=== PATIENT | female | born 1985 | race Caucasian/White ===

== ENCOUNTER 2023-01-09 20:56 | Inpatient (IN) ==
[2023-01-09 21:54] LABS: Basophils # (auto) 0.03 K/uL (0-0.2); Basophils % (auto) 0.5 %; Eosinophils # (auto) 0.07 K/uL (0-0.50); Eosinophils % (auto) 1.1 %; Hematocrit (blood only) 39.6 % (37.0-47.0); Hemoglobin 13.7 g/dl (12.0-16.0); Immature Granulocytes # (auto) 0.01 K/uL (0.01-0.20); Immature Granulocytes % (auto) 0.2 %; Lymphocytes # (auto) 2.47 K/uL (1.2-3.4); Mean Corpuscular Hemoglobin 29.7 pg (25.0-34.0); Mean Corpuscular Hgb Conc 34.6 g/dL (32.0-36.0); Mean Corpuscular Volume 85.9 fL (80.0-100.0); Mean Platelet Volume 9.4 fL (9.4-12.4); Monocytes # (auto) 0.42 K/uL (0.11-0.59); Monocytes % (auto) 6.8 %; Neutrophils # (auto) 3.17 K/uL (1.40-6.50); Neutrophils % (auto) 51.4 %; Platelet Count 389 K/uL (130-400); RDW Coefficient of Variation 12.3 % (11.5-14.5); RDW Standard Deviation 38.6 fL (36.4-46.3); Red Blood Count 4.61 M/uL (4.20-5.40); White Blood Count 6.17 K/ul (4.8-10.8)
[2023-01-09 21:59] LABS: Appearance Urine Cloudy (Clear); Bacteria Urine Automated 1+ (Negative); Bilirubin Urine Negative (Negative); Blood Urine Negative (Negative); Color Urine Dark Yellow; Epithelial Cell Urine Auto >30 /lpf (0-5); Glucose Urine UA Negative (Negative); Ketones Urine Negative (Negative); Leukocyte Esterase Urine Trace (Negative); Nitrite Urine Negative (Negative); Protein Urine Trace (Negative); RBC Urine Automated 0-4 /hpf (0-4); Specific Gravity Urine 1.024 (1.000-1.030); Urobilinogen Urine Negative (Negative); pH Urine 5.5 (4.5-7.5)
[2023-01-09 22:07] LABS: Acetaminophen < 3 ug/ml (10-30); Albumin Globulin Ratio 1.3 (0.9-2); Albumin Level 4.7 gm/dl (3.4-5.0); BUN Creatinine Ratio 17.3 (10-20); Bilirubin,Total 0.6 mg/dl (0.2-1.0); Calcium 9.8 mg/dl (8.6-10.3); Creatinine Clr Calc Pharmacy 76.3 ml/min; Est GFR (African American) 107.5 ml/min; Est GFR (Non-African American) 92.8 ml/min; Globulin 3.7 gm/dl (2.5-4.0); Potassium 3.7 mmol/L (3.5-5.1); Salicylate < 3.0 mg/dl (3.0-30); Total Protein 8.4 gm/dl (6.0-8.3)
--- NOTE | 2023-01-09 22:27 | Emergency Department Note ---
Impression & Plan Psychosis ADMIT ED Provider Note HPI: The patient is a 37-year-old female who presents emergency department with a chief complaint of hallucinations. Patient states that she is having auditory hallucinations. She states they have been worsening over the past several days. Patient states this is a result of "witchcraft". Patient states that she has been hearing voices that have been telling her negative things. She states she is not having any suicidal thoughts. Patient denies any drug use or alcohol use over the past several days. Her fianc at the bedside stated outside the room of the patient has become increasingly paranoid that the people performing "witchcraft" are coming to get her and she has been sleeping with a knife at night as she has become increasingly paranoid. On arrival here to the ED the patient is calm and cooperative, she is alert, she is in no acute physical distress on my initial assessment ROS: - Per HPI *Outpatient medications and allergy history reviewed. *Pertinent external medical records reviewed. PE: General: Alert HEENT: Normocephalic, trachea midline Eyes: Extraocular eye movement is intact, no scleral erythema Pulmonary: Clear to auscultation bilaterally, no wheezing Cardio: Regular rate and rhythm GI: Abdomen is soft to palpation : No suprapubic tenderness MSK: No evidence of trauma or malformation of the extremities, no edema Skin: No evidence of rash Neuro: Alert, no focal deficits Psychiatric: Cooperative Differential Diagnosis: Delusional disorder, acute psychosis with paranoia, d rug-induced psychosis, schizophrenia, schizoaffective disorder, amongst other potential pathologies. Medical Decision Making: Patient is a 37-year-old female with history of methamphetamine abuse, presented to the emergency department with hallucinations. Patient was medically cleared here in the ED for case management assessment, of note her lab work was largely unremarkable however urine drug screen was positive for amphetamine/meth. Patient's fianc at the bedside stated that she has been increasingly paranoid recently, she has been sleeping with a knife, they are requesting inpatient admission, at this time patient is voluntary. She was assessed by case management and ultimately determined appropriate for inpatient admission. Patient was assessed at this time by [facility] and ultimately excepted for inpatient psychiatric care. Patient was transferred voluntarily to [facility] for further management. Consultants: Case management Disposition discussion held by myself with: Patient and fianc at the bedside Diagnosis: 1. Acute psychosis 2. Auditory hallucination 3. Methamphetamine abuse Disposition: Admission to psychiatry Seamus Herman DO Emergency Medicine Past Med/Surg History Medical History Anxiety Depression No pertinent family history Surgical History No pertinent past surgical history Social History Smoking Status: Current every day smoker Tobacco Type: Cigarettes Preferred Language: Tanzanian Feels Safe at Home: Yes Gender Identity: Female Allergies Allergies Allergy/AdvReac Type Severity Reaction Status Date / Time Corticosteroids AdvReac Mild VOMITING Verified 01/09/23 22:14 (Glucocorticoids) Home Meds Home Medications Medication Instructions Recorded Confirmed MULTIPLE VITAMIN (ONCE DAILY) 1 tab PO QAM ##0 09/26/14 01/09/23 buprenorphine HCl 8 mg sublingual 8 mg sublingual 2XD 01/07/23 01/09/23 tablet Results & Data (ED) Vital Signs Vital Signs - 24 hr 01/09/23 20:57 01/09/23 23:04 Temperature 36.7 C Temperature Source Temporal Artery Scan Pulse Rate 105 H Pulse Rate [Finger] 78 Respiratory Rate 17 20 Respiratory Effort / Characteristics Non-Labored Spontaneous Non-Labored Spontaneous Respiratory Depth Normal Normal Blood Pressure 144/92 H Blood Pressure [Right Arm] 131/81 Blood Pressure Mean 109 Blood Pressure Mean [Right Arm] 97 Blood Pressure Position Sitting Pulse Oximetry 99 99 Oxygen Delivery Method Room Air Room Air Sepsis Recent Fever Within 48 Hours No Sepsis New/Unexplained Change in Mental Status No Sepsis Action Taken by Nursing No Action Required Laboratory Data 01/09/23 21:23 01/09/23 21:23 Lab Results 01/09/23 01/09/23 01/09/23 Range/Units 21:23 21:23 21: WBC 6.17 (4.8-10.8) K/ul RBC 4.61 (4.20-5.40) M/uL Hgb 13.7 (12.0-16.0) g/dl Hct 39.6 (37.0-47.0) % MCV 85.9 (80.0-100.0) fL MCH 29.7 (25.0-34.0) pg MCHC 34.6 (32.0-36.0) g/dL RDW Std Deviation 38.6 (36.4-46.3) fL RDW Coeff of Ajnet 12.3 (11.5-14.5) % Plt Count 389 (130-400) K/uL MPV 9.4 (9.4-12.4) fL Immature Gran % (Auto) 0.2 % Neut % (Auto) 51.4 % Lymph % (Auto) 40.0 % Kent % (Auto) 6.8 % Eos % (Auto) 1.1 % Baso % (Auto) 0.5 % Neut # (Auto) 3.17 (1.40-6.50) K/uL Lymph # (Auto) 2.47 (1.2-3.4) K/uL Kent # (Auto) 0.42 (0.11-0.59) K/uL Eos # (Auto) 0.07 (0-0.50) K/uL Baso # (Auto) 0.03 (0-0.2) K/uL Immature Gran # (Auto) 0.01 (0.01-0.20) K/uL Sodium 138 (136-145) mmol/L Potassium 3.7 (3.5-5.1) mmol/L Chloride 104 (98-107) mmol/L Carbon Dioxide 27 (21-32) mmol/L Anion Gap 7 (3-11) BUN 14 (6-23) mg/dl Creatinine 0.81 (0.6-1.2) mg/dl Est Cr Clr Drug Dosing 76.3 ml/min Est GFR ( Amer) 107.5 ml/min Est GFR (Non-Af Amer) 92.8 ml/min BUN/Creatinine Ratio 17.3 (10-20) Glucose 96 (70-99(Fasting)) mg/dl Calcium 9.8 (8.6-10.3) mg/dl Total Bilirubin 0.6 (0.2-1.0) mg/dl AST 15 (13-39) U/L ALT 10 (7-52) U/L Alkaline Phosphatase 58 (34-104) U/L Total Protein 8.4 H (6.0-8.3) gm/dl Albumin 4.7 (3.4-5.0) gm/dl Globulin 3.7 (2.5-4.0) gm/dl Albumin/Globulin Ratio 1.3 (0.9-2) TSH 3.889 (0.300-4.500) uIu/ml Urine Color Urine Appearance (Clear) Urine pH (4.5-7.5) Ur Specific Rice (1.000-1.030) Urine Protein (Negative) Urine Glucose (UA) (Negative) Urine Ketones (Negative) Urine Blood (Negative) Urine Nitrite (Negative) Urine Bilirubin (Negative) Urine Urobilinogen (Negative) Ur Leukocyte Esterase (Negative) Urine WBC (Auto) (0-5) /hpf Urine RBC (Auto) (0-4) /hpf U Hyaline Cast (Auto) (0-5) /lpf U Epithel Cells (Auto) (0-5) /lpf Urine Bacteria (Auto) (Negative) Salicylates (3.0-30) mg/dl Urine Opiates Screen (Neg) Ur Methadone, Qual (Neg) Acetaminophen (10-30) ug/ml Urine Barbiturates (Neg) Ur Phencyclidine (PCP) (Neg) U Amphetamin/Meth Scrn (Neg) MDMA (Ecstasy) Screen (Neg) U Benzodiazepines Scrn (Neg) Ur Cocaine Metabolite (Neg) U Marijuana (THC) Screen (Neg) Ethyl Alcohol mg/dL (<10.0) mg/dl SARS-CoV-2, RNA, NAAT (NEGATIVE) 01/09/23 01/09/23 01/09/23 Range/Units 21:23 21:23 21:31 WBC (4.8-10.8) K/ul RBC (4.20-5.40) M/uL Hgb (12.0-16.0) g/dl Hct (37.0-47.0) % MCV (80.0-100.0) fL MCH (25.0-34.0) pg MCHC (32.0-36.0) g/dL RDW Std Deviation (36.4-46.3) fL RDW Coeff of Janet (11.5-14.5) % Plt Count (130-400) K/uL MPV (9.4-12.4) fL Immature Gran % (Auto) % Neut % (Auto) % Lymph % (Auto) % Kent % (Auto) % Eos % (Auto) % Baso % (Auto) % Neut # (Auto) (1.40-6.50) K/uL Lymph # (Auto) (1.2-3.4) K/uL Kent # (Auto) (0.11-0.59) K/uL Eos # (Auto) (0-0.50) K/uL Baso # (Auto) (0-0.2) K/uL Immature Gran # (Auto) (0.01-0.20) K/uL Sodium (136-145) mmol/L Potassium (3.5-5.1) mmol/L Chloride (98-107) mmol/L Carbon Dioxide (21-32) mmol/L Anion Gap (3-11) BUN (6-23) mg/dl Creatinine (0.6-1.2) mg/dl Est Cr Clr Drug Dosing ml/min Est GFR ( Amer) ml/min Est GFR (Non-Af Amer) ml/min BUN/Creatinine Ratio (10-20) Glucose (70-99(Fasting)) mg/dl Calcium (8.6-10.3) mg/dl Total Bilirubin (0.2-1.0) mg/dl AST (13-39) U/L ALT (7-52) U/L Alkaline Phosphatase (34-104) U/L Total Protein (6.0-8.3) gm/dl Albumin (3.4-5.0) gm/dl Globulin (2.5-4.0) gm/dl Albumin/Globulin Ratio (0.9-2) TSH (0.300-4.500) uIu/ml Urine Color Dark Yellow Urine Appearance Cloudy A (Clear) Urine pH 5.5 (4.5-7.5) Ur Specific Rice 1.024 (1.000-1.030) Urine Protein Trace H (Negative) Urine Glucose (UA) Negative (Negative) Urine Ketones Negative (Negative) Urine Blood Negative (Negative) Urine Nitrite Negative (Negative) Urine Bilirubin Negative (Negative) Urine Urobilinogen Negative (Negative) Ur Leukocyte Esterase Trace H (Negative) Urine WBC (Auto) 5-10 H (0-5) /hpf Urine RBC (Auto) 0-4 (0-4) /hpf U Hyaline Cast (Auto) 10-30 H (0-5) /lpf U Epithel Cells (Auto) >30 H (0-5) /lpf Urine Bacteria (Auto) 1+ H (Negative) Salicylates < 3.0 L (3.0-30) mg/dl Urine Opiates Screen (Neg) Ur Methadone, Qual (Neg) Acetaminophen < 3 L (10-30) ug/ml Urine Barbiturates (Neg) Ur Phencyclidine (PCP) (Neg) U Amphetamin/Meth Scrn (Neg) MDMA (Ecstasy) Screen (Neg) U Benzodiazepines Scrn (Neg) Ur Cocaine Metabolite (Neg) U Marijuana (THC) Screen (Neg) Ethyl Alcohol mg/dL < 10.0 (<10.0) mg/dl SARS-CoV-2, RNA, NAAT (NEGATIVE) 01/09/23 01/09/23 Range/Units 21:31 21:31 WBC (4.8-10.8) K/ul RBC (4.20-5.40) M/uL Hgb (12.0-16.0) g/dl Hct (37.0-47.0) % MCV (80.0-100.0) fL MCH (25.0-34.0) pg MCHC (32.0-36.0) g/dL RDW Std Deviation (36.4-46.3) fL RDW Coeff of Janet (11.5-14.5) % Plt Count (130-400) K/uL MPV (9.4-12.4) fL Immature Gran % (Auto) % Neut % (Auto) % Lymph % (Auto) % Kent % (Auto) % Eos % (Auto) % Baso % (Auto) % Neut # (Auto) (1.40-6.50) K/uL Lymph # (Auto) (1.2-3.4) K/uL Kent # (Auto) (0.11-0.59) K/uL Eos # (Auto) (0-0.50) K/uL Baso # (Auto) (0-0.2) K/uL Immature Gran # (Auto) (0.01-0.20) K/uL Sodium (136-145) mmol/L Potassium (3.5-5.1) mmol/L Chloride (98-107) mmol/L Carbon Dioxide (21-32) mmol/L Anion Gap (3-11) BUN (6-23) mg/dl Creatinine (0.6-1.2) mg/dl Est Cr Clr Drug Dosing ml/min Est GFR ( Amer) ml/min Est GFR (Non-Af Amer) ml/min BUN/Creatinine Ratio (10-20) Glucose (70-99(Fasting)) mg/dl Calcium (8.6-10.3) mg/dl Total Bilirubin (0.2-1.0) mg/dl AST (13-39) U/L ALT (7-52) U/L Alkaline Phosphatase (34-104) U/L Total Protein (6.0-8.3) gm/dl Albumin (3.4-5.0) gm/dl Globulin (2.5-4.0) gm/dl Albumin/Globulin Ratio (0.9-2) TSH (0.300-4.500) uIu/ml Urine Color Urine Appearance (Clear) Urine pH (4.5-7.5) Ur Specific Rice (1.000-1.030) Urine Protein (Negative) Urine Glucose (UA) (Negative) Urine Ketones (Negative) Urine Blood (Negative) Urine Nitrite (Negative) Urine Bilirubin (Negative) Urine Urobilinogen (Negative) Ur Leukocyte Esterase (Negative) Urine WBC (Auto) (0-5) /hpf Urine RBC (Auto) (0-4) /hpf U Hyaline Cast (Auto) (0-5) /lpf U Epithel Cells (Auto) (0-5) /lpf Urine Bacteria (Auto) (Negative) Salicylates (3.0-30) mg/dl Urine Opiates Screen Neg (Neg) Ur Methadone, Qual Neg (Neg) Acetaminophen (10-30) ug/ml Urine Barbiturates Neg (Neg) Ur Phencyclidine (PCP) Neg (Neg) U Amphetamin/Meth Scrn Pos H (Neg) MDMA (Ecstasy) Screen Neg (Neg) U Benzodiazepines Scrn Neg (Neg) Ur Cocaine Metabolite Neg (Neg) U Marijuana (THC) Screen Neg (Neg) Ethyl Alcohol mg/dL (<10.0) mg/dl SARS-CoV-2, RNA, NAAT NEGATIVE (NEGATIVE) Discharge Plan Visit Data Chief Complaint: Mental Health Evaluation Stated Complaint: MENTAL HEALTH EVAL ED Provider: Seamus Herman Discharge Problem: Psychosis Patient Disposition: Admitted As Inpatient Discharge Instructions Interventions: ED Discharge Assessment Last Done: 01/10/23 00:08
[2023-01-09 22:36] LABS: Amphetamines+Metham, Urine Pos (Neg); Barbiturates, Urine Neg (Neg); Benzodiazepine, Urine Neg (Neg); Cocaine, Urine Neg (Neg); MDMA (Ecstacy), Urine Neg (Neg); Methadone, Urine Neg (Neg); Opiate, Urine Neg (Neg); Phencyclidine, Urine Neg (Neg)
[2023-01-10] MEDS ORDERED: BISMUTH SUBSALICYLATE LIQD 236 ML PO PRN (00:03)
[2023-01-10] MEDS ORDERED: MAGNESIUM HYDROXIDE SUSP 30 ML UDC PO PRN (00:03)
[2023-01-10] MEDS ORDERED: hydrOXYzine HCl 25 MG TAB PO PRN ×2 (00:03)
[2023-01-10] MEDS ORDERED: ACETAMINOPHEN 325 MG TAB PO PRN (00:03)
[2023-01-10] MEDS ORDERED: ALUMINUM/MAGNESIUM SUSP 30 ML UDC PO PRN (00:03)
[2023-01-10] MEDS ORDERED: SODIUM CHLORIDE 0.65% NA SOLN 45 ML (OCEAN) PRN (00:03)
[2023-01-10] MEDS ORDERED: OLANZapine 5 MG TABLET PO PRN (00:48)
--- NOTE | 2023-01-10 08:33 | History & Physical ---
Date of Service January 10, 2023 Impression / Recommendations Manoj Chandra is a 37 year old woman with no formal psychiatric history, history of chronic pain and recent Adderall recreational use admitted for psychosis with paranoia and delusions resulting in worsening sleep, appetite, difficulty functioning and loss of her job of 5 years. Diagnostically consistent with unspecified psychosis with broad differential including primary psychotic disorder versus substance-induced or withdrawal (UDS positive for meth/amp but confirmatory pending) versus MDD with psychotic features vs secondary medical condition (but no lab abnormalities and medically cleared in ED), no current evidence for episode of blayne. She requires psychiatric hospitalization for diagnostic clarification, safety and stabilization, medication management and development of further coping skills. 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 Discussed risks, benefits and alternatives. Patient would like to start and consented to olanzapine for psychosis. Reviewed side effects including but not limited to: movement (TD, NMS), cardiac (QTc prolongation), and metabolic (stroke, insulin resistance) and necessity for fasting lipid and glucose labwork and AIMS done with score of 0. (1) Psychotic disorder with delusions: (2) Anxiety: (3) Back pain: Plan 01/10/2023: The patient was admitted to the [facility]) on q15 min checks (behavioral with suicide precautions) for safety. The patient will participate in group, recreational, and milieu therapies and will be offered additional individual and family sessions as clinically appropriate. * Start olanzapine 5mg po HS * Fasting lipid panel, glucose, B12, folate, Vit D labs tomorrow AM Inventory Assets Strengths: supportive relationships, willing to get treatment Needs: safety and stabilization, medication adjustment, additional coping skills, increased outpatient services Suicide Risk Level Suicide Risk Level: Moderate (q15 min suicide checks) (psychosis and paranoia but denies SI and feels safe in the hospital, able to safety contract and agrees to let nursing/staff know should they develop plan, intent or feel unable to re main safe. ) Risk Factors Assessment Male: No : Yes Do You Have Access To A Gun?: No Health Problems: No Mental Health Diagnoses: Yes Previous Attempt: No Family History of Suicide: No (sister attempted but did not complete) Previous Psychiatric Hospitalization: Yes Hopelessness: No Protective Factors Assessment Employed: No (quit/fired from job) Stable Relationships: Yes Supportive Family: Yes Good Rapport with Provider: Yes Psychiatric History Identifying Data CORAZON BHAKTA is a 37-year-old woman who currently lives with her fitime their combined five children in [place], has a history of depression, and was admitted on 01/10/23 00:04 on a 201 voluntary commitment for psychosis with auditory hallucinations and inability to function safely at home. Chief Complaint "Stuff got spiritually very weird". History of Present Illness Corazon presented to the emergency department for the second time in two days for about three weeks of worsening anxiety, psychosis and paranoia. She has been expressing concerns about witchcraft, fears about a cult coming to harm her fiancee, has started sleeping with a knife under her pillow due to concerns for her safety (she denies this, reports sleeping with bibles and taisha quartz), has been hearing auditory hallucinations and recently quit her job and has not been eating (stomach pain) nor sleeping well (not good due to her anxiety and worrying about her kids). She states that after a move things at the house "got weird" and she also developed "amazing hearing" including being able to hear her boss even when he was in a different building. States this "weird-ed out my boss" so she lost her job of 5 years about two weeks ago. She notes "something is weird and off but it's not me". Reports she took Adderall, non-prescribed, for a few months off-and-on due to difficulty focusing and reports Dr. Ang her pain management provider is working to help her find an outpatient psychiatric provider. She feels the Subutex has been causing memory loss and also makes things more difficult. Further recent history reviewed as documented by ED psych CM on 01/09/2023: "Completed psychiatric evaluation with Corazon. She states that while she did take the Adderall, "I know myself and I know how I'm feeling is not normal. I feel like I'm being attacked in my own home." Corazon is hearing voices, though she is adamant that these voices she is hearing are actually real people following her around. They call her names like "stupid bitch" and "whore" and tells her that they are going to kill her. Corazon states that she has been doing rituals/prayers to keep these voices away. She states the spirits do not like her. She believes this is a cult following her around, "some kind of witchcraft". She states that she lost her job last week when she somehow got the ability to hear her boss's voice and was on camera acting erratically. Corazon states that she does not feel safe at home and feels that she is going to be harmed. She is fearful for being deemed crazy. Her fianc, Simón, provides additi onal information that Corazon is not eating or sleeping. She has become so paranoid that she sleeps with a knife. Simón is concerned for her safety if she does not receive psychiatric treatment." She is not currently prescribed any psychiatric medications. She takes Subutex for pain and recently was also prescribed Soma for pain but hasn't taken this and has prescribed gabapentin for pain but doesn't take this. Psychiatric ROS notable for no current nor history of symptoms of blayne, PTSD, OCD, eating disorder nor self-harm. Past Psychiatric History Current Psychiatric Diagnosis: unspecified psychosis Outpatient Services: none Previous Psych Admissions: [facility] "years ago" for depression Do You Have Access To A Gun?: No History of Previous Suicide Attempt: No Past Medication Trials: she cannot recall, doesn't think she ever took medication for depression Past Head Trauma/Neuro History History of Concussion/Seizure: No Allergies Allergy/AdvReac Type Severity Reaction Status Date / Time buprenorphine [From Suboxone] AdvReac Intermediate Hives Verified 01/10/23 14:48 naloxone [From Suboxone] AdvReac Intermediate Hives Verified 01/10/23 14:48 Corticosteroids AdvReac Mild VOMITING Verified 01/10/23 14:48 (Glucocorticoids) Home Medications Medication Instructions Recorded Confirmed Type MULTIPLE VITAMIN (ONCE DAILY) 1 tab PO QAM ##0 09/26/14 01/09/23 History buprenorphine HCl 8 mg sublingual 8 mg sublingual 2XD 01/07/23 01/09/23 History tablet Family History Family History of: Depression (sister) and Suicide Attempts (sister) Alcohol History Hx of Alcohol Use Over the Past 12 Months: No AUDIT Total Score: 0 Smoking Use Have You Smoked or Used Tobacco Products in the Last 30 Days: Yes tobacco type: cigarettes Smoking Status: Current every day smoker Smoking packs per day: 0.25 Substance History Hx of Prescription Med Misuse Over the Past 12 Months: Yes (claims she took Adderrall purchased off street) Hx of Over the Counter Med Misuse Over the Past 12 Months: No Hx of Inhalent Misuse Over the Past 12 Months: No Hx of Organic Substance Use Over the Past 12 Months: No Hx of Illegal Substances/Street Drug Use Over Past 12 Months: No (denies) Problems as a Result of Past Substance Use: None Identified Personal History Living Arrangements: Home Childhood: Her parents are alive but . Has 3 siblings. Highest Grade Completed: Did Not Graduate High School (completed 11th grade) Employment Status: Unemployed Marital Status: Living w/ Signif. Other (engaged to [facility]) Number Of Children: 3 biological kids, 2 children shared with her fitim Beliefs That Will Affect Care: None Current Legal Problems: No Hx Legal Problems: No Hx Traumatic Life Events: No Patient History Medical History Anxiety Depression No pertinent family history Surgical History No pertinent past surgical history Social History Smoking Status: Current every day smoker Tobacco Type: Cigarettes Preferred Language: Persian Communication Ability: Effective Hand Inserter Operator Required: No Beliefs That Will Affect Care: None Feels Safe at Home: Yes Gender Identity: Female Assistive Devices: None Review of Systems Review of Systems: All systems reviewed & are unremarkable except as noted in HPI & below (last two weeks has felt like chest and stomach are "getting compressed" like camp moving in, no jaw or arm pain, no SOB, no palpitations) Physical Exam Psychiatric: Orientation: alert and oriented x 3 Apperance: appropriately dressed and appropriately groomed Eye Contact: good eye contact Motor Behavior: no abnormal motor movements Speech: normal rate/rhythm/volume of speech Affect: + anxious affect and + constricted affect Mood: + anxious mood Thought Process: + circumstantial thought process Thought Content: + paranoid, + delusions and + persecution Suicidal Thoughts: denies suicidal thoughts, denies suicidal plan and denies suicidal intent Homicidal Thoughts: denies homicidal thoughts Hallucinations: + auditory hallucinations (sporadic, voice will say mean things "I'm going to kill you", "stupid bitch); no visual hallucinations Cognition: recent memory grossly intact, remote memory grossly intact, attention grossly intact and language grossly intact Estimated Intelligence: consistent with education level Insight: + limited insight Judgment: + fair judgement Vital Signs (Past 24 Hours): Last Vital Signs Temp 36.9 C 01/10/23 06:35 Pulse 68 01/10/23 06:35 Resp 16 01/10/23 06:35 BP 106/68 01/10/23 06:35 Pulse Ox 100 01/10/23 00:50 O2 Del Method Room Air 01/10/23 00:50 Exam Statement: A physical exam was performed in the ED by Dr. Herman for the purposes of medical clearance. I accept that physical as correct and adequate for the purposes of the inpatient physical exam. Results & Data ([facility]) Laboratory Results Laboratory Results - last 24 hr 01/09/23 01/09/23 01/09/23 21:23 21:23 21:23 WBC 6.17 RBC 4.61 Hgb 13.7 Hct 39.6 MCV 85.9 MCH 29.7 MCHC 34.6 RDW Std Deviation 38.6 RDW Coeff of Janet 12.3 Plt Count 389 MPV 9.4 Immature Gran % (Auto) 0.2 Neut % (Auto) 51.4 Lymph % (Auto) 40.0 [place]eton % (Auto) 6.8 Eos % (Auto) 1.1 Baso % (Auto) 0.5 Neut # (Auto) 3.17 Lymph # (Auto) 2.47 [place]eton # (Auto) 0.42 Eos # (Auto) 0.07 Baso # (Auto) 0.03 Immature Gran # (Auto) 0.01 Sodium 138 Potassium 3.7 Chloride 104 Carbon Dioxide 27 Anion Gap 7 BUN 14 Creatinine 0.81 Est Cr Clr Drug Dosing 76.3 Est GFR ( Amer) 107.5 Est GFR (Non-Af Amer) 92.8 BUN/Creatinine Ratio 17.3 Glucose 96 Calcium 9.8 Total Bilirubin 0.6 AST 15 ALT 10 Alkaline Phosphatase 58 Total Protein 8.4 H Albumin 4.7 Globulin 3.7 Albumin/Globulin Ratio 1.3 TSH 3.889 Urine Color Urine Appearance Urine pH Ur Specific [place] Urine Protein Urine Glucose (UA) Urine Ketones Urine Blood Urine Nitrite Urine Bilirubin Urine Urobilinogen Ur Leukocyte Esterase Urine WBC (Auto) Urine RBC (Auto) U Hyaline Cast (Auto) U Epithel Cells (Auto) Urine Bacteria (Auto) Salicylates Urine Opiates Screen Ur Methadone, Qual Acetaminophen Urine Barbiturates Ur Phencyclidine (PCP) U Amphetamines Confirm U Amphetamin/Meth Scrn U Methamphetamin Confrm MDMA (Ecstasy) Screen U Benzodiazepines Scrn Ur Cocaine Metabolite U Marijuana (THC) Screen Drug Screen Comment Ethyl Alcohol mg/dL SARS-CoV-2, RNA, NAAT 01/09/23 01/09/23 01/09/23 21:23 21:23 21:31 WBC RBC Hgb Hct MCV MCH MCHC RDW Std Deviation RDW Coeff of Janet Plt Count MPV Immature Gran % (Auto) Neut % (Auto) Lymph % (Auto) Teton % (Auto) Eos % (Auto) Baso % (Auto) Neut # (Auto) Lymph # (Auto) [place] # (Auto) Eos # (Auto) Baso # (Auto) Immature Gran # (Auto) Sodium Potassium Chloride Carbon Dioxide Anion Gap BUN Creatinine Est Cr Clr Drug Dosing Est GFR ( Amer) Est GFR (Non-Af Amer) BUN/Creatinine Ratio Glucose Calcium Total Bilirubin AST ALT Alkaline Phosphatase Total Protein Albumin Globulin Albumin/Globulin Ratio TSH Urine Color Dark Yellow Urine Appearance Cloudy A Urine pH 5.5 Ur Specific [place] 1.024 Urine Protein Trace H Urine Glucose (UA) Negative Urine Ketones Negative Urine Blood Negative Urine Nitrite Negative Urine Bilirubin Negative Urine Urobilinogen Negative Ur Leukocyte Esterase Trace H Urine WBC (Auto) 5-10 H Urine RBC (Auto) 0-4 U Hyaline Cast (Auto) 10-30 H U Epithel Cells (Auto) >30 H Urine Bacteria (Auto) 1+ H Salicylates < 3.0 L Urine Opiates Screen Ur Methadone, Qual Acetaminophen < 3 L Urine Barbiturates Ur Phencyclidine (PCP) U Amphetamines Confirm U Amphetamin/Meth Scrn U Methamphetamin Confrm MDMA (Ecstasy) Screen U Benzodiazepines Scrn Ur Cocaine Metabolite U Marijuana (THC) Screen Drug Screen Comment Ethyl Alcohol mg/dL < 10.0 SARS-CoV-2, RNA, NAAT 01/09/23 01/09/23 01/09/23 21:31 21:31 21:31 WBC RBC Hgb Hct MCV MCH MCHC RDW Std Deviation RDW Coeff of Janet Plt Count MPV Immature Gran % (Auto) Neut % (Auto) Lymph % (Auto) Teton % (Auto) Eos % (Auto) Baso % (Auto) Neut # (Auto) Lymph # (Auto) [place] # (Auto) Eos # (Auto) Baso # (Auto) Immature Gran # (Auto) Sodium Potassium Chloride Carbon Dioxide Anion Gap BUN Creatinine Est Cr Clr Drug Dosing Est GFR ( Amer) Est GFR (Non-Af Amer) BUN/Creatinine Ratio Glucose Calcium Total Bilirubin AST ALT Alkaline Phosphatase Total Protein Albumin Globulin Albumin/Globulin Ratio TSH Urine Color Urine Appearance Urine pH Ur Specific [place] Urine Protein Urine Glucose (UA) Urine Ketones Urine Blood Urine Nitrite Urine Bilirubin Urine Urobilinogen Ur Leukocyte Esterase Urine WBC (Auto) Urine RBC (Auto) U Hyaline Cast (Auto) U Epithel Cells (Auto) Urine Bacteria (Auto) Salicylates Urine Opiates Screen Neg Ur Methadone, Qual Neg Acetaminophen Urine Barbiturates Neg Ur Phencyclidine (PCP) Neg U Amphetamines Confirm Pending U Amphetamin/Meth Scrn Pos H U Methamphetamin Confrm Pending MDMA (Ecstasy) Screen Neg U Benzodiazepines Scrn Neg Ur Cocaine Metabolite Neg U Marijuana (THC) Screen Neg Drug Screen Comment Pending Ethyl Alcohol mg/dL SARS-CoV-2, RNA, NAAT NEGATIVE Current Inpatient Medications Current Inpatient Medications: Current Inpatient Medications Acetaminophen (Acetaminophen 325 Mg Tab) 650 mg PO Q4H PRN PRN Reason: Headache or Minor Fever Stop: 02/09/23 00:02 Al Hydrox/Mg Hydrox/Simethicone (Aluminum/Magnesium Susp 30 Ml Udc) 30 ml PO Q4H PRN PRN Reason: GI Upset Stop: 02/09/23 00:02 Bismuth Subsalicylate (Bismuth Subsalicylate Liqd 236 Ml) 15 ml PO PRN PRN PRN Reason: Loose Stool Stop: 02/09/23 00:02 Hydroxyzine HCl (Hydroxyzine Hcl 25 Mg Tab) 50 mg PO HSZ PRN PRN Reason: Insomnia Stop: 02/09/23 00:02 Hydroxyzine HCl (Hydroxyzine Hcl 25 Mg Tab) 25 mg PO Q4H PRN PRN Reason: Anxiety Stop: 02/09/23 00:02 Magnesium Hydroxide (Magnesium Hydroxide Susp 30 Ml Udc) 30 ml PO DAILY PRN PRN Reason: Constipation Stop: 02/09/23 00:02 Olanzapine (Olanzapine 5 Mg Tablet) 5 mg PO BID PRN PRN Reason: agitation/psychosis Stop: 02/09/23 08:59 Sodium Chloride (Sodium Chloride 0.65% Na Soln 45 Ml ([place])) 1 - 2 sprays NA PRN PRN PRN Reason: Nasal Dryness/Congestion Stop: 02/09/23 00:02
[2023-01-10] MEDS: buprenorphine HCL 8 MG SUBL SL SCH ×2 (10:27→21:03)
[2023-01-10] MEDS: NICOTINE POLACRILEX 2 MG GUM MT PRN (17:48)
--- NOTE | 2023-01-10 20:27 | Electrocardiogram Report ---
Test Reason : Blood Pressure : / mmHG Vent. Rate : 056 BPM Atrial Rate : 056 BPM P-R Int : 134 ms QRS Dur : 090 ms QT Int : 404 ms P-R-T Axes : 065 093 049 degrees QTc Int : 389 ms Sinus bradycardia Rightward axis Borderline ECG When compared with ECG of 01-OCT-2013 16:27, No significant change was found Confirmed by Catracho Winston ([id number]) on 01/10/2023 8:26:59 PM Referred By: REFERRED SELF Confirmed By:Maximiliano Winston
[2023-01-10] MEDS: OLANZapine 5 MG TABLET PO SCH (21:09)
[2023-01-11] MEDS: buprenorphine HCL 8 MG SUBL SL SCH ×2 (09:02→21:17)
[2023-01-11] MEDS ORDERED: LORazepam 1 MG TAB PO PRN (16:55)
[2023-01-11] MEDS ORDERED: LORazepam 1 MG TAB ONE (16:57)
--- NOTE | 2023-01-11 17:51 | Psychiatric Progress Note ---
Date of Service January 11, 2023 Impression / Recommendations Manoj Chandra is a 37 year old woman with no formal psychiatric history, history of chronic pain and recent Adderall recreational use admitted for psychosis with paranoia and delusions resulting in worsening sleep, appetite, difficulty functioning and loss of her job of 5 years. Diagnostically consistent with unspecified psychosis with broad differential including primary psychotic disorder versus substance-induced or withdrawal (UDS positive for meth/amp but confirmatory pending) versus MDD with psychotic features vs secondary medical condition (but no lab abnormalities and medically cleared in ED), no current evidence for episode of blayne. She requires psychiatric hospitalization for diagnostic clarification, safety and stabilization, medication management and development of further coping skills. MNPR due to psychosis with paranoia 01/11/2023: Ongoing intermittent paranoia, suspected somatic delusions, and refused zyprexa last evening. Isolative most of the day but reporting improvement in mood. Episodes of psychosis seem to come on abruptly and quite dramatically. Continue to encourage medication use, remains diagnostically unclear. (1) Psychotic disorder with delusions: (2) Anxiety: (3) Back pain: Plan 01/11/2023: Continue current medication and tx plan. Labwork to be repeated in the morning as was not able to be collected before she had breakfast today. 01/10/2023: The patient was admitted to the [facility] ([facility] mental health unit) on q15 min checks (behavioral with suicide precautions) for safety. The patient will participate in group, recreational, and milieu therapies and will be offered additional individual and family sessions as clinically appropriate. * Start olanzapine 5mg po HS * Fasting lipid panel, glucose, B12, folate, Vit D labs tomorrow AM Inventory Assets Strengths: supportive relationships, willing to get treatment Needs: safety and stabilization, medication adjustment, additional coping skills, increased outpatient services Suicide Risk Level Suicide Risk Level: Moderate (q15 min suicide checks) (psychosis and paranoia but denies SI and feels safe in the hospital, able to safety contract and agrees to let nursing/staff know should they develop plan, intent or feel unable to remain safe. ) Risk Factors Assessment Male: No : Yes Do You Have Access To A Gun?: No Health Problems: No Mental Health Diagnoses: Yes Previous Attempt: No Family History of Suicide: No (sister attempted but did not complete) Previous Psychiatric Hospitalization: Yes Hopelessness: No Protective Factors Assessment Employed: No (quit/fired from job) Stable Relationships: Yes Supportive Family: Yes Good Rapport with Provider: Yes Interval History Identifying Information KHOI BHAKTA is a 37-year-old woman who currently lives with her fiancee their combined five children in [place], has a history of depression, and was admitted on 01/10/23 00:04 on a 201 voluntary commitment for psychosis with auditory hallucinations and inability to function safely at home. Chief Complaint "I'm doing great, I don't need medication". Review of Systems Sleep Information Total Hours of Sleep: 6 Sleep Comments: Meal Information Percent Meal Consumed - Breakfast: 75 Percent Meal Consumed - Lunch: 100 Percent Meal Consumed - Dinner: 100 Subjective Subjective Patient was seen & assessed and interval progress reviewed with treatment team nursing and social work. Last night ruminating on new right breast pain and feeling that she needed a mammogram and felt she had cancer. Today tells me her mood is "good" and that she feels better and just "needed some time to decompress". Reports concern for needing a mammogram, reviewed that she has no personal nor family breast cancer history. Reviewed that breast ultrasounds aren't done in the hospital and require outpatient follow-up via breast imaging center, she feels comfortable waiting until after discharge and reviewing options with her PCP. She refused her zyprexa last night stating she feels she doesn't need medication. She has not been attending any groups. Later in the afternoon became very upset reporting concerns someone was going to kill her and carrying around a bible stating she needs to have an exorcism. Physical Exam Psychiatric Orientation: alert and oriented x 3 Apperance: appropriately dressed and appropriately groomed Eye Contact: good eye contact Motor Behavior: no abnormal motor movements Speech: normal rate/rhythm/volume of speech Affect: + anxious affect and + constricted affect Mood: + anxious mood Thought Process: + circumstantial thought process Thought Content: + paranoid, + delusions and + persecution Suicidal Thoughts: denies suicidal thoughts, denies suicidal plan and denies suicidal intent Homicidal Thoughts: denies homicidal thoughts Hallucinations: + auditory hallucinations (sporadic, voice will say mean things "I'm going to kill you","stupid bitch"); no visual hallucinations Cognition: recent memory grossly intact, remote memory grossly intact, attention grossly intact and language grossly intact Estimated Intelligence: consistent with education level Insight: + limited insight Judgment: + limited judgement Vital Signs (Past 24 Hours) Last Vital Signs Temp 36.6 C 01/11/23 06:00 Pulse 69 01/11/23 06:31 Resp 14 01/11/23 06:00 BP 103/71 01/11/23 06:31 Pulse Ox 100 01/10/23 00:50 O2 Del Method Room Air 01/10/23 00:50 Results & Data ([facility]) Current Inpatient Medications Current Inpatient Medications: Current Inpatient Medications Acetaminophen (Acetaminophen 325 Mg Tab) 650 mg PO Q4H PRN PRN Reason: Headache or Minor Fever Stop: 02/09/23 00:02 Al Hydrox/Mg Hydrox/Simethicone (Aluminum/Magnesium Susp 30 Ml Udc) 30 ml PO Q4H PRN PRN Reason: GI Upset Stop: 02/09/23 00:02 Bismuth Subsalicylate (Bismuth Subsalicylate Liqd 236 Ml) 15 ml PO PRN PRN PRN Reason: Loose Stool Stop: 02/09/23 00:02 Buprenorphine HCl (Buprenorphine Hcl 8 Mg Subl) 8 mg SL BID ROMMEL Stop: 02/09/23 08:59 Last Admin: 01/11/23 09:02 Dose: 8 mg Hydroxyzine HCl (Hydroxyzine Hcl 25 Mg Tab) 50 mg PO HSZ PRN PRN Reason: Insomnia Stop: 02/09/23 00:02 Hydroxyzine HCl (Hydroxyzine Hcl 25 Mg Tab) 25 mg PO Q4H PRN PRN Reason: Anxiety Stop: 02/09/23 00:02 Lorazepam (Lorazepam 1 Mg Tab) 1 mg PO BID PRN PRN Reason: Anxiety/Agitation Stop: 02/10/23 16:54 Magnesium Hydroxide (Magnesium Hydroxide Susp 30 Ml Udc) 30 ml PO DAILY PRN PRN Reason: Constipation Stop: 02/09/23 00:02 Nicotine Polacrilex (Nicotine Polacrilex 2 Mg Gum) 1 piece MT PRN PRN PRN Reason: nicotine cravings Stop: 02/09/23 14:36 Last Admin: 01/10/23 17:48 Dose: 1 piece Olanzapine (Olanzapine 5 Mg Tablet) 5 mg PO BID PRN PRN Reason: agitation/psychosis Stop: 02/09/23 08:59 Last Admin: 01/11/23 16:27 Dose: 5 mg Olanzapine (Olanzapine 5 Mg Tablet) 5 mg PO HS ROMMEL Stop: 02/09/23 21:59 Last Admin: 01/10/23 21:09 Dose: Not Given Sodium Chloride (Sodium Chloride 0.65% Na Soln 45 Ml ([place])) 1 - 2 sprays NA PRN PRN PRN Reason: Nasal Dryness/Congestion Stop: 02/09/23 00:02 Mental Health & Subst Abuse Tx Therapist Name of Therapist: N/A [facility] Specialist Name of [facility] Specialist: N/A
[2023-01-11] MEDS: OLANZapine 5 MG TABLET PO SCH (21:17)
[2023-01-12 09:26] LABS: Vitamin D, 25 Hydrox 56.9 ng/ml (30-100)
[2023-01-12] MEDS: buprenorphine HCL 8 MG SUBL SL SCH ×2 (09:52→20:57)
[2023-01-12 11:17] LABS: Amphetamine Urine, Confirm 9428 ng/mL (<250); Methamphetamine, Ur Confirm NEGATIVE ng/mL (<250)
[2023-01-12] MEDS ORDERED: OLANZAPINE 2.5 MG TAB PO PRN (11:43)
[2023-01-12] MEDS ORDERED: LORazepam 0.5 MG TAB PO PRN (11:43)
--- NOTE | 2023-01-12 14:18 | Psychiatric Progress Note ---
Date of Service January 12, 2023 Impression / Recommendations Impression Corazon is a 37 year old woman with no formal psychiatric history, history of chronic pain and recent Adderall recreational use admitted for psychosis with paranoia and delusions resulting in worsening sleep, appetite, difficulty functioning and loss of her job of 5 years. Diagnostically consistent with unspecified psychosis with broad differential including primary psychotic disorder versus substance-induced or withdrawal (UDS positive for meth/amp but confirmatory pending) versus MDD with psychotic features vs secondary medical condition (but no lab abnormalities and medically cleared in ED), no current evidence for episode of blayne. She requires psychiatric hospitalization for diagnostic clarification, safety and stabilization, medication management and development of further coping skills. 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 In order to encourage her adherence discussed lowering zyprexa dose at HS to reduce liklihood of any excessive sedation and she states willingness to take this. Labwork reviewed and electrolytes stable with increased po intake, normal glucose and fasting lipid panel. Normal Vit D and folate levels, low vitamin B12. She'll consider options of adding B12 supplementation. (1) Psychotic disorder with delusions: (2) Anxiety: (3) Back pain: Plan 01/12/2023: Reduced to zyprexa 2.5mg HS with additional prn doses available as well as ativan prn. Encouraging consideration for B12 supplementation. 01/11/2023: Continue current medication and tx plan. Labwork to be repeated in the morning as was not able to be collected before she had breakfast today. 01/10/2023: The patient was admitted to the [facility] on q15 min checks (behavioral with suicide precautions) for safety. The patient will participate in group, recreational, and milieu therapies and will be offered additional individual and family sessions as clinically appropriate. * Start olanzapine 5mg po HS * Fasting lipid panel, glucose, B12, folate, Vit D labs tomorrow AM Inventory Assets Strengths: supportive relationships, willing to get treatment Needs: safety and stabilization, medication adjustment, additional coping skills, increased outpatient services Suicide Risk Level Suicide Risk Level: Moderate (q15 min suicide checks) (psychosis and paranoia but denies SI and feels safe in the hospital, able to safety contract and agrees to let nursing/staff know should they develop plan, intent or feel unable to remain safe. ) Suicide Risk Level Comments: Risk Factors Assessment Male: No : Yes Do You Have Access To A Gun?: No Health Problems: No Mental Health Diagnoses: Yes Previous Attempt: No Family History of Suicide: No (sister attempted but did not complete) Previous Psychiatric Hospitalization: Yes Hopelessness: No Protective Factors Assessment Employed: No (quit/fired from job) Stable Relationships: Yes Supportive Family: Yes Good Rapport with Provider: Yes Interval History Identifying Information CORAZON BHAKTA is a 37-year-old woman who currently lives with her fiancee their combined five children in [place], has a history of depression, and was admitted on 01/10/23 00:04 on a 201 voluntary commitment for psychosis with auditory hallucinations and inability to function safely at home. Chief Complaint "I need to get home soon". Review of Systems Sleep Information Total Hours of Sleep: 7 Meal Information Percent Meal Consumed - Breakfast: 100 Percent Meal Consumed - Lunch: 90 Percent Meal Consumed - Dinner: 100 Subjective Subjective Patient was seen & assessed and interval progress reviewed with treatment team nursing and social work. Significant paranoia and delusions last night. Very sleepy this morning after olanzapine and ativan last evening. [place] tired most of the morning. By afternoon energy level improved but also increased anxiety. She reports desire to get back to her kids but also states she continues to feel overwhelmed by "cult-like activities and witchcraft" that is targeting her. She notes these influences and the voices she hears at times are "very powerful". Remains difficult to reality-test. Reviewed confirmatory UDS results showing high level of amphetamines. She continues to state she has not used any recent substances except a few doses of a friends amphetamine based ADHD medication. Physical Exam Psychiatric Orientation: alert and oriented x 3 Apperance: appropriately dressed and appropriately groomed Eye Contact: good eye contact Motor Behavior: no abnormal motor movements Speech: normal rate/rhythm/volume of speech Affect: + anxious affect and + constricted affect Mood: + anxious mood Thought Process: + circumstantial thought process Thought Content: + paranoid, + delusions and + persecution Suicidal Thoughts: denies suicidal thoughts, denies suicidal plan and denies suicidal intent Homicidal Thoughts: denies homicidal thoughts Hallucinations: + auditory hallucinations (sporadic, voice will say mean things "I'm going to kill you","stupid bitch"); no visual hallucinations Cognition: recent memory grossly intact, remote memory grossly intact, attention grossly intact and language grossly intact Estimated Intelligence: consistent with education level Insight: + limited insight Judgment: + limited judgement Vital Signs (Past 24 Hours) Last Vital Signs Temp 36.9 C 01/12/23 06:28 Pulse 54 L 01/12/23 06:53 Resp 12 01/12/23 06:53 BP 123/74 01/12/23 06:53 Pulse Ox 100 01/12/23 06:53 O2 Del Method Room Air 01/12/23 06:53 Results & Data ([facility]) Laboratory Results Laboratory Results - last 24 hr 01/09/23 01/12/23 01/12/23 21:31 07:56 07:56 Sodium Potassium Chloride Carbon Dioxide Anion Gap Fasting Glucose 94 Triglycerides 69 Cholesterol 145 LDL Cholesterol, Calc 82 VLDL Cholesterol, Calc 14 HDL Cholesterol 49 Cholesterol/HDL Ratio 3.0 Vitamin B12 159 L 25-OH Vitamin D Total 56.9 Folate 9.24 U Amphetamines Confirm 9428 H U Methamphetamin Confrm NEGATIVE Drug Screen Comment SEE NOTE 01/12/23 07:56 Sodium 139 Potassium 4.0 Chloride 106 Carbon Dioxide 30 Anion Gap 3 Fasting Glucose Triglycerides Cholesterol LDL Cholesterol, Calc VLDL Cholesterol, Calc HDL Cholesterol Cholesterol/HDL Ratio Vitamin B12 25-OH Vitamin D Total Folate U Amphetamines Confirm U Methamphetamin Confrm Drug Screen Comment Current Inpatient Medications Current Inpatient Medications: Current Inpatient Medications Acetaminophen (Acetaminophen 325 Mg Tab) 650 mg PO Q4H PRN PRN Reason: Headache or Minor Fever Stop: 02/09/23 00:02 Al Hydrox/Mg Hydrox/Simethicone (Aluminum/Magnesium Susp 30 Ml Udc) 30 ml PO Q4H PRN PRN Reason: GI Upset Stop: 02/09/23 00:02 Bismuth Subsalicylate (Bismuth Subsalicylate Liqd 236 Ml) 15 ml PO PRN PRN PRN Reason: Loose Stool Stop: 02/09/23 00:02 Buprenorphine HCl (Buprenorphine Hcl 8 Mg Subl) 8 mg SL BID ROMMEL Stop: 02/09/23 08:59 Last Admin: 01/12/23 09:52 Dose: 8 mg Hydroxyzine HCl (Hydroxyzine Hcl 25 Mg Tab) 50 mg PO HSZ PRN PRN Reason: Insomnia Stop: 02/09/23 00:02 Hydroxyzine HCl (Hydroxyzine Hcl 25 Mg Tab) 25 mg PO Q4H PRN PRN Reason: Anxiety Stop: 02/09/23 00:02 Lorazepam (Lorazepam 0.5 Mg Tab) 0.5 mg PO BID PRN PRN Reason: Anxiety/Agitation Stop: 02/10/23 16:54 Magnesium Hydroxide (Magnesium Hydroxide Susp 30 Ml Udc) 30 ml PO DAILY PRN PRN Reason: Constipation Stop: 02/09/23 00:02 Nicotine Polacrilex (Nicotine Polacrilex 2 Mg Gum) 1 piece MT PRN PRN PRN Reason: nicotine cravings Stop: 02/09/23 14:36 Last Admin: 01/10/23 17:48 Dose: 1 piece Olanzapine (Olanzapine 5 Mg Tablet) 5 mg PO HS ROMMEL Stop: 02/09/23 21:59 Last Admin: 01/11/23 21:17 Dose: 5 mg Olanzapine (Olanzapine 2.5 Mg Tab) 2.5 mg PO BID PRN PRN Reason: agitation/psychosis Stop: 02/09/23 08:59 Sodium Chloride (Sodium Chloride 0.65% Na Soln 45 Ml ([place])) 1 - 2 sprays NA PRN PRN PRN Reason: Nasal Dryness/Congestion Stop: 02/09/23 00:02 Mental Health & Subst Abuse Tx Psychiatrist Name of Psychiatrist: N/A Therapist Name of Therapist: Cruz Jarvis Therapist's Date of Therapist Appointment: 01/19/2023 Time of Therapist Appointment: 10AM (Please arrive 30 mins before start of appointment) Therapy Appointment Comment: [address], [place] [address] [employer]stit[employer] Name of Collar Closer Lockstitch: N/A Post Discharge Appointments Primary Care Physician Name Of Family Doctor/PCP: [facility] Joseph Fofana Primary Care Date of Future Appointment with PCP: 01/17/2023 Time of Appointment with PCP: 10am Provider Appointment Comment: [address], [address], [place] [address] Pain Clinic Name of Pain Clinic: [facility] Phone Number for Pain Clinic: [phone] Pain Clinic Appointment Comment: [address] [place] [address] Contact Information Discharge Discharge Address: [address] [place] [address] [address] [place] [address]
[2023-01-12] MEDS: OLANZAPINE 2.5 MG TAB PO SCH (20:57)
[2023-01-13] MEDS: buprenorphine HCL 8 MG SUBL SL SCH ×2 (09:00→20:59)
--- NOTE | 2023-01-13 14:12 | Psychiatric Progress Note ---
Date of Service January 13, 2023 Impression / Recommendations Impression Corazon is a 37 year old woman with no formal psychiatric history, history of chronic pain and recent Adderall recreational use admitted for psychosis with paranoia and delusions resulting in worsening sleep, appetite, difficulty functioning and loss of her job of 5 years. Diagnostically consistent with unspecified psychosis with broad differential including primary psychotic disorder versus substance-induced or withdrawal (UDS positive for meth/amp but confirmatory pending) versus MDD with psychotic features vs secondary medical condition (but no lab abnormalities and medically cleared in ED), no current evidence for episode of blayne. She requires psychiatric hospitalization for diagnostic clarification, safety and stabilization, medication management and development of further coping skills. 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 Still appears hypervigilant and anxious at times. She feels the auditory hallucinations are lessening a bit. Adherent with olanzapine and agreeable to contiuning at current dose. Agreeable to Vit B12 supplementation. (1) Psychotic disorder with delusions: (2) Anxiety: (3) Back pain: Plan 01/13/2023: Start B12 1,000mcg per day po, continue olanzapine 2.5mg HS po. 01/12/2023: Reduced to zyprexa 2.5mg HS with additional prn doses available as well as ativan prn. Encouraging consideration for B12 supplementation. 01/11/2023: Continue current medication and tx plan. Labwork to be repeated in the morning as was not able to be collected before she had breakfast today. 01/10/2023: The patient was admitted to the [facility]) on q15 min checks (behavioral with suicide precautions) for safety. The patient will participate in group, recreational, and milieu therapies and will be offered additional individual and family sessions as clinically appropriate. * Start olanzapine 5mg po HS * Fasting lipid panel, glucose, B12, folate, Vit D labs tomorrow AM Inventory Assets Strengths: supportive relationships, willing to get treatment Needs: safety and stabilization, medication adjustment, additional coping skills, increased outpatient services Suicide Risk Level Suicide Risk Level: Moderate (q15 min suicide checks) (psychosis and paranoia but denies SI and feels safe in the hospital, able to safety contract and agrees to let nursing/staff know should they develop plan, intent or feel unable to remain safe. ) Suicide Risk Level Comments: Risk Factors Assessment Male: No : Yes Do You Have Access To A Gun?: No Health Problems: No Mental Health Diagnoses: Yes Previous Attempt: No Family History of Suicide: No (sister attempted but did not complete) Previous Psychiatric Hospitalization: Yes Hopelessness: No Protective Factors Assessment Employed: No (quit/fired from job) Stable Relationships: Yes Supportive Family: Yes Good Rapport with Provider: Yes Interval History Identifying Information CORAZON BHAKTA is a 37-year-old woman who currently lives with her fiancee their combined five children in [place], has a history of depression, and was admitted on 01/10/23 00:04 on a 201 voluntary commitment for psychosis with auditory hallucinations and inability to function safely at home. Chief Complaint "I'm good". Review of Systems Sleep Information Total Hours of Sleep: 6.5 Meal Information Percent Meal Consumed - Breakfast: 100 Percent Meal Consumed - Lunch: 100 Percent Meal Consumed - Dinner: 100 Subjective Subjective Patient was seen & assessed and interval progress reviewed with treatment team nursing and social work. Attending some groups today. Reports her mood is improving. [place] a little tired from olanzapine this morning but not overly sedated. Agreeable to starting B12 supplementation. Reports she hadn't been eating well recently due to feeling stressed. Physical Exam Psychiatric Orientation: alert and oriented x 3 Apperance: appropriately dressed and appropriately groomed Eye Contact: good eye contact Motor Behavior: no abnormal motor movements Speech: normal rate/rhythm/volume of speech Affect: + anxious affect Mood: + anxious mood Thought Process: + circumstantial thought process Thought Content: + paranoid and + delusions Suicidal Thoughts: denies suicidal thoughts, denies suicidal plan and denies suicidal intent Homicidal Thoughts: denies homicidal thoughts Hallucinations: + auditory hallucinations (sporadic, voice will say mean things "I'm going to kill you","stupid bitch"); no visual hallucinations Cognition: recent memory grossly intact, remote memory grossly intact, attention grossly intact and language grossly intact Estimated Intelligence: consistent with education level Insight: + limited insight Judgment: + limited judgement Vital Signs (Past 24 Hours) Last Vital Signs Temp 36.9 C 01/13/23 06:33 Pulse 68 01/13/23 06:34 Resp 16 01/13/23 06:33 BP 94/57 L 01/13/23 06:34 Pulse Ox 100 01/12/23 06:53 O2 Del Method Room Air 01/12/23 06:53 Results & Data ([facility]) Current Inpatient Medications Current Inpatient Medications: Current Inpatient Medications Acetaminophen (Acetaminophen 325 Mg Tab) 650 mg PO Q4H PRN PRN Reason: Headache or Minor Fever Stop: 02/09/23 00:02 Al Hydrox/Mg Hydrox/Simethicone (Aluminum/Magnesium Susp 30 Ml Udc) 30 ml PO Q4H PRN PRN Reason: GI Upset Stop: 02/09/23 00:02 Bismuth Subsalicylate (Bismuth Subsalicylate Liqd 236 Ml) 15 ml PO PRN PRN PRN Reason: Loose Stool Stop: 02/09/23 00:02 Buprenorphine HCl (Buprenorphine Hcl 8 Mg Subl) 8 mg SL BID ROMMEL Stop: 02/09/23 08:59 Last Admin: 01/13/23 09:00 Dose: 8 mg Cyanocobalamin (Cyanocobalamin (B-12) 500 Mcg Tablet) 1,000 mcg PO QAM ROMMEL Stop: 02/12/23 13:14 Hydroxyzine HCl (Hydroxyzine Hcl 25 Mg Tab) 50 mg PO HSZ PRN PRN Reason: Insomnia Stop: 02/09/23 00:02 Hydroxyzine HCl (Hydroxyzine Hcl 25 Mg Tab) 25 mg PO Q4H PRN PRN Reason: Anxiety Stop: 02/09/23 00:02 Lorazepam (Lorazepam 0.5 Mg Tab) 0.5 mg PO BID PRN PRN Reason: Anxiety/Agitation Stop: 02/10/23 16:54 Magnesium Hydroxide (Magnesium Hydroxide Susp 30 Ml Udc) 30 ml PO DAILY PRN PRN Reason: Constipation Stop: 02/09/23 00:02 Nicotine Polacrilex (Nicotine Polacrilex 2 Mg Gum) 1 piece MT PRN PRN PRN Reason: nicotine cravings Stop: 02/09/23 14:36 Last Admin: 01/10/23 17:48 Dose: 1 piece Olanzapine (Olanzapine 2.5 Mg Tab) 2.5 mg PO BID PRN PRN Reason: agitation/psychosis Stop: 02/09/23 08:59 Olanzapine (Olanzapine 2.5 Mg Tab) 2.5 mg PO HS ROMMEL Stop: 02/11/23 21:59 Last Admin: 01/12/23 20:57 Dose: 2.5 mg Sodium Chloride (Sodium Chloride 0.65% Na Soln 45 Ml ([place])) 1 - 2 sprays NA PRN PRN PRN Reason: Nasal Dryness/Congestion Stop: 02/09/23 00:02 Mental Health & Subst Abuse Tx Psychiatrist Name of Psychiatrist: N/A Therapist Name of Therapist: Cruz Enciso- Gaurav Jarvis Therapist's Date of Therapist Appointment: 01/19/2023 Time of Therapist Appointment: 10AM (Please arrive 30 mins before start of appointment) Therapy Appointment Comment: [address], [place] [address] Building Dismantler Name of Building Dismantler: N/A Post Discharge Appointments Primary Care Physician Name Of Family Doctor/PCP: [facility] Joseph Fofana Primary Care Date of Future Appointment with PCP: 01/17/2023 Time of Appointment with PCP: 10am Provider Appointment Comment: [address], [address], [place] [address] Pain Clinic Name of Pain Clinic: [facility] Phone Number for Pain Clinic: [phone] Date of Appointment with Pain Clinic: 01/27/23 Time of Appointment with Pain Clinic: 4:30pm Pain Clinic Appointment Comment: [address] [place] [address] Contact Information Discharge Discharge Address: [address] [place] [address], [place] [address]
[2023-01-13] MEDS: CYANOCOBALAMIN (B-12) 500 MCG TABLET PO SCH (14:20)
[2023-01-13] MEDS: NICOTINE POLACRILEX 2 MG GUM MT PRN (15:01)
[2023-01-13] MEDS: OLANZAPINE 2.5 MG TAB PO SCH (20:59)
[2023-01-14] MEDS: buprenorphine HCL 8 MG SUBL SL SCH ×2 (08:53→21:07)
[2023-01-14] MEDS: CYANOCOBALAMIN (B-12) 500 MCG TABLET PO SCH (08:53)
--- NOTE | 2023-01-14 15:52 | Psychiatric Progress Note ---
Date of Service January 14, 2023 Impression / Recommendations Impression Corazon is a 37 year old woman with no formal psychiatric history, history of chronic pain and recent Adderall recreational use admitted for psychosis with paranoia and delusions resulting in worsening sleep, appetite, difficulty functioning and loss of her job of 5 years. Diagnostically consistent with unspecified psychosis with broad differential including primary psychotic disorder versus substance-induced or withdrawal (UDS positive for meth/amp but confirmatory pending) versus MDD with psychotic features vs secondary medical condition (but no lab abnormalities and medically cleared in ED), no current evidence for episode of blayne. She requires psychiatric hospitalization for diagnostic clarification, safety and stabilization, medication management and development of further coping skills. MNPR due to resolving psychosis with paranoia 01/14/2023: Significant lessening of paranoia and no longer reporting hearing any auditory hallucinations. Some fatigue from olanzapine but not interfereing with her ability to wake up in the morning or attend groups. Adherent with olanzapine. Hopeful to go home soon. (1) Psychotic disorder with delusions: (2) Anxiety: (3) Back pain: Plan 01/14/2023: Continue current medications and treatment plan. 01/13/2023: Start B12 1,000mcg per day po, continue olanzapine 2.5mg HS po. 01/12/2023: Reduced to zyprexa 2.5mg HS with additional prn doses available as well as ativan prn. Encouraging consideration for B12 supplementation. 01/11/2023: Continue current medication and tx plan. Labwork to be repeated in t he morning as was not able to be collected before she had breakfast today. 01/10/2023: The patient was admitted to the [facility] ([facility]) on q15 min checks (behavioral with suicide precautions) for safety. The patient will participate in group, recreational, and milieu therapies and will be offered additional individual and family sessions as clinically appropriate. * Start olanzapine 5mg po HS * Fasting lipid panel, glucose, B12, folate, Vit D labs tomorrow AM Inventory Assets Strengths: supportive relationships, willing to get treatment Needs: safety and stabilization, medication adjustment, additional coping skills, increased outpatient services Suicide Risk Level Suicide Risk Level: Moderate (q15 min suicide checks) (psychosis and paranoia prior to admission but none today and denies SI and feels safe in the hospital, able to safety contract and agrees to let nursing/staff know should they develop plan, intent or feel unable to remain safe. ) Suicide Risk Level Comments: Risk Factors Assessment Male: No : Yes Do You Have Access To A Gun?: No Health Problems: No Mental Health Diagnoses: Yes Previous Attempt: No Family History of Suicide: No (sister attempted but did not complete) Previous Psychiatric Hospitalization: Yes Hopelessness: No Protective Factors Assessment Employed: No (quit/fired from job) Stable Relationships: Yes Supportive Family: Yes Good Rapport with Provider: Yes Interval History Identifying Information CORAZON BHAKTA is a 37-year-old woman who currently lives with her fiancee their combined five children in [place], has a history of depression, and was admitted on 01/10/23 00:04 on a 201 voluntary commitment for psychosis with auditory hallucinations and inability to function safely at home. Chief Complaint "I'm just a little tired". Review of Systems Sleep Information Total Hours of Sleep: 6.5 Meal Information Percent Meal Consumed - Breakfast: 100 Percent Meal Consumed - Lunch: 100 Percent Meal Consumed - Dinner: 100 Subjective Subjective Patient was seen & assessed and interval progress reviewed with treatment team nursing and social work. She attended more groups yesterday and participated well. More social with peers. At times isolative to her room reading her Bible. This afternoon reports her mood is "good" but with some fatigue. She misses her kids and is looking forward to going home soon. Physical Exam Psychiatric Orientation: alert and oriented x 3 Apperance: appropriately dressed and appropriately groomed Eye Contact: good eye contact Motor Behavior: no abnormal motor movements Speech: normal rate/rhythm/volume of speech Affect: + constricted affect Mood: + anxious mood Thought Process: goal directed thought process Thought Content: reality based without delusions Suicidal Thoughts: denies suicidal thoughts, denies suicidal plan and denies suicidal intent Homicidal Thoughts: denies homicidal thoughts Hallucinations: no auditory hallucinations and no visual hallucinations Cognition: recent memory grossly intact, remote memory grossly intact, attention grossly intact and language grossly intact Estimated Intelligence: consistent with education level Insight: + limited insight Judgment: + fair judgement Vital Signs (Past 24 Hours) Last Vital Signs Temp 37 C 01/14/23 06:36 Pulse 67 01/14/23 06:36 Resp 16 01/14/23 06:36 BP 99/58 L 01/14/23 06:36 Pulse Ox 100 01/12/23 06:53 O2 Del Method Room Air 01/12/23 06:53 Results & Data ([facility]) Current Inpatient Medications Current Inpatient Medications: Current Inpatient Medications Acetaminophen (Acetaminophen 325 Mg Tab) 650 mg PO Q4H PRN PRN Reason: Headache or Minor Fever Stop: 02/09/23 00:02 Al Hydrox/Mg Hydrox/Simethicone (Aluminum/Magnesium Susp 30 Ml Udc) 30 ml PO Q4H PRN PRN Reason: GI Upset Stop: 02/09/23 00:02 Bismuth Subsalicylate (Bismuth Subsalicylate Liqd 236 Ml) 15 ml PO PRN PRN PRN Reason: Loose Stool Stop: 02/09/23 00:02 Buprenorphine HCl (Buprenorphine Hcl 8 Mg Subl) 8 mg SL BID ROMMEL Stop: 02/09/23 08:59 Last Admin: 01/14/23 08:53 Dose: 8 mg Cyanocobalamin (Cyanocobalamin (B-12) 500 Mcg Tablet) 1,000 mcg PO QAM ROMMEL Stop: 02/12/23 13:14 Last Admin: 01/14/23 08:53 Dose: 1,000 mcg Hydroxyzine HCl (Hydroxyzine Hcl 25 Mg Tab) 50 mg PO HSZ PRN PRN Reason: Insomnia Stop: 02/09/23 00:02 Hydroxyzine HCl (Hydroxyzine Hcl 25 Mg Tab) 25 mg PO Q4H PRN PRN Reason: Anxiety Stop: 02/09/23 00:02 Lorazepam (Lorazepam 0.5 Mg Tab) 0.5 mg PO BID PRN PRN Reason: Anxiety/Agitation Stop: 02/10/23 16:54 Magnesium Hydroxide (Magnesium Hydroxide Susp 30 Ml Udc) 30 ml PO DAILY PRN PRN Reason: Constipation Stop: 02/09/23 00:02 Nicotine Polacrilex (Nicotine Polacrilex 2 Mg Gum) 1 piece MT PRN PRN PRN Reason: nicotine cravings Stop: 02/09/23 14:36 Last Admin: 01/13/23 15:01 Dose: 1 piece Olanzapine (Olanzapine 2.5 Mg Tab) 2.5 mg PO BID PRN PRN Reason: agitation/psychosis Stop: 02/09/23 08:59 Olanzapine (Olanzapine 2.5 Mg Tab) 2.5 mg PO HS ROMMEL Stop: 02/11/23 21:59 Last Admin: 01/13/23 20:59 Dose: 2.5 mg Sodium Chloride (Sodium Chloride 0.65% Na Soln 45 Ml (Iron)) 1 - 2 sprays NA PRN PRN PRN Reason: Nasal Dryness/Congestion Stop: 02/09/23 00:02 Mental Health & Subst Abuse Tx Psychiatrist Name of Psychiatrist: N/A Therapist Name of Therapist: Cruz Jarvis Therapist's Date of Therapist Appointment: 01/19/2023 Time of Therapist Appointment: 10AM (Please arrive 30 mins before start of appointment) Therapy Appointment Comment: [address], [place] [address] [employer] Name of [employer]utter: N/A Post Discharge Appointments Primary Care Physician Name Of Family Doctor/PCP: [facility] Joseph [facility] Date of Future Appointment with PCP: 01/17/2023 Time of Appointment with PCP: 10am Provider Appointment Comment: [address], [address], [place] [address] Pain Clinic Name of Pain Clinic: [facility] Phone Number for Pain Clinic: [phone] Date of Appointment with Pain Clinic: 01/27/23 Time of Appointment with Pain Clinic: 4:30pm Pain Clinic Appointment Comment: [place] [address] Contact Information Discharge Discharge Address: [address] [place] [address], [facility] [place] [address]
[2023-01-14] MEDS: NICOTINE POLACRILEX 2 MG GUM MT PRN (19:59)
[2023-01-14] MEDS: OLANZAPINE 2.5 MG TAB PO SCH (21:07)
[2023-01-15] MEDS: buprenorphine HCL 8 MG SUBL SL SCH (08:45)
[2023-01-15] MEDS: CYANOCOBALAMIN (B-12) 500 MCG TABLET PO SCH (08:45)
--- NOTE | 2023-01-15 09:06 | Discharge Summary ---
Date of Service January 15, 2023 History of Present Illness Corazon presented to the emergency department for the second time in two days for about three weeks of worsening anxiety, psychosis and paranoia. She has been expressing concerns about witchcraft, fears about a cult coming to harm her fiancee, has started sleeping with a knife under her pillow due to concerns for her safety (she denies this, reports sleeping with bibles and taisha quartz), has been hearing auditory hallucinations and recently quit her job and has not been eating (stomach pain) nor sleeping well (not good due to her anxiety and worrying about her kids). She states that after a move things at the house "got weird" and she also developed "amazing hearing" including being able to hear her boss even when he was in a different building. States this "weird-ed out my boss" so she lost her job of 5 years about two weeks ago. She notes "something is weird and off but it's not me". Reports she took Adderall, non-prescribed, for a few months off-and-on due to difficulty focusing and reports Dr. Ang her pain management provider is working to help her find an outpatient psychiatric provider. She feels the Subutex has been causing memory loss and also makes things more difficult. Further recent history reviewed as documented by ED psych CM on 01/09/2023: "Completed psychiatric evaluation with Corazon. She states that while she did take the Adderall, "I know myself and I know how I'm feeling is not normal. I feel like I'm being attacked in my own home." Corazon is hearing voices, though she is adamant that these voices she is hearing are actually real people following her around. They call her names like "stupid bitch" and "whore" and tells her that they are going to kill her. Corazon states that she has been doing rituals/prayers to keep these voices away. She states the spirits do not like her. She believes this is a cult following her around, "some kind of witchcraft". She states that she lost her job last week when she somehow got the ability to hear her boss's voice and was on camera acting erratically. Corazon states that she does not feel safe at home and feels that she is going to be harmed. She is fearful for being deemed crazy. Her fianc, Simón, provides additional information that Corazon is not eating or sleeping. She has become so paranoid that she sleeps with a knife. Simón is concerned for her safety if she does not receive psychiatric treatment." She is not currently prescribed any psychiatric medications. She takes Subutex for pain and recently was also prescribed Soma for pain but hasn't taken this and has prescribed gabapentin for pain but doesn't take this. Psychiatric ROS notable for no current nor history of symptoms of blayne, PTSD, OCD, eating disorder nor self-harm. Physical Exam Vital Signs (Past 24 Hours) Last Vital Signs Temp 37 C 01/15/23 06:38 Pulse 58 L 01/15/23 06:38 Resp 16 01/15/23 06:38 BP 105/63 01/15/23 06:38 Pulse Ox 100 01/12/23 06:53 O2 Del Method Room Air 01/12/23 06:53 Principal Diagnosis Unspecified psychosis Psychiatric Data Corazon presented with hyperreligious and persecutory delusions as well as paranoia. Her symptoms responded quickly to olanzapine with no further evidence of psychosis. UDS was positive for amphetamines with a high level on confirmatory testing 9,428 ng/mL suggesting likely cause of substance-induced psychosis. See daily stay summary. In short, safety was maintained and the patie nt was cooperative with care. Medication changes included olanzapine 2.5mg HS po and they tolerated this well. Could consider discontinuation of olanzapine in 4- 6 weeks if symptoms remain absent and resolved. If symptoms re-emerge would restart olanzapine. Vitamin B12 levels were low on admission so Vit B12 supplementation was started. Baseline labs of fasting glucose, fasting lipid profile, and weight were preformed and all were within normal limits. Recommend repeat weight in one month. Recommend repeat fasting glucose, HbA1c and fasting lipid profile every 12 weeks and then annually if she remains on olanzapine. If symptoms arise recommend checking BP, EKG, prolactin level as clinically indicated or relevant. A family session was held and safety plan was completed prior to discharge. Motivational interviewing was done regarding amphetamine use and recommendation to avoid any future use. On the day of discharge she stated her mood was "good and excited" and remained future-oriented including seeing her children, being home, and starting to look for a new job and engaging in aftercare appointments for therapy, primary care and calling to start referral for case management. Day of Discharge Assessment Today the patient voices readiness for discharge. They note improvement in mood and anxiety. They deny thoughts of harm to self or others. Thoughts are organized and they are clinically improved from admission. There is no evidence of psychosis. They improved in the hospital with support and medication adjustments. They agree to take medications as prescribed and keep follow-up appointments. At the time of the discharge they are deemed to be stable and appropriate for outpatient level of care. They are not deemed to be at imminent risk of harm to self or others. They are aware of emergency and crisis services. Knows to call 911 or go to nearest emergency care center if in a crisis which cannot be handled as an outpatient. Transition of Care Transition Of Care Record: was reviewed with the patient Advance Directives Advance Directives Information Provided: Yes Advance Directives: No Mental Health Advance Directive: No Advance Directives on File: No Living Will: No Power of Bricklayer: No Advance Directives Reason:: Declines as Mental Health Visit. Suicide Risk Level Suicide Risk Level Comments: Acute risk is low given improvement in psychosis, improvement in anxiety, denial of SI, plan to avoid substance use and hopefulness. Chronic risk is low given few non-modifiable risk factors: prior psychiatric hospitalizations, family history of attempted suicide but also with protective factors including: good social support, sense of responsibility to family and social supports, outpatient care in place, positive coping skills, positive problem solving, capacity to establish therapeutic alliance, willingness to engage with treatment and capacity for self-observation. Counseled on ways to reduce acute and chronic risk including engaging with outpatient providers, using safety plan if needed, utilizing supports, taking medication, and using coping skills. Modifiable risk factors of psychosis, anxiety, mood changes were addressed during hospitalization through development of new coping skills, family meeting, safety planning, and medication adjustments. Risk Factors Assessment Male: No : Yes Do You Have Access To A Gun?: No Health Problems: No Mental Health Diagnoses: Yes Previous Attempt: No Family History of Suicide: No (sister attempted but did not complete) Previous Psychiatric Hospitalization: Yes Hopelessness: No Protective Factors Assessment Employed: No (quit/fired from job) Stable Relationships: Yes Supportive Family: Yes Good Rapport with Provider: Yes Discharge Data Lab Results 01/09/23 01/09/23 01/09/23 21:23 21:23 21:23 WBC 6.17 RBC 4.61 Hgb 13.7 Hct 39.6 MCV 85.9 MCH 29.7 MCHC 34.6 RDW Std Deviation 38.6 RDW Coeff of Janet 12.3 Plt Count 389 MPV 9.4 Immature Gran % (Auto) 0.2 Neut % (Auto) 51.4 Lymph % (Auto) 40.0 [place] % (Auto) 6.8 Eos % (Auto) 1.1 Baso % (Auto) 0.5 Neut # (Auto) 3.17 Lymph # (Auto) 2.47 [place] # (Auto) 0.42 Eos # (Auto) 0.07 Baso # (Auto) 0.03 Immature Gran # (Auto) 0.01 Sodium 138 Potassium 3.7 Chloride 104 Carbon Dioxide 27 Anion Gap 7 BUN 14 Creatinine 0.81 Est Cr Clr Drug Dosing 76.3 Est GFR ( Amer) 107.5 Est GFR (Non-Af Amer) 92.8 BUN/Creatinine Ratio 17.3 Glucose 96 Fasting Glucose Calcium 9.8 Total Bilirubin 0.6 AST 15 ALT 10 Alkaline Phosphatase 58 Total Protein 8.4 H Albumin 4.7 Globulin 3.7 Albumin/Globulin Ratio 1.3 Triglycerides Cholesterol LDL Cholesterol, Calc VLDL Cholesterol, Calc HDL Cholesterol Cholesterol/HDL Ratio Vitamin B12 25-OH Vitamin D Total Folate TSH 3.889 Urine Color Urine Appearance Urine pH Ur Specific Newton Urine Protein Urine Glucose (UA) Urine Ketones Urine Blood Urine Nitrite Urine Bilirubin Urine Urobilinogen Ur Leukocyte Esterase Urine WBC (Auto) Urine RBC (Auto) U Hyaline Cast (Auto) U Epithel Cells (Auto) Urine Bacteria (Auto) Salicylates Urine Opiates Screen Ur Methadone, Qual Acetaminophen Urine Barbiturates Ur Phencyclidine (PCP) U Amphetamines Confirm U Amphetamin/Meth Scrn U Methamphetamin Confrm MDMA (Ecstasy) Screen U Benzodiazepines Scrn Ur Cocaine Metabolite U Marijuana (THC) Screen Drug Screen Comment Ethyl Alcohol mg/dL SARS-CoV-2, RNA, NAAT 01/09/23 01/09/23 01/09/23 21:23 21:23 21:31 WBC RBC Hgb Hct MCV MCH MCHC RDW Std Deviation RDW Coeff of Janet Plt Count MPV Immature Gran % (Auto) Neut % (Auto) Lymph % (Auto) [place] % (Auto) Eos % (Auto) Baso % (Auto) Neut # (Auto) Lymph # (Auto) [place] # (Auto) Eos # (Auto) Baso # (Auto) Immature Gran # (Auto) Sodium Potassium Chloride Carbon Dioxide Anion Gap BUN Creatinine Est Cr Clr Drug Dosing Est GFR ( Amer) Est GFR (Non-Af Amer) BUN/Creatinine Ratio Glucose Fasting Glucose Calcium Total Bilirubin AST ALT Alkaline Phosphatase Total Protein Albumin Globulin Albumin/Globulin Ratio Triglycerides Cholesterol LDL Cholesterol, Calc VLDL Cholesterol, Calc HDL Cholesterol Cholesterol/HDL Ratio Vitamin B12 25-OH Vitamin D Total Folate TSH Urine Color Dark Yellow Urine Appearance Cloudy A Urine pH 5.5 Ur Specific Newton 1.024 Urine Protein Trace H Urine Glucose (UA) Negative Urine Ketones Negative Urine Blood Negative Urine Nitrite Negative Urine Bilirubin Negative Urine Urobilinogen Negative Ur Leukocyte Esterase Trace H Urine WBC (Auto) 5-10 H Urine RBC (Auto) 0-4 U Hyaline Cast (Auto) 10-30 H U Epithel Cells (Auto) >30 H Urine Bacteria (Auto) 1+ H Salicylates < 3.0 L Urine Opiates Screen Ur Methadone, Qual Acetaminophen < 3 L Urine Barbiturates Ur Phencyclidine (PCP) U Amphetamines Confirm U Amphetamin/Meth Scrn U Methamphetamin Confrm MDMA (Ecstasy) Screen U Benzodiazepines Scrn Ur Cocaine Metabolite U Marijuana (THC) Screen Drug Screen Comment Ethyl Alcohol mg/dL < 10.0 SARS-CoV-2, RNA, NAAT 01/09/23 01/09/23 01/09/23 21:31 21:31 21:31 WBC RBC Hgb Hct MCV MCH MCHC RDW Std Deviation RDW Coeff of Janet Plt Count MPV Immature Gran % (Auto) Neut % (Auto) Lymph % (Auto) [place] % (Auto) Eos % (Auto) Baso % (Auto) Neut # (Auto) Lymph # (Auto) [place] # (Auto) Eos # (Auto) Baso # (Auto) Immature Gran # (Auto) Sodium Potassium Chloride Carbon Dioxide Anion Gap BUN Creatinine Est Cr Clr Drug Dosing Est GFR ( Amer) Est GFR (Non-Af Amer) BUN/Creatinine Ratio Glucose Fasting Glucose Calcium Total Bilirubin AST ALT Alkaline Phosphatase Total Protein Albumin Globulin Albumin/Globulin Ratio Triglycerides Cholesterol LDL Cholesterol, Calc VLDL Cholesterol, Calc HDL Cholesterol Cholesterol/HDL Ratio Vitamin B12 25-OH Vitamin D Total Folate TSH Urine Color Urine Appearance Urine pH Ur Specific Newton Urine Protein Urine Glucose (UA) Urine Ketones Urine Blood Urine Nitrite Urine Bilirubin Urine Urobilinogen Ur Leukocyte Esterase Urine WBC (Auto) Urine RBC (Auto) U Hyaline Cast (Auto) U Epithel Cells (Auto) Urine Bacteria (Auto) Salicylates Urine Opiates Screen Neg Ur Methadone, Qual Neg Acetaminophen Urine Barbiturates Neg Ur Phencyclidine (PCP) Neg U Amphetamines Confirm 9428 H U Amphetamin/Meth Scrn Pos H U Methamphetamin Confrm NEGATIVE MDMA (Ecstasy) Screen Neg U Benzodiazepines Scrn Neg Ur Cocaine Metabolite Neg U Marijuana (THC) Screen Neg Drug Screen Comment SEE NOTE Ethyl Alcohol mg/dL SARS-CoV-2, RNA, NAAT NEGATIVE 01/12/23 01/12/23 01/12/23 07:56 07:56 07:56 WBC RBC Hgb Hct MCV MCH MCHC RDW Std Deviation RDW Coeff of Janet Plt Count MPV Immature Gran % (Auto) Neut % (Auto) Lymph % (Auto) [place] % (Auto) Eos % (Auto) Baso % (Auto) Neut # (Auto) Lymph # (Auto) [place] # (Auto) Eos # (Auto) Baso # (Auto) Immature Gran # (Auto) Sodium 139 Potassium 4.0 Chloride 106 Carbon Dioxide 30 Anion Gap 3 BUN Creatinine Est Cr Clr Drug Dosing Est GFR ( Amer) Est GFR (Non-Af Amer) BUN/Creatinine Ratio Glucose Fasting Glucose 94 Calcium Total Bilirubin AST ALT Alkaline Phosphatase Total Protein Albumin Globulin Albumin/Globulin Ratio Triglycerides 69 Cholesterol 145 LDL Cholesterol, Calc 82 VLDL Cholesterol, Calc 14 HDL Cholesterol 49 Cholesterol/HDL Ratio 3.0 Vitamin B12 159 L 25-OH Vitamin D Total 56.9 Folate 9.24 TSH Urine Color Urine Appearance Urine pH Ur Specific Newton Urine Protein Urine Glucose (UA) Urine Ketones Urine Blood Urine Nitrite Urine Bilirubin Urine Urobilinogen Ur Leukocyte Esterase Urine WBC (Auto) Urine RBC (Auto) U Hyaline Cast (Auto) U Epithel Cells (Auto) Urine Bacteria (Auto) Salicylates Urine Opiates Screen Ur Methadone, Qual Acetaminophen Urine Barbiturates Ur Phencyclidine (PCP) U Amphetamines Confirm U Amphetamin/Meth Scrn U Methamphetamin Confrm MDMA (Ecstasy) Screen U Benzodiazepines Scrn Ur Cocaine Metabolite U Marijuana (THC) Screen Drug Screen Comment Ethyl Alcohol mg/dL SARS-CoV-2, RNA, NAAT Hospital Course (1) Psychotic disorder with delusions: (2) Anxiety: (3) Back pain: Plan 01/14/2023: Continue current medications and treatment plan. 01/13/2023: Start B12 1,000mcg per day po, continue olanzapine 2.5mg HS po. 01/12/2023: Reduced to zyprexa 2.5mg HS with additional prn doses available as well as ativan prn. Encouraging consideration for B12 supplementation. 01/11/2023: Continue current medication and tx plan. Labwork to be repeated in the morning as was not able to be collected before she had breakfast today. 01/10/2023: The patient was admitted to the [facility] on q15 min checks (behavioral with suicide precautions) for safety. The patient will participate in group, recreational, and milieu therapies and will be offered additional individual and family sessions as clinically appropriate. * Start olanzapine 5mg po HS * Fasting lipid panel, glucose, B12, folate, Vit D labs tomorrow AM Mental Health & Subst Abuse Tx Psychiatrist Name of Psychiatrist: N/A Therapist Name of Therapist: Cruz Jarvis Therapist's Date of Therapist Appointment: 01/19/2023 Time of Therapist Appointment: 10AM (Please arrive 30 mins before start of appointment) Therapy Appointment Comment: [address], [place] [address] Soap Press Feeder Name of Soap Press Feeder: N/A Post Discharge Appointments Primary Care Physician Name Of Family Doctor/PCP: [facility] Joseph Fofana [facility] Date of Future Appointment with PCP: 01/17/2023 Time of Appointment with PCP: 10am Provider Appointment Comment: [address], [address], [place] [address] Pain Clinic Name of Pain Clinic: [facility] Phone Number for Pain Clinic: [phone] Date of Appointment with Pain Clinic: 01/27/23 Time of Appointment with Pain Clinic: 4:30pm Pain Clinic Appointment Comment: [address] [place] [address] Contact Information Discharge Discharge Address: [address] [place] [address], [place] [address] Discharge Plan Discharge Items Patient Disposition: Home - Self-Care Reason For Visit: AH, PARANOIA Discharge Diagnosis: Unspecified psychosis Activity: Resume your previous activity Non-emergency contact: Primary Care Provider, Therapist and Senior Scheduler Call non-emergency contact if: you have any medication questions and your symptoms worsen Follow-up/Referrals: Marshal Hendricks PA-C [Primary Care Provider] - Diet: Regular Addtl Attending Provider Instructions: SPECIAL CARE INSTRUCTIONS: 1. Follow through with your scheduled aftercare appointments. If unable to keep an appointment, please call to reschedule. 2. Take your medication only as prescribed. Medication should not be changed or stopped without the approval of your doctor. In the event of worsening symptoms or concerns about side effects, contact your doctor immediately. 3. Utilize new healthy coping skills, anger management skills, and stress management skills learned during your hospitalization. Journal feelings and process them with a support person. Identify stressors or situations that may result in relapse, deterioration or inappropriate behaviors and develop a plan to deal with those issues. 4. If your coping skills are ineffective and you are in crisis, contact your outpatient providers for direction. If unable to reach your providers, please call the [facility] CRISIS LINE AT , go to the [facility] walk-in center at [address] [place] [address], [facility], [place], or go to the closest Emergency Room. 5. Avoid alcohol and un-prescribed drugs. 6. You have been provided with the Mental Health Advance Directives Pamphlet for your review. 7. Your condition is stable for discharge to outpatient level of care, but recovery is an ongoing process. Ifthoughts to harm yourself or others return, follow the safety plan developed during your stay. Planning for a safe return home includes securing weapons. Our treatment team recommends weaponsbe removed from the home until your outpatient provider reassesses your progress. In rare cases where the items themselvescannot be removed, guns and ammunitionshould be secured separatelyand keys stored by a reliable personoutside of the home. If you were admitted on an involuntary commitment, the police or other legal authorities may be involved in this process. AFTERCARE APPOINTMENTS: * Please call your insurance company prior to your scheduled appointment to confirm your aftercare providers are covered. Take your insurance information to your appointments. WHO TO CALL AND WHEN: Medical Emergencies: For questions or emergencies related to your hospital stay, please contact the Inpatient Behavioral Health Unit at [phone]. A natural gas engineer is on-call 20/03 for the Behavioral Health Unit for emergencies. National Crisis Hotline: 250 At any time you feel your situation is an emergency, you may also call 911 immediately. Pending Studies at Discharge: No Stand-Alone Forms: [facility] Medications and DC Order Prescriptions: New olanzapine 2.5 mg Tablet 2.5 mg PO HS 30 Days Qty: 30 0RF cyanocobalamin (vitamin B-12) 500 mcg Tablet 1,000 mcg PO QAM 30 Days Qty: 60 0RF Continued MULTIPLE VITAMIN (ONCE DAILY) 1 TAB tablet 1 tab PO QAM Qty: 0 buprenorphine HCl 8 mg tablet, sublingual 8 mg sublingual 2XD Discharge Orders: Discharge Order (Routine); Ordered 01/15/23 Ordered By: Zoey Hwang Admission Data Admit Date/Time: 01/10/23 00:04 Attending Provider: Zoey Hwang Admit Provider: Zoey Hwang Primary Care Provider: Marshal Hendricks Other Interventions: Discharge Summary Assessment (RN) Last Done: 01/15/23 10:35 Coding Level of Care Code 69166 D/C day mgmt > 30 min Diagnoses Psychotic disorder with delusions F29 Anxiety F41.9 Back pain M54.9 Time Spent (min) 45
== END 2023-01-15 10:49 | disposition home or self-care (01) | DRG 885 ==
LOC: ED 20:56 → 3S 01-10 00:04

== ENCOUNTER 2023-01-21 13:28 | Inpatient (IN) ==
--- NOTE | 2023-01-21 14:13 | Emergency Department Note ---
Impression & Plan Psychotic disorder with delusions ED Provider Note Provider: Jt Boyd MD DATE OF SERVICE: 01/21/2023 CHIEF COMPLAINT: Feels unwell, scientology lin HISTORY OF PRESENT ILLNESS: Patient is a 37-year-old female presenting here today with her valentin for issues ongoing after recent discharge here with feeling unwell and having generalized myalgias and stating that she feels there is a scientology panel going on inside of her. Does not clearly endorse visual or auditory hallucinations but states there is a scientology component to this they are not letting her sleep or eat. She states this is affecting her and she lost her job. Denies SI or HI. Feels depressed. States she was recently admitted here last week and was doing better but after going home taking the home Zyprexa she felt this made things worse and stopped. This was several days ago. Reports she is on her Subutex. Denies any drug or alcohol use and specifically denies methamphetamine use. Patient denies any significant psychiatric history previously. Came here as things are going well and she feels she needs inpatient treatment again. Patient requested from nurse to see a family caseworker. PAST MEDICAL HISTORY: As noted above MEDICATIONS: Reviewed with the patient SOCIAL HISTORY: Valentin, denies drug or alcohol use, recently lost job PHYSICAL EXAM: GENERAL: alert and oriented in no acute distress on stretcher poorly kept Head: normocephalic and atraumatic EYES: No injection, discharge or icterus. NECK: Trachea midline. ENT: Mucous membranes pink and moist. LUNGS: Airway patent. No retractions. Breath sounds clear HEART: Regular rate and rhythm. SKIN: Acyanotic, warm, dry, without rashes EXTREMITIES: Without swelling, tenderness or deformity NEUROLOGICAL: No focal deficits. No aphasia. No facial droop or slurred speech. Ambulatory. Psych: Flattened affect. Denies SI or HI. Not clearly responding to external stimuli but not making eye contact and occasionally a bit slow to respond. Seem s guarded. [facility] in a disorganized fashion. EK bpm normal sinus rhythm with sinus arrhythmia. No PVC or PAC. No acute ST segment elevation or depression with a QTc of 417. Patient's laboratory studies reviewed. Differential includes Mood disorder, infection, hypoglycemia, electrolyte abnormalities, cardiac sources, intracerebral event, toxicologic, trauma, neurologic, as well as other pathologies. IMPRESSION/MEDICAL DECISION MAKING: Patient recently admitted here and reviewed [facility] notes. Some question if there was a substance-induced psychosis from these notes. Currently reports the Zyprexa at home made things worse. Denies any drug or alcohol use to me. Denies SI or HI but very flattened affect with poor eye contact and appears quite stressed. Not manic. Seems to be having scientology paranoia. Requesting inpatient treatment to assist with this as it is affecting her life. Patient reports some diffuse myalgias but denies any trauma. Denies any significant chest or abdominal pain particularly. EKG and basic labs were obtained however. No significant abnormalities but evidence of some ketones in the urine. No leukocytosis. No electrolyte issues of significance. Negative . Negative alcohol, salicylate, and acetaminophen levels here. Believe this is more psychiatrically driven plus or minus some component of substance use. UDS today negative. Patient becoming increasingly anxious. Evaluated by [facility] the patient is unsure if she wishes to come inpatient. Wishes to speak with and again no services have been requested. Given her increase in anxiety we will see if she will take an oral Ativan. She did take this with mild improvement. Seen by here. Psychotic and paranoid with thoughts of scientology persecution. Not caring for self or eating and losing weight according to fianc. No believe she is caring for herself adequately. Petition for involuntary mental health commitment pursued. County delegate contacted. Bed search initiated and accepted to [facility] for further inpatient care and on an involuntary mental health commitment. DIAGNOSIS: Psychosis, paranoia DISPOSITION: Inpatient psychiatric placement Past Med/Surg History Medical History Anxiety Depression No pertinent family history Surgical History No pertinent past surgical history Social History Smoking Status: Current every day smoker Tobacco Type: Cigarettes Preferred Language: Slovenian Communication Ability: Effective Multi Slide Machine Tender Required: No Beliefs That Will Affect Care: None Feels Safe at Home: Yes Gender Identity: Female Assistive Devices: None Allergies Allergies Allergy/AdvReac Type Severity Reaction Status Date / Time buprenorphine [From Suboxone] AdvReac Intermediate Hives Verified 01/10/23 14:48 naloxone [From Suboxone] AdvReac Intermediate Hives Verified 01/10/23 14:48 Corticosteroids AdvReac Mild VOMITING Verified 01/10/23 14:48 (Glucocorticoids) Home Meds Home Medications Medication Instructions Recorded Confirmed MULTIPLE VITAMIN (ONCE DAILY) 1 tab PO QAM ##0 09/26/14 01/21/23 buprenorphine HCl 8 mg sublingual 8 mg sublingual 2XD 01/07/23 01/21/23 tablet Previous Rx's Medication Instructions Recorded cyanocobalamin (vitamin B-12) 500 1,000 mcg PO QAM VitB12 deficiency 01/15/23 mcg tablet 30 days #60 tabs olanzapine 2.5 mg tablet 2.5 mg PO HS unspecified psychosis 01/15/23 30 days #30 tabs Results & Data (ED) Vital Signs Vital Signs - 24 hr 01/21/23 13:30 01/21/23 17:20 01/21/23 20:29 Temperature 36.6 C 36.7 C Temperature Source Temporal Artery Scan Oral Pulse Rate 72 Pulse Rate [Radial] 67 54 L Pulse Rhythm [Radial] Regular Regular Pulse Strength [Radial] Normal Normal Respiratory Rate 18 18 Respiratory Effort / Characteristics Non-Labored Spontaneous Respiratory Depth Normal Blood Pressure 110/73 Blood Pressure [Left Arm] 108/72 100/51 L Blood Pressure Mean 85 Blood Pressure Mean [Left Arm] 84 67 Blood Pressure Position Sitting Blood Pressure Position [Left Arm] Lying Pulse Oximetry 99 99 98 Oxygen Delivery Method Room Air Room Air Room Air Sepsis Recent Fever Within 48 Hours No Sepsis New/Unexplained Change in Mental Status N/A Sepsis Action Taken by Nursing No Action Required Laboratory Data 01/21/23 14:15 01/21/23 14:15 Lab Results 01/21/23 01/21/23 01/21/23 Range/Units 14:15 14:15 14:15 WBC 7.97 (4.8-10.8) K/ul RBC 4.58 (4.20-5.40) M/uL Hgb 13.4 (12.0-16.0) g/dl Hct 39.6 (37.0-47.0) % MCV 86.5 (80.0-100.0) fL MCH 29.3 (25.0-34.0) pg MCHC 33.8 (32.0-36.0) g/dL RDW Std Deviation 39.2 (36.4-46.3) fL RDW Coeff of Janet 12.5 (11.5-14.5) % Plt Count 285 (130-400) K/uL MPV 9.1 L (9.4-12.4) fL Immature Gran % (Auto) 0.3 % Neut % (Auto) 78.3 % Lymph % (Auto) 16.3 % [place] % (Auto) 4.3 % Eos % (Auto) 0.4 % Baso % (Auto) 0.4 % Neut # (Auto) 6.25 (1.40-6.50) K/uL Lymph # (Auto) 1.30 (1.2-3.4) K/uL [place] # (Auto) 0.34 (0.11-0.59) K/uL Eos # (Auto) 0.03 (0-0.50) K/uL Baso # (Auto) 0.03 (0-0.2) K/uL Immature Gran # (Auto) 0.02 (0.01-0.20) K/uL Sodium 137 (136-145) mmol/L Potassium 4.0 (3.5-5.1) mmol/L Chloride 107 (98-107) mmol/L Carbon Dioxide 24 (21-32) mmol/L Anion Gap 6 (3-11) BUN 16 (6-23) mg/dl Creatinine 0.87 (0.6-1.2) mg/dl Est Cr Clr Drug Dosing Not Reportable Est GFR ( Amer) 98.6 ml/min Est GFR (Non-Af Amer) 85.1 ml/min BUN/Creatinine Ratio 18.4 (10-20) Glucose 104 H (70-99(Fasting)) mg/dl Calcium 9.2 (8.6-10.3) mg/dl Total Bilirubin 0.9 (0.2-1.0) mg/dl AST 18 (13-39) U/L ALT 12 (7-52) U/L Alkaline Phosphatase 50 (34-104) U/L Troponin I High Sens 2.3 (0-14) pg/ml Total Protein 7.7 (6.0-8.3) gm/dl Albumin 4.3 (3.4-5.0) gm/dl Globulin 3.4 (2.5-4.0) gm/dl Albumin/Globulin Ratio 1.3 (0.9-2) Lipase 4 L (11-82) U/L TSH 0.960 (0.300-4.500) uIu/ml HCG, Qual (Negative) Urine Color Urine Appearance (Clear) Urine pH (4.5-7.5) Ur Specific [place] (1.000-1.030) Urine Protein (Negative) Urine Glucose (UA) (Negative) Urine Ketones (Negative) Urine Blood (Negative) Urine Nitrite (Negative) Urine Bilirubin (Negative) Urine Urobilinogen (Negative) Ur Leukocyte Esterase (Negative) Urine WBC (Auto) (0-5) /hpf Urine RBC (Auto) (0-4) /hpf U Hyaline Cast (Auto) (0-5) /lpf U Epithel Cells (Auto) (0-5) /lpf Urine Bacteria (Auto) (Negative) Urine Mucus (None Prsent) Salicylates (3.0-30) mg/dl Urine Opiates Screen (Neg) Ur Methadone, Qual (Neg) Acetaminophen (10-30) ug/ml Urine Barbiturates (Neg) Ur Phencyclidine (PCP) (Neg) U Amphetamin/Meth Scrn (Neg) MDMA (Ecstasy) Screen (Neg) U Benzodiazepines Scrn (Neg) Ur Cocaine Metabolite (Neg) U Marijuana (THC) Screen (Neg) Ethyl Alcohol mg/dL (<10.0) mg/dl SARS-CoV-2, RNA, NAAT (NEGATIVE) 01/21/23 01/21/23 01/21/23 Range/Units 14:15 14:15 14:15 WBC (4.8-10.8) K/ul RBC (4.20-5.40) M/uL Hgb (12.0-16.0) g/dl Hct (37.0-47.0) % MCV (80.0-100.0) fL MCH (25.0-34.0) pg MCHC (32.0-36.0) g/dL RDW Std Deviation (36.4-46.3) fL RDW Coeff of Janet (11.5-14.5) % Plt Count (130-400) K/uL MPV (9.4-12.4) fL Immature Gran % (Auto) % Neut % (Auto) % Lymph % (Auto) % [place] % (Auto) % Eos % (Auto) % Baso % (Auto) % Neut # (Auto) (1.40-6.50) K/uL Lymph # (Auto) (1.2-3.4) K/uL [place] # (Auto) (0.11-0.59) K/uL Eos # (Auto) (0-0.50) K/uL Baso # (Auto) (0-0.2) K/uL Immature Gran # (Auto) (0.01-0.20) K/uL Sodium (136-145) mmol/L Potassium (3.5-5.1) mmol/L Chloride (98-107) mmol/L Carbon Dioxide (21-32) mmol/L Anion Gap (3-11) BUN (6-23) mg/dl Creatinine (0.6-1.2) mg/dl Est Cr Clr Drug Dosing Est GFR ( Amer) ml/min Est GFR (Non-Af Amer) ml/min BUN/Creatinine Ratio (10-20) Glucose (70-99(Fasting)) mg/dl Calcium (8.6-10.3) mg/dl Total Bilirubin (0.2-1.0) mg/dl AST (13-39) U/L ALT (7-52) U/L Alkaline Phosphatase (34-104) U/L Troponin I High Sens (0-14) pg/ml Total Protein (6.0-8.3) gm/dl Albumin (3.4-5.0) gm/dl Globulin (2.5-4.0) gm/dl Albumin/Globulin Ratio (0.9-2) Lipase (11-82) U/L TSH (0.300-4.500) uIu/ml HCG, Qual Negative (Negative) Urine Color Urine Appearance (Clear) Urine pH (4.5-7.5) Ur Specific [place] (1.000-1.030) Urine Protein (Negative) Urine Glucose (UA) (Negative) Urine Ketones (Negative) Urine Blood (Negative) Urine Nitrite (Negative) Urine Bilirubin (Negative) Urine Urobilinogen (Negative) Ur Leukocyte Esterase (Negative) Urine WBC (Auto) (0-5) /hpf Urine RBC (Auto) (0-4) /hpf U Hyaline Cast (Auto) (0-5) /lpf U Epithel Cells (Auto) (0-5) /lpf Urine Bacteria (Auto) (Negative) Urine Mucus (None Prsent) Salicylates < 3.0 L (3.0-30) mg/dl Urine Opiates Screen (Neg) Ur Methadone, Qual (Neg) Acetaminophen < 3 L (10-30) ug/ml Urine Barbiturates (Neg) Ur Phencyclidine (PCP) (Neg) U Amphetamin/Meth Scrn (Neg) MDMA (Ecstasy) Screen (Neg) U Benzodiazepines Scrn (Neg) Ur Cocaine Metabolite (Neg) U Marijuana (THC) Screen (Neg) Ethyl Alcohol mg/dL < 10.0 (<10.0) mg/dl SARS-CoV-2, RNA, NAAT (NEGATIVE) 01/21/23 01/21/23 01/21/23 Range/Units 14:45 17:15 17:15 WBC (4.8-10.8) K/ul RBC (4.20-5.40) M/uL Hgb (12.0-16.0) g/dl Hct (37.0-47.0) % MCV (80.0-100.0) fL MCH (25.0-34.0) pg MCHC (32.0-36.0) g/dL RDW Std Deviation (36.4-46.3) fL RDW Coeff of Janet (11.5-14.5) % Plt Count (130-400) K/uL MPV (9.4-12.4) fL Immature Gran % (Auto) % Neut % (Auto) % Lymph % (Auto) % [place] % (Auto) % Eos % (Auto) % Baso % (Auto) % Neut # (Auto) (1.40-6.50) K/uL Lymph # (Auto) (1.2-3.4) K/uL [place] # (Auto) (0.11-0.59) K/uL Eos # (Auto) (0-0.50) K/uL Baso # (Auto) (0-0.2) K/uL Immature Gran # (Auto) (0.01-0.20) K/uL Sodium (136-145) mmol/L Potassium (3.5-5.1) mmol/L Chloride (98-107) mmol/L Carbon Dioxide (21-32) mmol/L Anion Gap (3-11) BUN (6-23) mg/dl Creatinine (0.6-1.2) mg/dl Est Cr Clr Drug Dosing Est GFR ( Amer) ml/min Est GFR (Non-Af Amer) ml/min BUN/Creatinine Ratio (10-20) Glucose (70-99(Fasting)) mg/dl Calcium (8.6-10.3) mg/dl Total Bilirubin (0.2-1.0) mg/dl AST (13-39) U/L ALT (7-52) U/L Alkaline Phosphatase (34-104) U/L Troponin I High Sens (0-14) pg/ml Total Protein (6.0-8.3) gm/dl Albumin (3.4-5.0) gm/dl Globulin (2.5-4.0) gm/dl Albumin/Globulin Ratio (0.9-2) Lipase (11-82) U/L TSH (0.300-4.500) uIu/ml HCG, Qual (Negative) Urine Color Dark Yellow Urine Appearance Cloudy A (Clear) Urine pH 5.5 (4.5-7.5) Ur Specific [place] 1.028 (1.000-1.030) Urine Protein Negative (Negative) Urine Glucose (UA) Negative (Negative) Urine Ketones 2+ H (Negative) Urine Blood Negative (Negative) Urine Nitrite Negative (Negative) Urine Bilirubin Negative (Negative) Urine Urobilinogen Negative (Negative) Ur Leukocyte Esterase Negative (Negative) Urine WBC (Auto) 5-10 H (0-5) /hpf Urine RBC (Auto) 0-4 (0-4) /hpf U Hyaline Cast (Auto) 0 (0-5) /lpf U Epithel Cells (Auto) >30 H (0-5) /lpf Urine Bacteria (Auto) 1+ H (Negative) Urine Mucus Present A (None Prsent) Salicylates (3.0-30) mg/dl Urine Opiates Screen Neg (Neg) Ur Methadone, Qual Neg (Neg) Acetaminophen (10-30) ug/ml Urine Barbiturates Neg (Neg) Ur Phencyclidine (PCP) Neg (Neg) U Amphetamin/Meth Scrn Neg (Neg) MDMA (Ecstasy) Screen Neg (Neg) U Benzodiazepines Scrn Neg (Neg) Ur Cocaine Metabolite Neg (Neg) U Marijuana (THC) Screen Neg (Neg) Ethyl Alcohol mg/dL (<10.0) mg/dl SARS-CoV-2, RNA, NAAT NEGATIVE (NEGATIVE) Administered Medications Discontinued Medications Lorazepam (Lorazepam 1 Mg Tab) 1 mg SL NOW STA Stop: 01/21/23 18:34 Last Admin: 01/21/23 18:39 Dose: 1 mg Documented By: Discharge Plan Visit Data Chief Complaint: Mental Health Evaluation Stated Complaint: MENTAL HEALTH EVALUATION ED Provider: Jt Boyd Discharge Problem: Psychotic disorder with delusions Patient Disposition: Admitted As Inpatient Discharge Instructions Interventions: ED Discharge Assessment Last Done: 01/21/23 21:01
[2023-01-21 14:40] LABS: Basophils # (auto) 0.03 K/uL (0-0.2); Basophils % (auto) 0.4 %; Eosinophils # (auto) 0.03 K/uL (0-0.50); Eosinophils % (auto) 0.4 %; Hematocrit (blood only) 39.6 % (37.0-47.0); Hemoglobin 13.4 g/dl (12.0-16.0); Immature Granulocytes # (auto) 0.02 K/uL (0.01-0.20); Immature Granulocytes % (auto) 0.3 %; Lymphocytes % (auto) 16.3 %; Mean Corpuscular Hemoglobin 29.3 pg (25.0-34.0); Mean Corpuscular Hgb Conc 33.8 g/dL (32.0-36.0); Mean Corpuscular Volume 86.5 fL (80.0-100.0); Mean Platelet Volume 9.1 fL (9.4-12.4); Monocytes # (auto) 0.34 K/uL (0.11-0.59); Monocytes % (auto) 4.3 %; Neutrophils # (auto) 6.25 K/uL (1.40-6.50); Neutrophils % (auto) 78.3 %; Platelet Count 285 K/uL (130-400); RDW Coefficient of Variation 12.5 % (11.5-14.5); RDW Standard Deviation 39.2 fL (36.4-46.3); Red Blood Count 4.58 M/uL (4.20-5.40); White Blood Count 7.97 K/ul (4.8-10.8)
[2023-01-21 14:48] LABS: Acetaminophen < 3 ug/ml (10-30); Salicylate < 3.0 mg/dl (3.0-30)
[2023-01-21 14:50] LABS: Pregnancy Test, Serum Negative (Negative)
[2023-01-21 14:52] LABS: Alanine Aminotransferase 12 U/L (7-52); Albumin Globulin Ratio 1.3 (0.9-2); Albumin Level 4.3 gm/dl (3.4-5.0); Alkaline Phosphatase 50 U/L (34-104); Anion Gap 6 (3-11); Aspartate Aminotransferase 18 U/L (13-39); BUN Creatinine Ratio 18.4 (10-20); Bilirubin,Total 0.9 mg/dl (0.2-1.0); Blood Urea Nitrogen 16 mg/dl (6-23); Calcium 9.2 mg/dl (8.6-10.3); Carbon Dioxide 24 mmol/L (21-32); Chloride 107 mmol/L (98-107); Est GFR (African American) 98.6 ml/min; Est GFR (Non-African American) 85.1 ml/min; Globulin 3.4 gm/dl (2.5-4.0); Glucose 104 mg/dl (70-99(Fasting)); Lipase 4 U/L (11-82); Sodium 137 mmol/L (136-145); Total Protein 7.7 gm/dl (6.0-8.3)
[2023-01-21 14:57] LABS: Troponin I High Sensitivity 2.3 pg/ml (0-14)
[2023-01-21 17:29] LABS: Appearance Urine Cloudy (Clear); Bacteria Urine Automated 1+ (Negative); Bilirubin Urine Negative (Negative); Blood Urine Negative (Negative); Color Urine Dark Yellow; Epithelial Cell Urine Auto >30 /lpf (0-5); Glucose Urine UA Negative (Negative); Ketones Urine 2+ (Negative); Leukocyte Esterase Urine Negative (Negative); Nitrite Urine Negative (Negative); Protein Urine Negative (Negative); RBC Urine Automated 0-4 /hpf (0-4); Specific Gravity Urine 1.028 (1.000-1.030); Urobilinogen Urine Negative (Negative); pH Urine 5.5 (4.5-7.5)
[2023-01-21 17:54] LABS: Cast Urine Automated 0 /lpf (0-5); Mucus Urine Present (None Prsent)
[2023-01-21 18:00] LABS: Amphetamines+Metham, Urine Neg (Neg); Barbiturates, Urine Neg (Neg); Benzodiazepine, Urine Neg (Neg); Cocaine, Urine Neg (Neg); MDMA (Ecstacy), Urine Neg (Neg); Methadone, Urine Neg (Neg); Opiate, Urine Neg (Neg); Phencyclidine, Urine Neg (Neg)
[2023-01-21] MEDS ORDERED: LORazepam 1 MG TAB SL STA (18:33)
[2023-01-21] MEDS ORDERED: BISMUTH SUBSALICYLATE LIQD 236 ML PO PRN (21:34)
[2023-01-21] MEDS ORDERED: ACETAMINOPHEN 325 MG TAB PO PRN (21:34)
[2023-01-21] MEDS ORDERED: SODIUM CHLORIDE 0.65% NA SOLN 45 ML (OCEAN) PRN (21:34)
[2023-01-21] MEDS ORDERED: hydrOXYzine HCl 25 MG TAB PO PRN ×2 (21:34)
[2023-01-21] MEDS ORDERED: ALUMINUM/MAGNESIUM SUSP 30 ML UDC PO PRN (21:34)
[2023-01-21] MEDS ORDERED: MAGNESIUM HYDROXIDE SUSP 30 ML UDC PO PRN (21:34)
[2023-01-21] MEDS ORDERED: NICOTINE POLACRILEX 2 MG GUM MT PRN (21:53)
[2023-01-22] MEDS: CYANOCOBALAMIN (B-12) 500 MCG TABLET PO SCH (09:29)
[2023-01-22] MEDS: buprenorphine HCL 8 MG SUBL SL SCH ×2 (09:29→21:27)
[2023-01-22] MEDS: MULTIVITAMIN TAB PO SCH (09:30)
--- NOTE | 2023-01-22 10:59 | Electrocardiogram Report ---
Test Reason : Blood Pressure : / mmHG Vent. Rate : 075 BPM Atrial Rate : 075 BPM P-R Int : 134 ms QRS Dur : 074 ms QT Int : 374 ms P-R-T Axes : 067 060 020 degrees QTc Int : 417 ms Normal sinus rhythm with sinus arrhythmia Left atrial enlargement Abnormal ECG When compared with ECG of 10-JAN-2023 11:26, No significant change was found Confirmed by Fred Branch [id number] on 01/22/2023 10:59:27 AM Referred By: Marshal Hendricks Confirmed By:Fred Branch
[2023-01-22] MEDS: ARIPiprazole 5 MG TAB PO SCH (11:46)
--- NOTE | 2023-01-22 12:09 | History & Physical ---
Date of Service January 22, 2023 Impression / Recommendations Impression 37 yo female with recent admit for presumed substance induced psychosis, readmit with paranoid delusions and inability to care for self due to thought disorganization in the setting of med noncompliance. Patient is in opiate recovery on suboxone (1) Psychotic disorder with delusions: (2) Opiate dependence: in remission on suboxone Plan 01/22/2023: The patient was admitted to the [facility] ([facility] mental health unit) on q15 min checks (behavioral with suicide precautions) for safety. The patient will participate in group, recreational, and milieu therapies and will be offered additional individual and family sessions as clinically appropriate. Inventory Assets Strengths: responded to medication last stay, loves kids Needs: increase insight into condition, improve compliance with medication and aft ercare. Suicide Risk Level Suicide Risk Level: Low (q15 min observation checks) Risk Factors Assessment : Yes Do You Have Access To A Gun?: No Mental Health Diagnoses: Yes Substance Use Disorders: Yes (on suboxone) Previous Attempt: No Previous Psychiatric Hospitalization: Yes Protective Factors Assessment Responsible for Young Children: Yes Employed: No (loss job several weeks ago) Stable Relationships: Yes Psychiatric History Identifying Data CORAZON BHAKTA is a 37-year-old F who currently lives in [place], has a history of a previous admission to with discharge last week, and was readmitted on 01/21/23 20:45 on a 302 involuntary commitment for paranoia. Chief Complaint "I just can't get it together at home. I have alot to do and can't focus.". History of Present Illness According to 01/10/[address] Hwang: Corazon presented to the emergency department for the second time in two days for about three weeks of worsening anxiety, psychosis and paranoia. She has been expressing concerns about witchcraft, fears about a cult coming to harm her fiancee, has started sleeping with a knife under her pillow due to concerns for her safety (she denies this, reports sleeping with bibles and taisha quartz), has been hearing auditory hallucinations and recently quit her job and has not been eating (stomach pain) nor sleeping well (not good due to her anxiety and worrying about her kids). She states that after a move things at the house "got weird" and she also developed "amazing hearing" including being able to hear her boss even when he was in a different building. States this "weird-ed out my boss" so she lost her job of 5 years about two weeks ago. She notes "something is weird and off but it's not me". Reports she took Adderall, non-prescribed, for a few months off-and-on due to difficulty focusing and reports Dr. Ang her pain management provider is working to help her find an outpatient psychiatric provider. She feels the Subutex has been causing memory loss and also makes things more difficult. Presentation this time is similar in that she remains religiously preoccupied, even requesting meeting with clergy in the ED. She denies carrying a knife due to her paranoia this stay but multiple knives and box truck washer were found in her belongings. She told ED CM that she now carried a crystal for protection. She was not eating or sleeping well. She denied taking Adderall XR this time and urine tox was negative but a prescription bottle of Adderall was found in her belongings. On the unit she has expressed concerns that only wants liquid nutrition as less likely to hide poison. She was initially agreeable to a 201 commitment, then changed mind as felt exorcism was more appropriate and was subsequently 302'd. The patient only took 2 doses of Zyprexa upon discharge. She has dififculty articulating why she stopped other than she's "a hoarder and had alot to do." She had said sedation was contributing factor in ED. She did not keep her intake with [facility]. Past Psychiatric History Current Psychiatric Diagnosis: AH, paranoia Outpatient Services: none Previous Psych Admissions: [facility] 12/2022 Do You Have Access To A Gun?: No History of Previous Suicide Attempt: No Past Medication Trials: Zyprexa Allergies Allergy/AdvReac Type Severity Reaction Status Date / Time buprenorphine [From Suboxone] AdvReac Intermediate Hives Verified 01/10/23 14:48 naloxone [From Suboxone] AdvReac Intermediate Hives Verified 01/10/23 14:48 Corticosteroids AdvReac Mild VOMITING Verified 01/10/23 14:48 (Glucocorticoids) Home Medications Medication Instructions Recorded Confirmed Type MULTIPLE VITAMIN (ONCE DAILY) 1 tab PO QAM ##0 09/26/14 01/21/23 History buprenorphine HCl 8 mg sublingual 8 mg sublingual BID 01/07/23 01/22/23 History tablet cyanocobalamin (vitamin B-12) 500 1,000 mcg PO QAM VitB12 deficiency 01/15/23 01/21/23 Rx mcg tablet 30 days #60 tabs olanzapine 2.5 mg tablet 2.5 mg PO HS unspecified psychosis 01/15/23 01/21/23 Rx 30 days #30 tabs Family History Family History of: Depression and Suicide Attempts Family Mental Health History Comment: younger sister Alcohol History Hx of Alcohol Use Over the Past 12 Months: Yes (rarely; less than monthly, 1-2 drinks) AUDIT Total Score: 1 Smoking Use Have You Smoked or Used Tobacco Products in the Last 30 Days: Yes tobacco type: cigarettes Smoking Status: Current every day smoker Smoking packs per day: 0.25 Substance History Hx of Prescription Med Misuse Over the Past 12 Months: No Hx of Over the Counter Med Misuse Over the Past 12 Months: No Hx of Inhalent Misuse Over the Past 12 Months: No Hx of Organic Substance Use Over the Past 12 Months: No Hx of Illegal Substances/Street Drug Use Over Past 12 Months: Yes (bryan) Problems as a Result of Past Substance Use: None Identified Personal History Living Arrangements: Home Highest Grade Completed: Did Not Graduate High School Highest Grade Completed Comment: went until 11th grade Marital Status: Living w/ Signif. Other Number Of Children: 3 Beliefs That Will Affect Care: None Current Legal Problems: No Hx Legal Problems: No Hx Traumatic Life Events: No Patient History Medical History Anxiety Depression No pertinent family history Surgical History No pertinent past surgical history Social History Smoking Status: Current every day smoker Tobacco Type: Cigarettes Preferred Language: Sinhala Communication Ability: Effective Corporate Strategy Intern Required: No Beliefs That Will Affect Care: None Feels Safe at Home: Yes Gender Identity: Female Assistive Devices: None Review of Systems Review of Systems: All systems reviewed & are unremarkable except as noted in HPI & below Physical Exam Psychiatric: Orientation: alert, oriented to person and oriented to place Apperance: + disheveled Eye Contact: + poor eye contact (staring at wall) Motor Behavior: no abnormal motor movements Speech: + abnormal rate/rhythm/volume of speech (nonspontaneous) Affect: + blunted affect Mood: + anxious mood Thought Process: + thought blocking Thought Content: + paranoid, + delusions and + persecution (demonic possession) Suicidal Thoughts: denies suicidal thoughts Homicidal Thoughts: denies homicidal thoughts Hallucinations: no auditory hallucinations and no visual hallucinations Cognition: language grossly intact; + attention not intact Estimated Intelligence: consistent with education level Insight: + severely impaired insight Judgment: + severely impaired judgement Vital Signs (Past 24 Hours): Last Vital Signs Temp 37.3 C 01/22/23 06:00 Pulse 69 01/22/23 06:00 Resp 16 01/22/23 06:00 BP 108/73 01/22/23 06:39 Pulse Ox 98 01/22/23 06:00 O2 Del Method Room Air 01/22/23 06:00 Exam Statement: A physical exam was performed in the ED by Dr. Boyd for the purposes of medical clearance. I accept that physical as correct and adequate for the purposes of the inpatient physical exam. Results & Data ([facility]) Laboratory Results Laboratory Results - last 24 hr 01/21/23 01/21/23 01/21/23 14:15 14:15 14:15 WBC 7.97 RBC 4.58 Hgb 13.4 Hct 39.6 MCV 86.5 MCH 29.3 MCHC 33.8 RDW Std Deviation 39.2 RDW Coeff of Janet 12.5 Plt Count 285 MPV 9.1 L Immature Gran % (Auto) 0.3 Neut % (Auto) 78.3 Lymph % (Auto) 16.3 [place] % (Auto) 4.3 Eos % (Auto) 0.4 Baso % (Auto) 0.4 Neut # (Auto) 6.25 Lymph # (Auto) 1.30 [place] # (Auto) 0.34 Eos # (Auto) 0.03 Baso # (Auto) 0.03 Immature Gran # (Auto) 0.02 Sodium 137 Potassium 4.0 Chloride 107 Carbon Dioxide 24 Anion Gap 6 BUN 16 Creatinine 0.87 Est Cr Clr Drug Dosing Not Reportable Est GFR ( Amer) 98.6 Est GFR (Non-Af Amer) 85.1 BUN/Creatinine Ratio 18.4 Glucose 104 H Calcium 9.2 Total Bilirubin 0.9 AST 18 ALT 12 Alkaline Phosphatase 50 Troponin I High Sens 2.3 Total Protein 7.7 Albumin 4.3 Globulin 3.4 Albumin/Globulin Ratio 1.3 Lipase 4 L TSH 0.960 HCG, Qual Urine Color Urine Appearance Urine pH Ur Specific [place] Urine Protein Urine Glucose (UA) Urine Ketones Urine Blood Urine Nitrite Urine Bilirubin Urine Urobilinogen Ur Leukocyte Esterase Urine WBC (Auto) Urine RBC (Auto) U Hyaline Cast (Auto) U Epithel Cells (Auto) Urine Bacteria (Auto) Urine Mucus Salicylates Urine Opiates Screen Ur Methadone, Qual Acetaminophen Urine Barbiturates Ur Phencyclidine (PCP) U Amphetamin/Meth Scrn MDMA (Ecstasy) Screen U Benzodiazepines Scrn Ur Cocaine Metabolite U Marijuana (THC) Screen Ethyl Alcohol mg/dL SARS-CoV-2, RNA, NAAT 01/21/23 01/21/23 01/21/23 14:15 14:15 14:15 WBC RBC Hgb Hct MCV MCH MCHC RDW Std Deviation RDW Coeff of Janet Plt Count MPV Immature Gran % (Auto) Neut % (Auto) Lymph % (Auto) [place] % (Auto) Eos % (Auto) Baso % (Auto) Neut # (Auto) Lymph # (Auto) [place] # (Auto) Eos # (Auto) Baso # (Auto) Immature Gran # (Auto) Sodium Potassium Chloride Carbon Dioxide Anion Gap BUN Creatinine Est Cr Clr Drug Dosing Est GFR ( Amer) Est GFR (Non-Af Amer) BUN/Creatinine Ratio Glucose Calcium Total Bilirubin AST ALT Alkaline Phosphatase Troponin I High Sens Total Protein Albumin Globulin Albumin/Globulin Ratio Lipase TSH HCG, Qual Negative Urine Color Urine Appearance Urine pH Ur Specific [place] Urine Protein Urine Glucose (UA) Urine Ketones Urine Blood Urine Nitrite Urine Bilirubin Urine Urobilinogen Ur Leukocyte Esterase Urine WBC (Auto) Urine RBC (Auto) U Hyaline Cast (Auto) U Epithel Cells (Auto) Urine Bacteria (Auto) Urine Mucus Salicylates < 3.0 L Urine Opiates Screen Ur Methadone, Qual Acetaminophen < 3 L Urine Barbiturates Ur Phencyclidine (PCP) U Amphetamin/Meth Scrn MDMA (Ecstasy) Screen U Benzodiazepines Scrn Ur Cocaine Metabolite U Marijuana (THC) Screen Ethyl Alcohol mg/dL < 10.0 SARS-CoV-2, RNA, NAAT 01/21/23 01/21/23 01/21/23 14:45 17:15 17:15 WBC RBC Hgb Hct MCV MCH MCHC RDW Std Deviation RDW Coeff of Janet Plt Count MPV Immature Gran % (Auto) Neut % (Auto) Lymph % (Auto) [place] % (Auto) Eos % (Auto) Baso % (Auto) Neut # (Auto) Lymph # (Auto) [place] # (Auto) Eos # (Auto) Baso # (Auto) Immature Gran # (Auto) Sodium Potassium Chloride Carbon Dioxide Anion Gap BUN Creatinine Est Cr Clr Drug Dosing Est GFR ( Amer) Est GFR (Non-Af Amer) BUN/Creatinine Ratio Glucose Calcium Total Bilirubin AST ALT Alkaline Phosphatase Troponin I High Sens Total Protein Albumin Globulin Albumin/Globulin Ratio Lipase TSH HCG, Qual Urine Color Dark Yellow Urine Appearance Cloudy A Urine pH 5.5 Ur Specific [place] 1.028 Urine Protein Negative Urine Glucose (UA) Negative Urine Ketones 2+ H Urine Blood Negative Urine Nitrite Negative Urine Bilirubin Negative Urine Urobilinogen Negative Ur Leukocyte Esterase Negative Urine WBC (Auto) 5-10 H Urine RBC (Auto) 0-4 U Hyaline Cast (Auto) 0 U Epithel Cells (Auto) >30 H Urine Bacteria (Auto) 1+ H Urine Mucus Present A Salicylates Urine Opiates Screen Neg Ur Methadone, Qual Neg Acetaminophen Urine Barbiturates Neg Ur Phencyclidine (PCP) Neg U Amphetamin/Meth Scrn Neg MDMA (Ecstasy) Screen Neg U Benzodiazepines Scrn Neg Ur Cocaine Metabolite Neg U Marijuana (THC) Screen Neg Ethyl Alcohol mg/dL SARS-CoV-2, RNA, NAAT NEGATIVE Diagnostic Findings EKG in ED Current Inpatient Medications Current Inpatient Medications: Current Inpatient Medications Acetaminophen (Acetaminophen 325 Mg Tab) 650 mg PO Q4H PRN PRN Reason: Headache or Minor Fever Stop: 02/20/23 21:33 Al Hydrox/Mg Hydrox/Simethicone (Aluminum/Magnesium Susp 30 Ml Udc) 30 ml PO Q4H PRN PRN Reason: GI Upset Stop: 02/20/23 21:33 Aripiprazole (Aripiprazole 5 Mg Tab) 5 mg PO QAM ROMMEL Stop: 02/21/23 09:59 Last Admin: 01/22/23 11:46 Dose: 5 mg Bismuth Subsalicylate (Bismuth Subsalicylate Liqd 236 Ml) 15 ml PO PRN PRN PRN Reason: Loose Stool Stop: 02/20/23 21:33 Buprenorphine HCl (Buprenorphine Hcl 8 Mg Subl) 8 mg SL BID [facility] Stop: 02/21/23 08:59 Last Admin: 01/22/23 09:29 Dose: 8 mg Cyanocobalamin (Cyanocobalamin (B-12) 500 Mcg Tablet) 1,000 mcg PO QAM ROMMEL Stop: 02/21/23 08:59 Last Admin: 01/22/23 09:29 Dose: 1,000 mcg Hydroxyzine HCl (Hydroxyzine Hcl 25 Mg Tab) 50 mg PO HSZ PRN PRN Reason: Insomnia Stop: 02/20/23 21:33 Hydroxyzine HCl (Hydroxyzine Hcl 25 Mg Tab) 25 mg PO Q4H PRN PRN Reason: Anxiety Stop: 02/20/23 21:33 Magnesium Hydroxide (Magnesium Hydroxide Susp 30 Ml Udc) 30 ml PO DAILY PRN PRN Reason: Constipation Stop: 02/20/23 21:33 Multivitamins (Multivitamin Tab) 1 tab PO QAM [facility] Stop: 02/21/23 08:59 Last Admin: 01/22/23 09:30 Dose: 1 tab Nicotine Polacrilex (Nicotine Polacrilex 2 Mg Gum) 1 piece MT PRN PRN PRN Reason: cravings Stop: 02/20/23 21:52 Sodium Chloride (Sodium Chloride 0.65% Na Soln 45 Ml ([place])) 1 - 2 sprays NA PRN PRN PRN Reason: Nasal Dryness/Congestion Stop: 02/20/23 21:33
[2023-01-22] MEDS ORDERED: OLANZapine 10 MG/2.1 ML SDV IM PRN (15:31)
[2023-01-22] MEDS ORDERED: BENZTROPINE MESYLATE 1 MG TAB PO PRN (15:31)
[2023-01-22] MEDS ORDERED: haloperidoL 0.5 MG TAB PO PRN (15:31)
[2023-01-23] MEDS: CYANOCOBALAMIN (B-12) 500 MCG TABLET PO SCH (09:12)
[2023-01-23] MEDS: ARIPiprazole 5 MG TAB PO SCH (09:12)
[2023-01-23] MEDS: MULTIVITAMIN TAB PO SCH (09:13)
[2023-01-23] MEDS: buprenorphine HCL 8 MG SUBL SL SCH ×2 (09:16→20:41)
--- NOTE | 2023-01-23 09:59 | Psychiatric Progress Note ---
Date of Service January 23, 2023 Impression / Recommendations Impression 37 yo female with recent admit for presumed substance induced psychosis, readmit with paranoid delusions and inability to care for self due to thought disorganization in the setting of med noncompliance. Patient is in opiate recovery on suboxone (1) Psychotic disorder with delusions: Plan 01/23/2023: will shift Abilify to hs. attempt to coordinate care with pain cl inic tomorrow as closed for holiday to see if could taper suboxone. would generally add Ativan for anxiety and catatonic features but patient has hx of sedation and even hypotension given combo with suboxone and should be avoided. 01/22/2023: The patient was admitted to the [facility] ([facility] inpatient mental health unit) on q15 min checks (behavioral with suicide precautions) for safety. The patient will participate in group, recreational, and milieu therapies and will be offered additional individual and family sessions as clinically appropriate. Started Abilify 5 mg po qam yesterday. Had Haldol prn available but did not require. Inventory Assets Strengths: responded to medication last stay, loves kids Needs: increase insight into condition, improve compliance with medication and aftercare. Suicide Risk Level Suicide Risk Level: Low (q15 min observation checks) Risk Factors Assessment : Yes Do You Have Access To A Gun?: No Mental Health Diagnoses: Yes Substance Use Disorders: Yes (on suboxone) Previous Attempt: No Previous Psychiatric Hospitalization: Yes Protective Factors Assessment Responsible for Young Children: Yes Employed: No (loss job several weeks ago) Stable Relationships: Yes Interval History Identifying Information KHOI BHAKTA is a 37-year-old F who currently lives in [place], has a history of a previous admission to with discharge last week, and was readmitted on 01/21/23 20:45 on a 302 involuntary commitment for paranoia. Chief Complaint "I can't, not sure, tired". Review of Systems Sleep Information Total Hours of Sleep: 8 Meal Information Percent Meal Consumed - Breakfast: 5 Percent Meal Consumed - Lunch: 10 Percent Meal Consumed - Dinner: 5 Subjective Subjective Patient was seen & assessed and interval progress reviewed with nursing. Patient declined her suboxone last pm stating that she was too tired. Patient difficult to engage in conversation due to thought blocking and psychomotor slowing. Patient still not eating well due to thoughts about poison, takes sips of shakes. Wanders and stares ahead, no posturing. did not take any Haldol prns. Physical Exam Psychiatric Orientation: alert, oriented to person and oriented to place Apperance: + disheveled Eye Contact: + poor eye contact Motor Behavior: no abnormal motor movements Speech: + abnormal rate/rhythm/volume of speech (nonspontaneous) Affect: + blunted affect Mood: + anxious mood Thought Process: + thought blocking Thought Content: + paranoid, + delusions and + persecution (demonic possession) Suicidal Thoughts: denies suicidal thoughts Homicidal Thoughts: denies homicidal thoughts Hallucinations: no auditory hallucinations and no visual hallucinations Cognition: language grossly intact; + attention not intact Estimated Intelligence: consistent with education level Insight: + severely impaired insight Judgment: + severely impaired judgement Vital Signs (Past 24 Hours) Last Vital Signs Temp 37.0 C 01/23/23 06:00 Pulse 61 01/23/23 06:00 Resp 16 01/23/23 06:00 BP 104/68 01/23/23 06:33 Pulse Ox 97 01/23/23 06:00 O2 Del Method Room Air 01/23/23 06:00 Results & Data ([facility]) Current Inpatient Medications Current Inpatient Medications: Current Inpatient Medications Acetaminophen (Acetaminophen 325 Mg Tab) 650 mg PO Q4H PRN PRN Reason: Headache or Minor Fever Stop: 02/20/23 21:33 Al Hydrox/Mg Hydrox/Simethicone (Aluminum/Magnesium Susp 30 Ml Udc) 30 ml PO Q4H PRN PRN Reason: GI Upset Stop: 02/20/23 21:33 Aripiprazole (Aripiprazole 5 Mg Tab) 5 mg PO HS ROMMEL Stop: 02/23/23 21:59 Benztropine Mesylate (Benztropine Mesylate 1 Mg Tab) 1 mg PO Q6 PRN PRN Reason: Muscle Spasm Stop: 02/21/23 15:30 Bismuth Subsalicylate (Bismuth Subsalicylate Liqd 236 Ml) 15 ml PO PRN PRN PRN Reason: Loose Stool Stop: 02/20/23 21:33 Buprenorphine HCl (Buprenorphine Hcl 8 Mg Subl) 8 mg SL BID ROMMEL Stop: 02/21/23 08:59 Last Admin: 01/23/23 09:16 Dose: 8 mg Cyanocobalamin (Cyanocobalamin (B-12) 500 Mcg Tablet) 1,000 mcg PO QAM ROMMEL Stop: 02/21/23 08:59 Last Admin: 01/23/23 09:12 Dose: 1,000 mcg Haloperidol (Haloperidol 0.5 Mg Tab) 2.5 mg PO Q4 PRN PRN Reason: Anxiety/Agitation Stop: 02/21/23 15:30 Hydroxyzine HCl (Hydroxyzine Hcl 25 Mg Tab) 50 mg PO HSZ PRN PRN Reason: Insomnia Stop: 02/20/23 21:33 Hydroxyzine HCl (Hydroxyzine Hcl 25 Mg Tab) 25 mg PO Q4H PRN PRN Reason: Anxiety Stop: 02/20/23 21:33 Magnesium Hydroxide (Magnesium Hydroxide Susp 30 Ml Udc) 30 ml PO DAILY PRN PRN Reason: Constipation Stop: 02/20/23 21:33 Multivitamins (Multivitamin Tab) 1 tab PO QAM ROMMEL Stop: 02/21/23 08:59 Last Admin: 01/23/23 09:13 Dose: 1 tab Nicotine Polacrilex (Nicotine Polacrilex 2 Mg Gum) 1 piece MT PRN PRN PRN Reason: cravings Stop: 02/20/23 21:52 Olanzapine (Olanzapine 10 Mg/2.1 Ml Sdv) 5 mg IM Q6 PRN PRN Reason: Agitation Stop: 02/21/23 15:30 Sodium Chloride (Sodium Chloride 0.65% Na Soln 45 Ml ([place])) 1 - 2 sprays NA PRN PRN PRN Reason: Nasal Dryness/Congestion Stop: 02/20/23 21:33 Mental Health & Subst Abuse Tx Therapist [facility] Time of Therapist Appointment: did not follow up after discharge from [facility] on 01/15/2023 Therapy Appointment Comment: [address], [place] Sales Office Administrator Name of Sales Office Administrator: none Post Discharge Appointments Primary Care Physician Name Of Family Doctor/PCP: [facility] Joseph Fofana Primary Care Provider Appointment Comment: [address], [address], [place] [facility] Name of Pain Clinic: [facility] Phone Number for Pain Clinic: [phone] Date of Appointment with Pain Clinic: 01/27/23 Time of Appointment with Pain Clinic: 4:30p Pain Clinic Appointment Comment: [address], [place] [id number] Contact Information Discharge Discharge Address: [facility] [facility] [address] [place] [address]
[2023-01-24] MEDS ORDERED: haloperidoL 5 MG TAB PO ONE (08:01)
[2023-01-24] MEDS ORDERED: haloperidoL 5 MG TAB PO PRN ×2 (08:15)
[2023-01-24] MEDS: CYANOCOBALAMIN (B-12) 500 MCG TABLET PO SCH (09:55)
[2023-01-24] MEDS: MULTIVITAMIN TAB PO SCH (09:55)
[2023-01-24] MEDS: buprenorphine HCL 8 MG SUBL SL SCH ×2 (09:55→22:01)
--- NOTE | 2023-01-24 10:47 | Psychiatric Progress Note ---
Date of Service January 24, 2023 Impression / Recommendations Impression 37 yo female with recent admit for presumed substance induced psychosis, readmit with paranoid delusions and inability to care for self due to thought disorganization in the setting of med noncompliance. Patient is on suboxone from [place] [facility]. (1) Psychotic disorder with delusions: Plan 01/24/2023: increase Abilify 10 mg and dose hs. Haldol 2.5 mg prn. 01/23/2023: will shift Abilify to hs. attempt to coordinate care with pain clinic tomorrow as closed for holiday to see if could taper suboxone. would generally add Ativan for anxiety and catatonic features but patient has hx of sedation and even hypotension given combo with suboxone and should be avoided. 01/22/2023: The patient was admitted to [facility] mental [facility] unit) on q15 min checks (behavioral with suicide precautions) for safety. The patient will participate in group, recreational, and milieu therapies and will be offered additional individual and family sessions as clinically appropriate. Started Abilify 5 mg po qam yesterday. Had Haldol prn available but did not require. Inventory Assets Strengths: responded to medication last stay, loves kids Needs: increase insight into condition, improve compliance with medication and after care. Suicide Risk Level Suicide Risk Level: Low (q15 min observation checks) Risk Factors Assessment : Yes Do You Have Access To A Gun?: No Mental Health Diagnoses: Yes Substance Use Disorders: Yes (on suboxone) Previous Attempt: No Previous Psychiatric Hospitalization: Yes Protective Factors Assessment Responsible for Young Children: Yes Employed: No (loss job several weeks ago) Stable Relationships: Yes Interval History Identifying Information KHOI BHAKTA is a 37-year-old F who currently lives in [place], has a history of a previous admission to with discharge last week, and was readmitted on 01/21/23 20:45 on a 302 involuntary commitment for paranoia. Chief Complaint "something gets released in my body when I eat, I need an exorcist." Review of Systems Sleep Information Total Hours of Sleep: 8.5 Meal Information Percent Meal Consumed - Breakfast: 0 Percent Meal Consumed - Lunch: 50 Percent Meal Consumed - Dinner: 100 Nutrition Comment: pt. fearful to eat r/t delusions Subjective Subjective Patient was seen & assessed and interval progress reviewed with treatment team. Patient appears more alert and did eat more as the day went on yesterday. This am refused her suboxone, stating she won't take any meds. Reviewed Abilify being shifted to and encouraged that can't stop suboxone abruptly and missed doses put at risk for withdrawal. She asked to meet with clergy and hospital eligibility technician would be updated re: her condition before any meeting if available. Her fiance reported to staff that she seemed significantly better in their interactions over visiting hours yesterday. Seems disorganized and blocked again today. Physical Exam Psychiatric Orientation: alert, oriented to person and oriented to place Apperance: + disheveled Eye Contact: + poor eye contact Motor Behavior: no abnormal motor movements Speech: + abnormal rate/rhythm/volume of speech (nonspontaneous) Affect: + blunted affect Mood: + anxious mood Thought Process: + thought blocking Thought Content: + paranoid, + delusions and + persecution (demonic possession) Suicidal Thoughts: denies suicidal thoughts Homicidal Thoughts: denies homicidal thoughts Hallucinations: no auditory hallucinations and no visual hallucinations Cognition: language grossly intact; + attention not intact Estimated Intelligence: consistent with education level Insight: + severely impaired insight Judgment: + severely impaired judgement Vital Signs (Past 24 Hours) Last Vital Signs Temp 36.8 C 01/24/23 06:39 Pulse 65 01/24/23 06:40 Resp 16 01/24/23 06:39 BP 93/57 L 01/24/23 06:40 Pulse Ox 97 01/23/23 06:00 O2 Del Method Room Air 01/23/23 06:00 Results & Data ([facility]) Current Inpatient Medications Current Inpatient Medications: Current Inpatient Medications Acetaminophen (Acetaminophen 325 Mg Tab) 650 mg PO Q4H PRN PRN Reason: Headache or Minor Fever Stop: 02/20/23 21:33 Al Hydrox/Mg Hydrox/Simethicone (Aluminum/Magnesium Susp 30 Ml Udc) 30 ml PO Q4H PRN PRN Reason: GI Upset Stop: 02/20/23 21:33 Aripiprazole (Aripiprazole 5 Mg Tab) 5 mg PO HS ROMMEL Stop: 02/23/23 21:59 Benztropine Mesylate (Benztropine Mesylate 1 Mg Tab) 1 mg PO Q6 PRN PRN Reason: Muscle Spasm Stop: 02/21/23 15:30 Bismuth Subsalicylate (Bismuth Subsalicylate Liqd 236 Ml) 15 ml PO PRN PRN PRN Reason: Loose Stool Stop: 02/20/23 21:33 Buprenorphine HCl (Buprenorphine Hcl 8 Mg Subl) 8 mg SL BID ROMMEL Stop: 02/21/23 08:59 Last Admin: 01/24/23 09:55 Dose: 4 mg Cyanocobalamin (Cyanocobalamin (B-12) 500 Mcg Tablet) 1,000 mcg PO QAM ROMMEL Stop: 02/21/23 08:59 Last Admin: 01/24/23 09:55 Dose: 1,000 mcg Haloperidol (Haloperidol 5 Mg Tab) 2.5 mg PO Q4 PRN PRN Reason: Anxiety/Agitation Stop: 02/23/23 08:00 Hydroxyzine HCl (Hydroxyzine Hcl 25 Mg Tab) 50 mg PO HSZ PRN PRN Reason: Insomnia Stop: 02/20/23 21:33 Hydroxyzine HCl (Hydroxyzine Hcl 25 Mg Tab) 25 mg PO Q4H PRN PRN Reason: Anxiety Stop: 02/20/23 21:33 Magnesium Hydroxide (Magnesium Hydroxide Susp 30 Ml Udc) 30 ml PO DAILY PRN PRN Reason: Constipation Stop: 02/20/23 21:33 Multivitamins (Multivitamin Tab) 1 tab PO QAM ROMMEL Stop: 02/21/23 08:59 Last Admin: 01/24/23 09:55 Dose: 1 tab Nicotine Polacrilex (Nicotine Polacrilex 2 Mg Gum) 1 piece MT PRN PRN PRN Reason: cravings Stop: 02/20/23 21:52 Olanzapine (Olanzapine 10 Mg/2.1 Ml Sdv) 5 mg IM Q6 PRN PRN Reason: Agitation Stop: 02/21/23 15:30 Sodium Chloride (Sodium Chloride 0.65% Na Soln 45 Ml ([place])) 1 - 2 sprays NA PRN PRN PRN Reason: Nasal Dryness/Congestion Stop: 02/20/23 21:33 Mental Health & Subst Abuse Tx Therapist Name of Therapist: Cruz Enciso Therapist's Time of Therapist Appointment: did not follow up after discharge from [facility] on 01/15/2023 Therapy Appointment Comment: [address], [place] K[place] Arson Investigator Name of Arson Investigator: none Post Discharge Appointments Primary Care Physician Name Of Family Doctor/PCP: [facility] of Joseph Fofana Primary Care Provider Appointment Comment: [address], [address], [place] Kaur [facility] Name of Pain Clinic: [facility] Phone Number for Pain Clinic: [phone] Date of Appointment with Pain Clinic: 01/27/23 Time of Appointment with Pain Clinic: 4:30p Pain Clinic Appointment Comment: [address] [place] [address] Contact Information Discharge Discharge Address: [address] [place] [address]., [place] [address]
[2023-01-24] MEDS ORDERED: ONDANSETRON 8MG OD TAB PO PRN (20:55)
[2023-01-24] MEDS: ARIPiprazole 10 MG TAB PO SCH ×2 (21:54→22:00)
[2023-01-24] MEDS ORDERED: ARIPiprazole 5 MG TAB PO SCH (22:00)
[2023-01-25] MEDS: MULTIVITAMIN TAB PO SCH (09:09)
[2023-01-25] MEDS: CYANOCOBALAMIN (B-12) 500 MCG TABLET PO SCH (09:09)
[2023-01-25] MEDS: buprenorphine HCL 8 MG SUBL SL SCH (09:10)
--- NOTE | 2023-01-25 10:01 | Psychiatric Progress Note ---
Date of Service January 25, 2023 Impression / Recommendations Impression 37 yo female with recent admit for presumed substance induced psychosis, readmit with paranoid delusions and inability to care for self due to thought disorganization in the setting of med noncompliance. Patient is on suboxone from [place] [facility]. Meets criteria for brief psychotic disorder. MNPR for paranoia 01/25/2023: she agreed to take a lower yet consistent dose of suboxone to minimize any withdrawal, still not clear how often taking the full 16 mg daily. I'm wondering if she doesn't misinterpret her withdrawal as being possessed given her comorbid psychosis. Clearly slowed after suboxone doses. (1) Psychotic disorder with delusions: Plan 01/25/2023: continue Abilify trial with plan for conversion to JONES, 303 filing. suboxone 4 mg BID and monitor for withdrawal. 01/24/2023: increase Abilify 10 mg and dose hs. Haldol 2.5 mg prn. 01/23/2023: will shift Abilify to hs. attempt to coordinate care with pain clinic tomorrow as closed for holiday to see if could taper suboxone. would generally add Ativan for anxiety and catatonic features but patient has hx of sedation and even hypotension given combo with suboxone and should be avoided. 01/22/2023: The patient was admitted to the [facility] ([facility] mental health unit) on q15 min checks (behavioral with suicide precautions) for safety. The patient will participate in group, recreational, and milieu therapies and will be offered additional individual and family sessions as clinically appropriate. Started Abilify 5 mg po qam yesterday. Had Haldol prn available but did not require. Inventory Assets Strengths: responded to medication last stay, loves kids Needs: increase insight into condition, improve compliance with medication and aftercare. Suicide Risk Level Suicide Risk Level: Low (q15 min observation checks) Risk Factors Assessment : Yes Do You Have Access To A Gun?: No Mental Health Diagnoses: Yes Substance Use Disorders: Yes (on suboxone) Previous Attempt: No Previous Psychiatric Hospitalization: Yes Protective Factors Assessment Responsible for Young Children: Yes Employed: No (loss job several weeks ago) Stable Relationships: Yes Interval History Identifying Information KHOI BHAKTA is a 37-year-old F who currently lives in [place], has a history of a previous admission to with discharge last week, and was readmitted on 01/21/23 20:45 on a 302 involuntary commitment for paranoia. Chief Complaint partial med compliance Review of Systems Sleep Information Total Hours of Sleep: 8.5 Meal Information Percent Meal Consumed - Breakfast: 0 Percent Meal Consumed - Lunch: 100 Percent Meal Consumed - Dinner: 25 Nutrition Comment: pt. fearful to eat r/t delusions Subjective Subjective Patient was seen & assessed and interval progress reviewed with treatment team. Patient's affect remains blunted but less labile, does best when fiance visits. She met with pastoral care yesterday and ate 100% of lunch afterward. Denied that she feels possessed today. More able to converse and admits to poor compliance with Suboxone at home, typically only taking once a day, sometimes twice. Reviewed that her intermittent refusal can result in withdrawal and is typically tapered outpatient very slowly over a period of months. Reviewed symptoms of withdrawal as she reports feeling nonspecific "achy" today, no GI complaints currently, no sweats/piloerection, etc. She is not an immediate candidate for clonidine detox protocol as pulse intermittently low. Reviewed her 302 status and need for ongoing support to monitor for withdrawal and assess tolerability of medication for transtion to JONES. She is agreeable to that plan but cannot yet fully understand risks of premature discharge due to her thought blocking. Reviewed will be requesting a 303 hearing. She is still not eating consistently and delusions are present much of day. She was having some difficulty staying awake during conversation. Physical Exam Psychiatric Orientation: alert, oriented to person and oriented to place Apperance: + disheveled Eye Contact: + poor eye contact Motor Behavior: no abnormal motor movements Speech: + abnormal rate/rhythm/volume of speech (nonspontaneous) Affect: + blunted affect Mood: + anxious mood Thought Process: + thought blocking Thought Content: + delusions Suicidal Thoughts: denies suicidal thoughts Homicidal Thoughts: denies homicidal thoughts Hallucinations: no auditory hallucinations and no visual hallucinations Cognition: language grossly intact; + attention not intact Estimated Intelligence: consistent with education level Insight: + severely impaired insight Judgment: + severely impaired judgement Vital Signs (Past 24 Hours) Last Vital Signs Temp 37.0 C 01/25/23 06:41 Pulse 45 L 01/25/23 06:41 Resp 18 01/25/23 06:41 BP 100/62 01/25/23 06:45 Pulse Ox 100 01/25/23 06:41 O2 Del Method Room Air, Nasal Cannula 01/25/23 06:41 Results & Data ([facility]) Current Inpatient Medications Current Inpatient Medications: Current Inpatient Medications Acetaminophen (Acetaminophen 325 Mg Tab) 650 mg PO Q4H PRN PRN Reason: Headache or Minor Fever Stop: 02/20/23 21:33 Al Hydrox/Mg Hydrox/Simethicone (Aluminum/Magnesium Susp 30 Ml Udc) 30 ml PO Q4H PRN PRN Reason: GI Upset Stop: 02/20/23 21:33 Aripiprazole (Aripiprazole 10 Mg Tab) 10 mg PO HS ROMMEL Stop: 02/23/23 21:59 Last Admin: 01/24/23 22:00 Dose: 10 mg Benztropine Mesylate (Benztropine Mesylate 1 Mg Tab) 1 mg PO Q6 PRN PRN Reason: Muscle Spasm Stop: 02/21/23 15:30 Bismuth Subsalicylate (Bismuth Subsalicylate Liqd 236 Ml) 15 ml PO PRN PRN PRN Reason: Loose Stool Stop: 02/20/23 21:33 Buprenorphine HCl (Buprenorphine Hcl 8 Mg Subl) 8 mg SL BID ROMMEL Stop: 02/21/23 08:59 Last Admin: 01/25/23 09:10 Dose: 4 mg Cyanocobalamin (Cyanocobalamin (B-12) 500 Mcg Tablet) 1,000 mcg PO QAM [facility] Stop: 02/21/23 08:59 Last Admin: 01/25/23 09:09 Dose: 1,000 mcg Haloperidol (Haloperidol 5 Mg Tab) 2.5 mg PO Q4 PRN PRN Reason: Anxiety/Agitation Stop: 02/23/23 08:00 Hydroxyzine HCl (Hydroxyzine Hcl 25 Mg Tab) 50 mg PO HSZ PRN PRN Reason: Insomnia Stop: 02/20/23 21:33 Hydroxyzine HCl (Hydroxyzine Hcl 25 Mg Tab) 25 mg PO Q4H PRN PRN Reason: Anxiety Stop: 02/20/23 21:33 Magnesium Hydroxide (Magnesium Hydroxide Susp 30 Ml Udc) 30 ml PO DAILY PRN PRN Reason: Constipation Stop: 02/20/23 21:33 Multivitamins (Multivitamin Tab) 1 tab PO QAM ROMMEL Stop: 02/21/23 08:59 Last Admin: 01/25/23 09:09 Dose: 1 tab Nicotine Polacrilex (Nicotine Polacrilex 2 Mg Gum) 1 piece MT PRN PRN PRN Reason: cravings Stop: 02/20/23 21:52 Olanzapine (Olanzapine 10 Mg/2.1 Ml Sdv) 5 mg IM Q6 PRN PRN Reason: Agitation Stop: 02/21/23 15:30 Ondansetron HCl (Ondansetron 8mg Od Tab) 8 mg PO Q6H PRN PRN Reason: Nausea Stop: 02/23/23 20:54 Sodium Chloride (Sodium Chloride 0.65% Na Soln 45 Ml ([place])) 1 - 2 sprays NA PRN PRN PRN Reason: Nasal Dryness/Congestion Stop: 02/20/23 21:33 Mental Health & Subst Abuse Tx Therapist Name of Therapist: [facility] Therapist's Time of Therapist Appointment: did not follow up after discharge from [facility] on 01/15/2023 Therapy Appointment Comment: [address], [place] Deer Farm Worker Name of Deer Farm Worker: none Post Discharge Appointments Primary Care Physician Name Of Family Doctor/PCP: [facility] of Joseph Fofana Primary Care Provider Appointment Comment: [address], [address], [place] Kaur [facility] Phone Number for [facility]: [phone] Date of Appointment with Pain Clinic: 01/27/23 Time of Appointment with Pain Clinic: 4:30p Pain Clinic Appointment Comment: [address] [place] [address] Contact Information Discharge Discharge Address: [address] [place] [address], [place] [address]
--- NOTE | 2023-01-25 13:33 | Communication Note ---
Date of Service: January 25, 2023 met with patient's fiance with liaison nurse for >20 min as he had called repeatedly after speaking with patient re: 303 hearing tomorrow. He arrived at door and per staff was initially demanding to see patient. He was upset that patient was not coming home tomorrow but she had not shared with him that she was still having delusions about possession. He mentioned dealing with his own mental health issues but has the support of his mother while patient is hospitalized, otherwise he has had to manage questions from the kids and worried about the cost of stay as his impression was that her insurance was not active. He confirmed that she has not been taking suboxone as prescribed (taking less), presumably due to desire to taper but also due to concern about cognitive side effects. He expressed guilt for sharing Adderall XR with her from his own prescription as did not realize could be problematic. Explained her current symptoms and the 303 process. Explained that SW had checked with insurance yesterday about the out of network agreement and will reconfirm that still active after January 26. Discussed diagnostic impressions and recommendation for JONES which he supported. He was calmer and thankful for the education and all questions were answered to his satisfaction by the end of the meeting. He was supportive of her ongoing stay.
[2023-01-25] MEDS: buprenorphine HCL 2 MG SUBL SL SCH (21:07)
[2023-01-26] MEDS: MULTIVITAMIN TAB PO SCH (09:02)
[2023-01-26] MEDS: CYANOCOBALAMIN (B-12) 500 MCG TABLET PO SCH (09:02)
[2023-01-26] MEDS: buprenorphine HCL 2 MG SUBL SL SCH ×2 (09:08→20:51)
--- NOTE | 2023-01-26 14:56 | Psychiatric Progress Note ---
Date of Service January 26, 2023 Impression / Recommendations Impression 37 yo female with recent admit for presumed substance induced psychosis, readmit with paranoid delusions and inability to care for self due to thought disorganization in the setting of med noncompliance. Patient is on suboxone from [place] [facility]. Meets criteria for brief psychotic disorder. MNPR for paranoia 01/26/2023: significant improvement, at risk for decompensation if discharged too soon, needs JONES and currently having variable dosing of suboxone and blurry vision ?Abilify (1) Psychotic disorder with delusions: Plan 01/26/2023: 303 granted. decrease Abilify 7.5 mg this hs. Consider additional decrease of suboxone. based on use at home being more sporadic than previously thought and lack of any significant withdrawal symptoms here, clear slowing several hours after dose will continue taper as tolerated as is supported by outpatient provider. BP and P trend low. 01/25/2023: continue Abilify trial with plan for conversion to JONES, 303 filing. suboxone 4 mg BID and monitor for withdrawal. 01/24/2023: increase Abilify 10 mg and dose hs. Haldol 2.5 mg prn. 01/23/2023: will shift Abilify to hs. attempt to coordinate care with pain clinic tomorrow as closed for holiday to see if could taper suboxone. would generally add Ativan for anxiety and catatonic features but patient has hx of sedation and even hypotension given combo with suboxone and should be avoided. 01/22/2023: The patient was admitted to the [facility] ([facility] health unit) on q15 min checks (behavioral with suicide precautions) for safety. The patient will participate in group, recreational, and milieu therapies and will be offered additional individual and family sessions as clinically appropriate. Started Abilify 5 mg po qam yesterday. Had Haldol prn available but did not require. Inventory Assets Strengths: responded to medication last stay, loves kids Needs: increase insight into condition, improve compliance with medication and aftercare. Suicide Risk Level Suicide Risk Level: Low (q15 min observation checks) Risk Factors Assessment : Yes Do You Have Access To A Gun?: No Mental Health Diagnoses: Yes Substance Use Disorders: Yes (on suboxone) Previous Attempt: No Previous Psychiatric Hospitalization: Yes Protective Factors Assessment Responsible for Young Children: Yes Employed: No (loss job several weeks ago) Stable Relationships: Yes Interval History Identifying Information KHOI BHAKTA is a 37-year-old F who currently lives in [place], has a history of a previous admission to with discharge last week, and was readmitted on 01/21/23 20:45 on a 302 involuntary commitment for paranoia. Chief Complaint 303 hearing, blurry vision primarily left eye. Review of Systems Sleep Information Total Hours of Sleep: 6 Meal Information Percent Meal Consumed - Breakfast: 25 Percent Meal Consumed - Lunch: 100 Percent Meal Consumed - Dinner: 50 Subjective Subjective Patient was seen & assessed and interval progress reviewed with nursing and social work. Patient more anxious last pm, held hands over ears, unclear if was responding to internal stimuli. Received prn Haldol. Met with patient this am and she was cooperative with recommendation for ongoing stay and agreeable to Beth JONES. Reviewed that we are still assessing tolerability prior to injection. Patient denies dizziness, states that blurry vision late am, still present few hours later, no better or worse. No light sensitivity. No CARVAJAL. Appears tired. Physical Exam Psychiatric Orientation: alert and oriented x 3 Apperance: appropriately dressed and appropriately groomed Eye Contact: + fair eye contact Motor Behavior: no abnormal motor movements Speech: normal rate/rhythm/volume of speech Affect: + depressed affect Mood: + depressed mood Thought Process: + concrete thought process Thought Content: + delusions (but now frames as "i'm a spriritual person" as focused on discharge. ) Suicidal Thoughts: denies suicidal thoughts Homicidal Thoughts: denies homicidal thoughts Hallucinations: no auditory hallucinations and no visual hallucinations Cognition: language grossly intact; + attention not intact Estimated Intelligence: consistent with education level Insight: + limited insight Judgment: + limited judgement Vital Signs (Past 24 Hours) Last Vital Signs Temp 36.9 C 01/26/23 06:28 Pulse 50 L 01/26/23 06:28 Resp 18 01/26/23 06:28 BP 91/68 L 01/26/23 06:29 Pulse Ox 99 01/26/23 06:28 O2 Del Method Room Air 01/26/23 06:28 Eyes EOM intact PERRL, conjunctivae normal, anicteric sclerae Results & Data ([facility]) Current Inpatient Medications Current Inpatient Medications: Current Inpatient Medications Acetaminophen (Acetaminophen 325 Mg Tab) 650 mg PO Q4H PRN PRN Reason: Headache or Minor Fever Stop: 02/20/23 21:33 Last Admin: 01/25/23 18:51 Dose: 650 mg Al Hydrox/Mg Hydrox/Simethicone (Aluminum/Magnesium Susp 30 Ml Udc) 30 ml PO Q4H PRN PRN Reason: GI Upset Stop: 02/20/23 21:33 Aripiprazole (Aripiprazole 10 Mg Tab) 7.5 mg PO HS ROMMEL Stop: 02/25/23 21:59 Benztropine Mesylate (Benztropine Mesylate 1 Mg Tab) 1 mg PO Q6 PRN PRN Reason: Muscle Spasm Stop: 02/21/23 15:30 Bismuth Subsalicylate (Bismuth Subsalicylate Liqd 236 Ml) 15 ml PO PRN PRN PRN Reason: Loose Stool Stop: 02/20/23 21:33 Buprenorphine HCl (Buprenorphine Hcl 2 Mg Subl) 4 mg SL BID ROMMEL Stop: 02/24/23 20:59 Last Admin: 01/26/23 09:08 Dose: 4 mg Cyanocobalamin (Cyanocobalamin (B-12) 500 Mcg Tablet) 1,000 mcg PO QAM ROMMEL Stop: 02/21/23 08:59 Last Admin: 01/26/23 09:02 Dose: 1,000 mcg Haloperidol (Haloperidol 5 Mg Tab) 2.5 mg PO Q4 PRN PRN Reason: Anxiety/Agitation Stop: 02/23/23 08:00 Last Admin: 01/25/23 17:46 Dose: 2.5 mg Hydroxyzine HCl (Hydroxyzine Hcl 25 Mg Tab) 50 mg PO HSZ PRN PRN Reason: Insomnia Stop: 02/20/23 21:33 Hydroxyzine HCl (Hydroxyzine Hcl 25 Mg Tab) 25 mg PO Q4H PRN PRN Reason: Anxiety Stop: 02/20/23 21:33 Magnesium Hydroxide (Magnesium Hydroxide Susp 30 Ml Udc) 30 ml PO DAILY PRN PRN Reason: Constipation Stop: 02/20/23 21:33 Multivitamins (Multivitamin Tab) 1 tab PO QAM ROMMEL Stop: 02/21/23 08:59 Last Admin: 01/26/23 09:02 Dose: 1 tab Nicotine Polacrilex (Nicotine Polacrilex 2 Mg Gum) 1 piece MT PRN PRN PRN Reason: cravings Stop: 02/20/23 21:52 Olanzapine (Olanzapine 10 Mg/2.1 Ml Sdv) 5 mg IM Q6 PRN PRN Reason: Agitation Stop: 02/21/23 15:30 Ondansetron HCl (Ondansetron 8mg Od Tab) 8 mg PO Q6H PRN PRN Reason: Nausea Stop: 02/23/23 20:54 Sodium Chloride (Sodium Chloride 0.65% Na Soln 45 Ml ([place])) 1 - 2 sprays NA PRN PRN PRN Reason: Nasal Dryness/Congestion Stop: 02/20/23 21:33 Mental Health & Subst Abuse Tx Therapist Name of Therapist: [facility] Therapist's Time of Therapist Appointment: did not follow up after discharge from [facility] on 01/15/2023 Therapy Appointment Comment: [address] [facility] [address], [place] Entrepreneurial Finance Professor Name of Entrepreneurial Finance Professor: none Post Discharge Appointments Primary Care Physician Name Of Family Doctor/PCP: [facility] of Joseph Fofana Primary Care Provider Appointment Comment: [address], [address], [place] Kaur [facility] Name of Pain Clinic: [facility] Phone Number for Pain Clinic: [phone] Date of Appointment with Pain Clinic: 01/27/23 Time of Appointment with Pain Clinic: 4:30p Pain Clinic Appointment Comment: [address] [place] [address] Contact Information Discharge Discharge Address: [address] [place], [place] [address] [address]
[2023-01-26] MEDS ORDERED: ARIPiprazole 5 MG TAB PO SCH (22:00)
[2023-01-27] MEDS: MULTIVITAMIN TAB PO SCH (08:43)
[2023-01-27] MEDS: CYANOCOBALAMIN (B-12) 500 MCG TABLET PO SCH (08:43)
[2023-01-27] MEDS: buprenorphine HCL 2 MG SUBL SL SCH ×2 (08:51→21:18)
[2023-01-27] MEDS ORDERED: ARIPiprazole LAUROXIL 882 MG/3.2 ML SYR IM ONE (10:45)
[2023-01-27] MEDS ORDERED: ARIPiprazole LAUROXIL 675 MG/2.4 ML SYR IM ONE (10:45)
[2023-01-27] MEDS: DOCUSATE SODIUM 100 MG CAP PO SCH ×2 (11:45→21:20)
--- NOTE | 2023-01-27 12:58 | Psychiatric Progress Note ---
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 Patient is on suboxone from [place] [facility]. Meets criteria for brief psychotic disorder. 01/27/2023: significant improvement, tolerating medications, side effects seem to coincide with either prn Haldol which was d/c or suboxone dosing. (1) Psychotic disorder with delusions: Plan 01/27/2023: informed consent reviewed for Abilify Initio coadmin with lowest dose Aristada. Patient preferred over Abilify maintenna which has longer induction. Reviewed that she will need a shot within 6 weeks, ideally 4 weeks and must complete intake with [facility]. She prefers shots today vs. another day of assessing tolerability of Abilify. 01/26/2023: 303 granted. decrease Abilify 7.5 mg this hs. Consider additional decrease of suboxone. based on use at home being more sporadic than previously thought and lack of any significant withdrawal symptoms here, clear slowing several hours after dose will continue taper as tolerated as is supported by outpatient provider. BP and P trend low. 01/25/2023: continue Abilify trial with plan for conversion to JONES, 303 filing. suboxone 4 mg BID and monitor for withdrawal. 01/24/2023: increase Abilify 10 mg and dose hs. Haldol 2.5 mg prn. 01/23/2023: will shift Abilify to hs. attempt to coordinate care with pain clinic tomorrow as closed for holiday to see if could taper suboxone. would generally add Ativan for anxiety and catatonic features but patient has hx of sedation and even hypotension given combo with suboxone and should be avoided. 01/22/2023: The patient was admitted to the [facility] ([facility] inpatient [facility] unit) on q15 min checks (behavioral with suicide precautions) for safety. The patient will participate in group, recreational, and milieu therapies and will be offered additional individual and family sessions as clinically appropriate. Started Abilify 5 mg po qam yesterday. Had Haldol prn available but did not require. Inventory Assets Strengths: responded to medication last stay, loves kids Needs: increase insight into condition, improve compliance with medication and aftercare. Suicide Risk Level Suicide Risk Level: Low (q15 min observation checks) Risk Factors Assessment : Yes Do You Have Access To A Gun?: No Mental Health Diagnoses: Yes Substance Use Disorders: Yes (on suboxone) Previous Attempt: No Previous Psychiatric Hospitalization: Yes Protective Factors Assessment Responsible for Young Children: Yes Employed: No (loss job several weeks ago) Stable Relationships: Yes Interval History Identifying Information KHOI BHAKTA is a 37-year-old F who currently lives in [place], has a history of a previous admission to with discharge last week, and was readmitted on 01/21/23 20:45 on a 302 involuntary commitment for paranoia. Chief Complaint "I'm feeling so much better." Review of Systems Sleep Information Total Hours of Sleep: 7.25 Meal Information Percent Meal Consumed - Breakfast: 25 Percent Meal Consumed - Lunch: 100 Percent Meal Consumed - Dinner: 85 Subjective Subjective Patient was seen & assessed and interval progress reviewed with treatment team. As is typical for her she appears less sedated and more engaged on evening shift, does particularly well when fiance visits. She is denying delusions or hallucinations and is without physical complaint today. She did not seem to recall having blurry vision yesterday, regardless it has resolved. She remains focussed on discharge as looking forward to time with her kids. Appetite and sleep are baseline for patient. Physical Exam Psychiatric Orientation: alert and oriented x 3 Apperance: appropriately dressed and appropriately groomed Eye Contact: good eye contact Motor Behavior: no abnormal motor movements Speech: normal rate/rhythm/volume of speech Affect: + constricted affect Mood: no depressed mood Thought Process: + concrete thought process Thought Content: reality based without delusions Suicidal Thoughts: denies suicidal thoughts Homicidal Thoughts: denies homicidal thoughts Hallucinations: no auditory hallucinations and no visual hallucinations Cognition: attention grossly intact and language grossly intact Estimated Intelligence: consistent with education level Vital Signs (Past 24 Hours) Last Vital Signs Temp 36.9 C 01/27/23 06:42 Pulse 50 L 01/27/23 06:42 Resp 16 01/27/23 06:42 BP 103/66 01/27/23 06:42 Pulse Ox 99 01/26/23 06:28 O2 Del Method Room Air 01/26/23 06:28 Results & Data ([facility]) Current Inpatient Medications Current Inpatient Medications: Current Inpatient Medications Acetaminophen (Acetaminophen 325 Mg Tab) 650 mg PO Q4H PRN PRN Reason: Headache or Minor Fever Stop: 02/20/23 21:33 Last Admin: 01/25/23 18:51 Dose: 650 mg Al Hydrox/Mg Hydrox/Simethicone (Aluminum/Magnesium Susp 30 Ml Udc) 30 ml PO Q4H PRN PRN Reason: GI Upset Stop: 02/20/23 21:33 Benztropine Mesylate (Benztropine Mesylate 1 Mg Tab) 1 mg PO Q6 PRN PRN Reason: Muscle Spasm Stop: 02/21/23 15:30 Bismuth Subsalicylate (Bismuth Subsalicylate Liqd 236 Ml) 15 ml PO PRN PRN PRN Reason: Loose Stool Stop: 02/20/23 21:33 Buprenorphine HCl (Buprenorphine Hcl 2 Mg Subl) 2 mg SL BID [facility] Stop: 02/25/23 20:59 Last Admin: 01/27/23 08:51 Dose: 2 mg Cyanocobalamin (Cyanocobalamin (B-12) 500 Mcg Tablet) 1,000 mcg PO QAM [facility] Stop: 02/21/23 08:59 Last Admin: 01/27/23 08:43 Dose: 1,000 mcg Docusate Sodium (Docusate Sodium 100 Mg Cap) 100 mg PO BID [facility] Stop: 02/26/23 09:44 Last Admin: 01/27/23 11:45 Dose: 100 mg Hydroxyzine HCl (Hydroxyzine Hcl 25 Mg Tab) 50 mg PO HSZ PRN PRN Reason: Insomnia Stop: 02/20/23 21:33 Hydroxyzine HCl (Hydroxyzine Hcl 25 Mg Tab) 25 mg PO Q4H PRN PRN Reason: Anxiety Stop: 02/20/23 21:33 Last Admin: 01/26/23 17:43 Dose: 25 mg Magnesium Hydroxide (Magnesium Hydroxide Susp 30 Ml Udc) 30 ml PO DAILY PRN PRN Reason: Constipation Stop: 02/20/23 21:33 Multivitamins (Multivitamin Tab) 1 tab PO QAM [facility] Stop: 02/21/23 08:59 Last Admin: 01/27/23 08:43 Dose: 1 tab Nicotine Polacrilex (Nicotine Polacrilex 2 Mg Gum) 1 piece MT PRN PRN PRN Reason: cravings Stop: 02/20/23 21:52 Olanzapine (Olanzapine 10 Mg/2.1 Ml Sdv) 5 mg IM Q6 PRN PRN Reason: Agitation Stop: 02/21/23 15:30 Ondansetron HCl (Ondansetron 8mg Od Tab) 8 mg PO Q6H PRN PRN Reason: Nausea Stop: 02/23/23 20:54 Sodium Chloride (Sodium Chloride 0.65% Na Soln 45 Ml ([place])) 1 - 2 sprays NA PRN PRN PRN Reason: Nasal Dryness/Congestion Stop: 02/20/23 21:33 Mental Health & Subst Abuse Tx Psychiatrist Name of Psychiatrist: Cruz Enciso Psychiatrist's Time of Appointment with Psychiatrist: Call to schedule intake after your insurance becomes active. Psychiatric Appointment Comment: [address] [facility] [address], [place] Therapist Name of Therapist: Cruz Enciso Therapist's Time of Therapist Appointment: Call to schedule intake after your insurance becomes active. Therapy Appointment Comment: [address] [facility] [address], [place] [id number] [facility] Name of [facility]: Jermaine Camargo ID Intake Phone Number for [facility]: [phone] Date of Appointment with [facility]: 02/01/23 Time of Appointment with [facility]: 10:00 AM Case Management Appointment Comment: [address], [place] [id number] Post Discharge Appointments Primary Care Physician Name Of Family Doctor/PCP: [facility] Date of Future Appointment with PCP: 02/03/23 Time of Appointment with PCP: 3:30 PM Provider Appointment Comment: [address], [address], [place] [facility] Name of Pain Clinic: [facility] [place] Phone Number for Pain Clinic: [phone] Date of Appointment with Pain Clinic: 01/31/23 Time of Appointment with Pain Clinic: 9:00 AM Pain Clinic Appointment Comment: [address] [place] [address] Contact Information Discharge Discharge Address: [address] [place] [address], [place] [address]
[2023-01-28] MEDS: DOCUSATE SODIUM 100 MG CAP PO SCH (08:15)
[2023-01-28] MEDS: CYANOCOBALAMIN (B-12) 500 MCG TABLET PO SCH (08:15)
[2023-01-28] MEDS: buprenorphine HCL 2 MG SUBL SL SCH (08:16)
[2023-01-28] MEDS: MULTIVITAMIN TAB PO SCH (08:16)
[2023-01-28] MEDS ORDERED: DESTROY THIS MEDICATION ONE (10:17)
--- NOTE | 2023-01-28 10:33 | Discharge Summary ---
Date of Service January 28, 2023 History of Present Illness According to 01/10/[address] Hwang: Corazon presented to the emergency department for the second time in two days for about three weeks of worsening anxiety, psychosis and paranoia. She has been expressing concerns about witchcraft, fears about a cult coming to harm her fiancee, has started sleeping with a knife under her pillow due to concerns for her safety (she denies this, reports sleeping with bibles and taisha quartz), has been hearing auditory hallucinations and recently quit her job and has not been eating (stomach pain) nor sleeping well (not good due to her anxiety and worrying about her kids). She states that after a move things at the house "got weird" and she also developed "amazing hearing" including being able to hear her boss even when he was in a different building. States this "weird-ed out my boss" so she lost her job of 5 years about two weeks ago. She notes "something is weird and off but it's not me". Reports she took Adderall, non-prescribed, for a few months off-and-on due to difficulty focusing and reports Dr. Ang her pain management provider is working to help her find an outpatient psychiatric provider. She feels the Subutex has been causing memory loss and also makes things more diffic ult. Presentation this time is similar in that she remains religiously preoccupied, even requesting meeting with clergy in the ED. She denies carrying a knife due to her paranoia this stay but multiple knives and switchbox assembler were found in her belongings. She told ED CM that she now carried a crystal for protection. She was not eating or sleeping well. She denied taking Adderall XR this time and urine tox was negative but a prescription bottle of Adderall was found in her belongings. On the unit she has expressed concerns that only wants liquid nutrition as less likely to hide poison. She was initially agreeable to a 201 commitment, then changed mind as felt exorcism was more appropriate and was subsequently 302'd. The patient only took 2 doses of Zyprexa upon discharge. She has dififculty articulating why she stopped other than she's "a hoarder and had alot to do." She had said sedation was contributing factor in ED. She did not keep her intake with [facility]. Physical Exam Psychiatric Orientation: alert, oriented to person and oriented to place Apperance: appropriately dressed and appropriately groomed Eye Contact: good eye contact Motor Behavior: no abnormal motor movements Speech: normal rate/rhythm/volume of speech Affect: + constricted affect Mood: no depressed mood Thought Process: + concrete thought process Thought Content: reality based without delusions Suicidal Thoughts: denies suicidal thoughts Homicidal Thoughts: denies homicidal thoughts Hallucinations: no auditory hallucinations and no visual hallucinations Cognition: attention grossly intact and language grossly intact Estimated Intelligence: consistent with education level Insight: + limited insight Judgment: + limited judgement Vital Signs (Past 24 Hours) Last Vital Signs Temp 36.8 C 01/28/23 06:49 Pulse 54 L 01/28/23 06:49 Resp 16 01/28/23 06:49 BP 90/56 L 01/28/23 06:49 Pulse Ox 99 01/26/23 06:28 O2 Del Method Room Air 01/26/23 06:28 See admission H&P and DOD assessment. Principal Diagnosis Amphetamine-induced Psychotic Disorder with Delusions Psychiatric Data See daily stay summary. In short, safety was maintained and the patient was cooperative with care. Medication changes included administration of aripiprazole lauroxil and taper of buprenorphine to lower dose and they tolerated this well. A family session was [held] and safety plan was completed prior to discharge. Day of Discharge Assessment Today the patient voices readiness for discharge. They note improvement in mood and deny thoughts to harm self or others. Thoughts remain organized and they are improved from admission. There is no evidence of psychosis. They agree to take mediations as prescribed and keep follow-up appointments. They are stable for discharge to outpatient level of care. Transition of Care Transition Of Care Record: was reviewed with the patient Advance Directives Advance Directives Information Provided: Yes Advance Directives: No Mental Health Advance Directive: No Advance Directives on File: No Living Will: No Power of Hospital Receptionist: No Advance Directives Reason:: Declines as Mental Health Visit. Suicide Risk Level Suicide Risk Level: Low (q15 min observation checks) Suicide Risk Level Comments: denies suicidal thoughts Risk Factors Assessment Male: No : Yes Do You Have Access To A Gun?: No Mental Health Diagnoses: Yes Substance Use Disorders: Yes (on suboxone) Previous Attempt: No Previous Psychiatric Hospitalization: Yes Protective Factors Assessment Responsible for Young Children: Yes Employed: No (loss job several weeks ago) Stable Relationships: Yes Total Time Total Time Spent: Greater Than 30 Minutes Total Time Includes: Discharge Planning, Medication Reconciliation and As well as (documentation) Discharge Data Lab Results 01/21/23 01/21/23 01/21/23 14:15 14:15 14:15 WBC 7.97 RBC 4.58 Hgb 13.4 Hct 39.6 MCV 86.5 MCH 29.3 MCHC 33.8 RDW Std Deviation 39.2 RDW Coeff of Janet 12.5 Plt Count 285 MPV 9.1 L Immature Gran % (Auto) 0.3 Neut % (Auto) 78.3 Lymph % (Auto) 16.3 Eaton % (Auto) 4.3 Eos % (Auto) 0.4 Baso % (Auto) 0.4 Neut # (Auto) 6.25 Lymph # (Auto) 1.30 Eaton # (Auto) 0.34 Eos # (Auto) 0.03 Baso # (Auto) 0.03 Immature Gran # (Auto) 0.02 Sodium 137 Potassium 4.0 Chloride 107 Carbon Dioxide 24 Anion Gap 6 BUN 16 Creatinine 0.87 Est Cr Clr Drug Dosing Not Reportable Est GFR ( Amer) 98.6 Est GFR (Non-Af Amer) 85.1 BUN/Creatinine Ratio 18.4 Glucose 104 H Calcium 9.2 Total Bilirubin 0.9 AST 18 ALT 12 Alkaline Phosphatase 50 Troponin I High Sens 2.3 Total Protein 7.7 Albumin 4.3 Globulin 3.4 Albumin/Globulin Ratio 1.3 Lipase 4 L TSH 0.960 HCG, Qual Urine Color Urine Appearance Urine pH Ur Specific [place] Urine Protein Urine Glucose (UA) Urine Ketones Urine Blood Urine Nitrite Urine Bilirubin Urine Urobilinogen Ur Leukocyte Esterase Urine WBC (Auto) Urine RBC (Auto) U Hyaline Cast (Auto) U Epithel Cells (Auto) Urine Bacteria (Auto) Urine Mucus Salicylates Urine Opiates Screen Ur Methadone, Qual Acetaminophen Urine Barbiturates Ur Phencyclidine (PCP) U Amphetamin/Meth Scrn MDMA (Ecstasy) Screen U Benzodiazepines Scrn Ur Cocaine Metabolite U Marijuana (THC) Screen Ethyl Alcohol mg/dL SARS-CoV-2, RNA, NAAT 01/21/23 01/21/23 01/21/23 14:15 14:15 14:15 WBC RBC Hgb Hct MCV MCH MCHC RDW Std Deviation RDW Coeff of Janet Plt Count MPV Immature Gran % (Auto) Neut % (Auto) Lymph % (Auto) Eaton % (Auto) Eos % (Auto) Baso % (Auto) Neut # (Auto) Lymph # (Auto) Eaton # (Auto) Eos # (Auto) Baso # (Auto) Immature Gran # (Auto) Sodium Potassium Chloride Carbon Dioxide Anion Gap BUN Creatinine Est Cr Clr Drug Dosing Est GFR ( Amer) Est GFR (Non-Af Amer) BUN/Creatinine Ratio Glucose Calcium Total Bilirubin AST ALT Alkaline Phosphatase Troponin I High Sens Total Protein Albumin Globulin Albumin/Globulin Ratio Lipase TSH HCG, Qual Negative Urine Color Urine Appearance Urine pH Ur Specific [place] Urine Protein Urine Glucose (UA) Urine Ketones Urine Blood Urine Nitrite Urine Bilirubin Urine Urobilinogen Ur Leukocyte Esterase Urine WBC (Auto) Urine RBC (Auto) U Hyaline Cast (Auto) U Epithel Cells (Auto) Urine Bacteria (Auto) Urine Mucus Salicylates < 3.0 L Urine Opiates Screen Ur Methadone, Qual Acetaminophen < 3 L Urine Barbiturates Ur Phencyclidine (PCP) U Amphetamin/Meth Scrn MDMA (Ecstasy) Screen U Benzodiazepines Scrn Ur Cocaine Metabolite U Marijuana (THC) Screen Ethyl Alcohol mg/dL < 10.0 SARS-CoV-2, RNA, NAAT 01/21/23 01/21/23 01/21/23 14:45 17:15 17:15 WBC RBC Hgb Hct MCV MCH MCHC RDW Std Deviation RDW Coeff of Janet Plt Count MPV Immature Gran % (Auto) Neut % (Auto) Lymph % (Auto) Eaton % (Auto) Eos % (Auto) Baso % (Auto) Neut # (Auto) Lymph # (Auto) Eaton # (Auto) Eos # (Auto) Baso # (Auto) Immature Gran # (Auto) Sodium Potassium Chloride Carbon Dioxide Anion Gap BUN Creatinine Est Cr Clr Drug Dosing Est GFR ( Amer) Est GFR (Non-Af Amer) BUN/Creatinine Ratio Glucose Calcium Total Bilirubin AST ALT Alkaline Phosphatase Troponin I High Sens Total Protein Albumin Globulin Albumin/Globulin Ratio Lipase TSH HCG, Qual Urine Color Dark Yellow Urine Appearance Cloudy A Urine pH 5.5 Ur Specific [place] 1.028 Urine Protein Negative Urine Glucose (UA) Negative Urine Ketones 2+ H Urine Blood Negative Urine Nitrite Negative Urine Bilirubin Negative Urine Urobilinogen Negative Ur Leukocyte Esterase Negative Urine WBC (Auto) 5-10 H Urine RBC (Auto) 0-4 U Hyaline Cast (Auto) 0 U Epithel Cells (Auto) >30 H Urine Bacteria (Auto) 1+ H Urine Mucus Present A Salicylates Urine Opiates Screen Neg Ur Methadone, Qual Neg Acetaminophen Urine Barbiturates Neg Ur Phencyclidine (PCP) Neg U Amphetamin/Meth Scrn Neg MDMA (Ecstasy) Screen Neg U Benzodiazepines Scrn Neg Ur Cocaine Metabolite Neg U Marijuana (THC) Screen Neg Ethyl Alcohol mg/dL SARS-CoV-2, RNA, NAAT NEGATIVE Hospital Course (1) Psychotic disorder with delusions: Plan 01/27/2023: informed consent reviewed for Abilify Initio coadmin with lowest dose Aristada. Patient preferred over Abilify maintenna which has longer induction. Reviewed that she will need a shot within 6 weeks, ideally 4 weeks and must complete intake with [facility]. She prefers shots today vs. another day of assessing tolerability of Abilify. 01/26/2023: 303 granted. decrease Abilify 7.5 mg this hs. Consider additional decrease of suboxone. based on use at home being more sporadic than previously thought and lack of any significant withdrawal symptoms here, clear slowing several hours after dose will continue taper as tolerated as is supported by outpatient provider. BP and P trend low. 01/25/2023: continue Abilify trial with plan for conversion to JONES, 303 filing. suboxone 4 mg BID and monitor for withdrawal. 01/24/2023: increase Abilify 10 mg and dose hs. Haldol 2.5 mg prn. 01/23/2023: will shift Abilify to hs. attempt to coordinate care with pain clinic tomorrow as closed for holiday to see if could taper suboxone. would generally add Ativan for anxiety and catatonic features but patient has hx of sedation and even hypotension given combo with suboxone and should be avoided. 01/22/2023: The patient was admitted to the [facility]) on q15 min checks (behavioral with suicide precautions) for safety. The patient will participate in group, recreational, and milieu therapies and will be offered additional individual and family sessions as clinically appropriate. Started Abilify 5 mg po qam yesterday. Had Haldol prn available but did not require. Mental Health & Subst Abuse Tx Psychiatrist Name of Psychiatrist: Cruz Enciso Psychiatrist's Time of Appointment with Psychiatrist: Call to schedule intake after your insurance becomes active. Psychiatric Appointment Comment: [address], [place] Psychiatrist Release of Information: Obtained, Reviewed and Signed Therapist Name of Therapist: Cruz Enciso Therapist's Time of Therapist Appointment: Call to schedule intake after your insurance becomes active. Therapy Appointment Comment: [address], [place] [address] Therapist Release of Information: Obtained, Reviewed and Signed Marble Finisher Name of Marble Finisher: Jermaine CABRALESID Intake Phone Number for Marble Finisher: [phone] Date of Appointment with Marble Finisher: 02/01/23 Time of Appointment with Marble Finisher: 10:00 AM Case Management Appointment Comment: [address] [place] [address] Marble Finisher Release of Information: Obtained, Reviewed and Signed Post Discharge Appointments Primary Care Physician Name Of Family Doctor/PCP: [facility] Date of Future Appointment with PCP: 02/03/23 Time of Appointment with PCP: 3:30 PM Provider Appointment Comment: [address], [address], [place] Primary Care Release of Information: Obtained, Reviewed and Signed Pain Clinic Name of Pain Clinic: [facility] Phone Number for Pain Clinic: [phone] Date of Appointment with Pain Clinic: 01/31/23 Time of Appointment with Pain Clinic: 9:00 AM Pain Clinic Appointment Comment: [address] [address] Pain Clinic Release of Information: Obtained, Reviewed and Signed Contact Information Discharge Discharge Address: [address] [place] [address], [place] [address] Discharge Plan Discharge Items Patient Disposition: Home - Self-Care Reason For Visit: MENTAL HEALTH EVALUATION Discharge Diagnosis: Amphetamine-induced Psychotic Disorder with Delusions Activity: Resume your previous activity Non-emergency contact: Primary Care Provider and Psychiatrist Call non-emergency contact if: you have any medication questions and your symptoms worsen Follow-up/Referrals: Marshal Hendricks PA-C [Primary Care Provider] - Diet: Regular Addtl Attending Provider Instructions: SPECIAL CARE INSTRUCTIONS: 1. Follow through with your scheduled aftercare appointments. If unable to keep an appointment, please call to reschedule. 2. Take your medication only as prescribed. Medication should not be changed or stopped without the approval of your doctor. In the event of worsening symptoms or concerns about side effects, contact your doctor immediately. 3. Utilize new healthy coping skills, anger management skills, and stress management skills learned during your hospitalization. Journal feelings and process them with a support person. Identify stressors or situations that may result in relapse, deterioration or inappropriate behaviors and develop a plan to deal with those issues. 4. If your coping skills are ineffective and you are in crisis, contact your outpatient providers for direction. If unable to reach your providers, please call the [facility] CRISIS LINE AT , go to the [facility] walk-in center at [address] [place] [address] A, [place], or go to the closest Emergency Room. 5. Avoid alcohol and un-prescribed drugs. 6. You have been provided with the Mental Health Advance Directives Pamphlet for your review. 7. Your condition is stable for discharge to outpatient level of care, but recovery is an ongoing process. Ifthoughts to harm yourself or others return, follow the safety plan developed during your stay. Planning for a safe return home includes securing weapons. Our treatment team recommends weaponsbe removed from the home until your outpatient provider reassesses your progress. In rare cases where the items themselvescannot be removed, guns and ammunitionshould be secured separatelyand keys stored by a reliable personoutside of the home. If you were admitted on an involuntary commitment, the police or other legal authorities may be involved in this process. AFTERCARE APPOINTMENTS: * Please call your insurance company prior to your scheduled appointment to confirm your aftercare providers are covered. Take your insurance information to your appointments. WHO TO CALL AND WHEN: Medical Emergencies: For questions or emergencies related to your hospital stay, please contact the Inpatient Behavioral Health Unit at [phone]. A electric motor and generator assembler is on-call 20/03 for the Behavioral Health Unit for emergencies At any time you feel your situation is an emergency, you may also call 911 immediately. Pending Studies at Discharge: No Stand-Alone Forms: My [facility], Smoking Cessation Medications and DC Order Prescriptions: New buprenorphine HCl 2 mg Tablet, Sublingual 2 mg sublingual BID 1 Days Qty: 2 0RF aripiprazole lauroxil 441 mg/1.6 mL suspension,extended rel syring 441 mg IM MONTHLY Qty: 1.6 0RF Rx Instructions: next dose due 25 February 2023 Continued MULTIPLE VITAMIN (ONCE DAILY) 1 TAB tablet 1 tab PO QAM Qty: 0 cyanocobalamin (vitamin B-12) 500 mcg Tablet 1,000 mcg PO QAM 30 Days Qty: 60 0RF Discontinued buprenorphine HCl 8 mg tablet, sublingual 8 mg sublingual BID olanzapine 2.5 mg Tablet 2.5 mg PO HS 30 Days Qty: 30 0RF Discharge Orders: Discharge Order (Routine); Ordered 01/28/23 Ordered By: Seamus Shepard Admission Data Admit Date/Time: 01/21/23 20:45 Attending Provider: Daria Torres Admit Provider: Daria Torres Primary Care Provider: Marshal Hendricks Coding Level of Care Code 25162 D/C day mgmt > 30 min Diagnoses Psychotic disorder with delusions F29 Time Spent (min) 31
== END 2023-01-28 11:05 | disposition home or self-care (01) | DRG 897 ==
LOC: ED 13:28 → 3S 20:45

== ENCOUNTER 2023-09-16 01:38 | Inpatient (IN) ==
[2023-09-16 02:36] LABS: Appearance Urine Clear (Clear); Bilirubin Urine Negative (Negative); Blood Urine Negative (Negative); Color Urine Yellow; Glucose Urine UA Negative (Negative); Ketones Urine 3+ (Negative); Leukocyte Esterase Urine Negative (Negative); Nitrite Urine Negative (Negative); Protein Urine Negative (Negative); Specific Gravity Urine 1.004 (1.000-1.030); Urobilinogen Urine Negative (Negative)
[2023-09-16 02:42] LABS: Basophils # (auto) 0.03 K/uL (0.00-0.20); Basophils % (auto) 0.4 %; Hematocrit (blood only) 40.6 % (37.0-47.0); Hemoglobin 14.3 g/dl (12.0-16.0); Immature Granulocytes # (auto) 0.02 K/uL (0.01-0.20); Immature Granulocytes % (auto) 0.3 %; Mean Corpuscular Hemoglobin 28.8 pg (25.0-34.0); Mean Corpuscular Hgb Conc 35.2 g/dL (32.0-36.0); Mean Corpuscular Volume 81.7 fL (80.0-100.0); Mean Platelet Volume 9.6 fL (9.4-12.4); Monocytes # (auto) 0.29 K/uL (0.11-0.59); Monocytes % (auto) 3.7 %; Neutrophils # (auto) 6.04 K/uL (1.40-6.50); Neutrophils % (auto) 76.6 %; Platelet Count 345 K/uL (130-400); RDW Coefficient of Variation 11.9 % (11.5-14.5); RDW Standard Deviation 35.2 fL (36.4-46.3); Red Blood Count 4.97 M/uL (4.20-5.40); White Blood Count 7.88 K/ul (4.8-10.8)
[2023-09-16 02:54] LABS: Acetaminophen < 3 ug/ml (10-30); Salicylate < 3.0 mg/dl (3.0-30)
[2023-09-16 02:55] LABS: Albumin Globulin Ratio 1.4 (0.9-2); Albumin Level 5.4 gm/dl (3.4-5.0); BUN Creatinine Ratio 6.3 (10-20); Bilirubin,Total 1.5 mg/dl (0.2-1.0); Calcium 9.4 mg/dl (8.6-10.3); Creatinine Clr Calc Pharmacy 84.5 ml/min; Est GFR (African American) 109.2 ml/min; Est GFR (Non-African American) 94.2 ml/min; Potassium 3.2 mmol/L (3.5-5.1); Total Protein 9.4 gm/dl (6.0-8.3)
[2023-09-16 03:00] LABS: Amphetamines+Metham, Urine Neg (Neg); Barbiturates, Urine Neg (Neg); Benzodiazepine, Urine Neg (Neg); Cocaine, Urine Neg (Neg); MDMA (Ecstacy), Urine Neg (Neg); Marijuana, Urine Neg (Neg); Methadone, Urine Neg (Neg); Opiate, Urine Neg (Neg); Phencyclidine, Urine Neg (Neg)
[2023-09-16 03:05] LABS: Thyroid Stimulating Hormone 2.497 uIu/ml (0.300-4.500)
[2023-09-16] MEDS ORDERED: SODIUM CHLORIDE 0.9% 1,000 ML IV ONE (03:22)
[2023-09-16] MEDS ORDERED: POTASSIUM CHLORIDE / WTR 10 MEQ/100 ML PLCT IV ONE (03:22)
[2023-09-16] MEDS ORDERED: SODIUM CHLORIDE 0.9% 1,000 ML IV SCH (03:30)
--- NOTE | 2023-09-16 05:08 | History & Physical Report ---
Date of Service September 16, 2023 Assessment & Plan (1) Hyponatremia: Plan: 37yo female presenting from home with severe hyponatremia. Patient has been performing a water cleanse at home to "cleanse her mind, body and spirit" in which she drinks copious amounts of free water daily and eats very little food. She has been doing this for maybe 1 month. Ao=[id number] Mildly symptomatic with report of CARVAJAL and nausea. No seizure. Na previously normal at 137 in December 2022 Patient does appear somewhat dry on physical exam - dry mucus membranes and dry, peeling lips. 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 If Na has dropped will administer small 3% boluses -Check urine and serum osmolality -Check urine Na -BMP q 4 hours to monitor Na rise - goal 6-8/24 hours -Patient with gapped acidosis. Will check Lactate and VBG Urinary ketones possibly from starvation ketosis due to diminished oral intake (2) Psychotic disorder with delusions: Plan: Patient currently with hinduism pre-occupation. Denies SI/HI, AH or VH. She has been seen by Psychiatry in the past for similar. Reports she is currently not taking any medications -Psychiatry consultation appreciated History of Present Illness Chief Complaint: polydipsia Primary Care Provider: Marshal Hendricks PA-C Corazon Booker is a 37yo female with prior history of psychosis, Psychiatric hospitalizations in the past (most recently in January 2023 to our facility after which she was discharged on Buprenorphie and Aripiprazole IM injection) presenting with severe hyponatremia - Na of 118 (last normal in december 2022 at 137). Patient reports that she has "let Misael Reji back into her life" and since then she has been praying extensively, reading the Bible and performing a water cleanse. She reports drinking "a lot" of water daily over the last 30 days and eating very little food. She believes that the water detox will "clean her mind, body and spirit". She has had some headache as well as nausea today. Otherwise, no fever, no seizures. No report of chest pain, cough, SOB, abdominal pain, diarrhea. No prior history of hyponatremia. Patient reports that she is not taking any medications. In the ER she is afebrile, HD stable ER Course: NSS x 1L bolus NSS at 125mL/hr Allergies Allergy/AdvReac Type Severity Reaction Status Date / Time buprenorphine [From Suboxone] AdvReac Intermediate Hives Verified 01/10/23 14:48 naloxone [From Suboxone] AdvReac Intermediate Hives Verified 01/10/23 14:48 Corticosteroids AdvReac Mild VOMITING Verified 01/10/23 14:48 (Glucocorticoids) Home Medications Medication Instructions Recorded Confirmed Type MULTIPLE VITAMIN (ONCE DAILY) 1 tab PO QAM ##0 09/26/14 01/21/23 History Past Med/Surg History Medical History (Updated 09/16/23 @ 04:56 by Ashley Rodriguez DO) Psychosis Anxiety Suicidal ideation Depression Surgical History No pertinent past surgical history Family History (Updated 09/16/23 @ 04:54 by Ashley Rodriguez DO) Other No significant family history Social History Smoking Status: Never smoker Tobacco Type: Cigarettes Preferred Language: Malawian Communication Ability: Effective Family Medicine Resident Required: No Beliefs That Will Affect Care: Spiritual Feels Safe at Home: Yes Gender Identity: Female Assistive Devices: None Review of Systems Review of Systems: All systems reviewed & are unremarkable except as noted in HPI & below Physical Exam Physical Exam: General: patient resting comfortably, NAD, non-toxic in appearance, AA&O to person and place Skin: warm, dry, intact, no rashes or lesions HEENT: NC/AT, PERRL, EOMI, anicteric sclera, conjunctiva without injection, external ear normal to inspection and nontender, nares patent, dry mucus membranes, dentition intact, no oropharyngeal lesions, neck supple, trachea midline, no LAD, no thyromegaly, no JVD Heart: +S1/S2, regular, no m/r/g Lungs: equal air entry bilaterally, no rales/rhonchi/wheezes Abd: +BS, soft, NT/ND, no masses/organomegaly/ascites Ext: warm, 2+ pulses in UE/LE bilaterally, no clubbing/cyanosis or edema Neuro: nonfocal, patient AA&O x 4, speech intact, no facial droop, moving all extremities on command with equal strength 5/5 Patient preoccupied with hinduism topics. Reports that she prays, reads the Bible and believes in Misael Reji. Is upset and feels that she is being admitted for these beliefs. Results & Data Results & Data Vital Signs (Past 12 Hours) Vital Signs Temp Pulse Resp BP Pulse Ox O2 Del Method 09/16/23 04:31 70 09/16/23 01:42 36.4 C L 74 18 130/84 100 Room Air Laboratory Results Laboratory Results WBC 7.88 K/ul (4.8-10.8) 09/16/23 02:08 RBC 4.97 M/uL (4.20-5.40) 09/16/23 02:08 Hgb 14.3 g/dl (12.0-16.0) 09/16/23 02:08 Hct 40.6 % (37.0-47.0) 09/16/23 02:08 MCV 81.7 fL (80.0-100.0) 09/16/23 02:08 MCH 28.8 pg (25.0-34.0) 09/16/23 02:08 MCHC 35.2 g/dL (32.0-36.0) 09/16/23 02:08 RDW Std Deviation 35.2 fL (36.4-46.3) L 09/16/23 02:08 RDW Coeff of Janet 11.9 % (11.5-14.5) 09/16/23 02:08 Plt Count 345 K/uL (130-400) 09/16/23 02:08 MPV 9.6 fL (9.4-12.4) 09/16/23 02:08 Immature Gran % (Auto) 0.3 % 09/16/23 02:08 Neut % (Auto) 76.6 % 09/16/23 02:08 Lymph % (Auto) 19.0 % 09/16/23 02:08 Humphreys % (Auto) 3.7 % 09/16/23 02:08 Eos % (Auto) 0.0 % 09/16/23 02:08 Baso % (Auto) 0.4 % 09/16/23 02:08 Neut # (Auto) 6.04 K/uL (1.40-6.50) 09/16/23 02:08 Lymph # (Auto) 1.50 K/uL (1.20-3.40) 09/16/23 02:08 Humphreys # (Auto) 0.29 K/uL (0.11-0.59) 09/16/23 02:08 Eos # (Auto) 0.00 K/uL (0.00-0.50) 09/16/23 02:08 Baso # (Auto) 0.03 K/uL (0.00-0.20) 09/16/23 02:08 Immature Gran # (Auto) 0.02 K/uL (0.01-0.20) 09/16/23 02:08 Sodium 118 mmol/L (136-145) L* 09/16/23 02:08 Potassium 3.2 mmol/L (3.5-5.1) L 09/16/23 02:08 Chloride 85 mmol/L (98-107) L 09/16/23 02:08 Carbon Dioxide 12 mmol/L (21-32) L 09/16/23 02:08 Anion Gap 21 (3-11) H 09/16/23 02:08 BUN 5 mg/dl (6-23) L 09/16/23 02:08 Creatinine 0.80 mg/dl (0.6-1.2) 09/16/23 02:08 Est Cr Clr Drug Dosing 84.5 ml/min 09/16/23 02:08 Est GFR ( Amer) 109.2 ml/min 09/16/23 02:08 Est GFR (Non-Af Amer) 94.2 ml/min 09/16/23 02:08 BUN/Creatinine Ratio 6.3 (10-20) L 09/16/23 02:08 Glucose 78 mg/dl (70-99(Fasting)) 09/16/23 02:08 Calcium 9.4 mg/dl (8.6-10.3) 09/16/23 02:08 Total Bilirubin 1.5 mg/dl (0.2-1.0) H 09/16/23 02:08 AST 35 U/L (13-39) 09/16/23 02:08 ALT 11 U/L (7-52) 09/16/23 02:08 Alkaline Phosphatase 65 U/L (34-104) 09/16/23 02:08 Total Protein 9.4 gm/dl (6.0-8.3) H 09/16/23 02:08 Albumin 5.4 gm/dl (3.4-5.0) H 09/16/23 02:08 Globulin 4.0 gm/dl (2.5-4.0) 09/16/23 02:08 Albumin/Globulin Ratio 1.4 (0.9-2) 09/16/23 02:08 TSH 2.497 uIu/ml (0.300-4.500) 09/16/23 02:08 Urine Color Yellow 09/16/23 02:26 Urine Appearance Clear (Clear) 09/16/23 02:26 Urine pH 5.0 (4.5-7.5) 09/16/23 02:26 Ur Specific Galt 1.004 (1.000-1.030) 09/16/23 02:26 Urine Protein Negative (Negative) 09/16/23 02:26 Urine Glucose (UA) Negative (Negative) 09/16/23 02:26 Urine Ketones 3+ (Negative) H 09/16/23 02:26 Urine Blood Negative (Negative) 09/16/23 02:26 Urine Nitrite Negative (Negative) 09/16/23 02:26 Urine Bilirubin Negative (Negative) 09/16/23 02:26 Urine Urobilinogen Negative (Negative) 09/16/23 02:26 Ur Leukocyte Esterase Negative (Negative) 09/16/23 02:26 Salicylates < 3.0 mg/dl (3.0-30) L 09/16/23 02:08 Urine Opiates Screen Neg (Neg) 09/16/23 02:26 Ur Methadone, Qual Neg (Neg) 09/16/23 02:26 Acetaminophen < 3 ug/ml (10-30) L 09/16/23 02:08 Urine Barbiturates Neg (Neg) 09/16/23 02:26 Ur Phencyclidine (PCP) Neg (Neg) 09/16/23 02:26 U Amphetamin/Meth Scrn Neg (Neg) 09/16/23 02:26 MDMA (Ecstasy) Screen Neg (Neg) 09/16/23 02:26 U Benzodiazepines Scrn Neg (Neg) 09/16/23 02:26 Ur Cocaine Metabolite Neg (Neg) 09/16/23 02:26 U Marijuana (THC) Screen Neg (Neg) 09/16/23 02:26 Ethyl Alcohol mg/dL < 10.0 mg/dl (<10.0) 09/16/23 02:08 SARS-CoV-2, RNA, NAAT NEGATIVE (NEGATIVE) 09/16/23 02:08 PG Care Time/CCT Total # of Minutes Spent Total Time Spent with Patient: Total time spent is greater than 50% in coordination of care (as documented) at patient's floor/unit and/or counseling patient: Coding Level of Care Code 80728 INT INP/OBS CARE MIN Diagnoses Hyponatremia E87.1 Psychotic disorder with delusions F29
[2023-09-16] MEDS ORDERED: ONDANSETRON INJ 2 MG/ML 2 ML VIAL IV PRN (06:52)
[2023-09-16] MEDS ORDERED: ACETAMINOPHEN 325 MG TAB PO PRN (06:52)
[2023-09-16] MEDS ORDERED: POTASSIUM CHLORIDE CRTAB 20 MEQ TABCR PO STA (06:52)
[2023-09-16 07:32] LABS: Base Excess VBG -14.6 mEq/L; HCO3 VBG 11 mmol/L; Oxygen Saturation VBG 90.4 %; PCO2 VBG 27 mmHg (38-50); PO2 VBG 60 mmHg; pH VBG 7.23 (7.36-7.41)
[2023-09-16 07:54] LABS: BUN Creatinine Ratio 5.5 (10-20); BUN Creatinine Ratio 5.6 (10-20); Calcium 9.1 mg/dl (8.6-10.3); Creatinine Clr Calc Pharmacy 92.6 ml/min; Creatinine Clr Calc Pharmacy 93.9 ml/min; Est GFR (African American) 121.9 ml/min; Est GFR (Non-African American) 105.2 ml/min; Magnesium 1.8 mg/dl (1.7-2.4); Phosphorus 3.5 mg/dl (2.5-4.9); Potassium 3.7 mmol/L (3.5-5.1); Potassium 3.8 mmol/L (3.5-5.1)
--- NOTE | 2023-09-16 08:02 | Emergency Department Note ---
Impression & Plan Acute hyponatremia, Hypokalemia, Thought disorder, Psychogenic polydipsia Admit to the [facility] ED Provider Note NAME: KHOI BHAKTA AGE: 37 SEX: Female INFORMANT: Patient ED PROVIDER(S): Chandni Lam DO CHIEF COMPLAINT: Excessive water intake; vomiting PLAN: Disposition: Admit to the [facility] MEDICAL DECISION MAKING: This is a 37-year-old female patient who presents to the emergency department at the direction of her sister because she has been drinking excessive amount of water and vomiting. The sister explained that she has been kneeling in the snow and dirt to pray believing that she is possessed. The patient admits that she is cleansing her body of toxins by drinking significant amount of water and not eating very much. Laboratory studies reveal 3+ ketones within the urine. Sodium was only 118 and potassium was 3.2. Seizure precautions were taken. There was no leukocytosis or evidence of anemia. The patient will need to be admitted medically to treat her severe hyponatremia before she is evaluated by psychiatry. Care/management discussed with: ED psychiatric case operator and the [facility] Triage Nursing notes: Reviewed and agree with them. Vital Signs: reviewed and unremarkable Additional History obtained from: The sister Chronic Medical/Social Conditions affecting care: Chronic thought disorder Differential Diagnosis: Mood disorder, thought disorder, dehydration, hyponatremia, hypernatremia, psychogenic polydipsia Diagnostics, independently interpreted by me: Cardiac Monitoring: Normal sinus rhythm at a rate of 84 HPI: 37 year old Female arrives for evaluation of mental health evaluation. Patient's sister petitioned a 302 because she was drinking excessive water and vomiting. She apparently has been kneeling in the dirt and snow and excessively praying believing that she is possessed. The patient explains that she is being kept here against her will because she believes in Misael Reji. Patient does admit that she has been drinking a very large amount of water and eating very little food because she is trying to detox her body from significant toxins. PAST MEDICAL HISTORY: See Below, PAST SURGICAL HISTORY: See Below, SOCIAL HISTORY: See Below, HOME MEDICATIONS: See list ALLERGIES: See list VITALS: See Below PHYSICAL EXAMINATION: HEENT: Head - normocephalic and atraumatic Pupils are equal, round, and reactive to light. Extraocular eye muscles are intact, and sclera are anicteric. Nose - moist nasal mucosa without discharge. Mouth - moist buccal mucosa. Oropharynx is nonerythematous and there is no tonsillar exudate or edema noted. Neck: Supple; no JVD, nuchal rigidity, cervical lymphadenopathy, or auscultated bruits. Heart: Regular rate and rhythm. There is a normal S1 and S2 with no murmurs, clicks, or gallops appreciated. Lungs: Clear to auscultation bilaterally with no wheezes, rales, or rhonchi. Abdomen: Soft, completely nontender, nondistended, with good bowel sounds. There are no palpable pulsatile masses or hepatosplenomegaly. There is no guarding, rigidity, or rebound noted. Extremities: No evidence of cyanosis, clubbing, or edema. There are easily palpable peripheral pulses. Skin: warm and dry with good turgor and no rashes. Psych: Patient seems anxious on my exam. She has pressured speech at times. She denies any homicidal or suicidal thoughts. Emergency department treatment: playground monitor, IV normal saline bolus, IV K rider Emergency department course: The patient was evaluated in room A-5. A complete history and physical was performed. An IV lock was initiated and labs were drawn as above. The patient was bolused with IV normal saline solution and started on IV K rider. Urine specimen was obtained. An order was placed for continuous cardiac monitoring. The patient was in a normal sinus rhythm at a rate of 84. A twelve-lead EKG was obtained as described above. I discussed the case with the ED psychiatric case operator who also evaluated the patient. I discussed the case with the [facility] Hospitalist who will admit for further inpatient medical care before she can be admitted for psychiatric care. She had no further vomiting while here in the ER. Past Med/Surg History Medical History (Updated 09/17/23 @ 08:17 by Chandni Lam DO) Psychogenic polydipsia Psychosis Anxiety Suicidal ideation Depression Surgical History No pertinent past surgical history Family History Other No significant family history Social History Smoking Status: Never smoker Tobacco Type: Cigarettes Second Hand Exposure: No; Do You Dip or Chew Tobacco: No; Hx Alcohol Use: No Hx Substance Use: No Preferred Language: Belarusian Communication Ability: Effective Dipper Clock And Watch Hands Required: No Beliefs That Will Affect Care: None Current Living Situation: Spouse and Family Feels Safe at Home: Yes Gender Identity: Female Assistive Devices: None Allergies Allergies Allergy/AdvReac Type Severity Reaction Status Date / Time buprenorphine [From Suboxone] AdvReac Intermediate Hives Verified 01/10/23 14:48 naloxone [From Suboxone] AdvReac Intermediate Hives Verified 01/10/23 14:48 Corticosteroids AdvReac Mild VOMITING Verified 01/10/23 14:48 (Glucocorticoids) Results & Data (ED) Vital Signs Vital Signs - 24 hr 09/16/23 01:42 09/16/23 03:30 09/16/23 04:31 Temperature 36.4 C L Temperature Source Temporal Artery Scan Pulse Rate 74 70 Pulse Rate [Right Finger] 69 Respiratory Rate 18 16 Respiratory Effort / Characteristics Non-Labored Spontaneous Non-Labored Spontaneous Respiratory Depth Normal Normal Respiratory Pattern Regular Blood Pressure 130/84 Blood Pressure [Right Arm] 113/76 Blood Pressure Mean 99 Blood Pressure Mean [Right Arm] 88 Pulse Oximetry 100 100 Oxygen Delivery Method Room Air Room Air Sepsis Recent Fever Within 48 Hours No Sepsis New/Unexplained Change in Mental Status No Sepsis Action Taken by Nursing No Action Required Laboratory Data 09/16/23 02:08 09/17/23 05:11 Lab Results 09/16/23 09/16/23 Range/Units 02:08 02:26 WBC 7.88 (4.8-10.8) K/ul RBC 4.97 (4.20-5.40) M/uL Hgb 14.3 (12.0-16.0) g/dl Hct 40.6 (37.0-47.0) % MCV 81.7 (80.0-100.0) fL MCH 28.8 (25.0-34.0) pg MCHC 35.2 (32.0-36.0) g/dL RDW Std Deviation 35.2 L (36.4-46.3) fL RDW Coeff of Janet 11.9 (11.5-14.5) % Plt Count 345 (130-400) K/uL MPV 9.6 (9.4-12.4) fL Immature Gran % (Auto) 0.3 % Neut % (Auto) 76.6 % Lymph % (Auto) 19.0 % Yancey % (Auto) 3.7 % Eos % (Auto) 0.0 % Baso % (Auto) 0.4 % Neut # (Auto) 6.04 (1.40-6.50) K/uL Lymph # (Auto) 1.50 (1.20-3.40) K/uL Yancey # (Auto) 0.29 (0.11-0.59) K/uL Eos # (Auto) 0.00 (0.00-0.50) K/uL Baso # (Auto) 0.03 (0.00-0.20) K/uL Immature Gran # (Auto) 0.02 (0.01-0.20) K/uL Sodium 118 L* (136-145) mmol/L Potassium 3.2 L (3.5-5.1) mmol/L Chloride 85 L (98-107) mmol/L Carbon Dioxide 12 L (21-32) mmol/L Anion Gap 21 H (3-11) BUN 5 L (6-23) mg/dl Creatinine 0.80 (0.6-1.2) mg/dl Est Cr Clr Drug Dosing 84.5 ml/min Est GFR ( Amer) 109.2 ml/min Est GFR (Non-Af Amer) 94.2 ml/min BUN/Creatinine Ratio 6.3 L (10-20) Glucose 78 (70-99(Fasting)) mg/dl Calcium 9.4 (8.6-10.3) mg/dl Total Bilirubin 1.5 H (0.2-1.0) mg/dl AST 35 (13-39) U/L ALT 11 (7-52) U/L Alkaline Phosphatase 65 (34-104) U/L Total Protein 9.4 H (6.0-8.3) gm/dl Albumin 5.4 H (3.4-5.0) gm/dl Globulin 4.0 (2.5-4.0) gm/dl Albumin/Globulin Ratio 1.4 (0.9-2) TSH 2.497 (0.300-4.500) uIu/ml Urine Color Yellow Urine Appearance Clear (Clear) Urine pH 5.0 (4.5-7.5) Ur Specific Emerson 1.004 (1.000-1.030) Urine Protein Negative (Negative) Urine Glucose (UA) Negative (Negative) Urine Ketones 3+ H (Negative) Urine Blood Negative (Negative) Urine Nitrite Negative (Negative) Urine Bilirubin Negative (Negative) Urine Urobilinogen Negative (Negative) Ur Leukocyte Esterase Negative (Negative) Salicylates < 3.0 L (3.0-30) mg/dl Urine Opiates Screen Neg (Neg) Ur Methadone, Qual Neg (Neg) Acetaminophen < 3 L (10-30) ug/ml Urine Barbiturates Neg (Neg) Ur Phencyclidine (PCP) Neg (Neg) U Amphetamin/Meth Scrn Neg (Neg) MDMA (Ecstasy) Screen Neg (Neg) U Benzodiazepines Scrn Neg (Neg) Ur Cocaine Metabolite Neg (Neg) U Marijuana (THC) Screen Neg (Neg) Ethyl Alcohol mg/dL < 10.0 (<10.0) mg/dl SARS-CoV-2, RNA, NAAT NEGATIVE (NEGATIVE) Administered Medications Discontinued Medications Sodium Chloride (Nss) 1,000 mls @ 999 mls/hr IV .Q1H1M ONE Stop: 09/16/23 04:22 Last Infusion: 09/16/23 05:59 Dose: Infused Documented By: Admin: 09/16/23 04:12 Dose: 999 mls/hr Documented By: KURT Sodium Chloride (Nss) 1,000 mls @ 125 mls/hr IV .Q8H ROMMEL Stop: 10/16/23 03:29 Last Infusion: 09/16/23 10:55 Dose: Infused Documented By: Admin: 09/16/23 05:18 Dose: 125 mls/hr Documented By: KURT Potassium Chloride (K Yousif / Wtr) 10 meq in 100 mls @ 100 mls/hr IV ONE ONE Stop: 09/16/23 04:21 Last Infusion: 09/16/23 05:58 Dose: Infused Documented By: Admin: 09/16/23 04:11 Dose: 100 mls/hr Documented By: KURT Potassium Chloride (Potassium Chloride Crtab 20 Meq Tabcr) 40 meq PO NOW STA Stop: 09/16/23 06:53 Last Admin: 09/16/23 07:40 Dose: 40 meq Documented By: TNK Discharge Plan Visit Data Chief Complaint: Mental Health Evaluation Stated Complaint: MENTAL EVAL ED Provider: Chandni Lam Discharge Problem: Acute hyponatremia, Hypokalemia, Thought disorder, Psychogenic polydipsia Patient Disposition: Admitted As Inpatient Discharge Instructions Interventions: ED Discharge Assessment Last Done: 09/16/23 06:52
[2023-09-16 11:39] LABS: BUN Creatinine Ratio 3.8 (10-20); Calcium 9.2 mg/dl (8.6-10.3); Creatinine Clr Calc Pharmacy 84.5 ml/min; Est GFR (African American) 109.2 ml/min; Est GFR (Non-African American) 94.2 ml/min; Potassium 4.1 mmol/L (3.5-5.1)
[2023-09-16 20:30] LABS: Calcium 9.2 mg/dl (8.6-10.3); Creatinine Clr Calc Pharmacy 81.5 ml/min; Est GFR (African American) 104.4 ml/min; Est GFR (Non-African American) 90.1 ml/min; Potassium 4.1 mmol/L (3.5-5.1)
--- NOTE | 2023-09-16 22:07 | Psychiatric Consultation ---
Date of Consultation September 16, 2023 Impression / Recommendations Impression 37 y/o F with history of substance-induced psychosis who presents with severe hypokalemia due to excessive water consumption based on vague ideas about the need for a "cleanse" to "get rid of toxins". At this time, I can't really say that's necessarily delusional - it's certainly very poorly thought-out and a terrible idea, but is a belief that's shared by countless others. She has some episcopal preoccupations and reported episcopal observances that were "over the top", but are also practices observed by many others. She does not present as manic (no hyperactivity, racing thoughts, grandiosity, expansiveness, irritability, etc.). I discussed psychiatric admission on the basis that "things have gotten complicated" and that it would be a good idea to "try to get things sorted out". Pt declined on the basis of a new job she's supposed to start Monday. As concerned as we may be about pt's poor judgment, I don't think I can justify and involuntary psychiatric admission on the basis of this presentation. Overall I spent a total of 74 minutes on the floor for this consultation assessment including review of chart records, review of test results, direct evaluation of the patient [id number], risk assessment, discussion with the psychiatric liaison nurse, and documentation in the electronic health record. 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 Consult is by the hospitalist service for "?delusions?". Chief Complaint "I was just doing a water cleanse. I didn't know it could be dangerous". History of Present Illness As part of a thorough review of the available medical records, I have read and and incorporated into my assessment the following note by the ED physician: "This is a 37-year-old female patient who presents to the emergency department at the direction of her sister because she has been drinking excessive amount of water and vomiting. The sister explained that she has been kneeling in the snow and dirt to pray believing that she is possessed. The patient admits that she is cleansing her body of toxins by drinking significant amount of water and not eating very much. Laboratory studies reveal 3+ ketones within the urine. Sodium was only 118 and potassium was 3.2. There was no leukocytosis or evidence of anemia. The patient will need to be admitted medically to treat her severe hyponatremia before she is evaluated by psychiatry." the following note by the hospitalist: "Khoi Booker is a 37yo female with prior history of psychosis, Psychiatric hospitalizations in the past (most recently in January 2023 to our facility after which she was discharged on Buprenorphie and Aripiprazole IM injection) presenting with severe hyponatremia - Na of 118 (last normal in december 2022 at 137). Patient reports that she has "let Misael Reji back into her life" and since then she has been praying extensively, reading the Bible and performing a water cleanse. She reports drinking "a lot" of water daily over the last 30 days and eating very little food. She believes that the water detox will "clean her mind, body and spirit". She has had some headache as well as nausea today. Otherwise, no fever, no seizures. No report of chest pain, cough, SOB, abdominal pain, diarrhea. No prior history of hyponatremia." the following note by the ED psychiatric social work case manager: "Pts sister brought her to the ED d/t concerns for the patients mental health. She reported the patient has been extremely religiously preoccupied, praying up to 9 hours a day. She stated the pt has also been drinking an excessive amount of water, has not been caring for herself, and is not taking her prescribed medications. The pt states there is nothing wrong with her and they are just doing this because I am episcopal and like to pray. The pt states she has been caring for herself. She does admit to drinking a lot of water in order to detox her body. She states she has not been eating much because it makes her feel sick when she eats. She denies any SI/HI/SIB." and the following note by the psychiatric liaison nurse: "Patient was admitted to medical service d/t hyponatremia from polydipsia. Patient's sister expressed concerns d/t patient bizarre behavior; religiously preoccupied, praying several hours a day, reading the bible and not caring for self (poor PO intake). Patient is known to [facility] from previous admissions with similar symptoms. Boyfriend present with patient at bedside, supportive and familiar with [facility] staff. Patient eating lunch, tolerating well. She admits to not eating for "like 14 days. But that's why I was drinking water so that I could detox my mind, body and soul". She reports being episcopal and enjoys reading the bible, "it's a hobby". She also reports looking forward to starting her new job on Monday, she had completed 3 days of orientation prior to admission. Boyfriend is in support of any recommendations but feels patient does better when working. Patient educated on the need for PO intake and need for electrolytes, she was receptive to the information but replied, "I just feel like prayer does work". Patient has been hospitalized several times in the past year for delusional/psychotic symptoms, most recently at [facility] ([place], [place]) in May 2023 for ~ 1 month (involuntary commitment). She was prescribed Invega and discontinued it soon after discharge. Patient and boyfriend report patient gained ~ 50lbs. Patient states she does not like medication because it clouds her mind. She denies any concerns for eating disorder and focuses on "avoiding toxins into her body". Boyfriend reports patient excessively cleans their home everyday, patient attributes this to, "I like being busy". She denies having trouble with sleep or feeling restless/unable to sit still. She denies SI/HI or hallucinations, does not have access to guns (boyfriend confirms). Patient is hopeful to be discharged home when medically stable. " Review of the medical record reveals previous admissions here in December and January 2023 with diagnosis of amphetamine-induced psychosis. Pt tells me she learned about the need for "water cleanses" online ([employer]) and decided she "needed to get rid of toxins" so has been drinking copious water for about 2 weeks. Not long after starting this she began to feel ill and nauseated so has barely been eating. She says she's recently "decided to let Misael Mendoza back in" to her life but doesn't really associate this with the "water cleanse". She says that since her most recent admission here in January she was hospitalized in [place] "for being a Rastafari and reading the bible". Pt tells me she "probably felt sick because the sodium was so low" and now says she "won't ever do that again". While her notion of "toxins" that need to be "cleansed" from her body is weird, it is shared by millions (as can rapidly be seen by looking online). What she reports is vague (there's no specific "toxin" about which she's concerned) and based in very poor understanding of physiology, I can't identify this as delusional (just really dumb and strange). Likewaise, pt refers to episcopal beliefs and her sister reports somewhat extreme rituals (kneeling in the snow to pray), but such self-mortification is also widely- practiced (if also strange and potentially-risky). I wasn't able to elicit any episcopal delusions or psychotic hyperreligiosity, and pt was willing to concede that others "probably" think her kneeling in the snow could be risky. Pt presents as calm and unconcerned. She oriented to all spheres. She denies any hallucinosis and I don't see evidence of any. Past Psychiatric History Previous Psych History: substance-induced psychosis History of Previous Suicide Attempt: No Allergies Allergy/AdvReac Type Severity Reaction Status Date / Time buprenorphine [From Suboxone] AdvReac Intermediate Hives Verified 01/10/23 14:48 naloxone [From Suboxone] AdvReac Intermediate Hives Verified 01/10/23 14:48 Corticosteroids AdvReac Mild VOMITING Verified 01/10/23 14:48 (Glucocorticoids) Patient History Medical History (Updated 09/16/23 @ 22:57 by Seamus Shepard MD) Psychogenic polydipsia Psychosis Anxiety Suicidal ideation Depression Surgical History No pertinent past surgical history Family History Other No significant family history Social History Smoking Status: Never smoker Tobacco Type: Cigarettes Second Hand Exposure: No; Do You Dip or Chew Tobacco: No; Hx Alcohol Use: No Hx Substance Use: No Preferred Language: Malian Communication Ability: Effective French Polisher Required: No Beliefs That Will Affect Care: None Current Living Situation: Spouse and Family Feels Safe at Home: Yes Gender Identity: Female Assistive Devices: None Physical Exam Psychiatric: Orientation: alert, oriented to person, oriented to place and cooperative Apperance: appropriately dressed and appropriately groomed Eye Contact: + fair eye contact Motor Behavior: no abnormal motor movements Speech: normal rate/rhythm/volume of speech (uninflected) Affect: + flat affect (unconcerned, even when discussing medical problems) Mood: no depressed mood and no anxious mood Thought Process: + circumstantial thought process and + looseness of associations; + thought process not linear or logical Thought Content: not paranoid, no delusions, no persecution and no worthlessness Suicidal Thoughts: denies suicidal thoughts, denies suicidal plan and denies suicidal intent Homicidal Thoughts: denies homicidal thoughts Hallucinations: no auditory hallucinations and no visual hallucinations Cognition: recent memory grossly intact, remote memory grossly intact and attention grossly intact Estimated Intelligence: average estimated intelligence Insight: + poor insight Judgment: + poor judgement Vital Signs (Past 24 Hours): Last Vital Signs Temp 36.8 C 09/16/23 19:00 Pulse 83 09/16/23 19:00 Resp 18 09/16/23 19:00 BP 106/69 09/16/23 19:00 Pulse Ox 95 09/16/23 19:00 O2 Del Method Room Air 09/16/23 19:00 Review of Systems Psychiatric: no depression, no hopelessness, no anhedonia, no abnormal sleep pattern, no suicidal ideation, no anxiety, no paranoia, no hallucinations and no substance abuse Coding Level of Care Code 30167 [facility] Intl Hosp Care Lvl 3 Diagnoses Psychogenic polydipsia R63.1; F54 Time Spent (min) 74
[2023-09-16 23:13] LABS: BUN Creatinine Ratio 7.6 (10-20); Creatinine Clr Calc Pharmacy 85.6 ml/min; Est GFR (African American) 110.8 ml/min; Est GFR (Non-African American) 95.6 ml/min; Potassium 4.1 mmol/L (3.5-5.1)
[2023-09-17 06:08] LABS: BUN Creatinine Ratio 8.5 (10-20); Calcium 9.4 mg/dl (8.6-10.3); Creatinine Clr Calc Pharmacy 82.3 ml/min; Est GFR (Non-African American) 91.4 ml/min
--- NOTE | 2023-09-17 09:44 | Discharge Summary ---
Date of Service September 17, 2023 Admission HPI Per Admitting Provider Corazon Booker is a 37yo female with prior history of psychosis, Psychiatric hospitalizations in the past (most recently in January 2023 to our facility after which she was discharged on Buprenorphie and Aripiprazole IM injection) presenting with severe hyponatremia - Na of 118 (last normal in december 2022 at 137). Patient reports that she has "let Misael Mendoza back into her life" and since then she has been praying extensively, reading the Bible and performing a water cleanse. She reports drinking "a lot" of water daily over the last 30 days and eating very little food. She believes that the water detox will "clean her mind, body and spirit". She has had some headache as well as nausea today. Otherwise, no fever, no seizures. No report of chest pain, cough, SOB, abdominal pain, diarrhea. No prior history of hyponatremia. Patient reports that she is not taking any medications. In the ER she is afebrile, HD stable ER Course: NSS x 1L bolus NSS at 125mL/hr Principal Diagnosis Hyponatremia Discharge Exam The patient is awake, alert and oriented 3, well developed and well nourished, normocephalic and atraumatic, lying in bed and in no acute distress. HEENT--PERRL, EOMI, mucous membranes and oropharynx mildly dry Neck--supple. No JVD. No bruits. Thyroid normal, trachea midline, no adenopathy. Heart--normal S1 and S2. No murmurs, rubs or gallops. Lungs--clear bilaterally, no respiratory distress, no accessory muscle use. Abdomen--normal bowel sounds and soft. Mild epigastric and left sided abdominal pain Extremities--no cyanosis or clubbing. No edema. Dermatologic--normal skin turgor, normal color, no abnormal lymph nodes, no rash. Neurologic--cranial nerves II through XII grossly intact. Rheumatologic--normal range of motion. Psychiatric--normal affect. Discharge Data Allergies Allergy/AdvReac Type Severity Reaction Status Date / Time buprenorphine [From Suboxone] AdvReac Intermediate Hives Verified 01/10/23 14:48 naloxone [From Suboxone] AdvReac Intermediate Hives Verified 01/10/23 14:48 Corticosteroids AdvReac Mild VOMITING Verified 01/10/23 14:48 (Glucocorticoids) Consultations 09/16/23 04:13 ED Decision to Admit Stat 09/16/23 06:52 Consult Psychiatry Routine Hospital Course (1) Hyponatremia: 37yo female presenting from home with severe hyponatremia. Patient has been performing a water cleanse at home to "cleanse her mind, body and spirit" in which she drinks copious amounts of free water daily and eats very little food. She has been doing this for maybe 1 month. Bx=[id number] Mildly symptomatic with report of CARVAJAL and nausea. No seizure. Na previously normal at 137 in December 2022 Patient does appear somewhat dry on physical exam - dry mucus membranes and dry, peeling lips. She has been given 1L NSS bolus and has NSS running now at 125mL/hr Suspect psychogenic polydipsia as source of patient's severe hyponatremia Sodium on admission was 118 Which improved to normal following IV fluid saline rehydration Patient was advised upon discharge not to continue with her water detoxification regimen She verbalized understanding She also asked to follow-up with psychiatry outpatient. (2) Psychotic disorder with delusions: Patient currently with religion pre-occupation. Denies SI/HI, AH or VH. She has been seen by Psychiatry in the past for similar. Reports she is currently not taking any medications -Psychiatry consultation appreciated, however according to psychiatry, patient not actively psychotic However will need psychiatry outpatient follow-up Total Time Total Time Spent Total Time Spent (In Minutes): 35 Discharge Plan Discharge Items Patient Disposition: Home - Self-Care Reason For Visit: HYPONATREMIA Discharge Diagnosis: Hyponatremia-resolved Activity: Resume your previous activity Non-emergency contact: Primary Care Provider Call non-emergency contact if: you have any medication questions Follow-up/Referrals: Marshal Hendricks PA-C [Primary Care Provider] - Diet: Regular Addtl Attending Provider Instructions: please do not continue the 'water cleansing exercise' as this may lead to excess water intake and low sodium levels. Follow up with your regular PCP Pending Studies at Discharge: No Stand-Alone Forms: My [employer], Smoking Cessation Medications and DC Order Discharge Orders: Discharge Order (Routine); Ordered 09/17/23 Ordered By: Jasson Chambers Admission Data Admit Date/Time: 09/16/23 04:46 Attending Provider: Jasson Chambers Admit Provider: Ashley Rodriguez Primary Care Provider: Marshal Hendricks Other Providers: Ashley Rodriguez; Zoey Hwang; Daria Torres; Chinmay Kumar; Seamus Shepard Other Interventions: Discharge Summary Assessment (RN) Last Done: 09/17/23 09:14 Coding Level of Care Code 77403 INP/OBS DISCH >30 MIN Diagnoses Hyponatremia E87.1 Psychotic disorder with delusions F29 Time Spent (min) 35
== END 2023-09-17 10:30 | disposition home or self-care (01) | DRG 641 ==
LOC: ED 01:38 → EDINP 04:46 → SUATTDRO 04:46 → EDINP 06:52 → 4W 16:15

== ENCOUNTER 2023-09-28 11:21 | Inpatient (IN) ==
--- NOTE | 2023-09-28 12:11 | Emergency Department Note ---
History of Present Illness General Chief complaint: Mental Health Evaluation Stated complaint: Mental health evaluation Time Seen by Provider: 09/28/23 11:34 Source: patient and family (Mother at bedside) History of Present Illness Provider complaint: Mental health evaluation 37-year-old female presents emergency department with mother and child at bedside for mental health evaluation. Patient states that spirits from [place] have put the "evil eye on her" and she is trying to have the demons come out of her head. She states that the demons come out more when she eats. The patient denies any chance of or recent drug use. She states she is sober. Mother denies any recent drugs. Mother denies that the patient has any falls or trauma and mother confirms that she does not think that the patient could be . Patient states she has not been taking any medications. Allergies Allergy/AdvReac Type Severity Reaction Status Date / Time buprenorphine [From Suboxone] AdvReac Intermediate Hives Verified 01/10/23 14:48 naloxone [From Suboxone] AdvReac Intermediate Hives Verified 01/10/23 14:48 Corticosteroids AdvReac Mild VOMITING Verified 01/10/23 14:48 (Glucocorticoids) Past Med/Surg History Medical History Psychogenic polydipsia Psychosis Anxiety Suicidal ideation Depression Surgical History No pertinent past surgical history Family History Other No significant family history Social History Smoking Status: Never smoker Tobacco Type: Cigarettes Second Hand Exposure: No; Do You Dip or Chew Tobacco: No; Hx Alcohol Use: No Hx Substance Use: No Preferred Language: Bengali Communication Ability: Effective Senior Clinical Data Coordinator Required: No Beliefs That Will Affect Care: None Current Living Situation: Spouse and Family Feels Safe at Home: Yes Gender Identity: Female Assistive Devices: None Physical Exam Vital Signs Vital Signs - 24 hr 09/28/23 11:24 09/28/23 12:35 09/28/23 18:24 Temperature 36.3 C L Temperature Source Temporal Artery Scan Pulse Rate 72 54 L Pulse Rate [Apical] 83 Pulse Rhythm Regular Pulse Strength Normal Respiratory Rate 18 16 Respiratory Effort / Characteristics Non-Labored Spontaneous Non-Labored Spontaneous Respiratory Depth Normal Normal Respiratory Pattern Regular Regular Blood Pressure 106/65 Blood Pressure [Right Arm] 106/69 Blood Pressure Mean 78 Blood Pressure Mean [Right Arm] 81 Blood Pressure Position Sitting Blood Pressure Position [Right Arm] Sitting Pulse Oximetry 97 98 Oxygen Delivery Method Room Air Room Air Sepsis Recent Fever Within 48 Hours No Sepsis New/Unexplained Change in Mental Status N/A Sepsis Action Taken by Nursing No Action Required Physical Exam HENT: Exam performed. -Head: Normocephalic and atraumatic. -Right Ear: External ear normal. No mastoid erythema -Left Ear: External ear normal. No mastoid erythema -Mouth/Throat: The oropharynx is clear and moist. No trismus in the jaw. No dental abscesses or uvula swelling. No oropharyngeal exudate or tonsillar abscesses. EYES: Conjunctivae and EOM are normal. Pupils are equal, round, and reactive to light. Right eye exhibits no discharge. Left eye exhibits no discharge. No scleral icterus. NECK: Normal range of motion. Neck supple. No JVD present. No spinous process tenderness present. No rigidity. No tracheal deviation and normal range of motion present. CV: Normal rate, regular rhythm, normal heart sounds and intact distal pulses. There is no peripheral edema. Palpable radial pulses bue. PULM/CHEST: Effort normal and breath sounds normal. No respiratory distress. No stridor. She has no wheezes. She has no rales. ABD: The abdomen is soft. There is no tenderness. There is no rebound, no guarding MUSC/SKEL: Normal range of motion. There is no peripheral edema, tenderness or deformity. LYMPH: No cervical adenopathy. NEURO: She has normal strength. No cranial nerve deficit or sensory deficit. Coordination and gait normal. Cerebellar tests wnl. SKIN: Skin is warm and dry. She is not diaphoretic. PSYCH: Extremely bizarre behavior and affect. Course Course 1134: The patient was evaluated in room B12. A complete history and physical exam was performed 1850: Vital signs stable. Patient medically cleared. Patient excepted to 3 S. Medical Decision Making Medical Records Attestation: I reviewed the patient's medical records. External medical records reviewed. Patient was admitted from September 16 of September 17, 2023 for acute hyponatremia. At that time the patient has sodium of 118 and she was drinking excessive amounts of water to "cleanse her mind, body and spirit". There were no seizures reported. The patient was given IV normal saline and was diagnosed with psychogenic polydipsia. The patient was seen by psychiatry and cleared for discharge by Dr. Shepard. Laboratory Data Attestation: I reviewed the patient's lab results. 09/28/23 14:00 09/28/23 14:00 Lab Results 09/28/23 09/28/23 09/28/23 Range/Units 11:55 12:44 12:54 WBC (4.8-10.8) K/ul RBC (4.20-5.40) M/uL Hgb (12.0-16.0) g/dl POC Hgb (12.0-16.0) g/dl Hct (37.0-47.0) % POC Hct (37-47) % MCV (80.0-100.0) fL MCH (25.0-34.0) pg MCHC (32.0-36.0) g/dL RDW Std Deviation (36.4-46.3) fL RDW Coeff of Janet (11.5-14.5) % Plt Count (130-400) K/uL MPV (9.4-12.4) fL Immature Gran % (Auto) % Neut % (Auto) % Lymph % (Auto) % [place] % (Auto) % Eos % (Auto) % Baso % (Auto) % Neut # (Auto) (1.40-6.50) K/uL Lymph # (Auto) (1.20-3.40) K/uL [place] # (Auto) (0.11-0.59) K/uL Eos # (Auto) (0.00-0.50) K/uL Baso # (Auto) (0.00-0.20) K/uL Immature Gran # (Auto) (0.01-0.20) K/uL POC Sodium (135-144) mmol/L Sodium (136-145) mmol/L POC Potassium (3.3-5.0) mmol/L Potassium (3.5-5.1) mmol/L POC Chloride (101-112) mmol/L Chloride (98-107) mmol/L Carbon Dioxide (21-32) mmol/L POC Total CO2 (24-31) mmol/L Anion Gap (3-11) POC Anion Gap (16-25) mmol/L POC BUN (7-18) mg/dl BUN (6-23) mg/dl Creatinine (0.6-1.2) mg/dl POC Creatinine (0.6-1.3) mg/dl Est Cr Clr Drug Dosing ml/min Est GFR ( Amer) ml/min Est GFR (Non-Af Amer) ml/min BUN/Creatinine Ratio (10-20) Glucose (70-99(Fasting)) mg/dl POC Glucose (other) (70-99) mg/dl Calcium (8.6-10.3) mg/dl POC Ioniz Calcium Lizzy (1.12-1.32) mmol/l Magnesium (1.7-2.4) mg/dl Total Bilirubin (0.2-1.0) mg/dl AST (13-39) U/L ALT (7-52) U/L Alkaline Phosphatase (34-104) U/L Total Protein (6.0-8.3) gm/dl Albumin (3.4-5.0) gm/dl Globulin (2.5-4.0) gm/dl Albumin/Globulin Ratio (0.9-2) Lipase (11-82) U/L TSH (0.300-4.500) uIu/ml Urine Color Yellow Urine Appearance Cloudy A (Clear) Urine pH 7.5 (4.5-7.5) Ur Specific [place] 1.023 (1.000-1.030) Urine Protein Negative (Negative) Urine Glucose (UA) Negative (Negative) Urine Ketones Trace H (Negative) Urine Blood Negative (Negative) Urine Nitrite Negative (Negative) Urine Bilirubin Negative (Negative) Urine Urobilinogen Negative (Negative) Ur Leukocyte Esterase 2+ H (Negative) Urine WBC (Auto) 10-30 H (0-5) /hpf Urine RBC (Auto) 0-4 (0-4) /hpf U Hyaline Cast (Auto) 5-10 H (0-5) /lpf U Epithel Cells (Auto) >30 H (0-5) /lpf Urine Bacteria (Auto) 1+ H (Negative) POC Ur Test NEG (NEG) Salicylates (3.0-30) mg/dl Urine Opiates Screen Neg (Neg) Ur Methadone, Qual Neg (Neg) Acetaminophen (10-30) ug/ml Urine Barbiturates Neg (Neg) Ur Phencyclidine (PCP) Neg (Neg) U Amphetamin/Meth Scrn Neg (Neg) MDMA (Ecstasy) Screen Neg (Neg) U Benzodiazepines Scrn Neg (Neg) Ur Cocaine Metabolite Neg (Neg) U Marijuana (THC) Screen Neg (Neg) Ethyl Alcohol mg/dL (<10.0) mg/dl SARS-CoV-2, RNA, NAAT NEGATIVE (NEGATIVE) 09/28/23 09/28/23 Range/Units 13:36 14:00 WBC 4.19 L (4.8-10.8) K/ul RBC 4.66 (4.20-5.40) M/uL Hgb 13.7 (12.0-16.0) g/dl POC Hgb 13.3 (12.0-16.0) g/dl Hct 39.8 (37.0-47.0) % POC Hct 39 (37-47) % MCV 85.4 (80.0-100.0) fL MCH 29.4 (25.0-34.0) pg MCHC 34.4 (32.0-36.0) g/dL RDW Std Deviation 39.7 (36.4-46.3) fL RDW Coeff of Janet 12.8 (11.5-14.5) % Plt Count 293 (130-400) K/uL MPV 9.4 (9.4-12.4) fL Immature Gran % (Auto) 0.0 % Neut % (Auto) 46.1 % Lymph % (Auto) 43.2 % [place] % (Auto) 8.1 % Eos % (Auto) 1.9 % Baso % (Auto) 0.7 % Neut # (Auto) 1.93 (1.40-6.50) K/uL Lymph # (Auto) 1.81 (1.20-3.40) K/uL [place] # (Auto) 0.34 (0.11-0.59) K/uL Eos # (Auto) 0.08 (0.00-0.50) K/uL Baso # (Auto) 0.03 (0.00-0.20) K/uL Immature Gran # (Auto) 0.00 L (0.01-0.20) K/uL POC Sodium 137 (135-144) mmol/L Sodium 135 L (136-145) mmol/L POC Potassium 4.2 (3.3-5.0) mmol/L Potassium 4.2 (3.5-5.1) mmol/L POC Chloride 103 (101-112) mmol/L Chloride 103 (98-107) mmol/L Carbon Dioxide 24 (21-32) mmol/L POC Total CO2 23 L (24-31) mmol/L Anion Gap 8 (3-11) POC Anion Gap 17.0 (16-25) mmol/L POC BUN 11 (7-18) mg/dl BUN 11 (6-23) mg/dl Creatinine 0.70 (0.6-1.2) mg/dl POC Creatinine 0.7 (0.6-1.3) mg/dl Est Cr Clr Drug Dosing 94.2 ml/min Est GFR ( Amer) 128.3 ml/min Est GFR (Non-Af Amer) 110.7 ml/min BUN/Creatinine Ratio 15.7 (10-20) Glucose 96 (70-99(Fasting)) mg/dl POC Glucose (other) 98 (70-99) mg/dl Calcium 10.5 H (8.6-10.3) mg/dl POC Ioniz Calcium Lizzy 1.23 (1.12-1.32) mmol/l Magnesium 2.3 (1.7-2.4) mg/dl Total Bilirubin 0.7 (0.2-1.0) mg/dl AST 15 (13-39) U/L ALT 10 (7-52) U/L Alkaline Phosphatase 48 (34-104) U/L Total Protein 7.8 (6.0-8.3) gm/dl Albumin 4.8 (3.4-5.0) gm/dl Globulin 3.0 (2.5-4.0) gm/dl Albumin/Globulin Ratio 1.6 (0.9-2) Lipase 8 L (11-82) U/L TSH 2.443 (0.300-4.500) uIu/ml Urine Color Urine Appearance (Clear) Urine pH (4.5-7.5) Ur Specific [place] (1.000-1.030) Urine Protein (Negative) Urine Glucose (UA) (Negative) Urine Ketones (Negative) Urine Blood (Negative) Urine Nitrite (Negative) Urine Bilirubin (Negative) Urine Urobilinogen (Negative) Ur Leukocyte Esterase (Negative) Urine WBC (Auto) (0-5) /hpf Urine RBC (Auto) (0-4) /hpf U Hyaline Cast (Auto) (0-5) /lpf U Epithel Cells (Auto) (0-5) /lpf Urine Bacteria (Auto) (Negative) POC Ur Test (NEG) Salicylates < 3.0 L (3.0-30) mg/dl Urine Opiates Screen (Neg) Ur Methadone, Qual (Neg) Acetaminophen < 3 L (10-30) ug/ml Urine Barbiturates (Neg) Ur Phencyclidine (PCP) (Neg) U Amphetamin/Meth Scrn (Neg) MDMA (Ecstasy) Screen (Neg) U Benzodiazepines Scrn (Neg) Ur Cocaine Metabolite (Neg) U Marijuana (THC) Screen (Neg) Ethyl Alcohol mg/dL < 10.0 (<10.0) mg/dl SARS-CoV-2, RNA, NAAT (NEGATIVE) Imaging Data Attestation: I personally reviewed and interpreted this imaging study as follows: My Impression: CT head: No ICH Radiologist's Impression: Head CT 09/28/23 11:35 CT SCAN OF THE BRAIN WITHOUT IV CONTRAST CLINICAL HISTORY: Change in mental status. COMPARISON STUDY: No priors. TECHNIQUE: Unenhanced axial CT scan of the brain is performed from the vertex to the skull base. A dose lowering technique was utilized adhering to the principles of ALARA. CT DOSE: 547.75 mGy.cm FINDINGS: Brain parenchyma: The brain parenchyma is normal in appearance. There is no hemorrhage, mass effect, or evidence of acute territorial ischemia by CT criteria. Griffith-white matter differentiation is preserved. No extra-axial fluid collection is seen. Ventricles, sulci, cisterns: Normal in configuration. Intracranial vasculature: The visualized intracranial vasculature at the skull base is normal in appearance. Calvarium: Unremarkable. Sinuses and mastoids: The visualized paranasal sinuses are clear. The mastoid air cells are well pneumatized. Orbits: The bony orbits are grossly intact. IMPRESSION: No acute intracranial abnormality. ACT 112: Negative or not required by law. Electronically signed by: Adriano Storey M.D. 09/28/2023 1:46 PM ECG Data Attestation: I personally reviewed and interpreted this ECG as follows: Indication: + toxicologic Rate (beats per minute): 50 Rhythm: + sinus bradycardia ECG Intervals/blocks: + Normal QRS, + Normal TX and + Normal QT-c ECG ST segments: + Normal ST segments [facility] Narrative 1134: The patient was evaluated in room B12. A complete history and physical exam was performed 1850: Vital signs stable. Patient medically cleared. Patient excepted to 3 S. Impression & Plan Psychotic disorder with delusions Discharge Plan Visit Data Chief Complaint: Mental Health Evaluation Stated Complaint: Mental health evaluation ED Provider: Santiago Morley Discharge Problem: Psychotic disorder with delusions Patient Disposition: Admitted As Inpatient Forms Stand Alone Forms: My [facility], Suicide Prevention Resources Referrals Referrals: Marshal Hendricks PA-C [Primary Care Provider] -
[2023-09-28 13:12] LABS: Appearance Urine Cloudy (Clear); Bacteria Urine Automated 1+ (Negative); Bilirubin Urine Negative (Negative); Blood Urine Negative (Negative); Color Urine Yellow; Epithelial Cell Urine Auto >30 /lpf (0-5); Glucose Urine UA Negative (Negative); Ketones Urine Trace (Negative); Leukocyte Esterase Urine 2+ (Negative); Nitrite Urine Negative (Negative); Protein Urine Negative (Negative); RBC Urine Automated 0-4 /hpf (0-4); Specific Gravity Urine 1.023 (1.000-1.030); Urobilinogen Urine Negative (Negative); pH Urine 7.5 (4.5-7.5)
[2023-09-28 13:42] LABS: Amphetamines+Metham, Urine Neg (Neg); Barbiturates, Urine Neg (Neg); Benzodiazepine, Urine Neg (Neg); Cocaine, Urine Neg (Neg); MDMA (Ecstacy), Urine Neg (Neg); Marijuana, Urine Neg (Neg); Methadone, Urine Neg (Neg); Opiate, Urine Neg (Neg); Phencyclidine, Urine Neg (Neg)
--- NOTE | 2023-09-28 13:47 | CT Scan Report ---
CT SCAN OF THE BRAIN WITHOUT IV CONTRAST CLINICAL HISTORY: Change in mental status. COMPARISON STUDY: No priors. TECHNIQUE: Unenhanced axial CT scan of the brain is performed from the vertex to the skull base. A d ose lowering technique was utilized adhering to the principles of ALARA. CT DOSE: 547.75 mGy.cm FINDINGS: Brain parenchyma: The brain parenchyma is normal in appearance. There is no hemorrhage, mass effect, or evidence of acute territorial ischemia by CT criteria. Griffith-white matter differentiation is preser cassandra. No extra-axial fluid collection is seen. Ventricles, sulci, cisterns: Normal in configuration. Intracranial vasculature: The visualized intracranial vasculature at the skull base is normal in appe arance. Calvarium: Unremarkable. Sinuses and mastoids: The visualized paranasal sinuses are clear. The mastoid air cells are well pneu matized. Orbits: The bony orbits are grossly intact. IMPRESSION: No acute intracranial abnormality. ACT 112: Negative or not required by law. Electronically signed by: Adriano Storey M.D. 09/28/2023 1:46 PM
[2023-09-28 13:49] LABS: iSTAT Creatinine 0.7 mg/dl (0.6-1.3); iSTAT Hemoglobin 13.3 g/dl (12.0-16.0); iSTAT Ionized Calcium 1.23 mmol/l (1.12-1.32); iSTAT Potassium 4.2 mmol/L (3.3-5.0)
[2023-09-28 14:34] LABS: Basophils # (auto) 0.03 K/uL (0.00-0.20); Basophils % (auto) 0.7 %; Eosinophils # (auto) 0.08 K/uL (0.00-0.50); Eosinophils % (auto) 1.9 %; Hematocrit (blood only) 39.8 % (37.0-47.0); Hemoglobin 13.7 g/dl (12.0-16.0); Lymphocytes # (auto) 1.81 K/uL (1.20-3.40); Lymphocytes % (auto) 43.2 %; Mean Corpuscular Hemoglobin 29.4 pg (25.0-34.0); Mean Corpuscular Hgb Conc 34.4 g/dL (32.0-36.0); Mean Corpuscular Volume 85.4 fL (80.0-100.0); Mean Platelet Volume 9.4 fL (9.4-12.4); Monocytes # (auto) 0.34 K/uL (0.11-0.59); Monocytes % (auto) 8.1 %; Neutrophils # (auto) 1.93 K/uL (1.40-6.50); Neutrophils % (auto) 46.1 %; Platelet Count 293 K/uL (130-400); RDW Coefficient of Variation 12.8 % (11.5-14.5); RDW Standard Deviation 39.7 fL (36.4-46.3); Red Blood Count 4.66 M/uL (4.20-5.40); White Blood Count 4.19 K/ul (4.8-10.8)
[2023-09-28 14:40] LABS: Acetaminophen < 3 ug/ml (10-30); Salicylate < 3.0 mg/dl (3.0-30)
--- NOTE | 2023-09-28 15:04 | Electrocardiogram Report ---
Test Reason : Blood Pressure : / mmHG Vent. Rate : 050 BPM Atrial Rate : 050 BPM P-R Int : 138 ms QRS Dur : 082 ms QT Int : 404 ms P-R-T Axes : 056 059 027 degrees QTc Int : 368 ms Sinus bradycardia Poor R wave progression, consider anterior CA vs. lead placement vs. LVH Abnormal ECG When compared with ECG of 21-JAN-2023 13:57, Vent. rate has decreased BY 25 BPM Confirmed by Placido Spaulding ([id number]) on 09/28/2023 3:04:22 PM Referred By: REFERRED SELF Confirmed By:Placido Spaulding
[2023-09-28 15:07] LABS: Albumin Level 4.8 gm/dl (3.4-5.0); Bilirubin,Total 0.7 mg/dl (0.2-1.0); Calcium 10.5 mg/dl (8.6-10.3); Magnesium 2.3 mg/dl (1.7-2.4); Potassium 4.2 mmol/L (3.5-5.1)
[2023-09-28 15:13] LABS: Albumin Globulin Ratio 1.6 (0.9-2); BUN Creatinine Ratio 15.7 (10-20); Creatinine Clr Calc Pharmacy 94.2 ml/min; Est GFR (African American) 128.3 ml/min; Est GFR (Non-African American) 110.7 ml/min; Total Protein 7.8 gm/dl (6.0-8.3)
[2023-09-28 15:28] LABS: Thyroid Stimulating Hormone 2.443 uIu/ml (0.300-4.500)
[2023-09-28] MEDS ORDERED: SODIUM CHLORIDE 0.65% NA SOLN 45 ML (OCEAN) PRN (19:51)
[2023-09-28] MEDS ORDERED: ALUMINUM/MAGNESIUM SUSP 30 ML UDC PO PRN (19:51)
[2023-09-28] MEDS ORDERED: ACETAMINOPHEN 325 MG TAB PO PRN (19:51)
[2023-09-28] MEDS ORDERED: BISMUTH SUBSALICYLATE LIQD 236 ML PO PRN (19:51)
[2023-09-28] MEDS ORDERED: MAGNESIUM HYDROXIDE SUSP 30 ML UDC PO PRN (19:51)
[2023-09-28] MEDS ORDERED: hydrOXYzine HCl 25 MG TAB PO PRN ×2 (19:51)
[2023-09-28] MEDS: ARIPiprazole 15 MG TAB PO SCH (20:51)
--- NOTE | 2023-09-29 13:43 | History & Physical ---
Date of Service September 29, 2023 Impression / Recommendations Impression 37 y/o F with psychotic disorder characterized primarily by delusions. Onset seems to have been roughly a year ago. At her initial presentation in December this was thought to be related to her abusing her boyfriend's Adderall, but subsequent toxicology screens have been negative. She was given a diagnosis of schizophrenia during her May admission in [place] but first onset of symptoms at the age that was reported (around 36 yr) would be unusual. She abused multiple substances, primarily opioids but also cocaine and stimulants, until about a year ago so chronic substance use may have obscured the onset of psychiatric symptoms. At this time I'm most comfortable assigning a diagnosis of psychotic disorder with delusions. She is certainly psychiatrically unstable and requires psychiatric hospitalization for safety, stabilization, and medication management. She is currently voluntary but otherwise would certainly meet 302 involuntary admission criteria. There is a petition on-file. Risks and benefits of, and alternatives to, the use of aripiprazole (Abilify) for psychosis were reviewed. This discussion included but was not limited to issues known potentially to be associated with use of such medication, especially at high doses or with longer use, including sedation, weight gain, problems with glucose metabolism including Type II diabetes, problems with lipid metabolism, cardiac conduction problems, or rarely involuntary movements, parkinsonian symptoms, or even acute dystonia or life-threatening Neuroleptic Malignant Syndrome. Discussed the need for periodic monitoring of fasting glucose or Hemoglobin A1c and fasting lipid panel, which the patient declined and had previously been done so were not repeated for baseline monitoring. The patient did not object to restarting aripiprazole. During a previous admission her dose had to be reduced from 10 mg to 7.5 mg due to sedation, so will start with 7.5 mg. It seems highly likely that she will need a JONES antipsychotic and has tolerated Aristada in the recent past, but would not agree to resume that now. Overall I spent a total of 65 minutes on the floor for this admission including review of chart records, review of test results, direct evaluation of the patient [id number], counseling the patient, reconciling and ordering medication, medication education with the patient, risk assessment, discussion during interdisciplinary treatment rounds and with the psychiatric liaison nurse, and documentation in the electronic health record. (1) Psychotic disorder with delusions: Plan The patient was admitted to the [facility] (locked inpatient mental health unit) on q15 minute checks (behavioral with suicide precautions) for safety.The patient will participate in group, recreational, and milieu therapies and will be offered additional individual and family sessions as clinically appropriate. * restart aripiprazole 7.5 mg QHS * encourage Abilify Initio/Aristada Inventory Assets Strengths: supportive relationships, has local supports, voluntary, intelligent Needs: safety and stabilization, medication adjustment, outpatient services Suicide Risk Level Suicide Risk Level: Low (q15 min observation checks) (has not voiced or evidenced any suicidal thoughts) Risk Factors Assessment Male: No : Yes Do You Have Access To A Gun?: No Health Problems: No Mental Health Diagnoses: Yes Substance Use Disorders: Yes Previous Attempt: No Previous Psychiatric Hospitalization: Yes Hopelessness: No Protective Factors Assessment : No (engaged) Responsible for Young Children: Yes (1/2-time custody of 9 y/o son) Employed: No Stable Relationships: Yes Supportive Family: Yes Psychiatric History Identifying Data CORAZON BHAKTA is a 37-year-old F who currently lives in [place] with her fianc, has a history of psychosis, opioid use disorder, cocaine use disorder, and stimulant use disorder, and was admitted on 09/28/23 18:52 on a 201 voluntary commitment for psychosis. Chief Complaint "I'm fine. I don't need anything". History of Present Illness As part of a thorough review of the available medical records, I have read and incorporated into my assessment the following note by the ED physician: "37-year-old female presents emergency department with mother and child at bedside for mental health evaluation. Patient states that spirits from [place] have put the "evil eye on her" and she is trying to have the demons come out of her head. She states that the demons come out more when she eats. The patient denies any chance of or recent drug use. She states she is sober. Mother denies any recent drugs. Mother denies that the patient has any falls or trauma and mother confirms that she does not think that the patient could be . Patient states she has not been taking any medications. Patient was admitted from September 16 of September 17, 2023 for acute hyponatremia. At that time the patient has sodium of 118 and she was drinking excessive amounts of water to "cleanse her mind, body and spirit". There were no seizures reported. The patient was given IV normal saline and was diagnosed with psychogenic polydipsia." the following notes by the ED psychiatric window caser: "Met with Corazon bedside to complete mental health evaluation. Patient's lori remained in room with her verbal consent. Corazon presented religiously and spiritually preoccupied. Corazon stated she was recently hospitalized for low sodium due to drinking excessive water to "get the demons out." Corazon stated explaining that she had a history of substance abuse and stopped using all substances approximately 1 year ago "which caused a spiritual awakening." Corazon stated he past substance use "opened up my third eye." Corazon stated she can't eat because when she eats "it get really bad." Corazon explained that the "noise in my head" gets really bad. Her fiance stated she is barely eating "because she believes it angers the djinn's when she eats." He stated she drinks water to "flush anything bad and negative out of her body." Her fiance stated she is "praying and chanting constantly." He stated she will unplug all electronic. Corazon stated she unplugs things because "the energy is how they get in." Her fiance stated she has broken every mirror in the home and will put blankets over anything shiny. He stated Corazon is cleaning compulsively to the extent that she is mopping the floor so much it is damaging the hard wood. Lori stated Corazon believes mopping the floor is the only way to "keep the djinn's down." Lori stated he has not been able to bring his children for visit due to Corazon's mental health. He stated Corazon's 16 year old lives with his father and is not allowed to visit. Lori stated Corazon gets her 9 year old every other week. He stated the 9 year old is currently with his grandmother. Lori stated Corazon is not sleeping. Corazon stated she was inpatient in [facility] for approx. 1 month. She stated she was "told I had schizophrenia but that what they say when you believe in Misael Reji and ask for him to come into your home." Corazon has not been taking any of her medication. She has no current outpatient mental health services." "Lori/Simón stated he spoke with Lorna Red at [employer] and completed a petitioning statement which just needs signed. Simón forward email with [email or web address] and this window caser printed and had Simón sign under Box A. Corazon is currently agreeable to recommendation for inpatient mental health treatment. " and the following note by the psychiatric liaison nurse: "Calm and cooperative. Declined tour of unit since previously admitted to unit in past. Patient arrived to ED with her mother and 9 yr old son with reported psychosis. Her son, mother and finance provided ED CM with details of her behaviors. One month ago she had been discharged from [facility] with psychosis and upon returning home she stopped taking her medications and became paranoid, and religiously preoccupied. She has been focused on "djinn's" evil spirits in her body and has been praying, chanting and last night it was reported she broke mirrors in her home, (which transport evil spirts). She kept her son up all night and had missed school due to having him pray. She has a history of significant drug abuse, she states she has been sober x 1 year and has been focusing only on Misael Reji. She does report that she had been fasting for 16 days, and is no longer fasting. She was recently on medical due to hyponatremia and family reports she continues to excessively drink to cleanse her body. Her fiance reports she has no outpatient providers and is currently taking no medications. According to ED CM [facility] is involved. She did sign CLIF's for mother and fiance." Review of the medical record reveals 2 previous admissions here in rapid succession in December 2022. Review of pertinent labs reveals they are noncontributory except for pyuria. A urine toxicology screen was negative for all tested substrates. BAL was <10 mg/dL. screen was negative. Was admitted to [facility] for depression "years ago". Has had 2 previous admissions here, 1 week apart, 01/10/2023 to 01/15/2023 and 01/22/2023 to 01/28/2023. During the first admission she was treated with olanzapine but didn't take it or keep follow-up after discharge. During the second admission she was treated with oral aripiprazole then received JONES shortly before discharge. She hasn't continued with treatment since then. She was involuntarily committed at [facility] ([facility]) in May 2023 for about 1 month with diagnosis of schizophrenia and discharged on paliperidone that she didn't continue. I saw her for psychiatric consultation 09/16/2023 when she was hospitalized for hyponatremia because she'd "done a water cleanse" to rid her body of "toxins". She voiced a realization that this turned out to be excessive and "wouldn't do that again". While her behaviors were odd, they didn't appear to be clearly risky. Pt presents very calmly but completely convinced there's no reason for anyone to be concerned about her behaviors because they're "all based in [place]". In speaking with me about breaking mirrors and covering reflective surfaces, pt initially says this is "because of fantasy" then rapidly changes that to "because of vanity", but says nothing about the djinns she referenced in the ED. She utterly denies any possibility that anything she's experiencing or doing might be a symptom or that she needs any form of treatment. During her psychi atric admissions here she was on buprenorphine (naloxone is listed among her allergies) but tells me her addiction is now cured via the injections she got last time and mandaen. She accepted oral aripiprazole last night without objection but doesn't believe she needs treatment for anything. Past Psychiatric History Current Psychiatric Diagnosis: psychotic disorder with delusions Outpatient Services: none Previous Psych Admissions: [facility] December 2022 x2, [facility] [place] May 2023 Do You Have Access To A Gun?: No History of Previous Suicide Attempt: No Past Medication Trials: olanzapine (sedation), aripiprazole, paliperidone (weight gain) Allergies Allergy/AdvReac Type Severity Reaction Status Date / Time buprenorphine [From Suboxone] AdvReac Intermediate Hives Verified 01/10/23 14:48 naloxone [From Suboxone] AdvReac Intermediate Hives Verified 01/10/23 14:48 Corticosteroids AdvReac Mild VOMITING Verified 01/10/23 14:48 (Glucocorticoids) Family History Family History of: Doesn't Know Family Mental Health History Comment: younger sister Alcohol History Hx of Alcohol Use Over the Past 12 Months: No AUDIT Total Score: 0 Smoking Use tobacco type: cigarettes Smoking Status: Never smoker Substance History Hx of Prescription Med Misuse Over the Past 12 Months: No Hx of Over the Counter Med Misuse Over the Past 12 Months: No Hx of Inhalent Misuse Over the Past 12 Months: No Hx of Organic Substance Use Over the Past 12 Months: No Hx of Illegal Substances/Street Drug Use Over Past 12 Months: No (Denies, has hx of polysubstance abuse states sober x 1 year) Problems as a Result of Past Substance Use: None Identified Problems as a Result of Past Substance Use Comments: Hx of adderall; subutex; cocaine; heroin abuse - no used for past year Personal History Living Arrangements: Home Highest Grade Completed: Did Not Graduate High School Highest Grade Completed Comment: went until 11th grade Marital Status: Living w/ Signif. Other Number Of Children: 3 Beliefs That Will Affect Care: None Hx Legal Problems: No Hx Traumatic Life Events: No Patient History Medical History Psychogenic polydipsia Psychosis Anxiety Suicidal ideation Depression Surgical History No pertinent past surgical history Family History Other No significant family history Social History Smoking Status: Never smoker Tobacco Type: Cigarettes Second Hand Exposure: No; Do You Dip or Chew Tobacco: No; Hx Alcohol Use: No Hx Substance Use: No Preferred Language: Iranian Communication Ability: Effective Ammonium Sulfate Operator Required: No Beliefs That Will Affect Care: None Current Living Situation: Spouse and Family Feels Safe at Home: Yes Gender Identity: Female Assistive Devices: None Review of Systems Psychiatric: denies all symptoms Physical Exam Psychiatric: Orientation: alert, oriented to person, oriented to place, oriented to time and + guarded Apperance: appropriately dressed and appropriately groomed Eye Contact: good eye contact Motor Behavior: no abnormal motor movements Speech: normal rate/rhythm/volume of speech Affect: mood congruent with affect (very calm) reports euthymic mood Thought Process: + tangential thought process and + looseness of associations Thought Content: + delusions (religiously-oriented) Suicidal Thoughts: denies suicidal thoughts, denies suicidal plan and denies suicidal intent Homicidal Thoughts: denies homicidal thoughts Hallucinations: + auditory hallucinations (by recent report) Cognition: recent memory grossly intact, remote memory grossly intact, attention grossly intact and language grossly intact Estimated Intelligence: consistent with education level Insight: + severely impaired insight Judgment: + severely impaired judgement Vital Signs (Past 24 Hours): Last Vital Signs Temp 36.4 C L 09/29/23 06:36 Pulse 71 09/29/23 06:37 Resp 16 09/29/23 06:36 BP 96/64 L 09/29/23 06:37 Pulse Ox 98 09/28/23 19:02 O2 Del Method Room Air 09/28/23 19:02 Exam Statement: A physical exam was performed in the ED for the purposes of medical clearance. I accept that physical as correct and adequate for the purposes of the inpatient physical exam and have incorporated that information into my assessment. Results & Data ([facility]) Laboratory Results Laboratory Results - last 24 hr 09/28/23 09/28/23 09/28/23 11:55 12:44 12:54 WBC RBC Hgb POC Hgb Hct POC Hct MCV MCH MCHC RDW Std Deviation RDW Coeff of Janet Plt Count MPV Immature Gran % (Auto) Neut % (Auto) Lymph % (Auto) [place] % (Auto) Eos % (Auto) Baso % (Auto) Neut # (Auto) Lymph # (Auto) [place] # (Auto) Eos # (Auto) Baso # (Auto) Immature Gran # (Auto) POC Sodium Sodium POC Potassium Potassium POC Chloride Chloride Carbon Dioxide POC Total CO2 Anion Gap POC Anion Gap POC BUN BUN Creatinine POC Creatinine Est Cr Clr Drug Dosing Est GFR ( Amer) Est GFR (Non-Af Amer) BUN/Creatinine Ratio Glucose POC Glucose (other) Calcium POC Ioniz Calcium Lizzy Magnesium Total Bilirubin AST ALT Alkaline Phosphatase Total Protein Albumin Globulin Albumin/Globulin Ratio Lipase TSH Urine Color Yellow Urine Appearance Cloudy A Urine pH 7.5 Ur Specific [place] 1.023 Urine Protein Negative Urine Glucose (UA) Negative Urine Ketones Trace H Urine Blood Negative Urine Nitrite Negative Urine Bilirubin Negative Urine Urobilinogen Negative Ur Leukocyte Esterase 2+ H Urine WBC (Auto) 10-30 H Urine RBC (Auto) 0-4 U Hyaline Cast (Auto) 5-10 H U Epithel Cells (Auto) >30 H Urine Bacteria (Auto) 1+ H POC Ur Test NEG Salicylates Urine Opiates Screen Neg Ur Methadone, Qual Neg Acetaminophen Urine Barbiturates Neg Ur Phencyclidine (PCP) Neg U Amphetamin/Meth Scrn Neg MDMA (Ecstasy) Screen Neg U Benzodiazepines Scrn Neg Ur Cocaine Metabolite Neg U Marijuana (THC) Screen Neg Ethyl Alcohol mg/dL SARS-CoV-2, RNA, NAAT NEGATIVE 09/28/23 09/28/23 13:36 14:00 WBC 4.19 L RBC 4.66 Hgb 13.7 POC Hgb 13.3 Hct 39.8 POC Hct 39 MCV 85.4 MCH 29.4 MCHC 34.4 RDW Std Deviation 39.7 RDW Coeff of Janet 12.8 Plt Count 293 MPV 9.4 Immature Gran % (Auto) 0.0 Neut % (Auto) 46.1 Lymph % (Auto) 43.2 [place] % (Auto) 8.1 Eos % (Auto) 1.9 Baso % (Auto) 0.7 Neut # (Auto) 1.93 Lymph # (Auto) 1.81 [place] # (Auto) 0.34 Eos # (Auto) 0.08 Baso # (Auto) 0.03 Immature Gran # (Auto) 0.00 L POC Sodium 137 Sodium 135 L POC Potassium 4.2 Potassium 4.2 POC Chloride 103 Chloride 103 Carbon Dioxide 24 POC Total CO2 23 L Anion Gap 8 POC Anion Gap 17.0 POC BUN 11 BUN 11 Creatinine 0.70 POC Creatinine 0.7 Est Cr Clr Drug Dosing 94.2 Est GFR ( Amer) 128.3 Est GFR (Non-Af Amer) 110.7 BUN/Creatinine Ratio 15.7 Glucose 96 POC Glucose (other) 98 Calcium 10.5 H POC Ioniz Calcium Lizzy 1.23 Magnesium 2.3 Total Bilirubin 0.7 AST 15 ALT 10 Alkaline Phosphatase 48 Total Protein 7.8 Albumin 4.8 Globulin 3.0 Albumin/Globulin Ratio 1.6 Lipase 8 L TSH 2.443 Urine Color Urine Appearance Urine pH Ur Specific [place] Urine Protein Urine Glucose (UA) Urine Ketones Urine Blood Urine Nitrite Urine Bilirubin Urine Urobilinogen Ur Leukocyte Esterase Urine WBC (Auto) Urine RBC (Auto) U Hyaline Cast (Auto) U Epithel Cells (Auto) Urine Bacteria (Auto) POC Ur Test Salicylates < 3.0 L Urine Opiates Screen Ur Methadone, Qual Acetaminophen < 3 L Urine Barbiturates Ur Phencyclidine (PCP) U Amphetamin/Meth Scrn MDMA (Ecstasy) Screen U Benzodiazepines Scrn Ur Cocaine Metabolite U Marijuana (THC) Screen Ethyl Alcohol mg/dL < 10.0 SARS-CoV-2, RNA, NAAT Current Inpatient Medications Current Inpatient Medications: Current Inpatient Medications Acetaminophen (Acetaminophen 325 Mg Tab) 650 mg PO Q4H PRN PRN Reason: Headache or Minor Fever Stop: 10/28/23 19:50 Al Hydrox/Mg Hydrox/Simethicone (Aluminum/Magnesium Susp 30 Ml Udc) 30 ml PO Q4H PRN PRN Reason: GI Upset Stop: 10/28/23 19:50 Aripiprazole (Aripiprazole 15 Mg Tab) 7.5 mg PO HS ROMMEL Stop: 10/28/23 21:59 Last Admin: 09/28/23 20:51 Dose: 7.5 mg Bismuth Subsalicylate (Bismuth Subsalicylate Liqd 236 Ml) 15 ml PO PRN PRN PRN Reason: Loose Stool Stop: 10/28/23 19:50 Haloperidol (Haloperidol 1 Mg Tab) 2 mg PO Q6 PRN PRN Reason: Psychosis/agitation Stop: 10/28/23 19:53 Hydroxyzine HCl (Hydroxyzine Hcl 25 Mg Tab) 50 mg PO HSZ PRN PRN Reason: Insomnia Stop: 10/28/23 19:50 Hydroxyzine HCl (Hydroxyzine Hcl 25 Mg Tab) 25 mg PO Q4H PRN PRN Reason: Anxiety Stop: 10/28/23 19:50 Magnesium Hydroxide (Magnesium Hydroxide Susp 30 Ml Udc) 30 ml PO DAILY PRN PRN Reason: Constipation Stop: 10/28/23 19:50 Sodium Chloride (Sodium Chloride 0.65% Na Soln 45 Ml ([place])) 1 - 2 sprays NA PRN PRN PRN Reason: Nasal Dryness/Congestion Stop: 10/28/23 19:50
[2023-09-30] MEDS: haloperidoL 1 MG TAB PO PRN (09:10)
[2023-09-30] MEDS ORDERED: BENZTROPINE MESYLATE 1 MG TAB PO PRN (11:13)
--- NOTE | 2023-09-30 13:28 | Psychiatric Progress Note ---
Date of Service September 30, 2023 Impression / Recommendations Impression as per Dr. Shepard: 37 y/o F with psychotic disorder characterized primarily by delusions. Onset seems to have been roughly a year ago. At her initial presentation in December this was thought to be related to her abusing her boyfriend's Adderall, but subsequent toxicology screens have been negative. She was given a diagnosis of schizophrenia during her May admission in [place] but first onset of symptoms at the age that was reported (around 36 yr) would be unusual. She abused multiple substances, primarily opioids but also cocaine and stimulants, until about a year ago so chronic substance use may have obscured the onset of psychiatric symptoms. At this time I'm most comfortable assigning a diagnosis of psychotic disorder with delusions. She is certainly psychiatrically unstable and requires psychiatric hospitalization for safety, stabilization, and medication management. MNPR due to severity of psychosis Overall, I spent a total of 40 minutes with this case, including review of chart, direct evaluation of the patient, counseling the patient, ordering medication, coordination with nursing,and documentation. (1) Psychotic disorder with delusions: Plan 09/30/23: fasting metabolic labs given antipsychotic rx, will add repeat sodium to ensure not trending down with restart of antipsychotic medication. d/c Abilify. Risks/benefits/alternatives reviewed re: Haldol, patient willing to take 2 mg BID with meals with additional prn as views as helpful. She has been resistant to resume JONES medications but will offer as clearer. Her partner has indicated he may leave if she does not comply with medications. 09/29/23: The patient was [facility] on q15 minute checks (behavioral with suicide precautions) for safety.The patient will participate in group, recreational, and milieu therapies and will be offered additional individual and family sessions as clinically appropriate. * restart aripiprazole 7.5 mg QHS * encourage Abilify Initio/Aristada Inventory Assets Strengths: supportive relationships, has local supports, voluntary, intelligent Needs: safety and stabilization, medication adjustment, outpatient services Suicide Risk Level Suicide Risk Level: Low (q15 min observation checks) (has not voiced or evidenced any suicidal thoughts) Risk Factors Assessment Male: No : Yes Do You Have Access To A Gun?: No Health Problems: No Mental Health Diagnoses: Yes Substance Use Disorders: Yes Previous Attempt: No Previous Psychiatric Hospitalization: Yes Hopelessness: No Protective Factors Assessment : No (engaged) Responsible for Young Children: Yes (1/2-time custody of 9 y/o son) Employed: No Stable Relationships: Yes Supportive Family: Yes Interval History Identifying Information KHOI BHAKTA is a 37-year-old F who currently lives in [place] with her fianc, has a history of psychosis, opioid use disorder, cocaine use disorder, and stimulant use disorder, and was admitted on 09/28/23 18:52 on a 201 voluntary commitment for psychosis. Chief Complaint "That Risperdal makes me really anxious, I just needed a detox. I don't see the big deal, this stuff makes me feel worse". Review of Systems Sleep Information Total Hours of Sleep: 6.45 Meal Information Percent Meal Consumed - Breakfast: 100 Percent Meal Consumed - Lunch: 100 Percent Meal Consumed - Dinner: 25 Subjective Subjective Patient was seen & assessed and interval progress reviewed with nursing and social work. The patient is known to me from a previous stay. CYS requesting notification of discharge due to recent report re: 9 yo son. Patient c/o anxiety this am and although does not appear to have restlessness externally, she reports internal feelings that could suggest early akathisia from retrial of Abilify. Abiliy caused significant weight gain in past and she is currently refusing to continue it. She did receive a dose of Haldol prn earlier this am with benefit and was organized enough to attend group, seems internally preoccup ied but denies dyer. She feels she has a right to be religion and minimizes any preoccupation with demons. She kept repeating, "once I stop eating I get worse, now I'm fine." Reviewed UC as wasn't clean catch, grew lactobacillus (likely vaginal). She denies dysuria. Physical Exam Psychiatric Orientation: alert, oriented to person, oriented to place, oriented to time and + guarded Apperance: appropriately dressed and appropriately groomed Eye Contact: good eye contact Motor Behavior: no abnormal motor movements Speech: normal rate/rhythm/volume of speech Affect: mood congruent with affect Thought Process: + concrete thought process Thought Content: + delusions (religiously-oriented, but lessening) Suicidal Thoughts: denies suicidal thoughts, denies suicidal plan and denies suicidal intent Homicidal Thoughts: denies homicidal thoughts Hallucinations: no auditory hallucinations Cognition: attention grossly intact and language grossly intact Estimated Intelligence: consistent with education level Insight: + poor insight Judgment: + poor judgement Vital Signs (Past 24 Hours) Last Vital Signs Temp 37.1 C 09/30/23 06:32 Pulse 71 09/30/23 06:32 Resp 16 09/30/23 06:32 BP 95/59 L 09/30/23 06:34 Pulse Ox 97 09/30/23 06:32 O2 Del Method Room Air 09/30/23 06:32 Results & Data ([facility]) Current Inpatient Medications Current Inpatient Medications: Current Inpatient Medications Acetaminophen (Acetaminophen 325 Mg Tab) 650 mg PO Q4H PRN PRN Reason: Headache or Minor Fever Stop: 10/28/23 19:50 Al Hydrox/Mg Hydrox/Simethicone (Aluminum/Magnesium Susp 30 Ml Udc) 30 ml PO Q4H PRN PRN Reason: GI Upset Stop: 10/28/23 19:50 Aripiprazole (Aripiprazole 15 Mg Tab) 7.5 mg PO HS ROMMEL Stop: 10/28/23 21:59 Last Admin: 09/29/23 21:16 Dose: 7.5 mg Benztropine Mesylate (Benztropine Mesylate 1 Mg Tab) 1 mg PO Q6 PRN PRN Reason: Muscle Spasm Stop: 10/30/23 11:12 Bismuth Subsalicylate (Bismuth Subsalicylate Liqd 236 Ml) 15 ml PO PRN PRN PRN Reason: Loose Stool Stop: 10/28/23 19:50 Haloperidol (Haloperidol 1 Mg Tab) 2 mg PO Q6 PRN PRN Reason: Psychosis/agitation Stop: 10/28/23 19:53 Last Admin: 09/30/23 09:10 Dose: 2 mg Haloperidol (Haloperidol 1 Mg Tab) 2 mg PO BIDM ROMMEL Stop: 10/30/23 17:44 Hydroxyzine HCl (Hydroxyzine Hcl 25 Mg Tab) 50 mg PO HSZ PRN PRN Reason: Insomnia Stop: 10/28/23 19:50 Hydroxyzine HCl (Hydroxyzine Hcl 25 Mg Tab) 25 mg PO Q4H PRN PRN Reason: Anxiety Stop: 10/28/23 19:50 Magnesium Hydroxide (Magnesium Hydroxide Susp 30 Ml Udc) 30 ml PO DAILY PRN PRN Reason: Constipation Stop: 10/28/23 19:50 Sodium Chloride (Sodium Chloride 0.65% Na Soln 45 Ml ([place])) 1 - 2 sprays NA PRN PRN PRN Reason: Nasal Dryness/Congestion Stop: 10/28/23 19:50 Mental Health & Subst Abuse Tx Therapist Name of Therapist: None Furrier Designer Name of Furrier Designer: None
[2023-09-30] MEDS: haloperidoL 1 MG TAB PO SCH (17:42)
[2023-10-01 07:44] LABS: Chol HDL Ratio 3.7 (0-5)
--- NOTE | 2023-10-01 11:34 | Psychiatric Progress Note ---
Date of Service October 01, 2023 Impression / Recommendations Impression as per Dr. Shepard: 37 y/o F with psychotic disorder characterized primarily by delusions. Onset seems to have been roughly a year ago. At her initial presentation in December this was thought to be related to her abusing her boyfriend's Adderall, but subsequent toxicology screens have been negative. She was given a diagnosis of schizophrenia during her May admission in [place] but first onset of symptoms at the age that was reported (around 36 yr) would be unusual. She abused multiple substances, primarily opioids but also cocaine and stimulants, until about a year ago so chronic substance use may have obscured the onset of psychiatric symptoms. At this time I'm most comfortable assigning a diagnosis of psychotic disorder with delusions. She is certainly psychiatrically unstable and requires psychiatric hospitalization for safety, stabilization, and medication management. MNPR due to severity of psychosis but improving. Overall, I spent a total of 36 minutes with this case, including review of chart, direct evaluation of the patient, counseling the patient, ordering medication, coordination with nursing,and documentation. (1) Psychotic disorder with delusions: Plan 10/01/23: shift Haldol to hs only dosing. 09/30/23: fasting metabolic labs given antipsychotic rx, will add repeat sodium to ensure not trending down with restart of antipsychotic medication. d/c Abilify. Risks/benefits/alternatives reviewed re: Haldol, patient willing to take 2 mg BID with meals with additional prn as views as helpful. She has been resistant to resume JONES medications but will offer as clearer. Her partner has indicated he may leave if she does not comply with medications. 09/29/23: The patient was admitted to the [facility] ([facility]) on q15 minute checks (behavioral with suicide precautions) for safety.The patient will participate in group, recreational, and milieu therapies and will be offered additional individual and family sessions as clinically appropriate. * restart aripiprazole 7.5 mg QHS * encourage Abilify Initio/Aristada Inventory Assets Strengths: supportive relationships, has local supports, voluntary, intelligent Needs: safety and stabilization, medication adjustment, outpatient services Suicide Risk Level Suicide Risk Level: Low (q15 min observation checks) (has not voiced or evidenced any suicidal thoughts) Risk Factors Assessment Male: No : Yes Do You Have Access To A Gun?: No Health Problems: No Mental Health Diagnoses: Yes Substance Use Disorders: Yes Previous Attempt: No Previous Psychiatric Hospitalization: Yes Hopelessness: No Protective Factors Assessment : No (engaged) Responsible for Young Children: Yes (1/2-time custody of 9 y/o son) Employed: No Stable Relationships: Yes Supportive Family: Yes Interval History Identifying Information KHOI BHAKTA is a 37-year-old F who currently lives in [place] with her fianc, has a history of psychosis, opioid use disorder, cocaine use disorder, and stimulant use disorder, and was admitted on 09/28/23 18:52 on a 201 voluntary commitment for psychosis. Chief Complaint "all these meds make me feel funny, my heart races." Review of Systems Sleep Information Total Hours of Sleep: 8 Meal Information Percent Meal Consumed - Breakfast: 0 Percent Meal Consumed - Lunch: 100 Percent Meal Consumed - Dinner: 25 Subjective Subjective Patient was seen & assessed and interval progress reviewed with nursing and social work. Reassured patient that her concerns about her thought processes/anxiety are more related to her primary condition, inconsistent meals yesterday, Abilify taper, etc. rather than Haldol she only c/o such later in day and regardless was less religiously preoccupied last pm and had good visit with boyfriend. Reviewed importance of medication given need for medical hospitalization and now psychiatric stay, impact of her symptoms on children (current CYS involvement). Physical Exam Psychiatric Orientation: alert and cooperative Apperance: appropriately dressed and appropriately groomed Eye Contact: good eye contact Motor Behavior: no abnormal motor movements Speech: normal rate/rhythm/volume of speech Affect: mood congruent with affect Thought Process: + concrete thought process Thought Content: no delusions Suicidal Thoughts: denies suicidal thoughts Homicidal Thoughts: denies homicidal thoughts Hallucinations: no auditory hallucinations Cognition: attention grossly intact and language grossly intact Estimated Intelligence: consistent with education level Insight: + poor insight Judgment: + poor judgement Vital Signs (Past 24 Hours) Last Vital Signs Temp 36.7 C 10/01/23 06:25 Pulse 76 10/01/23 06:27 Resp 16 10/01/23 06:25 BP 105/70 10/01/23 06:27 Pulse Ox 96 10/01/23 06:25 O2 Del Method Room Air 10/01/23 06:25 Results & Data ([facility]) Laboratory Results Laboratory Results - last 24 hr 10/01/23 07:11 Sodium 137 Fasting Glucose 109 H Triglycerides 100 Cholesterol 184 LDL Cholesterol, Calc 114 VLDL Cholesterol, Calc 20 HDL Cholesterol 50 Cholesterol/HDL Ratio 3.7 Current Inpatient Medications Current Inpatient Medications: Current Inpatient Medications Acetaminophen (Acetaminophen 325 Mg Tab) 650 mg PO Q4H PRN PRN Reason: Headache or Minor Fever Stop: 10/28/23 19:50 Al Hydrox/Mg Hydrox/Simethicone (Aluminum/Magnesium Susp 30 Ml Udc) 30 ml PO Q4H PRN PRN Reason: GI Upset Stop: 10/28/23 19:50 Benztropine Mesylate (Benztropine Mesylate 1 Mg Tab) 1 mg PO Q6 PRN PRN Reason: Muscle Spasm Stop: 10/30/23 11:12 Bismuth Subsalicylate (Bismuth Subsalicylate Liqd 236 Ml) 15 ml PO PRN PRN PRN Reason: Loose Stool Stop: 10/28/23 19:50 Haloperidol (Haloperidol 1 Mg Tab) 2 mg PO Q6 PRN PRN Reason: Psychosis/agitation Stop: 10/28/23 19:53 Last Admin: 09/30/23 09:10 Dose: 2 mg Haloperidol (Haloperidol 1 Mg Tab) 2 mg PO BIDM ROMMEL Stop: 10/30/23 17:44 Last Admin: 10/01/23 09:06 Dose: Not Given Hydroxyzine HCl (Hydroxyzine Hcl 25 Mg Tab) 50 mg PO HSZ PRN PRN Reason: Insomnia Stop: 10/28/23 19:50 Hydroxyzine HCl (Hydroxyzine Hcl 25 Mg Tab) 25 mg PO Q4H PRN PRN Reason: Anxiety Stop: 10/28/23 19:50 Magnesium Hydroxide (Magnesium Hydroxide Susp 30 Ml Udc) 30 ml PO DAILY PRN PRN Reason: Constipation Stop: 10/28/23 19:50 Sodium Chloride (Sodium Chloride 0.65% Na Soln 45 Ml ([place])) 1 - 2 sprays NA PRN PRN PRN Reason: Nasal Dryness/Congestion Stop: 10/28/23 19:50 Mental Health & Subst Abuse Tx Therapist Name of Therapist: None Pluck Trimmer Name of Pluck Trimmer: None
[2023-10-01] MEDS: haloperidoL 1 MG TAB PO SCH (20:10)
--- NOTE | 2023-10-02 16:10 | Psychiatric Progress Note ---
Date of Service October 02, 2023 Impression / Recommendations Impression as per Dr. Shepard: 37 y/o F with psychotic disorder characterized primarily by delusions. Onset seems to have been roughly a year ago. At her initial presentation in December this was thought to be related to her abusing her boyfriend's Adderall, but subsequent toxicology screens have been negative. She was given a diagnosis of schizophrenia during her May admission in [place] but first onset of symptoms at the age that was reported (around 36 yr) would be unusual. She abused multiple substances, primarily opioids but also cocaine and stimulants, until about a year ago so chronic substance use may have obscured the onset of psychiatric symptoms. At this time I'm most comfortable assigning a diagnosis of psychotic disorder with delusions. She is certainly psychiatrically unstable and requires psychiatric hospitalization for safety, stabilization, and medication management. MNPR due to severity of psychosis but improving, mainly hyperreligious Overall, I spent a total of 35 minutes with this case, including review of chart, direct evaluation of the patient, counseling the patient, ordering medication, coordination with treatment team,and documentation. (1) Psychotic disorder with delusions: Plan 10/02/23: patient is only willing to continue current low dose of Haldol at hs. 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 needs family meeting with significant other to review condition/medication 10/01/23: shift Haldol to hs only dosing. 09/30/23: fasting metabolic labs given antipsychotic rx, will add repeat sodium to ensure not trending down with restart of antipsychotic medication. d/c Abilify. Risks/benefits/alternatives reviewed re: Haldol, patient willing to take 2 mg BID with meals with additional prn as views as helpful. She has been resistant to resume JONES medications but will offer as clearer. Her partner has indicated he may leave if she does not comply with medications. 09/29/23: The patient was admitted to the [facility] ([facility]) on q15 minute checks (behavioral with suicide precautions) for safety.The patient will participate in group, recreational, and milieu therapies and will be offered additional individual and family sessions as clinically appropriate. * restart aripiprazole 7.5 mg QHS * encourage Abilify Initio/Aristada Inventory Assets Strengths: supportive relationships, has local supports, voluntary, intelligent Needs: safety and stabilization, medication adjustment, outpatient services Suicide Risk Level Suicide Risk Level: Low (q15 min observation checks) (has not voiced or evidenced any suicidal thoughts) Risk Factors Assessment Male: No : Yes Do You Have Access To A Gun?: No Health Problems: No Mental Health Diagnoses: Yes Substance Use Disorders: Yes Previous Attempt: No Previous Psychiatric Hospitalization: Yes Hopelessness: No Protective Factors Assessment : No (engaged) Responsible for Young Children: Yes (1/2-time custody of 9 y/o son) Employed: No Stable Relationships: Yes Supportive Family: Yes Interval History Identifying Information KHOI BHAKTA is a 37-year-old F who currently lives in [place] with her fianc, has a history of psychosis, opioid use disorder, cocaine use disorder, and stimulant use disorder, and was admitted on 09/28/23 18:52 on a 201 voluntary commitment for psychosis. Chief Complaint "meds just don't make me feel right." Review of Systems Sleep Information Total Hours of Sleep: 5 Meal Information Percent Meal Consumed - Breakfast: 100 Percent Meal Consumed - Lunch: 75 Percent Meal Consumed - Dinner: 75 Subjective Subjective Patient was seen & assessed and interval progress reviewed with treatment team. same non specific complaints about medication as she feels that "water is good/enough" in room reading aloud from her bible today several times. Does attend groups and can interact superficially but continued lack of insight into her condition, rationale for meds given behaviors prior to admit, etc. Physical Exam Psychiatric Orientation: alert and oriented x 3 Apperance: appropriately dressed and appropriately groomed Eye Contact: + fair eye contact Motor Behavior: no abnormal motor movements Speech: normal rate/rhythm/volume of speech Affect: + constricted affect Mood: + anxious mood; no depressed mood Thought Process: + concrete thought process Thought Content: + delusions Suicidal Thoughts: denies suicidal thoughts Homicidal Thoughts: denies homicidal thoughts Hallucinations: no auditory hallucinations and no visual hallucinations Cognition: attention grossly intact and language grossly intact Estimated Intelligence: consistent with education level Insight: + limited insight Judgment: + limited judgement Vital Signs (Past 24 Hours) Last Vital Signs Temp 36.5 C 10/02/23 06:36 Pulse 87 10/02/23 06:37 Resp 16 10/02/23 06:36 BP 91/61 L 10/02/23 06:37 Pulse Ox 96 10/01/23 06:25 O2 Del Method Room Air 10/01/23 06:25 Results & Data ([facility] [place]) Current Inpatient Medications Current Inpatient Medications: Current Inpatient Medications Acetaminophen (Acetaminophen 325 Mg Tab) 650 mg PO Q4H PRN PRN Reason: Headache or Minor Fever Stop: 10/28/23 19:50 Al Hydrox/Mg Hydrox/Simethicone (Aluminum/Magnesium Susp 30 Ml Udc) 30 ml PO Q4H PRN PRN Reason: GI Upset Stop: 10/28/23 19:50 Benztropine Mesylate (Benztropine Mesylate 1 Mg Tab) 1 mg PO Q6 PRN PRN Reason: Muscle Spasm Stop: 10/30/23 11:12 Bismuth Subsalicylate (Bismuth Subsalicylate Liqd 236 Ml) 15 ml PO PRN PRN PRN Reason: Loose Stool Stop: 10/28/23 19:50 Haloperidol (Haloperidol 1 Mg Tab) 2 mg PO Q6 PRN PRN Reason: Psychosis/agitation Stop: 10/28/23 19:53 Last Admin: 09/30/23 09:10 Dose: 2 mg Haloperidol (Haloperidol 1 Mg Tab) 2 mg PO HS ROMMEL Stop: 10/31/23 21:59 Last Admin: 10/01/23 20:10 Dose: 2 mg Hydroxyzine HCl (Hydroxyzine Hcl 25 Mg Tab) 50 mg PO HSZ PRN PRN Reason: Insomnia Stop: 10/28/23 19:50 Hydroxyzine HCl (Hydroxyzine Hcl 25 Mg Tab) 25 mg PO Q4H PRN PRN Reason: Anxiety Stop: 10/28/23 19:50 Magnesium Hydroxide (Magnesium Hydroxide Susp 30 Ml Udc) 30 ml PO DAILY PRN PRN Reason: Constipation Stop: 10/28/23 19:50 Sodium Chloride (Sodium Chloride 0.65% Na Soln 45 Ml ([place])) 1 - 2 sprays NA PRN PRN PRN Reason: Nasal Dryness/Congestion Stop: 10/28/23 19:50 Mental Health & Subst Abuse Tx Therapist Name of Therapist: None Membership Director Name of Membership Director: None
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
[2023-10-05] MEDS: haloperidoL 5 MG TAB PO SCH (21:04)
[2023-10-06] MEDS: HALOPERIDOL DECANOATE INJ 50 MG/ML VIAL IM ONE (11:56)
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
[2023-10-10] MEDS: haloperidoL 5 MG TAB PO SCH (21:06)
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
--- NOTE | 2023-10-12 14:30 | Discharge Summary ---
Date of Service October 12, 2023 History of Present Illness As per Dr. Shepard on admission: As part of a thorough review of the available medical records, I have read and incorporated into my assessment the following note by the ED physician: "37-year-old female presents emergency department with mother and child at bedside for mental health evaluation. Patient states that spirits from [place] have put the "evil eye on her" and she is trying to have the demons come out of her head. She states that the demons come out more when she eats. The patient denies any chance of or recent drug use. She states she is sober. Mother denies any recent drugs. Mother denies that the patient has any falls or trauma and mother confirms that she does not think that the patient could be . Patient states she has not been taking any medications. Patient was admitted from September 16 of September 17, 2023 for acute hyponatremia. At that time the patient has sodium of 118 and she was drinking excessive amounts of water to "cleanse her mind, body and spirit". There were no seizures reported. The patient was given IV normal saline and was diagnosed with psychogenic polydipsia." the following notes by the ED psychiatric case finishing machine adjuster: "Met with Corazon bedside to complete mental health evaluation. Patient's fiance remained in room with her verbal consent. Corazon presented religiously and spiritually preoccupied. Corazon stated she was recently hospitalized for low sodium due to drinking excessive water to "get the demons out." Corazon stated explaining that she had a history of substance abuse and stopped using all substances approximately 1 year ago "which caused a spiritual awakening." Corazon stated he past substance use "opened up my third eye." Corazon stated she can't eat because when she eats "it get really bad." Corazon explained that the "noise in my head" gets really bad. Her fiance stated she is barely eating "because she believes it angers the djinn's when she eats." He stated she drinks water to "flush anything bad and negative out of her body." Her fiance stated she is "praying and chanting constantly." He stated she will unplug all electronic. Corazon stated she unplugs things because "the energy is how they get in." Her fiance stated she has broken every mirror in the home and will put blankets over anything shiny. He stated Corazon is cleaning compulsively to the extent that she is mopping the floor so much it is da maging the hard wood. Lori stated Corazon believes mopping the floor is the only way to "keep the djinn's down." Lori stated he has not been able to bring his children for visit due to Corazon's mental health. He stated Corazon's 16 year old lives with his father and is not allowed to visit. Lori stated Corazon gets her 9 year old every other week. He stated the 9 year old is currently with his grandmother. Lori stated Corazon is not sleeping. Corazon stated she was inpatient in [place] for approx. 1 month. She stated she was "told I had schizophrenia but that what they say when you believe in Misael Reji and ask for him to come into your home." Corazon has not been taking any of her medication. She has no current outpatient mental health services." "Lori/Simón stated he spoke with Lorna Red at [facility] and completed a [employer] statement which just needs signed. iSm[employer] forward email with [employer] and this case finishing machine adjuster printed and had Simón sign under Box A. Corazon is currently agreeable to recommendation for inpatient mental health treatment. " and the following note by the psychiatric liaison nurse: "Calm and cooperative. Declined tour of unit since previously admitted to unit in past. Patient arrived to ED with her mother and 9 yr old son with reported psychosis. Her son, mother and finance provided ED CM with details of her behaviors. One month ago she had been discharged from [facility] with psychosis and upon returning home she stopped taking her medications and became paranoid, and religiously preoccupied. She has been focused on "djinn's" evil spirits in her body and has been praying, chanting and last night it was reported she broke mirrors in her home, (which transport evil spirts). She kept her son up all night and had missed school due to having him pray. She has a history of significant drug abuse, she states she has been sober x 1 year and has been focusing only on Misael Reji. She does report that she had been fasting for 16 days, and is no longer fasting. She was recently on medical due to hyponatremia and family reports she continues to excessively drink to cleanse her body. Her fiance reports she has no ou tpatient providers and is currently taking no medications. According to ED CM [facility] is involved. She did sign CLIF's for mother and fiance." Review of the medical record reveals 2 previous admissions here in rapid succession in December 2022. Review of pertinent labs reveals they are noncontributory except for pyuria. A urine toxicology screen was negative for all tested substrates. BAL was <10 mg/dL. screen was negative. Was admitted to [facility] for depression "years ago". Has had 2 previous admissions here, 1 week apart, 01/10/2023 to 01/15/2023 and 01/22/2023 to 01/28/2023. During the first admission she was treated with olanzapine but didn't take it or keep follow-up after discharge. During the second admission she was treated with oral aripiprazole then received JONES shortly before discharge. She hasn't continued with treatment since then. She was involuntarily committed at [facility] [facility] in May 2023 for about 1 month with diagnosis of schizophrenia and discharged on paliperidone that she didn't continue. I saw her for psychiatric consultation 09/16/2023 when she was hospitalized for hyponatremia because she'd "done a water cleanse" to rid her body of "toxins". She voiced a realization that this turned out to be excessive and "wouldn't do that again". While her behaviors were odd, they didn't appear to be clearly risky. Pt presents very calmly but completely convinced there's no reason for anyone to be concerned about her behaviors because they're "all based in Sikhism". In speaking with me about breaking mirrors and covering reflective surfaces, pt initially says this is "because of fantasy" then rapidly changes that to "because of vanity", but says nothing about the djinns she referenced in the ED. She utterly denies any possibility that anything she's experiencing or doing might be a symptom or that she needs any form of treatment. During her psychiatric admissions here she was on buprenorphine (naloxone is listed among her allergies) but tells me her addiction is now cured via the injections she got last time and evangelical. She accepted oral aripiprazole last night without objection but doesn't believe she needs treatment for anything. Physical Exam Psychiatric See admission H&P and DOD assessment. Vital Signs (Past 24 Hours) Last Vital Signs Temp 37 C 10/12/23 13:37 Pulse 83 10/12/23 13:37 Resp 16 10/12/23 13:37 BP 92/58 L 10/12/23 13:37 Pulse Ox 98 10/12/23 13:37 O2 Del Method Room Air 10/05/23 06:00 Principal Diagnosis psychotic disorder (schizophrenia) Psychiatric Data See daily stay summary. In short, safety was maintained and the patient was cooperative with care. Medication changes included an initial retrial of Abilify which the patient refused to continue. She ultimately agreed to low dose Haldol which was titrated and converted to decanoate with enough time left in hospital stay to taper PO prior to discharge. She tolerated this well and was less sedated when PO Haldol was discontinued. A family session was held with her mother and fiance and safety plan was completed prior to discharge. As the patient has a history of multiple inpatient hospitalizations, recent medical hospitalization and Cys involvement with poor compliance with meds and services in past, although she was a voluntary patient, a 304 outpatient commitment was pursued with the support of her family and [facility]. An outpatient 304 was granted in a hearing this afternoon after which she was discharged. The patient understands that Haldol requires ongoing monitoring and as greater than 30 days until first psychiatric visit, her pharmacy was contacted to ensure they can provide the injection. [facility] was notified of her anticipated discharge as they requested when following up on [facility]. Day of Discharge Assessment Today the patient voices readiness for discharge. They note improvement in mood and deny thoughts to harm self or others. Thoughts remain organized and they are improved from admission. There is no evidence of psychosis. They agree to take mediations as prescribed and keep follow-up appointments. They are stable for discharge to outpatient level of care with 304C in place. Transition of Care Transition Of Care Record: was reviewed with the patient Advance Directives Advance Directives Information Provided: Yes Advance Directives: No Mental Health Advance Directive: No Advance Directives on File: No Living Will: No Power of Kitchen And Counter Worker: No Advance Directives Reason:: Declines as Mental Health Visit. Suicide Risk Level Suicide Risk Level Comments: Suicide risk at discharge is deemed low as the patient is no longer requiring 24-hr monitoring, has a safety plan, and is free of suicidal ideation at [facility]. Risk Factors Assessment Male: No : Yes Do You Have Access To A Gun?: No Health Problems: No Mental Health Diagnoses: Yes Substance Use Disorders: Yes Previous Attempt: No Previous Psychiatric Hospitalization: Yes Hopelessness: No Protective Factors Assessment : No (engaged) Responsible for Young Children: Yes (1/2-time custody of 9 y/o son) Employed: No Stable Relationships: Yes Supportive Family: Yes Tobacco Cessation at Discharge Tobacco Cessation Medication Prescribed at Discharge: Not Applicable/Non-Smoker Total Time Total Time Spent: Greater Than 30 Minutes (50 min) Total Time Includes: Examination of the patient, Discharge Planning, Medication Reconciliation and As well as (commitment hearing) Discharge Data Lab Results 09/28/23 09/28/23 09/28/23 11:55 12:44 12:54 WBC RBC Hgb POC Hgb Hct POC Hct MCV MCH MCHC RDW Std Deviation RDW Coeff of Janet Plt Count MPV Immature Gran % (Auto) Neut % (Auto) Lymph % (Auto) Bryan % (Auto) Eos % (Auto) Baso % (Auto) Neut # (Auto) Lymph # (Auto) Bryan # (Auto) Eos # (Auto) Baso # (Auto) Immature Gran # (Auto) POC Sodium Sodium POC Potassium Potassium POC Chloride Chloride Carbon Dioxide POC Total CO2 Anion Gap POC Anion Gap POC BUN BUN Creatinine POC Creatinine Est Cr Clr Drug Dosing Est GFR ( Amer) Est GFR (Non-Af Amer) BUN/Creatinine Ratio Glucose POC Glucose POC Glucose (other) Fasting Glucose Calcium POC Ioniz Calcium Lizzy Magnesium Total Bilirubin AST ALT Alkaline Phosphatase Total Protein Albumin Globulin Albumin/Globulin Ratio Triglycerides Cholesterol LDL Cholesterol, Calc VLDL Cholesterol, Calc HDL Cholesterol Cholesterol/HDL Ratio Lipase TSH Urine Color Yellow Urine Appearance Cloudy A Urine pH 7.5 Ur Specific Monroe 1.023 Urine Protein Negative Urine Glucose (UA) Negative Urine Ketones Trace H Urine Blood Negative Urine Nitrite Negative Urine Bilirubin Negative Urine Urobilinogen Negative Ur Leukocyte Esterase 2+ H Urine WBC (Auto) 10-30 H Urine RBC (Auto) 0-4 U Hyaline Cast (Auto) 5-10 H U Epithel Cells (Auto) >30 H Urine Bacteria (Auto) 1+ H POC Ur Test NEG Salicylates Urine Opiates Screen Neg Ur Methadone, Qual Neg Acetaminophen Urine Barbiturates Neg Ur Phencyclidine (PCP) Neg U Amphetamin/Meth Scrn Neg MDMA (Ecstasy) Screen Neg U Benzodiazepines Scrn Neg Ur Cocaine Metabolite Neg U Marijuana (THC) Screen Neg Ethyl Alcohol mg/dL SARS-CoV-2, RNA, NAAT NEGATIVE 09/28/23 09/28/23 10/01/23 13:36 14:00 07:11 WBC 4.19 L RBC 4.66 Hgb 13.7 POC Hgb 13.3 Hct 39.8 POC Hct 39 MCV 85.4 MCH 29.4 MCHC 34.4 RDW Std Deviation 39.7 RDW Coeff of Janet 12.8 Plt Count 293 MPV 9.4 Immature Gran % (Auto) 0.0 Neut % (Auto) 46.1 Lymph % (Auto) 43.2 Bryan % (Auto) 8.1 Eos % (Auto) 1.9 Baso % (Auto) 0.7 Neut # (Auto) 1.93 Lymph # (Auto) 1.81 Bryan # (Auto) 0.34 Eos # (Auto) 0.08 Baso # (Auto) 0.03 Immature Gran # (Auto) 0.00 L POC Sodium 137 Sodium 135 L 137 POC Potassium 4.2 Potassium 4.2 POC Chloride 103 Chloride 103 Carbon Dioxide 24 POC Total CO2 23 L Anion Gap 8 POC Anion Gap 17.0 POC BUN 11 BUN 11 Creatinine 0.70 POC Creatinine 0.7 Est Cr Clr Drug Dosing 94.2 Est GFR ( Amer) 128.3 Est GFR (Non-Af Amer) 110.7 BUN/Creatinine Ratio 15.7 Glucose 96 POC Glucose POC Glucose (other) 98 Fasting Glucose 109 H Calcium 10.5 H POC Ioniz Calcium Lizzy 1.23 Magnesium 2.3 Total Bilirubin 0.7 AST 15 ALT 10 Alkaline Phosphatase 48 Total Protein 7.8 Albumin 4.8 Globulin 3.0 Albumin/Globulin Ratio 1.6 Triglycerides 100 Cholesterol 184 LDL Cholesterol, Calc 114 VLDL Cholesterol, Calc 20 HDL Cholesterol 50 Cholesterol/HDL Ratio 3.7 Lipase 8 L TSH 2.443 Urine Color Urine Appearance Urine pH Ur Specific Monroe Urine Protein Urine Glucose (UA) Urine Ketones Urine Blood Urine Nitrite Urine Bilirubin Urine Urobilinogen Ur Leukocyte Esterase Urine WBC (Auto) Urine RBC (Auto) U Hyaline Cast (Auto) U Epithel Cells (Auto) Urine Bacteria (Auto) POC Ur Test Salicylates < 3.0 L Urine Opiates Screen Ur Methadone, Qual Acetaminophen < 3 L Urine Barbiturates Ur Phencyclidine (PCP) U Amphetamin/Meth Scrn MDMA (Ecstasy) Screen U Benzodiazepines Scrn Ur Cocaine Metabolite U Marijuana (THC) Screen Ethyl Alcohol mg/dL < 10.0 SARS-CoV-2, RNA, NAAT 10/03/23 06:30 WBC RBC Hgb POC Hgb Hct POC Hct MCV MCH MCHC RDW Std Deviation RDW Coeff of Janet Plt Count MPV Immature Gran % (Auto) Neut % (Auto) Lymph % (Auto) Bryan % (Auto) Eos % (Auto) Baso % (Auto) Neut # (Auto) Lymph # (Auto) Bryan # (Auto) Eos # (Auto) Baso # (Auto) Immature Gran # (Auto) POC Sodium Sodium POC Potassium Potassium POC Chloride Chloride Carbon Dioxide POC Total CO2 Anion Gap POC Anion Gap POC BUN BUN Creatinine POC Creatinine Est Cr Clr Drug Dosing Est GFR ( Amer) Est GFR (Non-Af Amer) BUN/Creatinine Ratio Glucose POC Glucose 221 H POC Glucose (other) Fasting Glucose Calcium POC Ioniz Calcium Lizzy Magnesium Total Bilirubin AST ALT Alkaline Phosphatase Total Protein Albumin Globulin Albumin/Globulin Ratio Triglycerides Cholesterol LDL Cholesterol, Calc VLDL Cholesterol, Calc HDL Cholesterol Cholesterol/HDL Ratio Lipase TSH Urine Color Urine Appearance Urine pH Ur Specific Monroe Urine Protein Urine Glucose (UA) Urine Ketones Urine Blood Urine Nitrite Urine Bilirubin Urine Urobilinogen Ur Leukocyte Esterase Urine WBC (Auto) Urine RBC (Auto) U Hyaline Cast (Auto) U Epithel Cells (Auto) Urine Bacteria (Auto) POC Ur Test Salicylates Urine Opiates Screen Ur Methadone, Qual Acetaminophen Urine Barbiturates Ur Phencyclidine (PCP) U Amphetamin/Meth Scrn MDMA (Ecstasy) Screen U Benzodiazepines Scrn Ur Cocaine Metabolite U Marijuana (THC) Screen Ethyl Alcohol mg/dL SARS-CoV-2, RNA, NAAT Hospital Course (1) Psychotic disorder with delusions: Plan PO Haldol tapered prior to discharge, d/c at discharge. 10/09/23: continue current medication and treatment plan. 10/08/23: continue current meds and treatment plan pending ability to file for 304 outpatient commitment hearing. Will taper PO Haldol to 2 mg soon. 10/07/23: patient rescinded 72 hr notice. 10/06/23: We are going to continue with her current level of observation and precautions. I still think she is in acute danger to herself and her 10-year-old son if she were to go home right now. We started Haldol decanoate 75 mg IM, a one-time dose. We reviewed the uses, side effects, and time course and she gave informed consent. We have until Monday to decide if we need to file a 302. I will continue the oral haloperidol for now while we are waiting for the long-acting to start kicking in. 10/05/23: I am concerned because the patient is trying to hide symptoms from me and make livings look good when they are not. Once the staff pointed out some of the behaviors that they are seeing on camera, saw the myself. I am going to increase her bedtime Haldol to 5 mg but leave the as needed as it is. I do not think she is taking the as needed anyway. We talked about a possible discharge soon, but I do not think her 10-year-old would be safe in the home with her. We will continue with her current level of observation and precautions. 10/04/23: The patient and I continue to develop rapport. She still has very poor insight about her illness and I do not think I am going to be able to persuade her to start up or continue an antipsychotic after she gets out of the hospital. A long-acting injectable would be ideal, but that is a tall order with this young lady's paranoia. I have a lot of concerns about sending this patient back home to her 10-year-old son. At the time of discharge, we will need to try to figure out if we feel that the son will be in danger if she discharges. I encouraged the patient to keep taking part in a therapeutic milieu, attending groups and activities, maintaining good hygiene, and trying not to isolate. I encouraged her to try to show us that she does not need to be here much longer. 10/03/23: I am meeting the patient for the first time today so right now I am mostly trying to establish rapport. She has very poor insight about medications and her own illness. If I can somehow persuade her to start up an antipsychotic, 1 less likely to cause akathisia, we might actually get somewhere. A long-acting injectable would be ideal, but that is a tall order with this young lady's paranoia. I have a lot of concerns about sending this patient back home to her 10-year-old son. Today, we are going to try to find out what his status is and if he will be remaining with his mother or staying with a different parent or relative. I encouraged the patient to keep taking part in a therapeutic milieu, attending groups and activities, maintaining good hygiene, and trying not to isolate. I encouraged her to try to show us that she does not need to be here much longer. 10/02/23: patient is only willing to continue current low dose of Haldol at . 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 needs family meeting with significant other to review condition/medication 10/01/23: shift Haldol to only dosing. 09/30/23: fasting metabolic labs given antipsychotic rx, will add repeat sodium to ensure not trending down with restart of antipsychotic medication. d/c Abilify. Risks/benefits/alternatives reviewed re: Haldol, patient willing to take 2 mg BID with meals with additional prn as views as helpful. She has been resistant to resume JONES medications but will offer as clearer. Her partner has indicated he may leave if she does not comply with medications. 09/29/23: The patient was admitted to the [facility]) on q15 minute checks (behavioral with suicide precautions) for safety.The patient will participate in group, recreational, and milieu therapies and will be offered additional individual and family sessions as clinically appropriate. * restart aripiprazole 7.5 mg QHS * encourage Abilify [facility] Psychiatrist Name of Psychiatrist: [facility] - Intake Psychiatrist's Date Of Appointment With Psychiatric Provider: 10/16/23 Time of Appointment with Psychiatrist: 12:00 PM Psychiatric Appointment Comment: [place] [id number] Psychiatrist Release of Information: Obtained, Reviewed and Signed Therapist Name of Therapist: [facility] - Intake Therapist's Date of Therapist Appointment: 10/16/23 Time of Therapist Appointment: 12:00 PM Therapy Appointment Comment: [place] [id number] Therapist Release of Information: Obtained, Reviewed and Signed Nuclear Medicine Pet Ct Technologist Name of Nuclear Medicine Pet Ct Technologist: [facility] - Intake Phone Number for Nuclear Medicine Pet Ct Technologist: [phone] Date of Appointment with Nuclear Medicine Pet Ct Technologist: 10/17/23 Time of Appointment with Nuclear Medicine Pet Ct Technologist: 2:00 PM Case Management Appointment Comment: [address], [place] [address] [address] Technologist Release of Information: Obtained, Reviewed and Signed Post Discharge Appointments Primary Care Physician Name Of Family Doctor/PCP: [facility] Primary Care Date of Future Appointment with PCP: 10/17/23 Time of Appointment with PCP: 10:00 AM Provider Appointment Comment: [address] [place] [id number] Primary Care Release of Information: Obtained, Reviewed and Signed Specialist Name of Specialist: [facility] Phone Number for Specialist: [phone] Date of Appointment with Specialist: 10/13/23 Time of Appointment with Specialist: 10:00 AM Specialty Appointment Comment: [address] [place] [address] Smoking Cessation Counseling Tobacco Cessation Medication Prescribed at Discharge: Not Applicable/Non-Smoker Contact Information Discharge Discharge Address: [address] [place] [address] [place] [id number] Discharge Plan Discharge Items Patient Disposition: Home - Self-Care Reason For Visit: PSYCHOTIC EPISODE Discharge Diagnosis: same Activity: Resume your previous activity Non-emergency contact: Primary Care Provider, Psychiatrist and Surface Grinder Call non-emergency contact if: you have any medication questions and your symptoms worsen Follow-up/Referrals: Marshal Hendricks PA-C [Primary Care Provider] - Diet: Regular Addtl Attending Provider Instructions: SPECIAL CARE INSTRUCTIONS: 1. Follow through with your scheduled aftercare appointments. If unable to keep an appointment, please call to reschedule. 2. Take your medication only as prescribed. Medication should not be changed or stopped without the approval of your doctor. In the event of worsening symptoms or concerns about side effects, contact your doctor immediately. 3. Utilize new healthy coping skills, anger management skills, and stress management skills learned during your hospitalization. Journal feelings and process them with a support person. Identify stressors or situations that may result in relapse, deterioration or inappropriate behaviors and develop a plan to deal with those issues. 4. If your coping skills are ineffective and you are in crisis, contact your outpatient providers for direction. If unable to reach your providers, please call the [facility] CRISIS LINE AT , go to the [facility] walk-in center at [address], [address], [place], or go to the closest Emergency Room. 5. Avoid alcohol and un-prescribed drugs. 6. You have been provided with the Mental Health Advance Directives Pamphlet for your review. 7. Your condition is stable for discharge to outpatient level of care, but recovery is an ongoing process. Ifthoughts to harm yourself or others return, follow the safety plan developed during your stay. Planning for a safe return home includes securing weapons. Our treatment team recommends weaponsbe removed from the home until your outpatient provider reassesses your progress. In rare cases where the items themselvescannot be removed, guns and ammunitionshould be secured separatelyand keys stored by a reliable personoutside of the home. If you were admitted on an involuntary commitment, the police or other legal authorities may be involved in this process. AFTERCARE APPOINTMENTS: * Please call your insurance company prior to your scheduled appointment to confirm your aftercare providers are covered. Take your insurance information to your appointments. WHO TO CALL AND WHEN: Medical Emergencies: For questions or emergencies related to your hospital stay, please contact the Inpatient [facility] at [phone]. A health program director is on-call 20/03 for the Behavioral Health Unit for emergencies At any time you feel your situation is an emergency, you may also call 911 immediately. Pending Studies at Discharge: No Stand-Alone Forms: My [facility], Smoking Cessation Medications and DC Order Prescriptions: New haloperidol decanoate [Haldol Decanoate] 100 mg/mL solution 75 mg IM MONTHLY Qty: 1 0RF Rx Instructions: due on or before November 05, 2023 Discharge Orders: Discharge Order (Routine); Ordered 10/12/23 Ordered By: Daria Torres Admission Data Admit Date/Time: 09/28/23 18:52 Attending Provider: Daria Torres Admit Provider: Seamus Shepard Primary Care Provider: Marshal Hendricks Other Interventions: Discharge Summary Assessment (RN) Last Done: 10/12/23 13:37 PSY Interdisciplinary Discharge Planning Last Done: 10/12/23 13:25 Coding Level of Care Code 62965 D/C day mgmt > 30 min Diagnoses Psychotic disorder with delusions F29
== END 2023-10-12 14:35 | disposition home or self-care (01) | DRG 885 ==
LOC: ED 11:21 → 3S 18:52 → SUATTDRO 18:52 → 3S 09-29 05:12

== ENCOUNTER 2024-10-25 16:51 | Inpatient (IN) ==
[2024-10-25 18:06] LABS: Basophils # (auto) 0.05 K/uL (0.00-0.20); Basophils % (auto) 0.9 %; Eosinophils # (auto) 0.06 K/uL (0.00-0.50); Eosinophils % (auto) 1.1 %; Hematocrit (blood only) 44.9 % (37.0-47.0); Hemoglobin 15.6 g/dl (12.0-16.0); Immature Granulocytes # (auto) 0.01 K/uL (0.01-0.20); Immature Granulocytes % (auto) 0.2 %; Lymphocytes # (auto) 2.85 K/uL (1.20-3.40); Mean Corpuscular Hemoglobin 29.4 pg (25.0-34.0); Mean Corpuscular Hgb Conc 34.7 g/dL (32.0-36.0); Mean Corpuscular Volume 84.7 fL (80.0-100.0); Mean Platelet Volume 9.3 fL (9.4-12.4); Monocytes # (auto) 0.48 K/uL (0.11-0.59); Monocytes % (auto) 8.4 %; Neutrophils # (auto) 2.25 K/uL (1.40-6.50); Neutrophils % (auto) 39.4 %; Platelet Count 378 K/uL (130-400); RDW Coefficient of Variation 12.2 % (11.5-14.5); RDW Standard Deviation 37.2 fL (36.4-46.3)
[2024-10-25 18:24] LABS: Albumin Globulin Ratio 1.4 (0.9-2); BUN Creatinine Ratio 13.5 (10-20); Bilirubin,Total 0.4 mg/dl (0.2-1.0); Calcium 10.3 mg/dl (8.6-10.3); Creatinine Clr Calc Pharmacy 72.7 ml/min; Globulin 3.6 gm/dl (2.5-4.0); Potassium 3.9 mmol/L (3.5-5.1); Total Protein 8.6 gm/dl (6.0-8.3)
[2024-10-25 18:30] LABS: Acetaminophen < 3 ug/ml (10-30); Salicylate < 3.0 mg/dl (3.0-30)
[2024-10-25 18:40] LABS: Thyroid Stimulating Hormone 2.489 uIu/ml (0.300-4.500)
[2024-10-25 18:50] LABS: Pregnancy Test, Urine Negative (Negative)
[2024-10-25 19:08] LABS: Appearance Urine Turbid (Clear); Bacteria Urine Automated 4+ (None Seen); Bilirubin Urine Negative (Negative); Blood Urine Negative (Negative); Color Urine Yellow; Glucose Urine UA Negative (Negative); Hyaline Casts Urine Present /lpf (None Presnt); Ketones Urine Trace (Negative); Leukocyte Esterase Urine 2+ (Negative); Mucus Urine Present (None Prsent); Nitrite Urine Positive (Negative); Protein Urine 1+ (Negative); RBC Urine Automated 0-2 /hpf (0-2); Specific Gravity Urine 1.027 (1.000-1.030); Urobilinogen Urine Negative (Negative); WBC Urine Automated >50 /hpf (0-5)
--- NOTE | 2024-10-25 19:27 | Emergency Department Note ---
Impression & Plan Acute depression, Psychotic disorder with delusions ED Provider Note NAME: KHOI BHAKTA AGE: 38 SEX: F : 1985 ARRIVES VIA: Walk-In INFORMANT: Patient, ED PROVIDER(S): Dorie Stanford MD CHIEF COMPLAINT: Depression HPI: This is a 38-year-old female presenting for depression. Patient notes that she has history of schizophrenia and does hear voices. She states her third eye tells her to not eat. She is stated she has been increasingly depressed over the past few weeks. She has not had any SI or HI however. She does note that she does listen to these voices and does not eat out sometimes. She has not eaten in for 24+ hours at this time. She is on Abilify and Zoloft otherwise. No other drug use or alcohol use. ROS: See above HPI for pertinent positives & negatives. A total of 10 systems reviewed and were otherwise negative. PAST MEDICAL HISTORY: See Below PAST SURGICAL HISTORY: See Below FAMILY HISTORY: See Below SOCIAL HISTORY: See Below HOME MEDICATIONS: See Below ALLERGIES: See Below VITALS: See Below PHYSICAL EXAMINATION: General: resting comfortably in no acute distress Head: Normocephalic and atraumatic Eyes: Normal inspection, extraocular muscles intact Ear, nose, throat: Normal external exam Neck: Normal range of motion Respiratory: lungs clear to auscultation bilaterally Cardiovascular: Regular rate/rhythm, no murmur GI: soft, nontender, no guarding or rebound Extremities: nontender, moves all extremities Neuro: The patient awake and alert, appropriately conversive, no focal deficits, symmetric faces Skin: Warm, dry, and intact MEDICAL DECISION MAKING: This is a 38-year-old female presenting for depression. Patient is depressed without SI. She is hearing voices which tell her not to eat. -Bloodwork is reviewed showing no significant leukocytosis, anemia, electrolyte or creatinine abnormality -Urinalysis does with signs of UTI, will give Keflex -Patient medically clear for psychiatric involvement. She will go to [facility] after being accepted to their unit Differential diagnosis: Psychosis, schizophrenia, depression, SI Past Med/Surg History Problem List (Updated 10/26/24 @ 01:03 by Dorie Stanford MD) Acute depression (Acute) Psychogenic polydipsia (Acute) Psychogenic polydipsia Thought disorder (Acute) Hypokalemia (Acute) Hyponatremia Opiate dependence Psychotic disorder with delusions (Acute) Medical History Psychogenic polydipsia Psychosis Anxiety Suicidal ideation Depression Surgical History No pertinent past surgical history Family History Other No significant family history Social History Smoking Status: Current every day smoker Tobacco Type: Cigarettes Second Hand Exposure: No; Do You Dip or Chew Tobacco: No; Hx Alcohol Use: No Hx Substance Use: No Preferred Language: Occitan Communication Ability: Effective Sales Mgr Required: No Beliefs That Will Affect Care: None Current Living Situation: Spouse and Family Feels Safe at Home: Yes Gender Identity: Female Assistive Devices: None Allergies Allergies Allergy/AdvReac Type Severity Reaction Status Date / Time buprenorphine [From Suboxone] AdvReac Intermediate Hives Verified 01/10/23 14:48 naloxone [From Suboxone] AdvReac Intermediate Hives Verified 01/10/23 14:48 Corticosteroids AdvReac Mild VOMITING Verified 01/10/23 14:48 (Glucocorticoids) Home Meds Previous Rx's Medication Instructions Recorded haloperidol decanoate 100 mg/mL 75 mg (0.75 mL) IM MONTHLY #1 mL 10/12/23 intramuscular solution (Haldol Decanoate) Results & Data (ED) Vital Signs Vital Signs - 24 hr 10/25/24 17:08 10/25/24 19:00 10/25/24 22:00 Temperature 36.8 C Temperature Source Temporal Artery Scan Pulse Rate 92 H Pulse Rate [Finger] 87 84 Pulse Rhythm [Finger] Regular Regular Pulse Strength [Finger] Normal Normal Respiratory Rate 19 20 18 Respiratory Effort / Characteristics Non-Labored Spontaneous Non-Labored Spontaneous Non-Labored Spontaneous Respiratory Depth Normal Normal Normal Respiratory Pattern Regular Regular Regular Blood Pressure 124/85 Blood Pressure [Right Arm] 119/83 117/84 Blood Pressure Mean 98 Blood Pressure Mean [Right Arm] 95 95 Blood Pressure Position [Right Arm] Lying Lying Pulse Oximetry 97 98 99 Oxygen Delivery Method Room Air Room Air Room Air Sepsis Recent Fever Within 48 Hours No Sepsis New/Unexplained Change in Mental Status No Sepsis Action Taken by Nursing No Action Required Laboratory Data 10/25/24 17:43 10/25/24 17:43 Lab Results 10/25/24 10/25/24 10/25/24 Range/Units 17:43 18:23 18:27 WBC 5.70 (4.8-10.8) K/ul RBC 5.30 (4.20-5.40) M/uL Hgb 15.6 (12.0-16.0) g/dl Hct 44.9 (37.0-47.0) % MCV 84.7 (80.0-100.0) fL MCH 29.4 (25.0-34.0) pg MCHC 34.7 (32.0-36.0) g/dL RDW Std Deviation 37.2 (36.4-46.3) fL RDW Coeff of Janet 12.2 (11.5-14.5) % Plt Count 378 (130-400) K/uL MPV 9.3 L (9.4-12.4) fL Immature Gran % (Auto) 0.2 % Neut % (Auto) 39.4 % Lymph % (Auto) 50.0 % [place] % (Auto) 8.4 % Eos % (Auto) 1.1 % Baso % (Auto) 0.9 % Neut # (Auto) 2.25 (1.40-6.50) K/uL Lymph # (Auto) 2.85 (1.20-3.40) K/uL [place] # (Auto) 0.48 (0.11-0.59) K/uL Eos # (Auto) 0.06 (0.00-0.50) K/uL Baso # (Auto) 0.05 (0.00-0.20) K/uL Immature Gran # (Auto) 0.01 (0.01-0.20) K/uL Sodium 139 (136-145) mmol/L Potassium 3.9 (3.5-5.1) mmol/L Chloride 103 (98-107) mmol/L Carbon Dioxide 30 (21-32) mmol/L Anion Gap 6 (3-11) BUN 12 (6-23) mg/dl Creatinine 0.89 (0.6-1.2) mg/dl Est Cr Clr Drug Dosing 72.7 ml/min eGFR 85.05 BUN/Creatinine Ratio 13.5 (10-20) Glucose 87 (70-99(Fasting)) mg/dl Calcium 10.3 (8.6-10.3) mg/dl Total Bilirubin 0.4 (0.2-1.0) mg/dl AST 14 (13-39) U/L ALT 13 (7-52) U/L Alkaline Phosphatase 78 (34-104) U/L Total Protein 8.6 H (6.0-8.3) gm/dl Albumin 5.0 (3.4-5.0) gm/dl Globulin 3.6 (2.5-4.0) gm/dl Albumin/Globulin Ratio 1.4 (0.9-2) TSH 2.489 (0.300-4.500) uIu/ml Urine Color Yellow Urine Appearance Turbid A (Clear) Urine pH 7.0 (4.5-7.5) Ur Specific [place] 1.027 (1.000-1.030) Urine Protein 1+ H (Negative) Urine Glucose (UA) Negative (Negative) Urine Ketones Trace H (Negative) Urine Blood Negative (Negative) Urine Nitrite Positive A (Negative) Urine Bilirubin Negative (Negative) Urine Urobilinogen Negative (Negative) Ur Leukocyte Esterase 2+ H (Negative) Urine WBC (Auto) >50 H (0-5) /hpf Urine RBC (Auto) 0-2 (0-2) /hpf U Hyaline Cast (Auto) 6-10 H (0-2) /lpf U Epithel Cells (Auto) 11-20 H (0-2) /hpf Urine Bacteria (Auto) 4+ H (None Seen) Hyaline Casts Present A (None Presnt) /lpf Urine Mucus Present A (None Prsent) Urine Test Negative (Negative) POC Ur Test (NEG) Salicylates < 3.0 L (3.0-30) mg/dl Urine Opiates Screen Neg (Neg) Ur Methadone, Qual Neg (Neg) Urine Fentanyl Screen Neg (Neg) Acetaminophen < 3 L (10-30) ug/ml Urine Barbiturates Neg (Neg) Ur Phencyclidine (PCP) Neg (Neg) U Amphetamin/Meth Scrn Neg (Neg) MDMA (Ecstasy) Screen Neg (Neg) U Benzodiazepines Scrn Neg (Neg) Ur Cocaine Metabolite Neg (Neg) U Marijuana (THC) Screen Pos H (Neg) Ethyl Alcohol mg/dL < 10.0 (<10.0) mg/dl SARS-CoV-2, RNA, NAAT (NEGATIVE) 10/25/24 10/25/24 Range/Units 18:28 Unknown WBC (4.8-10.8) K/ul RBC (4.20-5.40) M/uL Hgb (12.0-16.0) g/dl Hct (37.0-47.0) % MCV (80.0-100.0) fL MCH (25.0-34.0) pg MCHC (32.0-36.0) g/dL RDW Std Deviation (36.4-46.3) fL RDW Coeff of Janet (11.5-14.5) % Plt Count (130-400) K/uL MPV (9.4-12.4) fL Immature Gran % (Auto) % Neut % (Auto) % Lymph % (Auto) % [place] % (Auto) % Eos % (Auto) % Baso % (Auto) % Neut # (Auto) (1.40-6.50) K/uL Lymph # (Auto) (1.20-3.40) K/uL [place] # (Auto) (0.11-0.59) K/uL Eos # (Auto) (0.00-0.50) K/uL Baso # (Auto) (0.00-0.20) K/uL Immature Gran # (Auto) (0.01-0.20) K/uL Sodium (136-145) mmol/L Potassium (3.5-5.1) mmol/L Chloride (98-107) mmol/L Carbon Dioxide (21-32) mmol/L Anion Gap (3-11) BUN (6-23) mg/dl Creatinine (0.6-1.2) mg/dl Est Cr Clr Drug Dosing ml/min eGFR BUN/Creatinine Ratio (10-20) Glucose (70-99(Fasting)) mg/dl Calcium (8.6-10.3) mg/dl Total Bilirubin (0.2-1.0) mg/dl AST (13-39) U/L ALT (7-52) U/L Alkaline Phosphatase (34-104) U/L Total Protein (6.0-8.3) gm/dl Albumin (3.4-5.0) gm/dl Globulin (2.5-4.0) gm/dl Albumin/Globulin Ratio (0.9-2) TSH (0.300-4.500) uIu/ml Urine Color Urine Appearance (Clear) Urine pH (4.5-7.5) Ur Specific [place] (1.000-1.030) Urine Protein (Negative) Urine Glucose (UA) (Negative) Urine Ketones (Negative) Urine Blood (Negative) Urine Nitrite (Negative) Urine Bilirubin (Negative) Urine Urobilinogen (Negative) Ur Leukocyte Esterase (Negative) Urine WBC (Auto) (0-5) /hpf Urine RBC (Auto) (0-2) /hpf U Hyaline Cast (Auto) (0-2) /lpf U Epithel Cells (Auto) (0-2) /hpf Urine Bacteria (Auto) (None Seen) Hyaline Casts (None Presnt) /lpf Urine Mucus (None Prsent) Urine Test (Negative) POC Ur Test NEG (NEG) Salicylates (3.0-30) mg/dl Urine Opiates Screen (Neg) Ur Methadone, Qual (Neg) Urine Fentanyl Screen (Neg) Acetaminophen (10-30) ug/ml Urine Barbiturates (Neg) Ur Phencyclidine (PCP) (Neg) U Amphetamin/Meth Scrn (Neg) MDMA (Ecstasy) Screen (Neg) U Benzodiazepines Scrn (Neg) Ur Cocaine Metabolite (Neg) U Marijuana (THC) Screen (Neg) Ethyl Alcohol mg/dL (<10.0) mg/dl SARS-CoV-2, RNA, NAAT NEGATIVE (NEGATIVE) Discharge Plan Visit Data Chief Complaint: Mental Health Evaluation Stated Complaint: [facility] ED Provider: Dorie Stanford Discharge Problem: Acute depression, Psychotic disorder with delusions Forms Stand Alone Forms: My [facility], Suicide Prevention Resources Prescriptions Prescriptions: No Action haloperidol decanoate [Haldol Decanoate] 100 mg/mL solution 75 mg IM MONTHLY Qty: 1 0RF Rx Instructions: due on or before November 05, 2023 Referrals Referrals: Marshal Hendricks PA-C [Primary Care Provider] -
[2024-10-25 19:44] LABS: Amphetamines+Metham, Urine Neg (Neg); Barbiturates, Urine Neg (Neg); Benzodiazepine, Urine Neg (Neg); Cocaine, Urine Neg (Neg); Fentanyl, Urine Neg (Neg); MDMA (Ecstacy), Urine Neg (Neg); Marijuana, Urine Pos (Neg); Methadone, Urine Neg (Neg); Opiate, Urine Neg (Neg); Phencyclidine, Urine Neg (Neg)
[2024-10-26] MEDS: cephALEXin 250 MG CAP PO ONE (01:26)
[2024-10-26] MEDS ORDERED: MAGNESIUM HYDROXIDE SUSP 30 ML UDC PO PRN (01:59)
[2024-10-26] MEDS ORDERED: ALUMINUM/MAGNESIUM SUSP 30 ML UDC PO PRN (01:59)
[2024-10-26] MEDS ORDERED: ACETAMINOPHEN 325 MG TAB PO PRN (01:59)
[2024-10-26] MEDS ORDERED: hydrOXYzine HCl 25 MG TAB PO PRN (01:59)
[2024-10-26] MEDS ORDERED: BISMUTH SUBSALICYLATE 262 MG CHEW PO PRN (01:59)
[2024-10-26] MEDS ORDERED: NICOTINE POLACRILEX 2 MG GUM MT PRN (01:59)
[2024-10-26] MEDS ORDERED: SODIUM CHLORIDE 0.65% NA SOLN 45 ML (OCEAN) PRN (01:59)
[2024-10-26] MEDS: OLANZapine 10 MG TAB PO ONE (02:46)
--- NOTE | 2024-10-26 10:06 | History & Physical ---
Date of Service October 26, 2024 Impression / Recommendations Impression CORAZON BHAKTA is a 38-year-old woman who currently lives with her fiance, has a history of schizophrenia, and was admitted on 10/26/24 01:52 on a 201 voluntary commitment for psychosis with command auditory hallucinations telling her not to eat. Diagnostically consistent with unspecified psychosis with high suspicion for acute exacerbation of schizophrenia potentially due to recent transition from haldol decanoate JONES to abilify vs cannabis-induced psychosis (unlikely given hx of schizophrenia). Discussed medication treatment options in detail. Discussed risks, benefits and alternatives. Patient would like to start and consented to olanzapine for psychosis and insomnia. Reviewed side effects including but not limited to: movement (TD, NMS), cardiac (QTc prolongation), and metabolic (stroke, insulin resistance) and necessity for fasting lipid and glucose labwork and AIMS done with score of 0. MNPR due to psychosis Overall I spent a total of 75 minutes for this admission including review of chart records, review of labwork, direct evaluation of the patient, counseling the patient, ordering medication, risk assessment, discussion with the psychiatric liason RN and documentation in the electronic health record. (1) Psychotic disorder with delusions: (2) Schizophrenia: (3) Depression: Plan 10/26/2024: The patient was admitted to the [facility] ([facility] inpatient mental health unit) on q15 min checks (behavioral with suicide precautions) for safety. The patient will participate in group, recreational, and milieu therapies and will be offered additional individual and family sessions as clinically appropriate. -Olanzapine 20mg HS -continue prior to admission Sertraline 50mg daily Inventory Assets Strengths: supportive relationships, willing to get treatment Needs: safety and stabilization, medication adjustment, additional coping skills, increased outpatient services Suicide Risk Level Suicide Risk Level: Moderate (q15 min suicide checks) (denies SI but with command AH telling her not to eat, feels safe in the hospital and feels able to ask for support) Risk Factors Assessment Male: No : Yes Do You Have Access To A Gun?: No Health Problems: No Mental Health Diagnoses: Yes Substance Use Disorders: No Previous Attempt: No Family History of Suicide: No Previous Psychiatric Hospitalization: Yes Hopelessness: No Protective Factors Assessment [employer] Beliefs: Yes Responsible for Young Children: Yes Employed: No Stable Relationships: Yes Supportive Family: Yes Psychiatric History Identifying Data CORAZON BHAKTA is a 38-year-old woman who currently lives with her fiance, has a history of schizophrenia, and was admitted on 10/26/24 01:52 on a 201 voluntary commitment for psychosis with command auditory hallucinations telling her not to eat. Chief Complaint "I'm not sure". History of Present Illness She presents for psychiatric admission for worsening psychosis with command auditory hallucinations instructing her "not to eat" and to "wash my hands". She feels this is happening because "my third eye is open". She reports uncertainty about possible factors leading to her symptoms, reports recent adherence with abilify and sertraline. She reports recent poor sleep and "depression" which she attributes to the hallucinations. She feels if these were to stop her mood would then improve. She struggles to provide much else in terms of history, current symptoms or recent events related to her care/treatment and seemingly is quite thought blocked during our conversation. Reportedly on haldol decanoate JONES up until recently but she is unable to art iculate when her last injection was (possibly late August). Stated she has been recently on abilify 5mg daily and adherent with this and then also taking sertraline 50mg daily. Additional history per ED CM note on 10/25/2024: "Met with Corazon bedside to complete mental health evaluation. Corazon stated she is diagnosed with Schizophrenia. She stated she is prescribed Abilify and Zoloft by [facility] in [place]. She stated she takes her medication as prescribed. She reports increase in depression for the past week. She also reports increased intensity and frequency of auditory command hallucinations telling her to not eat and wash her hands. She stated she ate a grilled cheese sandwich yesterday and a cookie the day before. Corazon stated the voices do not stop. She denies visual hallucinations. She reports decreased sleep. She stated she has a poor appetite and has lost a little weight. She denies paranoia. She talked about her "third eye that is now open." She stated she lives with her fiance/Yvon who she identifies as supportive. She stated she is not employed. She reports inpatient treatment history on the past on [facility]. She denies SI or prior attempts. She denies HI or aggression. She denies SIB. She denies any medical issues. She denies any legal issues. She denies alcohol use. She reports daily THC use. She denies history of trauma/abuse" Psychiatric ROS notable for no known history of blayne, PTSD, OCD, self-harm nor eating disorder. Past Psychiatric History Previous Psych History: hx [id number] outpatient commitment Current Psychiatric Diagnosis: Unspecified psychosis Outpatient Services: psych medication by [facility] Schae[facility] in [place]. Previous Psych Admissions: [facility] in Sep 2023 [facility] December & January 2023 [facility] in May 2023 Do You Have Access To A Gun?: No History of Previous Suicide Attempt: No Past Medication Trials: hx haldol decanoate (last received in Aug 2024) also recently on zoloft 50mg daily and abilify 5mg qd hx paliperidone hx olanzapine Allergies Allergy/AdvReac Type Severity Reaction Status Date / Time buprenorphine [From Suboxone] AdvReac Intermediate Hives Verified 01/10/23 14:48 naloxone [From Suboxone] AdvReac Intermediate Hives Verified 01/10/23 14:48 Corticosteroids AdvReac Mild VOMITING Verified 01/10/23 14:48 (Glucocorticoids) Home Medications Medication Instructions Recorded Confirmed Type aripiprazole 5 mg tablet 5 mg PO DAILY 10/26/24 10/26/24 History haloperidol decanoate 100 mg/mL 100 mg IM MONTHLY 10/26/24 10/26/24 History intramuscular solution sertraline 50 mg tablet 50 mg PO DAILY 10/26/24 10/26/24 History Family History Family History of: Other-List under Comment Family Mental Health History Comment: reports her mother has schizophrenia Alcohol History Hx of Alcohol Use Over the Past 12 Months: No AUDIT Total Score: 0 Smoking Use Have You Smoked or Used Tobacco Products in the Last 30 Days: Yes tobacco type: cigarettes Smoking Status: Current every day smoker Smoking packs per day: 1 Substance History Hx of Prescription Med Misuse Over the Past 12 Months: No Hx of Over the Counter Med Misuse Over the Past 12 Months: No Hx of Inhalent Misuse Over the Past 12 Months: No Hx of Organic Substance Use Over the Past 12 Months: Yes (smokes marijuana) Hx of Illegal Substances/Street Drug Use Over Past 12 Months: No Problems as a Result of Past Substance Use: None Identified hx methamphetamine, heroin and cocaine use in the past but none in last 2 years. 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 Other Number Of Children: 5 Beliefs That Will Affect Care: None Current Legal Problems: No Hx Legal Problems: No Hx Traumatic Life Events: No Patient History Medical History Psychosis Anxiety Suicidal ideation Depression Surgical History No pertinent past surgical history Family History Other No significant family history Social History Smoking Status: Current every day smoker Tobacco Type: Cigarettes Second Hand Exposure: No; Do You Dip or Chew Tobacco: No; Hx Alcohol Use: No Hx Substance Use: No Preferred Language: Eritrean Communication Ability: Impaired Communication Ability Comment: thought blocking and delayed responding Home Assessment Nurse Required: No Beliefs That Will Affect Care: None Current Living Situation: Spouse and Family Feels Safe at Home: Yes Gender Identity: Female Assistive Devices: None Review of Systems Review of Systems: All systems reviewed & are unremarkable except as noted in HPI & below Physical Exam Psychiatric: Orientation: alert and oriented x 3 Apperance: appropriately dressed and + disheveled Eye Contact: + fair eye contact Motor Behavior: no abnormal motor movements Speech: normal rate/rhythm/volume of speech (brief) Affect: + flat affect Mood: + depressed mood Thought Process: + thought blocking Thought Content: + delusions Suicidal Thoughts: denies suicidal thoughts, denies suicidal plan and denies suicidal intent Homicidal Thoughts: denies homicidal thoughts Hallucinations: + auditory hallucinations (command telling her not to eat and to wash her hands); no visual hallucinations Cognition: recent memory grossly intact, remote memory grossly intact, attention grossly intact and language grossly intact Insight: + limited insight Judgment: + limited judgement Vital Signs (Past 24 Hours): Last Vital Signs Temp 36.1 C L 10/26/24 06:00 Pulse 65 10/26/24 06:45 Resp 17 10/26/24 06:00 BP 119/85 10/26/24 06:45 Pulse Ox 100 10/26/24 06:00 O2 Del Method Room Air 10/26/24 06:00 Exam Statement: A physical exam was performed in the ED by Dr. Stanford for the purposes of medical clearance. I accept that physical as correct and adequate for the purposes of the inpatient physical exam. Results & Data ([facility]) Laboratory Results Laboratory Results - last 24 hr 10/25/24 10/25/24 10/25/24 17:43 18:23 18:27 WBC 5.70 RBC 5.30 Hgb 15.6 Hct 44.9 MCV 84.7 MCH 29.4 MCHC 34.7 RDW Std Deviation 37.2 RDW Coeff of Janet 12.2 Plt Count 378 MPV 9.3 L Immature Gran % (Auto) 0.2 Neut % (Auto) 39.4 Lymph % (Auto) 50.0 [place] % (Auto) 8.4 Eos % (Auto) 1.1 Baso % (Auto) 0.9 Neut # (Auto) 2.25 Lymph # (Auto) 2.85 [place] # (Auto) 0.48 Eos # (Auto) 0.06 Baso # (Auto) 0.05 Immature Gran # (Auto) 0.01 Sodium 139 Potassium 3.9 Chloride 103 Carbon Dioxide 30 Anion Gap 6 BUN 12 Creatinine 0.89 Est Cr Clr Drug Dosing 72.7 eGFR 85.05 BUN/Creatinine Ratio 13.5 Glucose 87 Calcium 10.3 Total Bilirubin 0.4 AST 14 ALT 13 Alkaline Phosphatase 78 Total Protein 8.6 H Albumin 5.0 Globulin 3.6 Albumin/Globulin Ratio 1.4 TSH 2.489 Urine Color Yellow Urine Appearance Turbid A Urine pH 7.0 Ur Specific Startex 1.027 Urine Protein 1+ H Urine Glucose (UA) Negative Urine Ketones Trace H Urine Blood Negative Urine Nitrite Positive A Urine Bilirubin Negative Urine Urobilinogen Negative Ur Leukocyte Esterase 2+ H Urine WBC (Auto) >50 H Urine RBC (Auto) 0-2 U Hyaline Cast (Auto) 6-10 H U Epithel Cells (Auto) 11-20 H Urine Bacteria (Auto) 4+ H Hyaline Casts Present A Urine Mucus Present A Urine Test Negative POC Ur Test Salicylates < 3.0 L Urine Opiates Screen Neg Ur Methadone, Qual Neg Urine Fentanyl Screen Neg Acetaminophen < 3 L Urine Barbiturates Neg Ur Phencyclidine (PCP) Neg U Amphetamin/Meth Scrn Neg MDMA (Ecstasy) Screen Neg U Benzodiazepines Scrn Neg Ur Cocaine Metabolite Neg U Marijuana (THC) Screen Pos H U Marijuana THC Carboxy Pending Drug Screen Comment Pending Ethyl Alcohol mg/dL < 10.0 SARS-CoV-2, RNA, NAAT 10/25/24 10/25/24 18:28 Unknown WBC RBC Hgb Hct MCV MCH MCHC RDW Std Deviation RDW Coeff of Janet Plt Count MPV Immature Gran % (Auto) Neut % (Auto) Lymph % (Auto) [place] % (Auto) Eos % (Auto) Baso % (Auto) Neut # (Auto) Lymph # (Auto) [place] # (Auto) Eos # (Auto) Baso # (Auto) Immature Gran # (Auto) Sodium Potassium Chloride Carbon Dioxide Anion Gap BUN Creatinine Est Cr Clr Drug Dosing eGFR BUN/Creatinine Ratio Glucose Calcium Total Bilirubin AST ALT Alkaline Phosphatase Total Protein Albumin Globulin Albumin/Globulin Ratio TSH Urine Color Urine Appearance Urine pH Ur Specific Startex Urine Protein Urine Glucose (UA) Urine Ketones Urine Blood Urine Nitrite Urine Bilirubin Urine Urobilinogen Ur Leukocyte Esterase Urine WBC (Auto) Urine RBC (Auto) U Hyaline Cast (Auto) U Epithel Cells (Auto) Urine Bacteria (Auto) Hyaline Casts Urine Mucus Urine Test POC Ur Test NEG Salicylates Urine Opiates Screen Ur Methadone, Qual Urine Fentanyl Screen Acetaminophen Urine Barbiturates Ur Phencyclidine (PCP) U Amphetamin/Meth Scrn MDMA (Ecstasy) Screen U Benzodiazepines Scrn Ur Cocaine Metabolite U Marijuana (THC) Screen U Marijuana THC Carboxy Drug Screen Comment Ethyl Alcohol mg/dL SARS-CoV-2, RNA, NAAT NEGATIVE Current Inpatient Medications Current Inpatient Medications: Current Inpatient Medications Acetaminophen (Acetaminophen 325 Mg Tab) 650 mg PO Q4H PRN PRN Reason: Headache or Minor Fever Stop: 11/25/24 01:58 Al Hydrox/Mg Hydrox/Simethicone (Aluminum/Magnesium Susp 30 Ml Udc) 30 ml PO Q4H PRN PRN Reason: GI Upset Stop: 11/25/24 01:58 Bismuth Subsalicylate (Bismuth Subsalicylate 262 Mg Chew) 2 tab PO Q30M PRN PRN Reason: Loose Stool/Diarrhea Stop: 11/25/24 01:58 Hydroxyzine HCl (Hydroxyzine Hcl 25 Mg Tab) 50 mg PO HSZ PRN PRN Reason: Insomnia Stop: 11/25/24 01:58 Hydroxyzine HCl (Hydroxyzine Hcl 25 Mg Tab) 25 mg PO Q4H PRN PRN Reason: Anxiety Stop: 11/25/24 01:58 Magnesium Hydroxide (Magnesium Hydroxide Susp 30 Ml Udc) 30 ml PO DAILY PRN PRN Reason: Constipation Stop: 11/25/24 01:58 Nicotine Polacrilex (Nicotine Polacrilex 2 Mg Gum) 1 piece MT PRN PRN PRN Reason: Nicotine Withdrawal Symptoms Stop: 11/25/24 01:58 Olanzapine (Olanzapine 10 Mg Tab) 10 mg PO HS ROMMEL Stop: 11/25/24 21:59 Sodium Chloride (Sodium Chloride 0.65% Na Soln 45 Ml ([place])) 1 - 2 sprays NA PRN PRN PRN Reason: Nasal Dryness/Congestion Stop: 11/25/24 01:58
[2024-10-26] MEDS: OLANZapine 20 MG TABLET PO SCH (21:55)
[2024-10-26] MEDS ORDERED: OLANZapine 10 MG TAB PO SCH (22:00)
[2024-10-27] MEDS: hydrOXYzine HCl 25 MG TAB PO PRN (00:44)
[2024-10-27] MEDS: BENZTROPINE MESYLATE 1 MG TAB PO PRN (03:02)
[2024-10-27] MEDS: SERTRALINE HCL 50 MG TABLET PO SCH (08:50)
[2024-10-27 09:31] LABS: Estimated Average Glucose 111 mg/dl; Hemoglobin A1C 5.5 % (4.5-5.6)
--- NOTE | 2024-10-27 09:40 | Psychiatric Progress Note ---
Date of Service October 27, 2024 Impression / Recommendations Impression KHOI BHAKTA is a 38-year-old woman who currently lives with her fiance, has a history of schizophrenia, and was admitted on 10/26/24 01:52 on a 201 voluntary commitment for psychosis with command auditory hallucinations telling her not to eat. Diagnostically consistent with unspecified psychosis with high suspicion for acute exacerbation of schizophrenia potentially due to recent transition from haldol decanoate JONES to abilify vs cannabis-induced psychosis (unlikely given hx of schizophrenia). A: ongoing psychosis with prominent thought blocking and auditory hallucinations. Isolative to her room today. Unclear if muscle stiffness overnight represented acute dystonia, would be quite atypical with olanzapine especially after she was on haldol previously but possible. So Cogentin prn available for muscle stiffness/acute dystonia if needed. Still slept poorly even with higher dose of olanzapine. Will continue with olanzapine for now, if ongoing concerns for dystonia or poor effect for sleep may then shift to haldol as this has been beneficial previously. 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 (1) Psychotic disorder with delusions: (2) Schizophrenia: (3) Depression: Plan 10/27/2024: Continue current medications and tx plan 10/26/2024: The patient was admitted to the [facility] ([facility] unit) on q15 min checks (behavioral with suicide precautions) for safety. The patient will participate in group, recreational, and milieu therapies and will be offered additional individual and family sessions as clinically appropriate. -Olanzapine 20mg HS -continue prior to admission Sertraline 50mg daily Inventory Assets Strengths: supportive relationships, willing to get treatment Needs: safety and stabilization, medication adjustment, additional coping skills, increased outpatient services Suicide Risk Level Suicide Risk Level: Moderate (q15 min suicide checks) (denies SI but with command AH telling her not to eat, feels safe in the hospital and feels able to ask for support) Risk Factors Assessment Male: No : Yes Do You Have Access To A Gun?: No Health Problems: No Mental Health Diagnoses: Yes Substance Use Disorders: No Previous Attempt: No Family History of Suicide: No Previous Psychiatric Hospitalization: Yes Hopelessness: No Protective Factors Assessment [employer] Beliefs: Yes Responsible for Young Children: Yes Employed: No Stable Relationships: Yes Supportive Family: Yes Interval History Identifying Information KHOI BHAKTA is a 38-year-old woman who currently lives with her fiance, has a history of schizophrenia, and was admitted on 10/26/24 01:52 on a 201 voluntary commitment for psychosis with command auditory hallucinations telling her not to eat. Chief Complaint "Tired". Review of Systems Sleep Information Total Hours of Sleep: 5.75 Meal Information Percent Meal Consumed - Breakfast: 100 Percent Meal Consumed - Lunch: 100 Percent Meal Consumed - Dinner: 100 Subjective Subjective Patient was seen & assessed and interval progress reviewed with nursing. Walking in the halls at midnight reported increased hallucinations which were upset at her for eating during the day. And then around 2am she seemed to have some jaw stiffness and restlessness and was given cogentin prn which was beneficial. Only slept for 5 hours. Today she reports being tired and is minimally responsive during the interview, seems to have thought blocking. Reports the voices are "quiet" today. She wants to continue with olanzapine. Physical Exam Psychiatric Orientation: alert and oriented x 3 Apperance: appropriately dressed and + disheveled Eye Contact: + fair eye contact Motor Behavior: no abnormal motor movements Speech: normal rate/rhythm/volume of speech (brief) Affect: + flat affect Mood: + depressed mood Thought Process: + thought blocking Thought Content: + delusions Suicidal Thoughts: denies suicidal thoughts, denies suicidal plan and denies suicidal intent Homicidal Thoughts: denies homicidal thoughts Hallucinations: + auditory hallucinations (command telling her not to eat and to wash her hands); no visual hallucinations Cognition: recent memory grossly intact, remote memory grossly intact, attention grossly intact and language grossly intact Insight: + limited insight Judgment: + limited judgement Vital Signs (Past 24 Hours) Last Vital Signs Temp 36.1 C L 10/27/24 02:43 Pulse 58 L 10/27/24 02:43 Resp 16 10/27/24 02:43 BP 109/82 10/27/24 02:43 Pulse Ox 100 10/27/24 02:43 O2 Del Method Room Air 10/27/24 02:43 Results & Data ([facility]) Laboratory Results Laboratory Results - last 24 hr 10/27/24 06:57 Estimat Average Glucose 111 Hemoglobin A1c 5.5 Triglycerides 68 Cholesterol 153 LDL Cholesterol, Calc 88 VLDL Cholesterol, Calc 14 HDL Cholesterol 51 Cholesterol/HDL Ratio 3.0 Current Inpatient Medications Current Inpatient Medications: Current Inpatient Medications Acetaminophen (Acetaminophen 325 Mg Tab) 650 mg PO Q4H PRN PRN Reason: Headache or Minor Fever Stop: 11/25/24 01:58 Al Hydrox/Mg Hydrox/Simethicone (Aluminum/Magnesium Susp 30 Ml Udc) 30 ml PO Q4H PRN PRN Reason: GI Upset Stop: 11/25/24 01:58 Benztropine Mesylate (Benztropine Mesylate 1 Mg Tab) 1 mg PO BID PRN PRN Reason: eps symptoms Stop: 11/26/24 02:37 Last Admin: 10/27/24 03:02 Dose: 1 mg Bismuth Subsalicylate (Bismuth Subsalicylate 262 Mg Chew) 2 tab PO Q30M PRN PRN Reason: Loose Stool/Diarrhea Stop: 11/25/24 01:58 Hydroxyzine HCl (Hydroxyzine Hcl 25 Mg Tab) 50 mg PO HSZ PRN PRN Reason: Insomnia Stop: 11/25/24 01:58 Last Admin: 10/27/24 00:44 Dose: 50 mg Hydroxyzine HCl (Hydroxyzine Hcl 25 Mg Tab) 25 mg PO Q4H PRN PRN Reason: Anxiety Stop: 11/25/24 01:58 Magnesium Hydroxide (Magnesium Hydroxide Susp 30 Ml Udc) 30 ml PO DAILY PRN PRN Reason: Constipation Stop: 11/25/24 01:58 Nicotine Polacrilex (Nicotine Polacrilex 2 Mg Gum) 1 piece MT PRN PRN PRN Reason: Nicotine Withdrawal Symptoms Stop: 11/25/24 01:58 Olanzapine (Olanzapine 20 Mg Tablet) 20 mg PO HS ROMMEL Stop: 11/25/24 21:59 Last Admin: 10/26/24 21:55 Dose: 20 mg Sertraline HCl (Sertraline Hcl 50 Mg Tablet) 50 mg PO DAILY ROMMEL Stop: 11/26/24 08:59 Last Admin: 10/27/24 08:50 Dose: 50 mg Sodium Chloride (Sodium Chloride 0.65% Na Soln 45 Ml ([place])) 1 - 2 sprays NA PRN PRN PRN Reason: Nasal Dryness/Congestion Stop: 11/25/24 01:58 Mental Health & Subst Abuse Tx Therapist Name of Therapist: None Form Grader Name of Form Grader: None
--- NOTE | 2024-10-28 09:15 | Psychiatric Progress Note ---
Date of Service October 28, 2024 Impression / Recommendations Impression KHOI BHAKTA is a 38-year-old woman who currently lives with her fiance, has a history of schizophrenia, and was admitted on 10/26/24 01:52 on a 201 voluntary commitment for psychosis with command auditory hallucinations telling her not to eat. Diagnostically consistent with unspecified psychosis with high suspicion for acute exacerbation of schizophrenia potentially due to recent transition from haldol decanoate JONES to abilify vs cannabis-induced psychosis (unlikely given hx of schizophrenia). A: Ongoing auditory hallucinations and thought blocking. Olanzapine at higher dose has caused excessive sedation and still not helping with hallucinations so will discontinue this. Will start risperidone instead which she consents to. Reviewed side effects including but not limited to: movement (TD, NMS), cardiac (QTc prolongation), and metabolic (stroke, insulin resistance) and necessity for fasting lipid and glucose labwork and AIMS done with score of 0. 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 (1) Psychotic disorder with delusions: (2) Schizophrenia: (3) Depression: Plan 10/28/2024: -Discontinue olanzapine -Start risperidone 0.5mg BID 10/27/2024: Continue current medications and tx plan 10/26/2024: The patient was admitted to the [facility] ([facility] mental health unit) on q15 min checks (behavioral with suicide precautions) for safety. The patient will participate in group, recreational, and milieu therapies and will be offered additional individual and family sessions as clinically appropriate. -Olanzapine 20mg HS -continue prior to admission Sertraline 50mg daily Inventory Assets Strengths: supportive relationships, willing to get treatment Needs: safety and stabilization, medication adjustment, additional coping skills, increased outpatient services Suicide Risk Level Suicide Risk Level: Moderate (q15 min suicide checks) (denies SI but with command AH telling her not to eat, feels safe in the hospital and feels able to ask for support) Risk Factors Assessment Male: No : Yes Do You Have Access To A Gun?: No Health Problems: No Mental Health Diagnoses: Yes Substance Use Disorders: No Previous Attempt: No Family History of Suicide: No Previous Psychiatric Hospitalization: Yes Hopelessness: No Protective Factors Assessment Mosque Beliefs: Yes Responsible for Young Children: Yes Employed: No Stable Relationships: Yes Supportive Family: Yes Interval History Identifying Information KHOI BHAKTA is a 38-year-old woman who currently lives with her fiance, has a history of schizophrenia, and was admitted on 10/26/24 01:52 on a 201 voluntary commitment for psychosis with command auditory hallucinations telling her not to eat. Chief Complaint "I'm a little tired". Review of Systems Sleep Information Total Hours of Sleep: 7.75 Meal Information Percent Meal Consumed - Breakfast: 100 Percent Meal Consumed - Lunch: 100 Percent Meal Consumed - Dinner: 100 Subjective Subjective Patient was seen & assessed and interval progress reviewed with treatment team. Slept most of the day except for meals and then overnight. Ongoing sedation today, seems to be driven by olanzapine. She continues to have auditory hallucinations telling her not to eat and to wash her hands. She has been eating but then the voices are angry and mean and call her "a stipud b*tch". She denies SI. Reviewed past medication trials and she recalls being on Invega and that this may have helped. Physical Exam Psychiatric Orientation: alert and oriented x 3 Apperance: appropriately dressed and + disheveled Eye Contact: + fair eye contact Motor Behavior: no abnormal motor movements Speech: normal rate/rhythm/volume of speech (brief) Affect: + flat affect Mood: + depressed mood Thought Process: + thought blocking Thought Content: + delusions Suicidal Thoughts: denies suicidal thoughts, denies suicidal plan and denies suicidal intent Homicidal Thoughts: denies homicidal thoughts Hallucinations: + auditory hallucinations (command telling her not to eat and to wash her hands); no visual hallucinations Cognition: recent memory grossly intact, remote memory grossly intact, attention grossly intact and language grossly intact Insight: + limited insight Judgment: + limited judgement Vital Signs (Past 24 Hours) Last Vital Signs Temp 35.8 C L 10/28/24 04:33 Pulse 57 L 10/28/24 04:33 Resp 17 10/28/24 04:33 BP 126/85 10/28/24 04:37 Pulse Ox 99 10/28/24 04:33 O2 Del Method Room Air 10/28/24 04:33 Results & Data ([facility]) Laboratory Results Laboratory Results - last 24 hr 10/27/24 06:57 Estimat Average Glucose 111 Hemoglobin A1c 5.5 Current Inpatient Medications Current Inpatient Medications: Current Inpatient Medications Acetaminophen (Acetaminophen 325 Mg Tab) 650 mg PO Q4H PRN PRN Reason: Headache or Minor Fever Stop: 11/25/24 01:58 Al Hydrox/Mg Hydrox/Simethicone (Aluminum/Magnesium Susp 30 Ml Udc) 30 ml PO Q4H PRN PRN Reason: GI Upset Stop: 11/25/24 01:58 Benztropine Mesylate (Benztropine Mesylate 1 Mg Tab) 1 mg PO BID PRN PRN Reason: eps symptoms Stop: 11/26/24 02:37 Last Admin: 10/27/24 03:02 Dose: 1 mg Bismuth Subsalicylate (Bismuth Subsalicylate 262 Mg Chew) 2 tab PO Q30M PRN PRN Reason: Loose Stool/Diarrhea Stop: 11/25/24 01:58 Hydroxyzine HCl (Hydroxyzine Hcl 25 Mg Tab) 50 mg PO HSZ PRN PRN Reason: Insomnia Stop: 11/25/24 01:58 Last Admin: 10/27/24 00:44 Dose: 50 mg Hydroxyzine HCl (Hydroxyzine Hcl 25 Mg Tab) 25 mg PO Q4H PRN PRN Reason: Anxiety Stop: 11/25/24 01:58 Magnesium Hydroxide (Magnesium Hydroxide Susp 30 Ml Udc) 30 ml PO DAILY PRN PRN Reason: Constipation Stop: 11/25/24 01:58 Nicotine Polacrilex (Nicotine Polacrilex 2 Mg Gum) 1 piece MT PRN PRN PRN Reason: Nicotine Withdrawal Symptoms Stop: 11/25/24 01:58 Olanzapine (Olanzapine 20 Mg Tablet) 20 mg PO HS ROMMEL Stop: 11/25/24 21:59 Last Admin: 10/27/24 21:43 Dose: 20 mg Sertraline HCl (Sertraline Hcl 50 Mg Tablet) 50 mg PO DAILY ROMMEL Stop: 11/26/24 08:59 Last Admin: 10/28/24 08:45 Dose: 50 mg Sodium Chloride (Sodium Chloride 0.65% Na Soln 45 Ml ([place])) 1 - 2 sprays NA PRN PRN PRN Reason: Nasal Dryness/Congestion Stop: 11/25/24 01:58 Mental Health & Subst Abuse Tx Therapist Name of Therapist: None Turbine Operator Name of Turbine Operator: None
[2024-10-28 16:12] LABS: Marijuana Quant, GCMS Urine 73 ng/mL (<5)
[2024-10-28] MEDS: risperiDONE 0.25 MG TAB PO SCH (20:24)
--- NOTE | 2024-10-29 09:01 | Psychiatric Progress Note ---
Date of Service October 29, 2024 Impression / Recommendations Impression KHOI BHAKTA is a 38-year-old woman who currently lives with her fiance, has a history of schizophrenia, and was admitted on 10/26/24 01:52 on a 201 voluntary commitment for psychosis with command auditory hallucinations telling her not to eat. Diagnostically consistent with unspecified psychosis with high suspicion for acute exacerbation of schizophrenia potentially due to recent transition from haldol decanoate JONES to abilify vs cannabis-induced psychosis (unlikely given hx of schizophrenia). A: Ongoing auditory hallucinations and thought blocking but able to carry out a little more spontaneous conversation today. Tolerating risperidone well so far, will increase dose at HS and then switch to TID dosing tomorrow with meals to see if this helps with intensity of voices after she eats which is the most problematic time of day for her. 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 (1) Psychotic disorder with delusions: (2) Schizophrenia: (3) Depression: Plan 10/29/2024: -Increase risperidone to 1mg HS 10/28/2024: -Discontinue olanzapine -Start risperidone 0.5mg BID 10/27/2024: Continue current medications and tx plan 10/26/2024: The patient was admitted to the [facility] ([facility] mental health unit) on q15 min checks (behavioral with suicide precautions) for safety. The patient will participate in group, recreational, and milieu therapies and will be offered additional individual and family sessions as clinically appropriate. -Olanzapine 20mg HS -continue prior to admission Sertraline 50mg daily Inventory Assets Strengths: supportive relationships, willing to get treatment Needs: safety and stabilization, medication adjustment, additional coping skills, increased outpatient services Suicide Risk Level Suicide Risk Level: Moderate (q15 min suicide checks) (denies SI but with command AH telling her not to eat, feels safe in the hospital and feels able to ask for support) Risk Factors Assessment Male: No : Yes Do You Have Access To A Gun?: No Health Problems: No Mental Health Diagnoses: Yes Substance Use Disorders: No Previous Attempt: No Family History of Suicide: No Previous Psychiatric Hospitalization: Yes Hopelessness: No Protective Factors Assessment Restorationism Beliefs: Yes Responsible for Young Children: Yes Employed: No Stable Relationships: Yes Supportive Family: Yes Interval History Identifying Information KHOI BHAKTA is a 38-year-old woman who currently lives with her fiance, has a history of schizophrenia, and was admitted on 10/26/24 01:52 on a 201 voluntary commitment for psychosis with command auditory hallucinations telling her not to eat. Chief Complaint "Just a little tired". Review of Systems Sleep Information Total Hours of Sleep: 6.5 Meal Information Percent Meal Consumed - Breakfast: 100 Percent Meal Consumed - Lunch: 100 Percent Meal Consumed - Dinner: 100 Subjective Subjective Patient was seen & assessed and interval progress reviewed with nursing and social work. Attended one group last evening, required some prompting but appropriate. Slept well overnight. Reported that her voices were becoming more muffled. Today reports ongoing fatigue but appears much more alert. Still with hallucinations, tell her not to eat and angry and louder after she does. 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 Third eye is why she can hear the voices. Denies any risperidone side effects. Feels the voices are worse after she eats because they don't like her eating. Physical Exam Psychiatric Orientation: alert and oriented x 3 Apperance: appropriately dressed and + disheveled Eye Contact: + fair eye contact Motor Behavior: no abnormal motor movements Speech: normal rate/rhythm/volume of speech (brief) Affect: + flat affect Mood: + depressed mood Thought Process: + thought blocking Thought Content: + delusions Suicidal Thoughts: denies suicidal thoughts, denies suicidal plan and denies suicidal intent Homicidal Thoughts: denies homicidal thoughts Hallucinations: + auditory hallucinations (command telling her not to eat and to wash her hands); no visual hallucinations Cognition: recent memory grossly intact, remote memory grossly intact, attention grossly intact and language grossly intact Insight: + limited insight Judgment: + limited judgement Vital Signs (Past 24 Hours) Last Vital Signs Temp 36.3 C L 10/29/24 06:00 Pulse 73 10/29/24 06:32 Resp 18 10/29/24 06:00 BP 114/85 10/29/24 06:32 Pulse Ox 97 10/29/24 06:00 O2 Del Method Room Air 10/29/24 06:00 Results & Data ([facility]) Laboratory Results Laboratory Results - last 24 hr 10/25/24 18:27 U Marijuana THC Carboxy 73 H Drug Screen Comment SEE NOTE Current Inpatient Medications Current Inpatient Medications: Current Inpatient Medications Acetaminophen (Acetaminophen 325 Mg Tab) 650 mg PO Q4H PRN PRN Reason: Headache or Minor Fever Stop: 11/25/24 01:58 Al Hydrox/Mg Hydrox/Simethicone (Aluminum/Magnesium Susp 30 Ml Udc) 30 ml PO Q4H PRN PRN Reason: GI Upset Stop: 11/25/24 01:58 Benztropine Mesylate (Benztropine Mesylate 1 Mg Tab) 1 mg PO BID PRN PRN Reason: eps symptoms Stop: 11/26/24 02:37 Last Admin: 10/27/24 03:02 Dose: 1 mg Bismuth Subsalicylate (Bismuth Subsalicylate 262 Mg Chew) 2 tab PO Q30M PRN PRN Reason: Loose Stool/Diarrhea Stop: 11/25/24 01:58 Hydroxyzine HCl (Hydroxyzine Hcl 25 Mg Tab) 50 mg PO HSZ PRN PRN Reason: Insomnia Stop: 11/25/24 01:58 Last Admin: 10/27/24 00:44 Dose: 50 mg Hydroxyzine HCl (Hydroxyzine Hcl 25 Mg Tab) 25 mg PO Q4H PRN PRN Reason: Anxiety Stop: 11/25/24 01:58 Magnesium Hydroxide (Magnesium Hydroxide Susp 30 Ml Udc) 30 ml PO DAILY PRN PRN Reason: Constipation Stop: 11/25/24 01:58 Nicotine Polacrilex (Nicotine Polacrilex 2 Mg Gum) 1 piece MT PRN PRN PRN Reason: Nicotine Withdrawal Symptoms Stop: 11/25/24 01:58 Risperidone (Risperidone 0.25 Mg Tab) 0.5 mg PO BID ROMMEL Stop: 11/27/24 20:59 Last Admin: 10/28/24 20:24 Dose: 0.5 mg Sertraline HCl (Sertraline Hcl 50 Mg Tablet) 50 mg PO DAILY ROMMEL Stop: 11/26/24 08:59 Last Admin: 10/28/24 08:45 Dose: 50 mg Sodium Chloride (Sodium Chloride 0.65% Na Soln 45 Ml ([place])) 1 - 2 sprays NA PRN PRN PRN Reason: Nasal Dryness/Congestion Stop: 11/25/24 01:58 Mental Health & Subst Abuse Tx Therapist Name of Therapist: None Manager Card Name of Manager Card: Anyi Marcus Phone Number for Manager Card: [phone] Case Management Appointment Comment: [email or web address]
[2024-10-29] MEDS: risperiDONE 1 MG TABLET PO SCH (21:29)
[2024-10-30] MEDS: risperiDONE 0.25 MG TAB PO SCH (09:13)
--- NOTE | 2024-10-30 09:13 | Psychiatric Progress Note ---
Date of Service October 30, 2024 Impression / Recommendations Impression KHOI BHAKTA is a 38-year-old woman who currently lives with her fiance, has a history of schizophrenia, and was admitted on 10/26/24 01:52 on a 201 voluntary commitment for psychosis with command auditory hallucinations telling her not to eat. Diagnostically consistent with unspecified psychosis with high suspicion for acute exacerbation of schizophrenia potentially due to recent transition from haldol decanoate JONES to abilify vs cannabis-induced psychosis (unlikely given hx of schizophrenia). A: Ongoing auditory hallucinations and thought blocking but gradual improvement, interacting with groups and milieu slightly more and responding well to risperidone so far, today reports increased depression, will increase sertraline dose in case some of her worsening psychosis could be due to MDD with psychotic features. 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 (1) Psychotic disorder with delusions: (2) Schizophrenia: (3) Depression: Plan 10/30/2024: -Increase sertraline to 100mg daily tomorrow -Risperidone 0.5mg TID with meals 10/29/2024: -Increase risperidone to 1mg HS 10/28/2024: -Discontinue olanzapine -Start risperidone 0.5mg BID 10/27/2024: Continue current medications and tx plan 10/26/2024: The patient was admitted to the [facility] ([facility] mental health unit) on q15 min checks (behavioral with suicide precautions) for safety. The patient will participate in group, recreational, and milieu therapies and will be offered additional individual and family sessions as clinically appropriate. -Olanzapine 20mg HS -continue prior to admission Sertraline 50mg daily Inventory Assets Strengths: supportive relationships, willing to get treatment Needs: safety and stabilization, medication adjustment, additional coping skills, increased outpatient services Suicide Risk Level Suicide Risk Level: Moderate (q15 min suicide checks) (denies SI but with command AH telling her not to eat, feels safe in the hospital and feels able to ask for support) Risk Factors Assessment Male: No : Yes Do You Have Access To A Gun?: No Health Problems: No Mental Health Diagnoses: Yes Substance Use Disorders: No Previous Attempt: No Family History of Suicide: No Previous Psychiatric Hospitalization: Yes Hopelessness: No Protective Factors Assessment Jew Beliefs: Yes Responsible for Young Children: Yes Employed: No Stable Relationships: Yes Supportive Family: Yes Interval History Identifying Information KHOI BHAKTA is a 38-year-old woman who currently lives with her fiance, has a history of schizophrenia, and was admitted on 10/26/24 01:52 on a 201 voluntary commitment for psychosis with command auditory hallucinations telling her not to eat. Chief Complaint "They're low". Review of Systems Sleep Information Total Hours of Sleep: 7.25 Meal Information Percent Meal Consumed - Breakfast: 100 Percent Meal Consumed - Lunch: 75 Percent Meal Consumed - Dinner: 100 Subjective Subjective Patient was seen & assessed and interval progress reviewed with treatment team. Briefly attended one group yesterday, rated mood as "feeling rested". Was able to watch TV briefly in the evening. Blunted affect and ongoing thought blocking but woke up easily for breakfast. Today initially tells me she is "doing good" but later reports depression and requests help treating this. She could not recall that she was already on sertraline but will increase this which she consents to. Feels risperidone is helping with the voices are they are less angry after meals today and "they're low" and also described as "much more quieter". No notable side effects from risperidone reported or observed. Physical Exam Psychiatric Orientation: alert and oriented x 3 Apperance: appropriately dressed and + disheveled Eye Contact: + fair eye contact Motor Behavior: no abnormal motor movements Speech: normal rate/rhythm/volume of speech (brief) Affect: + flat affect Mood: + depressed mood Thought Process: + thought blocking Thought Content: + delusions Suicidal Thoughts: denies suicidal thoughts, denies suicidal plan and denies suicidal intent Homicidal Thoughts: denies homicidal thoughts Hallucinations: + auditory hallucinations (command telling her not to eat and to wash her hands); no visual hallucinations Cognition: recent memory grossly intact, remote memory grossly intact, attention grossly intact and language grossly intact Insight: + limited insight Judgment: + limited judgement Vital Signs (Past 24 Hours) Last Vital Signs Temp 36.4 C L 10/30/24 06:00 Pulse 76 10/30/24 06:00 Resp 16 10/30/24 06:00 BP 128/88 10/30/24 06:36 Pulse Ox 98 10/30/24 06:00 O2 Del Method Room Air 10/30/24 06:00 Results & Data ([facility]) Current Inpatient Medications Current Inpatient Medications: Current Inpatient Medications Acetaminophen (Acetaminophen 325 Mg Tab) 650 mg PO Q4H PRN PRN Reason: Headache or Minor Fever Stop: 11/25/24 01:58 Al Hydrox/Mg Hydrox/Simethicone (Aluminum/Magnesium Susp 30 Ml Udc) 30 ml PO Q4H PRN PRN Reason: GI Upset Stop: 11/25/24 01:58 Benztropine Mesylate (Benztropine Mesylate 1 Mg Tab) 1 mg PO BID PRN PRN Reason: eps symptoms Stop: 11/26/24 02:37 Last Admin: 10/27/24 03:02 Dose: 1 mg Bismuth Subsalicylate (Bismuth Subsalicylate 262 Mg Chew) 2 tab PO Q30M PRN PRN Reason: Loose Stool/Diarrhea Stop: 11/25/24 01:58 Hydroxyzine HCl (Hydroxyzine Hcl 25 Mg Tab) 50 mg PO HSZ PRN PRN Reason: Insomnia Stop: 11/25/24 01:58 Last Admin: 10/27/24 00:44 Dose: 50 mg Hydroxyzine HCl (Hydroxyzine Hcl 25 Mg Tab) 25 mg PO Q4H PRN PRN Reason: Anxiety Stop: 11/25/24 01:58 Magnesium Hydroxide (Magnesium Hydroxide Susp 30 Ml Udc) 30 ml PO DAILY PRN PRN Reason: Constipation Stop: 11/25/24 01:58 Nicotine Polacrilex (Nicotine Polacrilex 2 Mg Gum) 1 piece MT PRN PRN PRN Reason: Nicotine Withdrawal Symptoms Stop: 11/25/24 01:58 Risperidone (Risperidone 1 Mg Tablet) 1 mg PO HS ROMMEL Stop: 11/28/24 21:59 Last Admin: 10/29/24 21:29 Dose: 1 mg Risperidone (Risperidone 0.25 Mg Tab) 0.5 mg PO TIDM ROMMEL Stop: 11/29/24 08:59 Sertraline HCl (Sertraline Hcl 50 Mg Tablet) 50 mg PO DAILY ROMMEL Stop: 11/26/24 08:59 Last Admin: 10/29/24 09:07 Dose: 50 mg Sodium Chloride (Sodium Chloride 0.65% Na Soln 45 Ml ([place])) 1 - 2 sprays NA PRN PRN PRN Reason: Nasal Dryness/Congestion Stop: 11/25/24 01:58 Mental Health & Subst Abuse Tx Therapist Name of Therapist: None Computer Hardware Developer Name of Computer Hardware Developer: Anyi Marcus Phone Number for Computer Hardware Developer: [phone] Case Management Appointment Comment: [email or web address]
[2024-10-31] MEDS: SERTRALINE HCL 100 MG TABLET PO SCH (08:43)
--- NOTE | 2024-10-31 08:57 | Psychiatric Progress Note ---
Date of Service October 31, 2024 Impression / Recommendations Impression KHOI BHAKTA is a 38-year-old woman who currently lives with her fiance, has a history of schizophrenia, and was admitted on 10/26/24 01:52 on a 201 voluntary commitment for psychosis with command auditory hallucinations telling her not to eat. Diagnostically consistent with unspecified psychosis with high suspicion for acute exacerbation of schizophrenia potentially due to recent transition from haldol decanoate JONES to abilify vs cannabis-induced psychosis (unlikely given hx of schizophrenia). A: Ongoing auditory hallucinations and thought blocking but continuing to improve, engaging more with groups, denies depression today. Tolerating higher dose of sertraline. Tolerating risperidone, continuing to monitor for signs of sedation or other side effects. 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 (1) Psychotic disorder with delusions: (2) Schizophrenia: (3) Depression: Plan 10/31/2024: -Continue current medications and tx plan 10/30/2024: -Increase sertraline to 100mg daily tomorrow -Risperidone 0.5mg TID with meals 10/29/2024: -Increase risperidone to 1mg HS 10/28/2024: -Discontinue olanzapine -Start risperidone 0.5mg BID 10/27/2024: Continue current medications and tx plan 10/26/2024: The patient was admitted to the [facility] ([facility] mental health unit) on q15 min checks (behavioral with suicide precautions) for safety. The patient will participate in group, recreational, and milieu therapies and will be offered additional individual and family sessions as clinically appropriate. -Olanzapine 20mg HS -continue prior to admission Sertraline 50mg daily Inventory Assets Strengths: supportive relationships, willing to get treatment Needs: safety and stabilization, medication adjustment, additional coping skills, increased outpatient services Suicide Risk Level Suicide Risk Level: Moderate (q15 min suicide checks) (denies SI but with command AH telling her not to eat, feels safe in the hospital and feels able to ask for support) Risk Factors Assessment Male: No : Yes Do You Have Access To A Gun?: No Health Problems: No Mental Health Diagnoses: Yes Substance Use Disorders: No Previous Attempt: No Family History of Suicide: No Previous Psychiatric Hospitalization: Yes Hopelessness: No Protective Factors Assessment Presybeterian Beliefs: Yes Responsible for Young Children: Yes Employed: No Stable Relationships: Yes Supportive Family: Yes Interval History Identifying Information KHOI BHAKTA is a 38-year-old woman who currently lives with her fiance, has a history of schizophrenia, and was admitted on 10/26/24 01:52 on a 201 voluntary commitment for psychosis with command auditory hallucinations telling her not to eat. Chief Complaint "I'm good". Review of Systems Sleep Information Total Hours of Sleep: 9 Meal Information Percent Meal Consumed - Breakfast: 100 Percent Meal Consumed - Lunch: 100 Percent Meal Consumed - Dinner: 100 Subjective Subjective Patient was seen & assessed and interval progress reviewed with nursing and social work. More tired in the evening. Today reports improving mood, denies depression today. Feels her voices are less today. Still a little tired at times but she likes having the risperidone three times daily with meals. Physical Exam Psychiatric Orientation: alert and oriented x 3 Apperance: appropriately dressed and + disheveled Eye Contact: + fair eye contact Motor Behavior: no abnormal motor movements Speech: normal rate/rhythm/volume of speech (brief) Affect: + flat affect Mood: + anxious mood; no depressed mood Thought Process: + thought blocking Thought Content: + delusions Suicidal Thoughts: denies suicidal thoughts, denies suicidal plan and denies suicidal intent Homicidal Thoughts: denies homicidal thoughts Hallucinations: + auditory hallucinations (command telling her not to eat and to wash her hands); no visual hallucinations Cognition: recent memory grossly intact, remote memory grossly intact, attention grossly intact and language grossly intact Insight: + limited insight Judgment: + limited judgement Vital Signs (Past 24 Hours) Last Vital Signs Temp 36.8 C 10/31/24 06:32 Pulse 68 10/31/24 06:32 Resp 17 10/31/24 06:32 BP 110/77 10/31/24 06:33 Pulse Ox 98 10/31/24 06:32 O2 Del Method Room Air 10/31/24 06:32 Results & Data ([facility]) Current Inpatient Medications Current Inpatient Medications: Current Inpatient Medications Acetaminophen (Acetaminophen 325 Mg Tab) 650 mg PO Q4H PRN PRN Reason: Headache or Minor Fever Stop: 11/25/24 01:58 Al Hydrox/Mg Hydrox/Simethicone (Aluminum/Magnesium Susp 30 Ml Udc) 30 ml PO Q4H PRN PRN Reason: GI Upset Stop: 11/25/24 01:58 Benztropine Mesylate (Benztropine Mesylate 1 Mg Tab) 1 mg PO BID PRN PRN Reason: eps symptoms Stop: 11/26/24 02:37 Last Admin: 10/27/24 03:02 Dose: 1 mg Bismuth Subsalicylate (Bismuth Subsalicylate 262 Mg Chew) 2 tab PO Q30M PRN PRN Reason: Loose Stool/Diarrhea Stop: 11/25/24 01:58 Hydroxyzine HCl (Hydroxyzine Hcl 25 Mg Tab) 50 mg PO HSZ PRN PRN Reason: Insomnia Stop: 11/25/24 01:58 Last Admin: 10/27/24 00:44 Dose: 50 mg Hydroxyzine HCl (Hydroxyzine Hcl 25 Mg Tab) 25 mg PO Q4H PRN PRN Reason: Anxiety Stop: 11/25/24 01:58 Magnesium Hydroxide (Magnesium Hydroxide Susp 30 Ml Udc) 30 ml PO DAILY PRN PRN Reason: Constipation Stop: 11/25/24 01:58 Nicotine Polacrilex (Nicotine Polacrilex 2 Mg Gum) 1 piece MT PRN PRN PRN Reason: Nicotine Withdrawal Symptoms Stop: 11/25/24 01:58 Risperidone (Risperidone 1 Mg Tablet) 1 mg PO HS ROMMEL Stop: 11/28/24 21:59 Last Admin: 10/30/24 20:39 Dose: 1 mg Risperidone (Risperidone 0.25 Mg Tab) 0.5 mg PO TIDM ROMMEL Stop: 11/29/24 08:59 Last Admin: 10/31/24 08:43 Dose: 0.5 mg Sertraline HCl (Sertraline Hcl 100 Mg Tablet) 100 mg PO DAILY ROMMEL Stop: 11/30/24 08:59 Last Admin: 10/31/24 08:43 Dose: 100 mg Sodium Chloride (Sodium Chloride 0.65% Na Soln 45 Ml ([place])) 1 - 2 sprays NA PRN PRN PRN Reason: Nasal Dryness/Congestion Stop: 11/25/24 01:58 Mental Health & Subst Abuse Tx Therapist Name of Therapist: None Infant Toddler Lead Teacher Name of Infant Toddler Lead Teacher: Anyi Marcus Phone Number for Infant Toddler Lead Teacher: [phone] Case Management Appointment Comment: [email or web address]
[2024-11-01 07:04] VITALS: O2SAT 97
--- NOTE | 2024-11-01 09:02 | Psychiatric Progress Note ---
Date of Service November 01, 2024 Impression / Recommendations Impression KHOI BHAKTA is a 38-year-old woman who currently lives with her fiance, has a history of schizophrenia, and was admitted on 10/26/24 01:52 on a 201 voluntary commitment for psychosis with command auditory hallucinations telling her not to eat. Diagnostically consistent with unspecified psychosis with high suspicion for acute exacerbation of schizophrenia potentially due to recent transition from haldol decanoate JONES to abilify vs cannabis-induced psychosis (unlikely given hx of schizophrenia). A: Hallucinations lessening, still appears thought blocked at times. Attending groups more consistently and interacting a bit more spontaneously. Continue risperidone for now, seems to be tolerating this well, could consider option for Invega JONES. 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 (1) Psychotic disorder with delusions: (2) Schizophrenia: (3) Depression: Plan 11/01/2024: -Continue current medications and tx plan 10/31/2024: -Continue current medications and tx plan 10/30/2024: -Increase sertraline to 100mg daily tomorrow -Risperidone 0.5mg TID with meals 10/29/2024: -Increase risperidone to 1mg HS 10/28/2024: -Discontinue olanzapine -Start risperidone 0.5mg BID 10/27/2024: Continue current medications and tx plan 10/26/2024: The patient was admitted to the [facility] ([facility] mental health unit) on q15 min checks (behavioral with suicide precautions) for safety. The patient will participate in group, recreational, and milieu therapies and will be offered additional individual and family sessions as clinically appropriate. -Olanzapine 20mg HS -continue prior to admission Sertraline 50mg daily Inventory Assets Strengths: supportive relationships, willing to get treatment Needs: safety and stabilization, medication adjustment, additional coping skills, increased outpatient services Suicide Risk Level Suicide Risk Level: Moderate (q15 min suicide checks) (denies SI but with command AH telling her not to eat, feels safe in the hospital and feels able to ask for support) Risk Factors Assessment Male: No : Yes Do You Have Access To A Gun?: No Health Problems: No Mental Health Diagnoses: Yes Substance Use Disorders: No Previous Attempt: No Family History of Suicide: No Previous Psychiatric Hospitalization: Yes Hopelessness: No Protective Factors Assessment Episcopalian Beliefs: Yes Responsible for Young Children: Yes Employed: No Stable Relationships: Yes Supportive Family: Yes Interval History Identifying Information KHOI BHAKTA is a 38-year-old woman who currently lives with her fiance, has a history of schizophrenia, and was admitted on 10/26/24 01:52 on a 201 voluntary commitment for psychosis with command auditory hallucinations telling her not to eat. Chief Complaint "Doing good". Review of Systems Sleep Information Total Hours of Sleep: 7.25 Meal Information Percent Meal Consumed - Breakfast: 100 Percent Meal Consumed - Lunch: 100 Percent Meal Consumed - Dinner: 100 Subjective Subjective Patient was seen & assessed and interval progress reviewed with treatment team. Had a good visit with her partner last evening. Still quite blunted, thought process slow at times, can be latent. Reported her mood was "happy" yesterday. Attended more groups. Today reports she is "doing good" and confirmed she had a good visit with her fianc last night. She continues to find the risperidone helpful denies that is making her tired or causing any other side effects. However she was observed napping versus laying in bed at times during the day but also attending some groups. She likes the 3 times a day dosing of the risperidone noting "it helps keep them quiet" in regard to the voices. She denies suicidal ideation. She denies any other medication side effects. Physical Exam Psychiatric Orientation: alert and oriented x 3 Apperance: appropriately dressed and + disheveled Eye Contact: + fair eye contact Motor Behavior: no abnormal motor movements Speech: normal rate/rhythm/volume of speech (brief but slightly more expansive) Affect: + flat affect Mood: + anxious mood; no depressed mood Thought Process: + thought blocking Thought Content: + delusions (lessening, doesn't bring them up today) Suicidal Thoughts: denies suicidal thoughts, denies suicidal plan and denies suicidal intent Homicidal Thoughts: denies homicidal thoughts Hallucinations: + auditory hallucinations (command telling her not to eat and to wash her hands but lessening); no visual hallucinations Cognition: recent memory grossly intact, remote memory grossly intact, attention grossly intact and language grossly intact Insight: + limited insight Judgment: + limited judgement Vital Signs (Past 24 Hours) Last Vital Signs Temp 37.0 C 11/01/24 06:00 Pulse 70 11/01/24 06:00 Resp 14 11/01/24 06:00 BP 114/77 11/01/24 07:03 Pulse Ox 97 11/01/24 06:00 O2 Del Method Room Air 11/01/24 06:00 Results & Data ([facility]) Current Inpatient Medications Current Inpatient Medications: Current Inpatient Medications Acetaminophen (Acetaminophen 325 Mg Tab) 650 mg PO Q4H PRN PRN Reason: Headache or Minor Fever Stop: 11/25/24 01:58 Al Hydrox/Mg Hydrox/Simethicone (Aluminum/Magnesium Susp 30 Ml Udc) 30 ml PO Q4H PRN PRN Reason: GI Upset Stop: 11/25/24 01:58 Benztropine Mesylate (Benztropine Mesylate 1 Mg Tab) 1 mg PO BID PRN PRN Reason: eps symptoms Stop: 11/26/24 02:37 Last Admin: 10/27/24 03:02 Dose: 1 mg Bismuth Subsalicylate (Bismuth Subsalicylate 262 Mg Chew) 2 tab PO Q30M PRN PRN Reason: Loose Stool/Diarrhea Stop: 11/25/24 01:58 Hydroxyzine HCl (Hydroxyzine Hcl 25 Mg Tab) 50 mg PO HSZ PRN PRN Reason: Insomnia Stop: 11/25/24 01:58 Last Admin: 10/27/24 00:44 Dose: 50 mg Hydroxyzine HCl (Hydroxyzine Hcl 25 Mg Tab) 25 mg PO Q4H PRN PRN Reason: Anxiety Stop: 11/25/24 01:58 Magnesium Hydroxide (Magnesium Hydroxide Susp 30 Ml Udc) 30 ml PO DAILY PRN PRN Reason: Constipation Stop: 11/25/24 01:58 Nicotine Polacrilex (Nicotine Polacrilex 2 Mg Gum) 1 piece MT PRN PRN PRN Reason: Nicotine Withdrawal Symptoms Stop: 11/25/24 01:58 Risperidone (Risperidone 1 Mg Tablet) 1 mg PO HS ROMMEL Stop: 11/28/24 21:59 Last Admin: 10/31/24 21:53 Dose: 1 mg Risperidone (Risperidone 0.25 Mg Tab) 0.5 mg PO TIDM ROMMEL Stop: 11/29/24 08:59 Last Admin: 10/31/24 17:53 Dose: 0.5 mg Sertraline HCl (Sertraline Hcl 100 Mg Tablet) 100 mg PO DAILY ROMMEL Stop: 11/30/24 08:59 Last Admin: 10/31/24 08:43 Dose: 100 mg Sodium Chloride (Sodium Chloride 0.65% Na Soln 45 Ml ([place])) 1 - 2 sprays NA PRN PRN PRN Reason: Nasal Dryness/Congestion Stop: 11/25/24 01:58 Mental Health & Subst Abuse Tx Psychiatrist Name of Psychiatrist: Malia martinez [place] Therapist Name of Therapist: None Straddle Bug Driver Name of Straddle Bug Driver: Anyi Marcus Phone Number for Straddle Bug Driver: [phone] Case Management Appointment Comment: [email or web address] Discharge Appointments Primary Care Physician Name Of Family Doctor/PCP: Dr. Hendricks Contact Information Discharge Discharge Address: [address] [place] [address], [place] [address]
[2024-11-02 06:38] VITALS: RESP 16
[2024-11-02] MEDS: PALIPERIDONE PALMITATE 234 MG/1.5 ML SYR IM ONE (15:40)
--- NOTE | 2024-11-02 15:43 | Psychiatric Progress Note ---
Date of Service November 02, 2024 Impression / Recommendations Impression KHOI BAHKTA is a 38-year-old woman who currently lives with her fiance, has a history of schizophrenia, and was admitted on 10/26/24 01:52 on a 201 voluntary commitment for psychosis with command auditory hallucinations telling her not to eat. Diagnostically consistent with unspecified psychosis with high suspicion for acute exacerbation of schizophrenia potentially due to recent transition from haldol decanoate JONES to abilify vs cannabis-induced psychosis (unlikely given hx of schizophrenia). A: Patient endorses resolution of auditory disturbances however remains depressed and anxious. Has been tolerating risperidone well with no EPS. Some concern for catatonia given rigid posture, blunted affect, thought blocking, limited spontaneous speech. Initial urinalysis was positive for leukocyte esterase and WBCs and we will redraw today. Patient agreeable to long-acting injection of Invega Sustenna and will initiate. 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 (1) Psychotic disorder with delusions: (2) Schizophrenia: (3) Depression: Plan 11/02/2024: Repeat UA Invega Sustenna 234 mg IM once Start lorazepam 1 mg at bedtime 11/01/2024: -Continue current medications and tx plan 10/31/2024: -Continue current medications and tx plan 10/30/2024: -Increase sertraline to 100mg daily tomorrow -Risperidone 0.5mg TID with meals 10/29/2024: -Increase risperidone to 1mg HS 10/28/2024: -Discontinue olanzapine -Start risperidone 0.5mg BID 10/27/2024: Continue current medications and tx plan 10/26/2024: The patient was admitted to the [facility] ([facility] inpatient mental health unit) on q15 min checks (behavioral with suicide precautions) for safety. The patient will participate in group, recreational, and milieu therapies and will be offered additional individual and family sessions as clinically appropriate. -Olanzapine 20mg HS -continue prior to admission Sertraline 50mg daily Inventory Assets Strengths: supportive relationships, willing to get treatment Needs: safety and stabilization, medication adjustment, additional coping skills, increased outpatient services Suicide Risk Level Suicide Risk Level: Moderate (q15 min suicide checks) (denies SI but with command AH telling her not to eat, feels safe in the hospital and feels able to ask for support) Suicide Risk Level Comments: High-Moderate due to severe depression with SI with plan prior to admission but feels safe in the hospital, able to safety contract and agrees to let nursing/staff know should they develop plan, intent or feel unable to remain safe. Risk Factors Assessment Male: No : Yes Do You Have Access To A Gun?: No Health Problems: No Mental Health Diagnoses: Yes Substance Use Disorders: No Previous Attempt: No Family History of Suicide: No Previous Psychiatric Hospitalization: Yes Hopelessness: No Protective Factors Assessment Cheondoism Beliefs: Yes Responsible for Young Children: Yes Employed: No Stable Relationships: Yes Supportive Family: Yes Interval History Identifying Information KHOI BHAKTA is a 38-year-old woman who currently lives with her fiance, has a history of schizophrenia, and was admitted on 10/26/24 01:52 on a 201 voluntary commitment for psychosis with command auditory hallucinations telling her not to eat. Chief Complaint Depression Review of Systems Sleep Information Total Hours of Sleep: 10.25 Meal Information Percent Meal Consumed - Breakfast: 100 Percent Meal Consumed - Lunch: 100 Percent Meal Consumed - Dinner: 100 Subjective Subjective Patient was seen & assessed and interval progress reviewed with treatment team nursing and social work Patient presented with a rigid posture when walking and presents a blunted affect. She reports feeling more depressed and not moving as much for the past 2 weeks. Complains of increased anxiety and racing thoughts. Reports she has been sleeping well. She denies having any trouble expressing emotions on her face. Reports previous auditory hallucinations however now hearing background chatter only. Previously the voices would tell her not to eat or to wash her hands. These voices get worse when she attempts to eat. She denies SI and HI. Reports past depression however this is the first time in antidepressant was given to her. Reports 4 weeks ago consuming marijuana and 5 weeks ago smoking methamphetamine. Physical Exam Mental Examination Appearance: Disheveled Eye Contact: Maintains Eye Contact Motor Behavior: Unremarkable and Coordinated (Rigid) Speech: Delayed and Poverty of Speech Mood: Depressed Affect: Blunted Thought Process: Poverty of Content, Slowed Thinking and Thought Blocking Insight: Fair Judgement: Fair Vital Signs (Past 24 Hours) Last Vital Signs Temp 36.8 C 11/02/24 06:37 Pulse 86 11/02/24 06:37 Resp 16 11/02/24 06:37 BP 114/78 11/02/24 06:37 Pulse Ox 97 11/01/24 06:00 O2 Del Method Room Air 11/01/24 06:00 Results & Data ([facility]) Current Inpatient Medications Current Inpatient Medications: Current Inpatient Medications Acetaminophen (Acetaminophen 325 Mg Tab) 650 mg PO Q4H PRN PRN Reason: Headache or Minor Fever Stop: 11/25/24 01:58 Al Hydrox/Mg Hydrox/Simethicone (Aluminum/Magnesium Susp 30 Ml Udc) 30 ml PO Q4H PRN PRN Reason: GI Upset Stop: 11/25/24 01:58 Benztropine Mesylate (Benztropine Mesylate 1 Mg Tab) 1 mg PO BID PRN PRN Reason: eps symptoms Stop: 11/26/24 02:37 Last Admin: 10/27/24 03:02 Dose: 1 mg Bismuth Subsalicylate (Bismuth Subsalicylate 262 Mg Chew) 2 tab PO Q30M PRN PRN Reason: Loose Stool/Diarrhea Stop: 11/25/24 01:58 Hydroxyzine HCl (Hydroxyzine Hcl 25 Mg Tab) 50 mg PO HSZ PRN PRN Reason: Insomnia Stop: 11/25/24 01:58 Last Admin: 10/27/24 00:44 Dose: 50 mg Hydroxyzine HCl (Hydroxyzine Hcl 25 Mg Tab) 25 mg PO Q4H PRN PRN Reason: Anxiety Stop: 11/25/24 01:58 Lorazepam (Lorazepam 1 Mg Tab) 1 mg PO HS ROMMEL Stop: 12/02/24 21:59 Magnesium Hydroxide (Magnesium Hydroxide Susp 30 Ml Udc) 30 ml PO DAILY PRN PRN Reason: Constipation Stop: 11/25/24 01:58 Nicotine Polacrilex (Nicotine Polacrilex 2 Mg Gum) 1 piece MT PRN PRN PRN Reason: Nicotine Withdrawal Symptoms Stop: 11/25/24 01:58 Risperidone (Risperidone 1 Mg Tablet) 1 mg PO HS ROMMEL Stop: 11/28/24 21:59 Last Admin: 11/01/24 22:05 Dose: 1 mg Risperidone (Risperidone 0.25 Mg Tab) 0.5 mg PO TIDM ROMMEL Stop: 11/29/24 08:59 Last Admin: 11/02/24 12:32 Dose: 0.5 mg Sertraline HCl (Sertraline Hcl 100 Mg Tablet) 100 mg PO DAILY ROMMEL Stop: 11/30/24 08:59 Last Admin: 11/02/24 08:29 Dose: 100 mg Sodium Chloride (Sodium Chloride 0.65% Na Soln 45 Ml ([place])) 1 - 2 sprays NA PRN PRN PRN Reason: Nasal Dryness/Congestion Stop: 11/25/24 01:58 Mental Health & Subst Abuse Tx Psychiatrist Name of Psychiatrist: Malia martinez [place] Therapist Name of Therapist: None Pharmaceutical Process Engineer Name of Pharmaceutical Process Engineer: Anyi Marcus Phone Number for Pharmaceutical Process Engineer: [phone] Case Management Appointment Comment: [email or web address] Discharge Appointments Primary Care Physician Name Of Family Doctor/PCP: Dr. Hendricks Other #1: Name of Aftercare Appointment: [facility] Phone Number of Aftercare Appointment: [phone] Aftercare Appointment Comment: Ed Peters is [employer] ornamental ironworking supervisor [email or web address] Contact Information Discharge Discharge Address: [address] [place] [address], [place] [address]
[2024-11-02 16:26] LABS: Appearance Urine Turbid (Clear); Bacteria Urine Automated 4+ (None Seen); Bilirubin Urine Negative (Negative); Blood Urine Negative (Negative); Cast Urine Automated 0-2 /lpf (0-2); Color Urine Yellow; Glucose Urine UA Negative (Negative); Ketones Urine Negative (Negative); Leukocyte Esterase Urine 1+ (Negative); Nitrite Urine Negative (Negative); Protein Urine Negative (Negative); RBC Urine Automated 0-2 /hpf (0-2); Specific Gravity Urine 1.018 (1.000-1.030); Urobilinogen Urine Negative (Negative); pH Urine 6.5 (4.5-7.5)
[2024-11-02] MEDS: LORazepam 1 MG TAB PO SCH (21:32)
[2024-11-03] MEDS: LORazepam 0.5 MG TAB PO SCH (14:31)
--- NOTE | 2024-11-03 15:24 | Psychiatric Progress Note ---
Date of Service November 03, 2024 Impression / Recommendations Impression KHOI BHAKTA is a 38-year-old woman who currently lives with her fiance, has a history of schizophrenia, and was admitted on 10/26/24 01:52 on a 201 voluntary commitment for psychosis with command auditory hallucinations telling her not to eat. Diagnostically consistent with unspecified psychosis with high suspicion for acute exacerbation of schizophrenia potentially due to recent transition from haldol decanoate JONES to abilify vs cannabis-induced psychosis (unlikely given hx of schizophrenia). A: Patient has tolerated the Invega Sustenna shot well. No EPS on exam. Sleep improved with lorazepam. Some concern for catatonia and we will schedule low- dose Ativan during the day. Ongoing auditory hallucinations however decreased. UA results show 1+ LE and 4+ bacteria; pt cont to be asymptomatic; will enc ourage hydrations and monitor. 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 (1) Psychotic disorder with delusions: (2) Schizophrenia: (3) Depression: Plan 11/03/2024: Start lorazepam 0.5 mg in the morning and 0.5 mg in the afternoon. Follow-up Invega Sustenna dose expected on 11/06/2024. 11/02/2024: Repeat UA Invega Sustenna 234 mg IM once Start lorazepam 1 mg at bedtime 11/01/2024: -Continue current medications and tx plan 10/31/2024: -Continue current medications and tx plan 10/30/2024: -Increase sertraline to 100mg daily tomorrow -Risperidone 0.5mg TID with meals 10/29/2024: -Increase risperidone to 1mg HS 10/28/2024: -Discontinue olanzapine -Start risperidone 0.5mg BID 10/27/2024: Continue current medications and tx plan 10/26/2024: The patient was admitted to the [facility] on q15 min checks (behavioral with suicide precautions) for safety. The patient will participate in group, recreational, and milieu therapies and will be offered additional individual and family sessions as clinically appropriate. -Olanzapine 20mg HS -continue prior to admission Sertraline 50mg daily Inventory Assets Strengths: supportive relationships, willing to get treatment Needs: safety and stabilization, medication adjustment, additional coping skills, increased outpatient services Suicide Risk Level Suicide Risk Level: Moderate (q15 min suicide checks) (denies SI but with command AH telling her not to eat, feels safe in the hospital and feels able to ask for support) Suicide Risk Level Comments: High-Moderate due to severe depression with SI with plan prior to admission but feels safe in the hospital, able to safety contract and agrees to let nursing/staff know should they develop plan, intent or feel unable to remain safe. Risk Factors Assessment Male: No : Yes Do You Have Access To A Gun?: No Health Problems: No Mental Health Diagnoses: Yes Substance Use Disorders: No Previous Attempt: No Family History of Suicide: No Previous Psychiatric Hospitalization: Yes Hopelessness: No Protective Factors Assessment Rastafari Beliefs: Yes Responsible for Young Children: Yes Employed: No Stable Relationships: Yes Supportive Family: Yes Interval History Identifying Information KHOI BHAKTA is a 38-year-old woman who currently lives with her fiance, has a history of schizophrenia, and was admitted on 10/26/24 01:52 on a 201 voluntary commitment for psychosis with command auditory hallucinations telling her not to eat. Chief Complaint Auditory hallucinations Review of Systems Sleep Information Total Hours of Sleep: 7 Meal Information Percent Meal Consumed - Breakfast: 100 Percent Meal Consumed - Lunch: 100 Percent Meal Consumed - Dinner: 100 Subjective Subjective Patient was seen & assessed and interval progress reviewed with treatment team nursing and social work Patient received Invega Sustenna 234 mg injection yesterday. On exam no inflammation or pain at the injection site. She reports fair mood. Slept better last night with introduction of Ativan. No EPS on exam. She reports sleeping well through the night with no awakenings. She continues to present a rigid posture with a blunted affect and limited spontaneous speech. Often answers yes or no to questions. She denies suicidal ideation. Reports ongoing background chatter however has been less intense than on admission. Physical Exam Mental Examination Appearance: Disheveled Eye Contact: Maintains Eye Contact Motor Behavior: Unremarkable and Coordinated (Rigid) Speech: Delayed and Poverty of Speech Mood: Depressed Affect: Blunted Thought Process: Poverty of Content, Slowed Thinking and Thought Blocking Insight: Fair Judgement: Fair Vital Signs (Past 24 Hours) Last Vital Signs Temp 36.6 C 11/03/24 06:43 Pulse 86 11/03/24 06:44 Resp 16 11/03/24 06:43 BP 115/79 11/03/24 06:44 Pulse Ox 97 11/01/24 06:00 O2 Del Method Room Air 11/01/24 06:00 Results & Data ([facility]) Laboratory Results Laboratory Results - last 24 hr 11/02/24 15:50 Urine Color Yellow Urine Appearance Turbid A Urine pH 6.5 Ur Specific B[place]l 1.018 Urine Protein Negative Urine Glucose (UA) Negative Urine Ketones Negative Urine Blood Negative Urine Nitrite Negative Urine Bilirubin Negative Urine Urobilinogen Negative Ur Leukocyte Esterase 1+ H Urine WBC (Auto) 11-20 H Urine RBC (Auto) 0-2 U Hyaline Cast (Auto) 0-2 U Epithel Cells (Auto) 3-5 H Urine Bacteria (Auto) 4+ H Current Inpatient Medications Current Inpatient Medications: Current Inpatient Medications Acetaminophen (Acetaminophen 325 Mg Tab) 650 mg PO Q4H PRN PRN Reason: Headache or Minor Fever Stop: 11/25/24 01:58 Al Hydrox/Mg Hydrox/Simethicone (Aluminum/Magnesium Susp 30 Ml Udc) 30 ml PO Q4H PRN PRN Reason: GI Upset Stop: 11/25/24 01:58 Benztropine Mesylate (Benztropine Mesylate 1 Mg Tab) 1 mg PO BID PRN PRN Reason: eps symptoms Stop: 11/26/24 02:37 Last Admin: 10/27/24 03:02 Dose: 1 mg Bismuth Subsalicylate (Bismuth Subsalicylate 262 Mg Chew) 2 tab PO Q30M PRN PRN Reason: Loose Stool/Diarrhea Stop: 11/25/24 01:58 Hydroxyzine HCl (Hydroxyzine Hcl 25 Mg Tab) 50 mg PO HSZ PRN PRN Reason: Insomnia Stop: 11/25/24 01:58 Last Admin: 10/27/24 00:44 Dose: 50 mg Hydroxyzine HCl (Hydroxyzine Hcl 25 Mg Tab) 25 mg PO Q4H PRN PRN Reason: Anxiety Stop: 11/25/24 01:58 Lorazepam (Lorazepam 1 Mg Tab) 1 mg PO HS ROMMEL Stop: 12/02/24 21:59 Last Admin: 11/02/24 21:32 Dose: 1 mg Lorazepam (Lorazepam 0.5 Mg Tab) 0.5 mg PO BID@0900,1400 ROMMEL Stop: 12/03/24 13:59 Last Admin: 11/03/24 14:31 Dose: 0.5 mg Magnesium Hydroxide (Magnesium Hydroxide Susp 30 Ml Udc) 30 ml PO DAILY PRN PRN Reason: Constipation Stop: 11/25/24 01:58 Nicotine Polacrilex (Nicotine Polacrilex 2 Mg Gum) 1 piece MT PRN PRN PRN Reason: Nicotine Withdrawal Symptoms Stop: 11/25/24 01:58 Risperidone (Risperidone 1 Mg Tablet) 1 mg PO HS ROMMEL Stop: 11/28/24 21:59 Last Admin: 11/02/24 21:32 Dose: 1 mg Risperidone (Risperidone 0.25 Mg Tab) 0.5 mg PO TIDM ROMMEL Stop: 11/29/24 08:59 Last Admin: 11/03/24 12:54 Dose: 0.5 mg Sertraline HCl (Sertraline Hcl 100 Mg Tablet) 100 mg PO DAILY ROMMEL Stop: 11/30/24 08:59 Last Admin: 11/03/24 08:45 Dose: 100 mg Sodium Chloride (Sodium Chloride 0.65% Na Soln 45 Ml ([place])) 1 - 2 sprays NA PRN PRN PRN Reason: Nasal Dryness/Congestion Stop: 11/25/24 01:58 Mental Health & Subst Abuse Tx Psychiatrist Name of Psychiatrist: Malia martinez [place] Therapist Name of Therapist: None Didactic Instructor Name of Didactic Instructor: Anyi Marcus Phone Number for Didactic Instructor: [phone] Case Management Appointment Comment: [email or web address] Discharge Appointments Primary Care Physician Name Of Family Doctor/PCP: Dr. Hendricks Other #1: Name of Aftercare Appointment: [facility] Phone Number of Aftercare Appointment: [phone] Aftercare Appointment Comment: Ed Peters is BSU sound effects supervisor [email or web address] Contact Information Discharge Discharge Address: [address] [place] [address], [place] [address]
--- NOTE | 2024-11-04 12:47 | Psychiatric Progress Note ---
Date of Service November 04, 2024 Impression / Recommendations Impression KHOI BHAKTA is a 38-year-old woman who currently lives with her fiance, has a history of schizophrenia, and was admitted on 10/26/24 01:52 on a 201 voluntary commitment for psychosis with command auditory hallucinations telling her not to eat. Diagnostically consistent with unspecified psychosis with high suspicion for acute exacerbation of schizophrenia potentially due to recent transition from haldol decanoate JONES to abilify vs cannabis-induced psychosis (unlikely given hx of schizophrenia). A: Patient is tolerating a long-acting injection well. Concern for side effects of lorazepam during the day and will discontinue daytime doses. Likely patient has negative symptoms of a schizoaffective illness rather than catatonia. She has presented appropriate behaviors with improved sleep and appetite. HR acutely high and monitoring, likely due to AP initiation and recent lorazepam. Plan for follow-up injection of Invega Sustenna on Monday. 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 (1) Schizoaffective disorder, depressive type: (2) Auditory hallucinations: Plan 11/04/2024: Discontinue lorazepam 0.5 mg twice daily in morning and afternoon 11/03/2024: Start lorazepam 0.5 mg in the morning and 0.5 mg in the afternoon. Follow-up Invega Sustenna dose expected on 11/06/2024. 11/02/2024: Repeat UA Invega Sustenna 234 mg IM once Start lorazepam 1 mg at bedtime 11/01/2024: -Continue current medications and tx plan 10/31/2024: -Continue current medications and tx plan 10/30/2024: -Increase sertraline to 100mg daily tomorrow -Risperidone 0.5mg TID with meals 10/29/2024: -Increase risperidone to 1mg HS 10/28/2024: -Discontinue olanzapine -Start risperidone 0.5mg BID 10/27/2024: Continue current medications and tx plan 10/26/2024: The patient was admitted to the [facility]) on q15 min checks (behavioral with suicide precautions) for safety. The patient will participate in group, recreational, and milieu therapies and will be offered additional individual and family sessions as clinically appropriate. -Olanzapine 20mg HS -continue prior to admission Sertraline 50mg daily Inventory Assets Strengths: supportive relationships, willing to get treatment Needs: safety and stabilization, medication adjustment, additional coping skills, increased outpatient services Suicide Risk Level Suicide Risk Level: Moderate (q15 min suicide checks) (denies SI but with command AH telling her not to eat, feels safe in the hospital and feels able to ask for support) Suicide Risk Level Comments: High-Moderate due to severe depression with SI with plan prior to admission but feels safe in the hospital, able to safety contract and agrees to let nursing/staff know should they develop plan, intent or feel unable to remain safe. Risk Factors Assessment Male: No : Yes Do You Have Access To A Gun?: No Health Problems: No Mental Health Diagnoses: Yes Substance Use Disorders: No Previous Attempt: No Family History of Suicide: No Previous Psychiatric Hospitalization: Yes Hopelessness: No Protective Factors Assessment Faith Beliefs: Yes Responsible for Young Children: Yes Employed: No Stable Relationships: Yes Supportive Family: Yes Interval History Identifying Information KHOI BHAKTA is a 38-year-old woman who currently lives with her fiance, has a history of schizophrenia, and was admitted on 10/26/24 01:52 on a 201 voluntary commitment for psychosis with command auditory hallucinations telling her not to eat. Chief Complaint Psychosis Review of Systems Sleep Information Total Hours of Sleep: 7.75 Meal Information Percent Meal Consumed - Breakfast: 100 Percent Meal Consumed - Lunch: 100 Percent Meal Consumed - Dinner: 100 Subjective Subjective Patient was seen & assessed and interval progress reviewed with treatment team nursing and social work Patient slept 7.25 hours. Has been eating her meals and snacking. On interview she continues to present a blunted affect with a rigid posture. She reports sleeping well. Feels dizzy and lightheaded during the day. Reports voices are "quiet". Has been able to eat with no disruption. Reports injection site pain is improved. Endorses no further concerns or needs. She denies SI. She denies feeling any muscle rigidity or locking of muscles. Physical Exam Mental Examination Appearance: Disheveled Eye Contact: Maintains Eye Contact Motor Behavior: Unremarkable and Coordinated (Rigid) Speech: Delayed and Poverty of Speech Mood: Calm Affect: Blunted Thought Process: Poverty of Content, Slowed Thinking and Thought Blocking Insight: Fair Judgement: Fair Vital Signs (Past 24 Hours) Last Vital Signs Temp 36.7 C 11/04/24 06:41 Pulse 97 H 11/04/24 09:55 Resp 16 11/04/24 06:41 BP 113/76 11/04/24 06:41 Pulse Ox 97 11/01/24 06:00 O2 Del Method Room Air 11/01/24 06:00 Results & Data ([facility]) Current Inpatient Medications Current Inpatient Medications: Current Inpatient Medications Acetaminophen (Acetaminophen 325 Mg Tab) 650 mg PO Q4H PRN PRN Reason: Headache or Minor Fever Stop: 11/25/24 01:58 Al Hydrox/Mg Hydrox/Simethicone (Aluminum/Magnesium Susp 30 Ml Udc) 30 ml PO Q4H PRN PRN Reason: GI Upset Stop: 11/25/24 01:58 Benztropine Mesylate (Benztropine Mesylate 1 Mg Tab) 1 mg PO BID PRN PRN Reason: eps symptoms Stop: 11/26/24 02:37 Last Admin: 10/27/24 03:02 Dose: 1 mg Bismuth Subsalicylate (Bismuth Subsalicylate 262 Mg Chew) 2 tab PO Q30M PRN PRN Reason: Loose Stool/Diarrhea Stop: 11/25/24 01:58 Hydroxyzine HCl (Hydroxyzine Hcl 25 Mg Tab) 50 mg PO HSZ PRN PRN Reason: Insomnia Stop: 11/25/24 01:58 Last Admin: 10/27/24 00:44 Dose: 50 mg Hydroxyzine HCl (Hydroxyzine Hcl 25 Mg Tab) 25 mg PO Q4H PRN PRN Reason: Anxiety Stop: 11/25/24 01:58 Lorazepam (Lorazepam 1 Mg Tab) 1 mg PO HS ROMMEL Stop: 12/02/24 21:59 Last Admin: 11/03/24 21:43 Dose: 1 mg Magnesium Hydroxide (Magnesium Hydroxide Susp 30 Ml Udc) 30 ml PO DAILY PRN PRN Reason: Constipation Stop: 11/25/24 01:58 Nicotine Polacrilex (Nicotine Polacrilex 2 Mg Gum) 1 piece MT PRN PRN PRN Reason: Nicotine Withdrawal Symptoms Stop: 11/25/24 01:58 Risperidone (Risperidone 1 Mg Tablet) 1 mg PO HS ROMMEL Stop: 11/28/24 21:59 Last Admin: 11/03/24 21:43 Dose: 1 mg Risperidone (Risperidone 0.25 Mg Tab) 0.5 mg PO BID@0900,1400 ROMMEL Stop: 12/04/24 13:59 Sertraline HCl (Sertraline Hcl 100 Mg Tablet) 100 mg PO DAILY ROMMEL Stop: 11/30/24 08:59 Last Admin: 11/04/24 08:32 Dose: 100 mg Sodium Chloride (Sodium Chloride 0.65% Na Soln 45 Ml ([place])) 1 - 2 sprays NA PRN PRN PRN Reason: Nasal Dryness/Congestion Stop: 11/25/24 01:58 Mental Health & Subst Abuse Tx Psychiatrist Name of Psychiatrist: Malia Cueto Telepsych[facility] Psychiatrist's Therapist Name of Therapist: None Aquaculture Worker Name of Aquaculture Worker: [facility] Phone Number for Aquaculture Worker: [phone] Case Management Appointment Comment: [email or web address] Ed Peters is BSU supervisor shuttle veneering [email or web address] Post Discharge Appointments Primary Care Physician Name Of Family Doctor/PCP: Dr. Hendricks Other #1: Name of Aftercare Appointment[facility] Phone Number of Aftercare Appointment: [phone] Aftercare Appointment Comment: Ed Peters is BSU supervisor shuttle veneering [email or web address] Contact Information Discharge Discharge Address: [address] [place] [address], [place] [address]
[2024-11-04] MEDS: risperiDONE 0.25 MG TAB PO SCH (15:05)
--- NOTE | 2024-11-05 14:05 | Psychiatric Progress Note ---
Date of Service November 05, 2024 Impression / Recommendations Impression KHOI BHAKTA is a 38-year-old woman who currently lives with her fiance, has a history of schizophrenia, and was admitted on 10/26/24 01:52 on a 201 voluntary commitment for psychosis with command auditory hallucinations telling her not to eat. Diagnostically consistent with unspecified psychosis with high suspicion for acute exacerbation of schizophrenia potentially due to recent transition from haldol decanoate JONES to abilify vs cannabis-induced psychosis (unlikely given hx of schizophrenia). A: Patient is doing well with her auditory hallucinations at baseline. Sleep is improved. Tolerating a long-acting injection well and we will plan for the second loading dose tomorrow. Plan to decrease nightly lorazepam. 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 (1) Schizoaffective disorder, depressive type: (2) Auditory hallucinations: Plan 11/05/2024: Decrease lorazepam to 0.5 mg at bedtime Invega Sustenna 117 mg scheduled for tomorrow 11/04/2024: Discontinue lorazepam 0.5 mg twice daily in morning and afternoon 11/03/2024: Start lorazepam 0.5 mg in the morning and 0.5 mg in the afternoon. Follow-up Invega Sustenna dose expected on 11/06/2024. 11/02/2024: Repeat UA Invega Sustenna 234 mg IM once Start lorazepam 1 mg at bedtime 11/01/2024: -Continue current medications and tx plan 10/31/2024: -Continue current medications and tx plan 10/30/2024: -Increase sertraline to 100mg daily tomorrow -Risperidone 0.5mg TID with meals 10/29/2024: -Increase risperidone to 1mg HS 10/28/2024: -Discontinue olanzapine -Start risperidone 0.5mg BID 10/27/2024: Continue current medications and tx plan 10/26/2024: The patient was admitted to the [facility] ([facility] unit) on q15 min checks (behavioral with suicide precautions) for safety. The patient will participate in group, recreational, and milieu therapies and will be offered additional individual and family sessions as clinically appropriate. -Olanzapine 20mg HS -continue prior to admission Sertraline 50mg daily Inventory Assets Strengths: supportive relationships, willing to get treatment Needs: safety and stabilization, medication adjustment, additional coping skills, increased outpatient services Suicide Risk Level Suicide Risk Level: Moderate (q15 min suicide checks) (denies SI but with command AH telling her not to eat, feels safe in the hospital and feels able to ask for support) Suicide Risk Level Comments: High-Moderate due to severe depression with SI with plan prior to admission but feels safe in the hospital, able to safety contract and agrees to let n ursing/staff know should they develop plan, intent or feel unable to remain safe. Risk Factors Assessment Male: No : Yes Do You Have Access To A Gun?: No Health Problems: No Mental Health Diagnoses: Yes Substance Use Disorders: No Previous Attempt: No Family History of Suicide: No Previous Psychiatric Hospitalization: Yes Hopelessness: No Protective Factors Assessment Judaism Beliefs: Yes Responsible for Young Children: Yes Employed: No Stable Relationships: Yes Supportive Family: Yes Interval History Identifying Information KHOI BHAKTA is a 38-year-old woman who currently lives with her fiance, has a history of schizophrenia, and was admitted on 10/26/24 01:52 on a 201 voluntary commitment for psychosis with command auditory hallucinations telling her not to eat. Chief Complaint Auditory hallucinations Review of Systems Sleep Information Total Hours of Sleep: 10.5 Meal Information Percent Meal Consumed - Breakfast: 100 Percent Meal Consumed - Lunch: 100 Percent Meal Consumed - Dinner: 100 Subjective Subjective Patient was seen & assessed and interval progress reviewed with treatment team nursing and social work Patient attended some groups. Continues to show a blunted affect with slowed movements. Has been eating well. Slept 10.5 hours. The patient reports feeling rested. Was able to sleep through the night. Says that the voices are quiet. Reports that the voices become louder when she eats. There is been no recent change in the volume of the voices. They are both in the male and female voice. They have never completely gone away. Says that they reduced in volume when she washes her hands. She denies any other activities that alleviate the intensity of the voices. She denies suicidal ideation. Reports overall she is doing well. Says that she gets her long-acting injections from [facility]. Physical Exam Mental Examination Appearance: Disheveled Eye Contact: Maintains Eye Contact Motor Behavior: Unremarkable and Coordinated Speech: Delayed and Poverty of Speech Mood: Calm Affect: Blunted Thought Process: Poverty of Content and Slowed Thinking Insight: Fair Judgement: Fair Vital Signs (Past 24 Hours) Last Vital Signs Temp 36.6 C 11/05/24 06:35 Pulse 75 11/05/24 06:36 Resp 16 11/05/24 06:35 BP 110/73 11/05/24 06:36 Pulse Ox 97 11/01/24 06:00 O2 Del Method Room Air 11/01/24 06:00 Results & Data ([facility]) Current Inpatient Medications Current Inpatient Medications: Current Inpatient Medications Acetaminophen (Acetaminophen 325 Mg Tab) 650 mg PO Q4H PRN PRN Reason: Headache or Minor Fever Stop: 11/25/24 01:58 Al Hydrox/Mg Hydrox/Simethicone (Aluminum/Magnesium Susp 30 Ml Udc) 30 ml PO Q4H PRN PRN Reason: GI Upset Stop: 11/25/24 01:58 Benztropine Mesylate (Benztropine Mesylate 1 Mg Tab) 1 mg PO BID PRN PRN Reason: eps symptoms Stop: 11/26/24 02:37 Last Admin: 10/27/24 03:02 Dose: 1 mg Bismuth Subsalicylate (Bismuth Subsalicylate 262 Mg Chew) 2 tab PO Q30M PRN PRN Reason: Loose Stool/Diarrhea Stop: 11/25/24 01:58 Hydroxyzine HCl (Hydroxyzine Hcl 25 Mg Tab) 50 mg PO HSZ PRN PRN Reason: Insomnia Stop: 11/25/24 01:58 Last Admin: 10/27/24 00:44 Dose: 50 mg Hydroxyzine HCl (Hydroxyzine Hcl 25 Mg Tab) 25 mg PO Q4H PRN PRN Reason: Anxiety Stop: 11/25/24 01:58 Lorazepam (Lorazepam 0.5 Mg Tab) 0.5 mg PO HS ROMMEL Stop: 12/05/24 21:59 Magnesium Hydroxide (Magnesium Hydroxide Susp 30 Ml Udc) 30 ml PO DAILY PRN PRN Reason: Constipation Stop: 11/25/24 01:58 Nicotine Polacrilex (Nicotine Polacrilex 2 Mg Gum) 1 piece MT PRN PRN PRN Reason: Nicotine Withdrawal Symptoms Stop: 11/25/24 01:58 Paliperidone Palmitate (Paliperidone Palmitate 117 Mg/0.75 Ml Syr) 117 mg IM ONCE ONE Stop: 11/06/24 09:01 Risperidone (Risperidone 1 Mg Tablet) 1 mg PO HS ROMMEL Stop: 11/28/24 21:59 Last Admin: 11/04/24 21:48 Dose: 1 mg Risperidone (Risperidone 0.25 Mg Tab) 0.5 mg PO BID@0900,1400 ROMMEL Stop: 12/04/24 13:59 Last Admin: 11/05/24 08:37 Dose: 0.5 mg Sertraline HCl (Sertraline Hcl 100 Mg Tablet) 100 mg PO DAILY ROMMEL Stop: 11/30/24 08:59 Last Admin: 11/05/24 08:37 Dose: 100 mg Sodium Chloride (Sodium Chloride 0.65% Na Soln 45 Ml (Bison)) 1 - 2 sprays NA PRN PRN PRN Reason: Nasal Dryness/Congestion Stop: 11/25/24 01:58 Mental Health & Subst Abuse Tx Psychiatrist Name of Psychiatrist: Malia Cueto [facility] Psychiatrist's Psychiatric Appointment Comment: [facility] to give [facility] injection Therapist Name of Therapist: None Wool Hat Sanding Machine Operator Name of Wool Hat Sanding Machine Operator: [facility]Ed Peters Phone Number for Wool Hat Sanding Machine Operator: [phone] Date of Appointment with Wool Hat Sanding Machine Operator: 11/13/24 Time of Appointment with Wool Hat Sanding Machine Operator: 1PM Case Management Appointment Comment: Ed Peters is [employer] office machine repair shop supervisor [email or web address]. He will call after DC Post Discharge Appointments Primary Care Physician Name Of Family Doctor/PCP: Dr. Hendricks Other #1: Name of Aftercare Appointment: [facility] Phone Number of Aftercare Appointment: [phone] Aftercare Appointment Comment: Ed Peters is [employer]SU office machine repair shop supervisor [email or web address] Contact Information Discharge Discharge Address: [address] [place] [address], [place], [place] [address]
[2024-11-05] MEDS: LORazepam 0.5 MG TAB PO SCH (21:13)
[2024-11-06 06:37] VITALS: TEMP 98.4
[2024-11-06 09:57] VITALS: BP 128/88; PULSE 70
[2024-11-06] MEDS: PALIPERIDONE PALMITATE 117 MG/0.75 ML SYR IM ONE (11:15)
--- NOTE | 2024-11-06 11:33 | Discharge Summary ---
Date of Service November 06, 2024 History of Present Illness She presents for psychiatric admission for worsening psychosis with command auditory hallucinations instructing her "not to eat" and to "wash my hands". She feels this is happening because "my third eye is open". She reports uncertainty about possible factors leading to her symptoms, reports recent adherence with abilify and sertraline. She reports recent poor sleep and "depression" which she attributes to the hallucinations. She feels if these were to stop her mood would then improve. She struggles to provide much else in terms of history, current symptoms or recent events related to her care/treatment and seemingly is quite thought blocked during our conversation. Reportedly on haldol decanoate JONES up until recently but she is unable to articulate when her last injection was (possibly late August). Stated she has been recently on abilify 5mg daily and adherent with this and then also taking sertraline 50mg daily. Additional history per ED CM note on 10/25/2024: "Met with Corazon bedside to complete mental health evaluation. Corazon stated she is diagnosed with Schizophrenia. She stated she is prescribed Abilify and Zoloft by [facility] in [place]. She stated she takes her medication as prescribed. She reports increase in depression for the past week. She also reports increased intensity and frequency of auditory command hallucinations telling her to not eat and wash her hands. She stated she ate a grilled cheese sandwich yesterday and a cookie the day before. Corazon stated the voices do not stop. She denies visual hallucinations. She reports decreased sleep. She stated she has a poor appetite and has lost a little weight. She denies paranoia. She talked about her "third eye that is now open." She stated she lives with her fiance/Yvon who she identifies as supportive. She stated she is not employed. She reports inpatient treatment history on the past on [facility]. She denies SI or prior attempts. She denies HI or aggression. She denies SIB. She denies any medical issues. She denies any legal issues. She denies alcohol use. She reports daily THC use. She denies history of trauma/abuse" Psychiatric ROS notable for no known history of blayne, PTSD, OCD, self-harm nor eating disorder. Physical Exam Mental Examination Appearance: Disheveled Eye Contact: Maintains Eye Contact Motor Behavior: Unremarkable and Coordinated Speech: Poverty of Speech Mood: Calm Affect: Constricted (to blunted) Thought Process: Intact (limited spontaneous speech) and Slowed Thinking Insight: Fair Judgement: Fair Vital Signs (Past 24 Hours) Last Vital Signs Temp 36.9 C 11/06/24 09:51 Pulse 70 11/06/24 09:51 Resp 16 11/06/24 09:51 BP 128/88 11/06/24 09:51 Pulse Ox 97 11/06/24 09:51 O2 Del Method Room Air 11/01/24 06:00 Principal Diagnosis Schizoaffective disorder, depressive type Psychiatric Data See daily stay summary. In short, safety was maintained and the patient was cooperative with care. Medication changes included starting oral Risperidone and transitioning to JONES Invega Sustenna 117mg Qmonthly and Sertraline 100mg daily and they tolerated this well. A family session was held and safety plan was completed prior to discharge. Pt presents command AH to limit food intake; reports they have been "quiet" and has been eating well on the unit. Exhibiting good self care, appropriate behaviors, denial of SI, future oriented, and denies med s/e. Encouraged to utilize case management for community support and vocational resources. H/o substance abuse and will not be prescribed controlled substances upon discharge. Day of Discharge Assessment Today the patient voices readiness for discharge. They note improvement in mood and deny thoughts to harm self or others. Thoughts remain organized and they are improved from admission. There is no evidence of psychosis. They agree to take mediations as prescribed and keep follow-up appointments. They are stable for discharge to outpatient level of care. Transition of Care Transition Of Care Record: was reviewed with the patient Advance Directives Advance Directives Information Provided: Yes Advance Directives: No Mental Health Advance Directive: No Advance Directives on File: No Living Will: No Power of [place]: No Advance Directives Reason:: Declines as Mental Health Visit. Suicide Risk Level Suicide Risk Level Comments: High-Moderate due to severe depression with SI with plan prior to admission but feels safe in the hospital, able to safety contract and agrees to let nursing/staff know should they develop plan, intent or feel unable to remain safe. Risk Factors Assessment Male: No : Yes Do You Have Access To A Gun?: No Health Problems: No Mental Health Diagnoses: Yes Substance Use Disorders: No Previous Attempt: No Family History of Suicide: No Previous Psychiatric Hospitalization: Yes Hopelessness: No Protective Factors Assessment Holiness Beliefs: Yes Responsible for Young Children: Yes Employed: No Stable Relationships: Yes Supportive Family: Yes Discharge Data Lab Results 10/25/24 10/25/24 10/25/24 17:43 18:23 18:27 WBC 5.70 RBC 5.30 Hgb 15.6 Hct 44.9 MCV 84.7 MCH 29.4 MCHC 34.7 RDW Std Deviation 37.2 RDW Coeff of Janet 12.2 Plt Count 378 MPV 9.3 L Immature Gran % (Auto) 0.2 Neut % (Auto) 39.4 Lymph % (Auto) 50.0 [place] % (Auto) 8.4 Eos % (Auto) 1.1 Baso % (Auto) 0.9 Neut # (Auto) 2.25 Lymph # (Auto) 2.85 [place] # (Auto) 0.48 Eos # (Auto) 0.06 Baso # (Auto) 0.05 Immature Gran # (Auto) 0.01 Sodium 139 Potassium 3.9 Chloride 103 Carbon Dioxide 30 Anion Gap 6 BUN 12 Creatinine 0.89 Est Cr Clr Drug Dosing 72.7 eGFR 85.05 BUN/Creatinine Ratio 13.5 Glucose 87 Estimat Average Glucose Hemoglobin A1c Calcium 10.3 Total Bilirubin 0.4 AST 14 ALT 13 Alkaline Phosphatase 78 Total Protein 8.6 H Albumin 5.0 Globulin 3.6 Albumin/Globulin Ratio 1.4 Triglycerides Cholesterol LDL Cholesterol, Calc VLDL Cholesterol, Calc HDL Cholesterol Cholesterol/HDL Ratio TSH 2.489 Urine Color Yellow Urine Appearance Turbid A Urine pH 7.0 Ur Specific [place] 1.027 Urine Protein 1+ H Urine Glucose (UA) Negative Urine Ketones Trace H Urine Blood Negative Urine Nitrite Positive A Urine Bilirubin Negative Urine Urobilinogen Negative Ur Leukocyte Esterase 2+ H Urine WBC (Auto) >50 H Urine RBC (Auto) 0-2 U Hyaline Cast (Auto) 6-10 H U Epithel Cells (Auto) 11-20 H Urine Bacteria (Auto) 4+ H Hyaline Casts Present A Urine Mucus Present A Urine Test Negative POC Ur Test Salicylates < 3.0 L Urine Opiates Screen Neg Ur Methadone, Qual Neg Urine Fentanyl Screen Neg Acetaminophen < 3 L Urine Barbiturates Neg Ur Phencyclidine (PCP) Neg U Amphetamin/Meth Scrn Neg MDMA (Ecstasy) Screen Neg U Benzodiazepines Scrn Neg Ur Cocaine Metabolite Neg U Marijuana (THC) Screen Pos H U Marijuana THC Carboxy 73 H Drug Screen Comment SEE NOTE Ethyl Alcohol mg/dL < 10.0 SARS-CoV-2, RNA, NAAT 10/25/24 10/25/24 10/27/24 18:28 Unknown 06:57 WBC RBC Hgb Hct MCV MCH MCHC RDW Std Deviation RDW Coeff of Janet Plt Count MPV Immature Gran % (Auto) Neut % (Auto) Lymph % (Auto) [place] % (Auto) Eos % (Auto) Baso % (Auto) Neut # (Auto) Lymph # (Auto) [place] # (Auto) Eos # (Auto) Baso # (Auto) Immature Gran # (Auto) Sodium Potassium Chloride Carbon Dioxide Anion Gap BUN Creatinine Est Cr Clr Drug Dosing eGFR BUN/Creatinine Ratio Glucose Estimat Average Glucose 111 Hemoglobin A1c 5.5 Calcium Total Bilirubin AST ALT Alkaline Phosphatase Total Protein Albumin Globulin Albumin/Globulin Ratio Triglycerides 68 Cholesterol 153 LDL Cholesterol, Calc 88 VLDL Cholesterol, Calc 14 HDL Cholesterol 51 Cholesterol/HDL Ratio 3.0 TSH Urine Color Urine Appearance Urine pH Ur Specific [place] Urine Protein Urine Glucose (UA) Urine Ketones Urine Blood Urine Nitrite Urine Bilirubin Urine Urobilinogen Ur Leukocyte Esterase Urine WBC (Auto) Urine RBC (Auto) U Hyaline Cast (Auto) U Epithel Cells (Auto) Urine Bacteria (Auto) Hyaline Casts Urine Mucus Urine Test POC Ur Test NEG Salicylates Urine Opiates Screen Ur Methadone, Qual Urine Fentanyl Screen Acetaminophen Urine Barbiturates Ur Phencyclidine (PCP) U Amphetamin/Meth Scrn MDMA (Ecstasy) Screen U Benzodiazepines Scrn Ur Cocaine Metabolite U Marijuana (THC) Screen U Marijuana THC Carboxy Drug Screen Comment Ethyl Alcohol mg/dL SARS-CoV-2, RNA, NAAT NEGATIVE 11/02/24 15:50 WBC RBC Hgb Hct MCV MCH MCHC RDW Std Deviation RDW Coeff of Janet Plt Count MPV Immature Gran % (Auto) Neut % (Auto) Lymph % (Auto) [place] % (Auto) Eos % (Auto) Baso % (Auto) Neut # (Auto) Lymph # (Auto) [place] # (Auto) Eos # (Auto) Baso # (Auto) Immature Gran # (Auto) Sodium Potassium Chloride Carbon Dioxide Anion Gap BUN Creatinine Est Cr Clr Drug Dosing eGFR BUN/Creatinine Ratio Glucose Estimat Average Glucose Hemoglobin A1c Calcium Total Bilirubin AST ALT Alkaline Phosphatase Total Protein Albumin Globulin Albumin/Globulin Ratio Triglycerides Cholesterol LDL Cholesterol, Calc VLDL Cholesterol, Calc HDL Cholesterol Cholesterol/HDL Ratio TSH Urine Color Yellow Urine Appearance Turbid A Urine pH 6.5 Ur Specific [place] 1.018 Urine Protein Negative Urine Glucose (UA) Negative Urine Ketones Negative Urine Blood Negative Urine Nitrite Negative Urine Bilirubin Negative Urine Urobilinogen Negative Ur Leukocyte Esterase 1+ H Urine WBC (Auto) 11-20 H Urine RBC (Auto) 0-2 U Hyaline Cast (Auto) 0-2 U Epithel Cells (Auto) 3-5 H Urine Bacteria (Auto) 4+ H Hyaline Casts Urine Mucus Urine Test POC Ur Test Salicylates Urine Opiates Screen Ur Methadone, Qual Urine Fentanyl Screen Acetaminophen Urine Barbiturates Ur Phencyclidine (PCP) U Amphetamin/Meth Scrn MDMA (Ecstasy) Screen U Benzodiazepines Scrn Ur Cocaine Metabolite U Marijuana (THC) Screen U Marijuana THC Carboxy Drug Screen Comment Ethyl Alcohol mg/dL SARS-CoV-2, RNA, NAAT Hospital Course (1) Schizoaffective disorder, depressive type: (2) Auditory hallucinations: Plan 11/05/2024: Decrease lorazepam to 0.5 mg at bedtime Invega Sustenna 117 mg scheduled for tomorrow 11/04/2024: Discontinue lorazepam 0.5 mg twice daily in morning and afternoon 11/03/2024: Start lorazepam 0.5 mg in the morning and 0.5 mg in the afternoon. Follow-up Invega Sustenna dose expected on 11/06/2024. 11/02/2024: Repeat UA Invega Sustenna 234 mg IM once Start lorazepam 1 mg at bedtime 11/01/2024: -Continue current medications and tx plan 10/31/2024: -Continue current medications and tx plan 10/30/2024: -Increase sertraline to 100mg daily tomorrow -Risperidone 0.5mg TID with meals 10/29/2024: -Increase risperidone to 1mg HS 10/28/2024: -Discontinue olanzapine -Start risperidone 0.5mg BID 10/27/2024: Continue current medications and tx plan 10/26/2024: The patient was admitted to the [facility]) on q15 min checks (behavioral with suicide precautions) for safety. The patient will participate in group, recreational, and milieu therapies and will be offered additional individual and family sessions as clinically appropriate. -Olanzapine 20mg HS -continue prior to admission Sertraline 50mg daily Mental Health & Subst Abuse Tx Psychiatrist Name of Psychiatrist: Izzy Chandra Psychiatrist's Date Of Appointment With Psychiatric Provider: 11/26/2024 Psychiatric Appointment Comment: [facility] to [facility] injection Therapist Name of Therapist: None Architecture Professor Name of Architecture Professor: [facility] Phone Number for Architecture Professor: [phone] Date of Appointment with Architecture Professor: 11/13/24 Time of Appointment with Architecture Professor: 1PM Case Management Appointment Comment: Ed Peters is BSU supervisor filter assembly [email or web address]. He will call after DC Architecture Professor Release of Information: Obtained, Reviewed and Signed Post Discharge Appointments Primary Care Physician Name Of Family Doctor/PCP: Dr. Hendricks Primary Care Release of Information: Obtained, Reviewed and Signed Other #1: Name of Aftercare Appointment: [facility] Phone Number of Aftercare Appointment: [phone] Aftercare Appointment Comment: Ed Peters is BSU supervisor filter assembly [email or web address] Contact Information Discharge Discharge Address: [address] [place] [address], [place] [address] Discharge Plan Discharge Items Patient Disposition: Home - Self-Care Reason For Visit: UNSPECIFIED PSYCHOSIS Discharge Diagnosis: Schizoaffective disorder, depressive type Auditory hallucinations Condition on Discharge: Fair Activity: Resume your previous activity Non-emergency contact: Primary Care Provider and Psychiatrist Call non-emergency contact if: you have any medication questions and your symptoms worsen Follow-up/Referrals: Marshal Hendricks PA-C [Primary Care Provider] - Diet: Regular Addtl Attending Provider Instructions: Continue Invega Sustenna 117mg injection every month. Next expected is 12/04/24. Continue Sertraline 100mg daily Pending Studies at Discharge: No Stand-Alone Forms: My [employer], Smoking Cessation Medications and DC Order Prescriptions: New nicotine (polacrilex) [Nicorette] 2 mg Gum 2 mg MT PRN PRN (Reason: nicotine cravings) Qty: 120 0RF sertraline 100 mg Tablet 100 mg PO DAILY Qty: 30 0RF hydroxyzine HCl 25 mg Tablet 50 mg PO HSZ PRN (Reason: Anxiety, insomnia) Qty: 30 0RF Invega Sustenna 117 mg/0.75 mL syringe 117 mg IM Q28D Qty: 0.75 3RF Rx Instructions: To be administered on 12/04/24 Discontinued haloperidol decanoate 100 mg/mL solution 100 mg IM MONTHLY aripiprazole 5 mg tablet 5 mg PO DAILY sertraline 50 mg tablet 50 mg PO DAILY Discharge Orders: Discharge Order (Routine); Ordered 11/06/24 Ordered By: Rome Gr Admission Data Admit Date/Time: 10/26/24 01:52 Attending Provider: Zoey Hwang Admit Provider: Zoey Hwang Primary Care Provider: Marshal Hendricks C[place] [address] D/C day mgmt > 30 min Patient Type Established History Detailed Exam Detailed Medical Decision Making High Complexity Diagnoses Schizoaffective disorder, depressive type F25.1 Auditory hallucinations R44.0
== END 2024-11-06 15:33 | disposition home or self-care (01) | DRG 885 ==
LOC: ED 16:51 → SUATTDRO 10-26 01:52 → 3S 10-26 01:52